=== PATIENT | female | born 1940 | race Caucasian/White ===

== ENCOUNTER → 2017-10-07 13:51 | Outpatient (REF) | payer MEDICARE, MEDICAID, SELFPAY ==
[2017-10-07 18:41] LABS: Basophils % 0.9 % (0.1-2.0); Eosinophils # 0.2 K/mm3 (0.0-0.4); Eosinophils % 3.4 % (0.1-12.0); Hematocrit 44.1 % (37.0-47.0); Hemoglobin 13.7 g/dL (12.2-16.2); Lymphocytes # 1.5 K/mm3 (0.7-4.5); Lymphocytes % 32.3 K/mm3 (10-50); Mean Corpuscular Hemoglobin 30.6 pg (27.0-31.2); Mean Corpuscular Volume 98.7 fl (81-99); Mean Platelet Volume 10.6 fl (7.4-10.4); Monocytes # 0.3 K/mm3 (0.1-1.0); Monocytes % 7.3 % (1.7-9.3); Neutrophils # 2.6 K/mm3 (1.8-7.8); Neutrophils % 56.1 % (37.0-80.0); Platelet Count 137 K/mm3 (142-424); Red Blood Count 4.47 M/mm3 (4.20-5.40); White Blood Count 4.7 K/mm3 (4.8-10.8)
[2017-10-07 19:34] LABS: Alanine Aminotransferase 20 U/L (12-78); Albumin Level 4.2 gm/dL (3.4-5.0); Albumin/Globulin Ratio 1.2 (1.1-1.8); Alkaline Phosphatase 83 U/L (46-116); Anion Gap 10.1 mEq/L (5-15); Aspartate Amino Transferase 19 U/L (15-37); Bilirubin,Total 0.7 mg/dL (0.2-1.0); Blood Urea Nitrogen 14 mg/dL (7-18); Calcium 9.4 mg/dL (8.5-10.1); Carbon Dioxide 31 mmol/L (21.0-32.0); Chloride 104 mmol/L (98-107); Creatinine,Serum 0.95 mg/dL (0.55-1.02); Estimated Glomerular Filt Rate 57 ml/min (>60); Free T4 (Free Thyroxine) 1.26 ng/dl (0.76-1.46); GFR (African American) 69 ML/MIN (>60); Globulin 3.5 gm/dl (1.3-3.2); Glucose 91 mg/dL (74-106); Potassium 4.1 mmoL/L (3.5-5.1); Sodium 141 mmol/L (136-145); Thyroid Stimulating Hormone 2.87 uIU/ml (0.358-3.740); Total Protein,Serum 7.7 gm/dL (6.4-8.2)
== END ==
LOC: LAB 13:51
PROVIDERS: Visit Provider Emergency Medicine
DX: R53.83 Other fatigue (principal)
CPT/HCPCS: 80053; 84439; 84443; 85025

== ENCOUNTER → 2018-11-03 15:05 | Outpatient (CLI) | payer MEDICARE, MEDICAID, SELFPAY ==
--- NOTE | 2018-11-03 15:08 | MR_ITS ---
MR cervical spine wo con, MR 3-d myelogram/MRCP Ordering Physician: Ishaan Isaac MD Patient Age: 78 years: Female HISTORY: Neck pain fall neck injury/possible fx Fell 3 days ago with left-sided neck pain. Headache. TECHNIQUE: Sagittal STIR, T1, T2, axial T1 and T2. On 1.5T Siemens wide bore MRI. 3-D MR myelogram image set obtained & performed on MRI workstation. Additional sagittal thin section T2 weighted dataset obtained from this latter acquisition as well (---76 CPT) COMPARISON :CT cervical spine 11/02/[address] performed question possible recent traumatic features at C3. However C3 appears normal signal on this MRI with no findings to suggest fracture, either recent or remote.. Even the sensitive STIR images appear surprisingly normal at C3. Thus it appears were merely viewing degenerative changes at superior endplate and I believe a a prominent basivertebral cleft(Vascular channel) at the posterior aspect of C3 accounting for its appearance on recent CT. . Cranial cervical junction appears normal. Adequate volume underlying osseous spinal canal. Multilevel cervical spondylosis and mild degenerative disc changes throughout C-spine. C2/3. Scant central disc prominence and bulge C3/.4 : Mild posterior osteophytic ridging/spondylosis... Minimal central disc protrusion, only very slightly indents the generous thecal sac at midline C4/5. Disc intact. C5/6 disc intact. Only scant central disc prominence C6/7. Disc intact C7/T1, T1/T2, T2/T3, T3/T4, T4/T5 disc intact. Prominent scoliosis at the thoracic spine with levocurvature at the upper most T-spine noted. No acute appearing compression fractures. Slight concave appearance at T2 and T3 likely distorted by the location but could reflect some minor old compression features. More likely congenital Mild degenerative facet changes mid C-spine bilaterally. IMPRESSION------- 1. No recent or acute fracture at C-spine. Particular attention directed to C3 it is intact and unremarkable MR (Degenerative changes and prominent vascular channel account for its appearance on recent CT) 2.... Developing Degenerative disc features at C-spine most notable at C3/4 & less at C2/3: ... C3/4: Central disc protrusion most evident at this level along with minor spondylosis.. Features only slightly indents the generous thecal thecal sac at midline and do not impact the cord.. ... C2/3. Scant central disc bulge .
== END ==
PROVIDERS: PCP Emergency Medicine; Visit Provider Emergency Medicine
DX: M54.2 Cervicalgia (principal); R93.7 Abnormal findings on diagnostic imaging of other parts of musculoskeletal system; W19.XXXA Unspecified fall, initial encounter
CPT/HCPCS: 72141; 76376

== ENCOUNTER 2018-11-10 13:07 | Inpatient (IN) ==
--- NOTE | 2018-11-10 13:17 | Emergency Department Note ---
ED Disposition Clinical Impression: Closed left hip fracture Qualifiers: Encounter type: initial encounter Qualified Code(s): S72.002A - Fracture of unspecified part of neck of left femur, initial encounter for closed fracture Disposition: Admitted As Inpatient Condition on Discharge: Fair - Critical Care Critical Care Time: No Attestation: On 11/10/18, the high probability of a clinically significant, sudden or life threatening deterioration of the following system(s) required my full and direct attention, intervention and personal management. The time I documented below is in addition to time spent performing reported procedures but includes the following listed in this critical care notation. Medical Decision Making - Mj Inquiry Pt receiving controlled substance: Yes Mj was queried for this patient: No Reason not queried -: Emergent pt cond-no time Risks and benefits of using a controlled substance: were not discussed with pt by me Vital Signs: 11/10/18 13:07 11/10/18 14:42 11/10/18 15:13 Temperature 100.0 F H Temperature Source Oral Pulse Rate [Right Brachial] 80 80 86 Respiratory Rate 16 18 Blood Pressure [Right Arm] 179/87 H 191/99 H 174/95 H Blood Pressure Mean [Right Arm] 117 129 121 Blood Pressure Source [Right Arm] Automatic Cuff Automatic Cuff Automatic Cuff Blood Pressure Position [Right Arm] Sitting Supine Sitting 02 Sat by Pulse Oximetry 93 L 91 L 93 L Oxygen Delivery Method Room Air Room Air Nasal Cannula Oxygen Flow Rate (LPM) 2.5 - Lab Data Lab Results 11/10/18 13:20: WBC 5.7, RBC 4.15 L, Hgb 12.7, Hct 38.5, MCV 92.7, MCH 30.5, MCHC 32.9, RDW 13.6, Plt Count 131 L, MPV 9.6, Neut % (Auto) 63.3, Lymph % (Auto) 28.5, [place] % (Auto) 6.2, Eos % (Auto) 1.2, Baso % (Auto) 0.8, Neut # (Auto) 3.6, Lymph # (Auto) 1.6, [place] # (Auto) 0.4, Eos # (Auto) 0.1, Baso # (Auto) 0.0 11/10/18 13:20: Sodium 143, Potassium 3.1 L, Chloride 104, Carbon Dioxide 29, Anion Gap 13.1, BUN 10, Creatinine 0.87, Estimated Creat Clear 27, Estimated GFR 63, Est GFR ( Amer) 76, Glucose 110 H, Calcium 9.2, Total Bilirubin 0.9, AST 22, ALT 25, Alkaline Phosphatase 86, Total Creatine Kinase 58, Troponin I < 0.02, Total Protein 7.7, Albumin 3.8, Globulin 3.9 H, Albumin/Globulin Ratio 1.0 L 11/10/18 13:40: Urine Color Yellow, Urine Appearance Clear, Urine pH 6.5, Ur Specific [place] 1.010, Urine Protein Negative, Urine Glucose (UA) Negative, Urine Ketones Negative, Urine Blood Negative, Urine Nitrate Negative, Urine Bilirubin Negative, Urine Urobilinogen 0.2, Ur Leukocyte Esterase Negative, Urine RBC None, Urine WBC 5-10, Ur Squamous Epith Cells 3-5, Urine Bacteria Trace 11/10/18 15:11: Lactate 0.8 Result diagrams: 11/10/18 13:20 11/10/18 13:20 Orders (Tests/Meds): ED MEDICATIONS Generic Name Dose Route Start Last Admin Trade Name [place] PRN Reason Stop Dose Admin Amlodipine Besylate 5 mg 11/11/18 09:00 Norvasc 5mg Tablet PO 12/11/18 08:59 DAILY PRISCILLA Sodium Chloride 1,000 mls @ 50 mls/hr 11/10/18 15:38 Sod Chlor 0.9% 1000ml Bag IV 12/10/18 15:37 .Q20H PRISCILLA Lisinopril 2.5 mg 11/11/18 09:00 Zestril 2.5mg Tablet PO 12/11/18 08:59 DAILY PRISCILLA Morphine Sulfate 2 mg 11/10/18 15:38 Morphine 4mg/Ml Syringe IV 12/10/18 15:37 Q4HP PRN Severe Pain Ondansetron HCl 4 mg 11/10/18 15:38 Zofran 4mg/2ml Vial IV 12/10/18 15:37 Q8HP PRN Nausea Sodium Chloride 10 ml 11/10/18 15:38 Saline Flush 10ml Syringe IV 12/10/18 13:31 NEEDED PRN Maintain IV Site Discontinued Medications Generic Name Dose Route Start Last Admin Trade Name Freq PRN Reason Stop Dose Admin Morphine Sulfate 2 mg 11/10/18 13:37 11/10/18 15:06 Morphine 4mg/Ml Syringe IV 11/10/18 13:38 2 mg ONCE ONE Administration Ondansetron HCl 4 mg 11/10/18 13:37 11/10/18 15:06 Zofran 4mg/2ml Vial IV 11/10/18 13:38 4 mg ONCE ONE Administration Potassium Chloride 40 meq 11/10/18 15:18 11/10/18 15:50 Klor-Con 20meq Tablet PO 11/10/18 15:19 40 meq ONCE ONE Administration Sodium Chloride 10 ml 11/10/18 13:32 Saline Flush 10ml Syringe IV 12/10/18 13:31 NEEDED PRN Maintain IV Site ORDERS Category Date Time Status Consult to Cardiology [CONS] Routine Cons 11/10/18 15:38 Active Consult to Physician [CONS] Routine Cons 11/10/18 15:38 Ordered Blood Culture Stat Micro 11/10/18 15:51 Received - Radiology Data #1 Image(s): Chest, Hip, Femur Image Reviewed: Yes I reviewed the patient's radiology image Hip: Impacted subcapital fracture left hip. Femur: No additional femur fracture was found. Chest: Severe scoliosis, no acute process - CT Data CT Scan: Head, C-Spine Time Received: 14:[address] Reviewed: Yes: I have viewed the radiologist's interpretation Findings Narrative: Head: Negative Cervical spine: Degenerative changes, no acute fracture - ECG Data Tracing #1 EKG interpreted by Kailash Oliveros MD: Rhythm: sinus Rate: 80 [place]: normal Ectopy: none Conduction: normal ST Segment Changes: none T Wave Changes: none Q Waves: none No evidence of acute ischemia or injury Poor R wave progression. Baseline artifact present, but I consider the EKG adequate for accurate interpretation. - Physician Consults Physician Consulted: Freddie Time: 14:58 Reason -: Orthopedic Eval/Care Comment/Response: No traction needed. N.p.o. after midnight. Additional Consult: Poncho Time: 15:01 Reason -: Admission Comment/Response: Agrees to admit the patient to the hospital. We discussed the patient's clinical information, including history, exam, laboratory and radiology results and ED course. Per hospital procedure, I will write temporary bridge inpatient orders on the patient. Specific orders requested by the admit deborah physician: Cardiology consult, echo Additional Consult: BRUCE Benton for Dr. Lynch Time: 15:25 Reason -: Cardiology Eval/Care Comment/Response: Informed of consult General Adult HPI - General Chief complaint: Fall Stated complaint: fall Time Seen by Provider: 11/10/18 13:16 Mode of Arrival: EMS Limitations: No Limitations Description of Symptoms (Recalled from ER Triage Doc. by RN): PT advises she was walking across her bedroom when she fell. Unsure of why she fell and now she has left hip/thigh pain. Pt has been falling a lot recently and currently has a fx in her neck. - History of Present Illness HPI narrative: Brought in by ambulance for a fall. Patient says she fell because her left lower extremity gave out on her. She complains of pain in her left thigh and hip. Great granddaughter says she found her laying on her left side. She denies hitting her head and denies headache, but says her neck hurts since she fell today. She denies any other injuries. She also fell a week ago and was seen in this emergency department. She had an extensive workup including CT scans of her head and cervical spine. CT scan of her cervical spine showed a questionable fracture of C3, but a follow-up MRI was negative. However, she says her neck pain that she has now is new after the fall today. - Related Data Home Medications Medication Instructions Recorded Confirmed Amlodipine Besylate [Norvasc 5mg 5 mg PO DAILY 11/02/18 11/10/18 tablet] Lisinopril [Lisinopril 2.5mg Tab] 2.5 mg PO DAILY 11/02/18 11/10/18 Loratadine [Allergy Relief] 10 mg PO DAILY 11/02/18 11/10/18 Previous Rx's Medication Instructions Recorded ibuprofen 400 mg tablet 400 mg PO BID PRN #60 tab 07/20/18 Allergies Allergy/AdvReac Type Severity Reaction Status Date / Time No Known Allergies Allergy Unverified 11/10/18 15:46 [facility] History - Hepatitis A Screen Drug use history?: No High risk sexual behaviors?: No History of sexually transmitted infection?: No Currently employed?: No Childcare worker?: No Do you have indoor plumbing?: Yes Do you have electricity?: Yes Attestation statement:: This patient has been screened for Hepatitis A risk factors. I have reviewed the patient's past medical history: Yes Medical History: Reports:: Coronary Artery Disease, Heart Murmur, Hypertension Other Medical History: Reports: Anemia Comment: aortic stenosis Other Surgeries: Yes: Tubal Ligation Amputation: No Fractures: No - Social History Smoking Status: Never smoker Alcohol Intake: never Substance Use Type: denies use Occupational Status: retired Family Hx:: Cancer ROS Obtained: Yes All systems reviewed & no additional complaints - Constitutional Constitutional: Denies fever(s), Reports frequent falls - Cardiovascular Cardiovascular: Denies chest pain - Respiratory Respiratory: No cough, No dyspnea - Gastrointestinal Gastrointestingal: Denies: abdominal pain, diarrhea, vomiting - Musculoskeletal Musculoskeletal: Reports as per HPI, Reports joint pain (Left hip), Reports neck pain - Neurologic Neurologic: Reports headache(s) Physical Exam - General General appearance: alert, in no apparent distress - Eye Eye exam: Present: normal appearance, PERRL, EOMI - ENT ENT exam: Present: mucous membranes moist, other (Old appearing ecchymosis of right periorbital area. Healing abrasion of upper lip.) - Neck Neck exam: Present: full ROM, trachea midline. Absent: tenderness (Posterior) - Chest Chest inspection: Present: normal inspection, symmetric chest wall rise. Absent: tenderness - Respiratory Respiratory exam: Present: normal lung sounds bilaterally. Absent: respiratory distress - Cardiovascular Cardiovascular exam: Present: regular rate, normal rhythm, normal heart sounds - Abdominal Exam Abdominal exam: Present: soft. Absent: distention, tenderness - Extremities Exam Extremities exam: Present: tenderness (Left hip and thigh. Pain increased with rotation of hip.) - Neurological Exam Neurological exam: Present: alert, oriented X3, CN II-XII intact. Absent: motor sensory deficit - Psychiatric Psychiatric exam: Present: normal affect, normal mood - Skin Skin exam: Present: warm, dry
[2018-11-10 13:41] LABS: Basophils % 0.8 % (0.1-2.0); Eosinophils # 0.1 K/mm3 (0.0-0.4); Eosinophils % 1.2 % (0.1-12.0); Hematocrit 38.5 % (37.0-47.0); Hemoglobin 12.7 g/dL (12.2-16.2); Lymphocytes # 1.6 K/mm3 (0.7-4.5); Lymphocytes % 28.5 % (10-50); Mean Corpuscular HGB Conc 32.9 g/dL (31.8-35.4); Mean Corpuscular Hemoglobin 30.5 pg (27.0-31.2); Mean Corpuscular Volume 92.7 fl (81-99); Mean Platelet Volume 9.6 fl (7.4-10.4); Monocytes # 0.4 K/mm3 (0.1-1.0); Monocytes % 6.2 % (1.7-9.3); Neutrophils # 3.6 K/mm3 (1.8-7.8); Neutrophils % 63.3 % (37.0-80.0); Platelet Count 131 K/mm3 (142-424); Red Blood Count 4.15 M/mm3 (4.20-5.40); Red Cell Distribution Width 13.6 % (11.5-17.5); White Blood Count 5.7 K/mm3 (4.8-10.8)
[2018-11-10 13:50] LABS: Microscopic, Urine URINE MICROSCOPIC (MICROSCOPIC)
[2018-11-10 13:51] LABS: Appearance,Urine CLEAR (Clear); Bilirubin,Urine Negative (Negative); Blood, Urine Negative (Negative); Color,Urine YELLOW (Yellow); Glucose,Urine (UA) Negative (Negative); Ketones,Urine Negative (Negative); Leukocyte Esterase,Urine Negative (Negative); PH,Urine 6.5 (5.0-8.5); Protein,Urine Negative (Negative); Urobilinogen,Urine 0.2 EU/dl (0.2)
[2018-11-10 13:51] LABS: Alanine Aminotransferase 25 U/L (12-78); Albumin Level 3.8 gm/dL (3.4-5.0); Alkaline Phosphatase 86 U/L (46-116); Anion Gap 13.1 mEq/L (5-15); Aspartate Amino Transferase 22 U/L (15-37); Bilirubin,Total 0.9 mg/dL (0.2-1.0); Blood Urea Nitrogen 10 mg/dL (7-18); Calcium 9.2 mg/dL (8.5-10.1); Carbon Dioxide 29 mmol/L (21.0-32.0); Chloride 104 mmol/L (98-107); Creatine Kinase 58 U/L (26-192); Globulin 3.9 gm/dl (1.3-3.2); Glucose 110 mg/dL (74-106); Potassium 3.1 mmoL/L (3.5-5.1); Sodium 143 mmol/L (136-145); Total Protein,Serum 7.7 gm/dL (6.4-8.2)
[2018-11-10 14:30] LABS: Bacteria,Urine Trace /lpf
--- NOTE | 2018-11-10 18:58 | Consult Report ---
*Admission Date: 11/10/18 *Chief complaint: Left hip pain after a fall *History of present illness: Patient is a 78-year-old female admitted from the ER for management of left hip fracture. Patient's granddaughter is in the room with her at the time of examination. Patient says she fell down while walking across the bedroom and is not sure why she fell. She thinks her left leg gave out on her. Her grandd karly says she has been falling a lot recently. She also had a fall about a week ago and was seen in the ER at which point no acute injuries were noted. Following the fall today she complained of pain in her left hip and could not weight-bear. Her granddaughter says she found her laying on her left side. She denies hitting her head and denies headache, or loss of consciousness. She denies any other injuries. She lives with her granddaughter and has walking aids including a walker at home but seldom uses them. Review of Systems - Constitutional Denies anorexia, Denies fever(s) - Eyes Denies change in vision - ENT Denies sore throat - *Cardiovascular Denies chest pain, Denies shortness of breath - *Respiratory Denies cough, Denies shortness of breath - *Gastrointestinal Denies abdominal pain - *Musculoskeletal Reports joint pain, Reports limited joint movement - *Neurologic Reports frequent falls, Reports headache(s) [facility] History Medical History: Reports:: Cancer (BREAST CANCER 30 YEARS AGO), Coronary Artery Disease, Heart Murmur, Hypertension Denies:: Diabetes Mellitus Type 1, Diabetes Mellitus Type 2, MRSA *Have you ever received a pneumonia vaccine?: Yes *Have you received a flu vaccine this season?: Yes Other Medical History: Reports: Anemia Laterality Cases: Bilateral: Breast Biopsy, Mastectomy Other Surgeries: Yes: Tubal Ligation Amputation: No Fractures: No - *Social History Educational Level: Attended Grade School Smoking Status: Never smoker Alcohol Intake: never Substance Use Type: denies use *Occupational Status:: retired Housing: house Household Members: children *Travel in the last 8 weeks: None - Psychiatric History Expresses thoughts of harming self/others: None Suicide Plan Description: No Plan Family Hx:: Cancer Meds Home Medications Medication Instructions Recorded Confirmed Type Amlodipine Besylate [Norvasc 5mg 5 mg PO DAILY 11/02/18 11/10/18 History tablet] Lisinopril [Lisinopril 2.5mg Tab] 2.5 mg PO DAILY 11/02/18 11/10/18 History Loratadine [Allergy Relief] 10 mg PO DAILY 11/02/18 11/10/18 History Ibuprofen [Motrin 400mg 400 mg PO BIDP PRN 11/11/18 11/11/18 History tablet] Allergies Allergy/AdvReac Type Severity Reaction Status Date / Time No Known Allergies Allergy Unverified 11/10/18 15:46 Exam Vital signs and Labs for Last 24 Hours: Temp Pulse Resp BP Pulse Ox 99.0 F 87 16 187/98 H 91 L 11/10/18 16:55 11/10/18 16:55 11/10/18 16:55 11/10/18 16:55 11/10/18 15:22 Laboratory Results - last 24 hr 11/10/18 13:20: WBC 5.7, RBC 4.15 L, Hgb 12.7, Hct 38.5, MCV 92.7, MCH 30.5, MCHC 32.9, RDW 13.6, Plt Count 131 L, MPV 9.6, Neut % (Auto) 63.3, Lymph % (Auto) 28.5, [place] % (Auto) 6.2, Eos % (Auto) 1.2, Baso % (Auto) 0.8, Neut # (Auto) 3.6, Lymph # (Auto) 1.6, [place] # (Auto) 0.4, Eos # (Auto) 0.1, Baso # (Auto) 0.0 11/10/18 13:20: Sodium 143, Potassium 3.1 L, Chloride 104, Carbon Dioxide 29, Anion Gap 13.1, BUN 10, Creatinine 0.87, Estimated Creat Clear 27, Estimated GFR 63, Est GFR ( Amer) 76, Glucose 110 H, Calcium 9.2, Total Bilirubin 0.9, AST 22, ALT 25, Alkaline Phosphatase 86, Total Creatine Kinase 58, Troponin I < 0.02, Total Protein 7.7, Albumin 3.8, Globulin 3.9 H, Albumin/Globulin Ratio 1.0 L 11/10/18 13:40: Urine Color Yellow, Urine Appearance Clear, Urine pH 6.5, Ur Specific [place] 1.010, Urine Protein Negative, Urine Glucose (UA) Negative, Urine Ketones Negative, Urine Blood Negative, Urine Nitrate Negative, Urine Bilirubin Negative, Urine Urobilinogen 0.2, Ur Leukocyte Esterase Negative, Urine RBC None, Urine WBC 5-10, Ur Squamous Epith Cells 3-5, Urine Bacteria Trac e 11/10/18 15:11: Lactate 0.8 I & O for Last 24 hours: Intake & Output 11/08/18 11/09/18 11/10/18 11/11/18 11:59 11:59 11:59 11:59 Intake Total 0 / 0 Output Total 850 / 850 Balance -850 / -850 Weight 85 lb 9 oz - Constitutional no acute distress, average body habitus, cooperative - *Routine HEENT Exam Head: Present: normocephalic, atraumatic Eye: Present: EOMI ENT: Present: mucous membranes moist - *Routine Neck Exam Present: supple, full ROM, trachea midline. Absent: lymphadenopathy - *Routine Respiratory Exam Present: CTA bilaterally. Absent: respiratory distress - *Routine Cardiovascular Exam Present: RRR, Normal S1, Normal S2 - *Routine Abdominal Exam Present: soft, normoactive bowel sounds. Absent: organomegaly - *Routine Extremities Exam Comments: On examination of her lower extremities, the limb lengths are equal. The alignment is neutral. On examination of the LEFT hip the skin is normal. No rashes or lesions noted. She is tender over the LEFT hip both anteriorly and posteriorly. Any attempted movements of the LEFT hip are painful. Thigh and calf are soft and nontender. Dorsalis pedis and posterior tibial pulses are palpable 1+ bilaterally. Sensation is grossly intact. She has good range of knee, foot, ankle and toe movements. Imaging: X-rays of her pelvis and LEFT hip were reviewed along with the radiologist's report. The x-rays show a LEFT valgus impacted subcapital femoral neck fracture. The hip joint space is well preserved. No other acute changes noted. There is a degree of osteopenia noted. No evidence of any metastatic lesions on the x-ray. - *Routine Skin Exam Present: intact, warm, normal turgor - *Routine Neurological Exam Present: alert, oriented X3, CN II-XII intact - Routine Psychiatric Exam Present: normal affect, cooperative Results - Labs Result Diagrams: 11/15/18 06:23 11/15/18 06:23 Labs: Abnormal lab results 11/10/18 11/10/18 Range/Units 13:20 13:20 RBC 4.15 L (4.20-5.40) M/mm3 Plt Count 131 L (142-424) K/mm3 Potassium 3.1 L (3.5-5.1) mmoL/L Glucose 110 H (74-106) mg/dL Globulin 3.9 H (1.3-3.2) gm/dl Albumin/Globulin Ratio 1.0 L (1.1-1.8) H & H 11/10/18 Range/Units 13:20 Hgb 12.7 (12.2-16.2) g/dL Hct 38.5 (37.0-47.0) % All other labs normal. Assessment and Plan (1) Closed left hip fracture Current visit: Yes Status: Acute Qualifiers: Encounter type: initial encounter Qualified Code(s): S72.002A - Fracture of unspecified part of neck of left femur, initial encounter for closed fracture Category: Medical Code(s): S72.002A - Fracture of unspecified part of neck of left femur, initial encounter for closed fracture - Assessment and plan all Dx Assessment and Plan for all problems:: I have reviewed the clinical and x-ray findings with the patient and her granddaughter who was with her in the room. I have discussed the diagnosis and management options in detail including both nonsurgical and surgical. We discussed the surgical options in the form of either cannulated hip screw fixation or hemiarthroplasty. We discussed the pros and cons of both the procedures. Given that the fracture appears to be stable with valgus impaction, I have recommended a cannulated hip screw fixation. We discussed the possibility of nonunion, avascular necrosis, loss of fixation and the likely need for further surgery in future if we elected this option. I explained the procedure, risks, benefits, alternatives and the expected postoperative course. I also explained to the patient and her granddaughter with drawings of the fracture and the proposed surgical procedure. I have given the patient a copy of the x-ray and also showed postoperative x-rays of similar fractures treated surgically. The complications discussed include but are not limited to- infection, injury to nerves and blood vessels, DVT and PE, femur fracture, limb length inequality, implant failure, nonunion, malunion, avascular necrosis, loss of fixation, heterotopic ossification, incomplete relief of pain, incomplete return of function or motion, likely need for further surgery in future including conversion to a myrtle-or total hip arthroplasty, anesthetic/medical complications including heart attack, stroke, transfusion reactions and even . We discussed how any of these events can be devastating. I've explained that the patient is at a significant surgical risk due to her age, medical issues, and fragility of the bone. Family and patient seem to understand and accept these risks. We have discussed nonsurgical alternatives as well. The nonoperative management would essentially consist of prolonged bed rest and traction (skeletal/skin) in bed and pain medication and has exceptionally poor outcome. This could result in nonunion and/or malunion of the fracture and almost certainly, the patient has a very high risk of decubitus ulcers, UTI, respiratory tract infections, DVT/PE and other complications from being bedridden. I have explained to them that the standard of care for this type of fracture is surgical throughout the country unless the patient is very ill to undergo surgery. We also discussed the postoperative course including the rehab and physical therapy required. Patient lives at home with her granddaughter and may need to go to a snf facility for rehab after surgery. All the questions were answered and patient/family verbalized a good understanding. We will obtain a medical clearance from Dr. Isaac. We will also obtain a preoperative anesthetic evaluation. The limb was appropriately marked and initialed by me. Recommendations for preoperative preparation include- Type and screen Electrocardiogram Continue nothing by mouth after 4 AM Schedule for surgery with the Operating Room Continue IV fluids DVT prophylaxis as per protocol Analgesia as needed Consent patient for a cannulated screw fixation LEFT hip/hemiarthroplasty LEFT hip. Order 2 g of IV Ancef for preoperative prophylaxis to start half an hour before surgery. I am planning to take the patient for surgery at the earliest opportunity once medically cleared. Thank you for the opportunity to take part in the care of this very pleasant patient.
--- NOTE | 2018-11-10 21:42 | Cardiology Report ---
PROCEDURE: 2-D M-mode and color Doppler study INDICATIONS FOR THE TEST: Chest pain COPD Heart Murmur+ Tobacco Smoking Palpitations Fatigue+ Syncope Edema Hypertension+Diabetes Mellitus Rheumatic Fever+ SOB+WILLIS+Obesity Hyperlipidemia Family History HD+ Additional History stents, CAD, preop clearance hip fracture, hx of rheumatic fever PATIENT INFORMATION HEIGHT: 60 WEIGHT: 80 GENDER: Female B/P: 178/87 2-D/M-MODE INTERPRETATION: 2-D MEASUREMENTS OBSERVED VALUES IN CMS Right Ventricular Dimension (RVDd) 2.6 Interventricular Septum (Thickness)(IVsd) 1.0 Left Ventricular Internal Dimensions(LVIDd) 3.4 Left Ventricular Posterior Wall (Thickness)(LVPWd) 0.9 Aortic Root 1.7 Aortic Cusp Separation 0.9 Left Atrial Dimensions (LAD) 3.2 2D 1. Left atrium is mildly enlarged, left ventricle is normal size, mild concentric left ventricular hypertrophy, visually estimated ejection fraction 55% with no regional wall motion abnormality. 2. The right atrium and right ventricle are normal size and contractility. 3. The aortic valve is heavily thickened and calcified with severe restriction the leaflet mobility. 4. The mitral and tricuspid valve leaflets are minimally thickened 5. The pulmonic valve is poorly present. 6. No significant pericardial effusion noted. DOPPLER INTERROGATION: 1. The maximum aortic out flow velocity recorded study is 3.6 m/s, resulting in a mean gradient across valve of 33 mmHg, valve area is 1.0 sq cm represents severe aortic stenosis. There is moderate aortic insufficiency present. 2. The mitral inflow velocity within normal range, there is no mitral stenosis, there is mild mitral regurgitation, grade 1 diastolic dysfunction seen without tissue Doppler evidence of raised left atrial pressure. 3. Mild tricuspid regurgitation, calculated right ventricular systolic pressure is 44 mmHg consistent with moderate pulmonary hypertension. CONCLUSION: 1. Mildly enlarged left atrium, normal left ventricular size, mild concentric left ventricular hypertrophy, visually estimate ejection fraction of 55% with no regional wall motion abnormality. Grade 1 diastolic dysfunction seen without tissue Doppler evidence of raised left atrial pressure. 2. Thickened and calcified aortic valve with mean gradient across valve of 33 mmHg, valve area 1.0 sq cm represents severe aortic stenosis, there is moderate aortic insufficiency. 3. Mild mitral and tricuspid regurgitation, calculated right ventricular systolic pressure 44 mmHg consistent with moderate pulmonary hypertension. 4. No significant pericardial effusion noted.
[2018-11-11 07:06] LABS: Anion Gap 8.8 mEq/L (5-15); Calcium 8.8 mg/dL (8.5-10.1); Potassium 3.8 mmoL/L (3.5-5.1)
--- NOTE | 2018-11-11 07:33 | Pharmacy Consult Notes ---
[facility] Pharmacy VTE Monitoring - Patient Demographics Admission date: 11/10/18 Report Date: 11/11/18 Time: 07:32 Allergies/Adverse Reactions: Patient Allergies No Known Allergies Allergy (Unverified 11/10/18 15:46) Height: 1.52 m Weight: 41.078 kg Patient Problems: Current Active Problems Closed left hip fracture (Acute) - VTE Risk Labs: VTE Related Lab Results Hgb 12.7 g/dL (12.2-16.2) 11/10/18 13:20 Hct 38.5 % (37.0-47.0) 11/10/18 13:20 Plt Count 131 K/mm3 (142-424) L 11/10/18 13:20 BUN 10 mg/dL (7-18) 11/10/18 13:20 Creatinine 0.87 mg/dL (0.55-1.02) 11/10/18 13:20 Estimated Creat Clear 27 mL/min (50-200) 11/10/18 13:20 Was VTE Risk Assessment Performed: Yes VTE Risk Level: Very Low Risk - Prophylaxis VTE Prophylaxis Ordered?: Yes Types of VTE Prophylaxis: TEDS Knee High Location of Applied Device: Bilateral Lower Extremeties - VTE Diagnosis Confirmed Treatment or plan recommended: Continue Current Treatment
--- NOTE | 2018-11-11 08:56 | Consult Report ---
History of Present Illness Consult date: 11/11/18 Requesting physician: Ishaan Isaac Consult reason: pre-op evaluation Chief complaint: pre-op evaluation Additional Medical History:: 1. Aortic stenosis, severe A. Echo, 11/2018, 2D 1. Left atrium is mildly enlarged, left ventricle is normal size, mild concentric left ventricular hypertrophy, visually estimated ejection fraction 55% with no regional wall motion abnormality. 2. The right atrium and right ventricle are normal size and contractility. 3. The aortic valve is heavily thickened and calcified with severe restriction the leaflet mobility. 4. The mitral and tricuspid valve leaflets are minimally thickened 5. The pulmonic valve is poorly present. 6. No significant pericardial effusion noted. DOPPLER INTERROGATION: 1. The maximum aortic out flow velocity recorded study is 3.6 m/s, resulting in a mean gradient across valve of 33 mmHg, valve area is 1.0 sq cm represents severe aortic stenosis. There is moderate aortic insufficiency present. 2. The mitral inflow velocity within normal range, there is no mitral stenosis, there is mild mitral regurgitation, grade 1 diastolic dysfunction seen without tissue Doppler evidence of raised left atrial pressure. 3. Mild tricuspid regurgitation, calculated right ventricular systolic pressure is 44 mmHg consistent with moderate pulmonary hypertension. CONCLUSION: 1. Mildly enlarged left atrium, normal left ventricular size, mild concentric left ventricular hypertrophy, visually estimate ejection fraction of 55% with no regional wall motion abnormality. Grade 1 diastolic dysfunction seen without tissue Doppler evidence of raised left atrial pressure. 2. Thickened and calcified aortic valve with mean gradient across valve of 33 mmHg, valve area 1.0 sq cm represents severe aortic stenosis, there is moderate aortic insufficiency. 3. Mild mitral and tricuspid regurgitation, calculated right ventricular systolic pressure 44 mmHg consistent with moderate pulmonary hypertension. 4. No significant pericardial effusion noted. 2. Left femoral neck fracture, 11/2018 3. HTN A. Renal angiogram, 10/2014, ANGIOGRAPHIC RESULTS: 1. The right renal artery is singular and has mild nonflow limiting stenosis in the proximal segment followed by a small long tubular aneurysm followed by a mild nonflow limiting stenosis. There is no angiographic evidence of fibromuscular dysplasia 2. The left renal artery is singular and has an unusual moderate sized aneurysm in the distal aspect of the renal artery. Branching off this aneurysm are multiple smaller renal arteries which then go into the parenchyma itself. The aneurysm is approximately 1.5 cm to 2 cm in dimension. This aneurysm has an almost vascular ectatic appearance. Impression: 1. At least moderate-sized left renal artery aneurysm 2. 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 Medical management for both aneurysms 2. Control of hypertension 3. The left aneurysm is not amenable to percutaneous intervention such as stent grafting due to its unusual location and morphology. This aneurysm is very distal in the main segment of the renal artery and then has multiple subsegmental branches off this aneurysm. There is no way to exclude the aneurysm because of the complex of the of the aneurysm with its location being so distal in the renal artery. The only treatment for this would be nephrectomy if this exceeds 2.1 cm. I would recommend a CTA of the renal artery to get a specific measurement. If greater than 2.1 cm we may want to refer her for nephrectomy. This is a fairly ill lady very thin and almost appears malnourished. Nephrectomy is a major undertaking and could render her significant morbidity and possibly even mortality due to the vastness of the surgery. We may want to continue treating her medically either in if the aneurysm as above 2.1 cm due to this specific patient's likelihood for significant morbidity mortality with this large surgical undertaking 4. Underweight 5. Lexiscan myoview, 09/2014, no ischemia and normal LVEF. History of present illness: 78-year-old white female admitted for hip fracture after fall. Patient relates walking through her house when she fell. She is unsure as to whether she had chest pain, blacked out or just tripped and fell. Patient's granddaughter is with her today but was not present at the time of the fall. Patient reportedly has been falling recently with bruising under the right eye and on the upper lip noted from a fall last week. She was worked up in the ER with possible cervical fracture but further evaluation with MRI reportedly showed no acute fracture. Head CT at that time was unremarkable. Cardiology was asked to see the patient at this time for preop evaluation. Patient does have severe severe aortic stenosis with maximum velocity of 3.6 m/s across the valve with a valve area of 1.0 sq cm. Again patient denies chest pain but is unable to provide details surrounding her recent falls. [facility] History Medical History: Reports:: Cancer (BREAST CANCER 30 YEARS AGO), Coronary Artery Disease, Heart Murmur, Hypertension Denies:: Diabetes Mellitus Type 1, Diabetes Mellitus Type 2, MRSA *Have you ever received a pneumonia vaccine?: Yes *Have you received a flu vaccine this season?: Yes Other Medical History: Reports: Anemia Laterality Cases: Bilateral: Breast Biopsy, Mastectomy Other Surgeries: Yes: Tubal Ligation Amputation: No Fractures: No - *Social History Educational Level: Attended Grade School Smoking Status: Never smoker Alcohol Intake: never Substance Use Type: denies use *Occupational Status:: retired Housing: house Household Members: children *Travel in the last 8 weeks: None - Psychiatric History Expresses thoughts of harming self/others: None Suicide Plan Description: No Plan Family Hx:: Cancer Meds Home Medications Medication Instructions Recorded Confirmed Type Amlodipine Besylate [Norvasc 5mg 5 mg PO DAILY 11/02/18 11/10/18 History tablet] Lisinopril [Lisinopril 2.5mg Tab] 2.5 mg PO DAILY 11/02/18 11/10/18 History Loratadine [Allergy Relief] 10 mg PO DAILY 11/02/18 11/10/18 History Ibuprofen [Motrin 400mg 400 mg PO BIDP PRN 11/11/18 11/11/18 History tablet] Allergies Allergy/AdvReac Type Severity Reaction Status Date / Time No Known Allergies Allergy Unverified 11/10/18 15:46 Review of Systems - *Cardiovascular Reports shortness of breath with activity, Denies chest pain - *Respiratory Reports shortness of breath with activity - *Gastrointestinal Denies abdominal pain - *Genitourinary Denies blood in urine - *Musculoskeletal Reports joint pain, Reports back pain - *Neurologic Reports frequent falls, Reports headache(s) Exam Vital signs and Labs for Last 24 Hours: Temp Pulse Resp BP Pulse Ox 98.0 F 77 16 151/82 H 96 11/11/18 08:00 11/11/18 08:00 11/11/18 08:00 11/11/18 08:00 11/11/18 08:00 Laboratory Results - last 24 hr 11/10/18 13:20: WBC 5.7, RBC 4.15 L, Hgb 12.7, Hct 38.5, MCV 92.7, MCH 30.5, MCHC 32.9, RDW 13.6, Plt Count 131 L, MPV 9.6, Neut % (Auto) 63.3, Lymph % (Auto) 28.5, [place] % (Auto) 6.2, Eos % (Auto) 1.2, Baso % (Auto) 0.8, Neut # (Auto) 3.6, Lymph # (Auto) 1.6, [place] # (Auto) 0.4, Eos # (Auto) 0.1, Baso # (Auto) 0.0 11/10/18 13:20: Sodium 143, Potassium 3.1 L, Chloride 104, Carbon Dioxide 29, Anion Gap 13.1, BUN 10, Creatinine 0.87, Estimated Creat Clear 27, Estimated GFR 63, Est GFR ( Amer) 76, Glucose 110 H, Calcium 9.2, Total Bilirubin 0.9, AST 22, ALT 25, Alkaline Phosphatase 86, Total Creatine Kinase 58, Troponin I < 0.02, Total Protein 7.7, Albumin 3.8, Globulin 3.9 H, Albumin/Globulin Ratio 1.0 L 11/10/18 13:40: Urine Color Yellow, Urine Appearance Clear, Urine pH 6.5, Ur Specific [place] 1.010, Urine Protein Negative, Urine Glucose (UA) Negative, Urine Ketones Negative, Urine Blood Negative, Urine Nitrate Negative, Urine Bilirubin Negative, Urine Urobilinogen 0.2, Ur Leukocyte Esterase Negative, Urine RBC None, Urine WBC 5-10, Ur Squamous Epith Cells 3-5, Urine Bacteria Trace 11/10/18 15:11: Lactate 0.8 11/11/18 06:43: Sodium 145, Potassium 3.8 D, Chloride 110 H, Carbon Dioxide 30, Anion Gap 8.8, BUN 10, Creatinine 0.85, Estimated Creat Clear 29, Estimated GFR 64, Est GFR ( Amer) 78, Glucose 110 H, Calcium 8.8 I & O for Last 24 hours: Intake & Output 11/08/18 11/09/18 11/10/18 11/11/18 11:59 11:59 11:59 11:59 Intake Total 0 / 0 Output Total 1310 / 1310 Balance -1310 / -1310 Weight 90 lb 9 oz - *Routine HEENT Exam Head: Present: normocephalic Eye: Present: EOMI, PERRL ENT: Present: mucous membranes moist - *Routine Neck Exam Present: supple, carotid bruit. Absent: JVD - *Routine Respiratory Exam Present: CTA bilaterally, diminished air movement. Absent: accessory muscle use, rales, rhonchi, wheezes - *Routine Cardiovascular Exam Present: RRR, murmur. Absent: gallop, rubs Comments: Grade 3/6 to 4/6 systolic ejection murmur across the precordium with radiation towards the neck. - *Routine Abdominal Exam Present: soft. Absent: tenderness, distended, guarding - *Routine Extremities Exam Absent: edema, calf tenderness - *Routine Neurological Exam Present: alert, oriented X3, moving all extremities Assessment and Plan (1) Closed left hip fracture Current visit: Yes Status: Acute Qualifiers: Encounter type: initial encounter Qualified Code(s): S72.002A - Fracture of unspecified part of neck of left femur, initial encounter for closed fracture Category: Medical Code(s): S72.002A - Fracture of unspecified part of neck of left femur, initial encounter for closed fracture (2) Severe aortic stenosis Current visit: Yes Status: Acute Category: Medical Code(s): I35.0 - Nonrheumatic aortic (valve) stenosis (3) Syncope Current visit: Yes Status: Acute Category: Medical Code(s): R55 - Syncope and collapse (4) Pre-op evaluation Current visit: Yes Status: Acute Category: Medical Code(s): Z01.818 - Encounter for other preprocedural examination - Assessment and plan all Dx Assessment and Plan for all problems:: 1. Patient is an increased but acceptable risk to proceed with surgical correction of left hip fracture. Monitor postop vitals with avoidance of meds that could cause hypotension and bradycardia. 2. With increase in falls recently in the setting of severe aortic stenosis it is presumed that the patient has become symptomatic due to her aortic stenosis. Patient will need right and left heart cath during this admission after her surgery (anticipate Friday in case dual antiplatelet therapy is needed post stenting) and possibly transfer to [facility] for evaluation for TAVR procedure.
--- NOTE | 2018-11-11 12:27 | Progress Note ---
[facility] Anesthesia Checklist - Patient Identification Patient Identification: Arm Band - Structural Data Admitted From: Inpatient Planned Operative Procedure/s: left hip cannulated screw fixation Consent for Planned Operative Procedure(s) Verified: Yes Verified Documents: Surgical Consent, History and Physical, Cardiac Clearance - NPO Status Verified Time NPO: 00:00 - Additional verifications Anesthesia Reactions: No - Airway Assessment C-Spine Mobility Assessed: Yes TMJ Mobility Assessed: Yes Dentition: Edentulous (upper and lower dentures) - Neurological Assessment Level of Consciousness: Awake, Alert - Anesthesia Plan Anesthesia Risk discussed: Yes Anesthesia Plan: Verified ASA Class: III Anesthesia Type: General [facility] History I have reviewed the patient's past medical history: Yes Medical History: Reports:: Cancer (BREAST CANCER 30 YEARS AGO), Coronary Artery Disease, Heart Murmur, Hypertension, Valvular Heart Disease (severe aortic stenosis) Denies:: Diabetes Mellitus Type 1, Diabetes Mellitus Type 2, MRSA *Have you ever received a pneumonia vaccine?: Yes *Have you received a flu vaccine this season?: Yes Other Medical History: Reports: Anemia Laterality Cases: Bilateral: Breast Biopsy, Mastectomy Other Surgeries: Yes: Tubal Ligation Amputation: No Fractures: No - *Social History Educational Level: Attended Grade School Smoking Status: Never smoker Alcohol Intake: never Substance Use Type: denies use *Occupational Status:: retired Housing: house Household Members: children *Travel in the last 8 weeks: None - Psychiatric History Expresses thoughts of harming self/others: None Suicide Plan Description: No Plan Family Hx:: Cancer
--- NOTE | 2018-11-11 12:28 | History & Physical Report ---
*Admission Date: 11/10/18 *Chief complaint: fall *History of present illness: this wf presents with fall at home - uncertain etiology but prob syncopal related to aortic stenosis - she has had increased fall over the last few days - pt was seen in the ed -T advises she was walking across her bedroom when she f ell. Unsure of why she fell and now she has left hip/thigh pain. Pt has been falling a lot recently and currently has a fx in her neck. Brought in by ambulance for a fall. Patient says she fell because her left lower extremity gave out on her. She complains of pain in her left thigh and hip. Great granddaughter says she found her laying on her left side. She denie s hitting her head and denies headache, but says her neck hurts since she fell today. She denies any other injuries. She also fell a week ago and was seen in this emergency department. She had an extensive workup including CT scans of her head and cervical spine. CT scan of her cervical spine showed a questionable fracture of C3, but a follow-up MRI was negative. However, she says her neck pain that she has now is new after the fall today- pt was admitted for surg and eval of syncope [facility] History I have reviewed the patient's past medical history: Yes Medical History: Reports:: Cancer (BREAST CANCER 30 YEARS AGO), Coronary Artery Disease, Heart Murmur, Hypertension Denies:: Diabetes Mellitus Type 1, Diabetes Mellitus Type 2, MRSA *Have you ever received a pneumonia vaccine?: Yes *Have you received a flu vaccine this season?: Yes Other Medical History: Reports: Anemia Laterality Cases: Bilateral: Breast Biopsy, Mastectomy Other Surgeries: Yes: Tubal Ligation Amputation: No Fractures: No - *Social History Educational Level: Attended Grade School Smoking Status: Never smoker Alcohol Intake: never Substance Use Type: denies use *Occupational Status:: retired Housing: house Household Members: children *Travel in the last 8 weeks: None - Psychiatric History Expresses thoughts of harming self/others: None Suicide Plan Description: No Plan Family Hx:: Cancer Review of Systems - Review of Systems Review of systems:: pertinent systems reviewed and negative unless documented below - Constitutional Denies body ache(s) - Eyes Denies change in vision - ENT Denies sore throat - *Cardiovascular Denies chest pain, Denies shortness of breath - *Respiratory Denies cough - *Gastrointestinal Denies abdominal pain, Denies vomiting - *Genitourinary Denies blood in urine - *Musculoskeletal Reports joint pain, Reports joint swelling, Reports limited joint movement, Denies neck pain - Integumentary/Breasts Denies rash - *Neurologic Reports frequent falls, Reports headache(s), Denies seizure-like activity - Psychiatric Denies anxiety Meds Home Medications Medication Instructions Recorded Confirmed Type Amlodipine Besylate [Norvasc 5mg 5 mg PO DAILY 11/02/18 11/10/18 History tablet] Lisinopril [Lisinopril 2.5mg Tab] 2.5 mg PO DAILY 11/02/18 11/10/18 History Loratadine [Allergy Relief] 10 mg PO DAILY 11/02/18 11/10/18 History Ibuprofen [Motrin 400mg 400 mg PO BIDP PRN 11/11/18 11/11/18 History tablet] Allergies Allergy/AdvReac Type Severity Reaction Status Date / Time No Known Allergies Allergy Unverified 11/10/18 15:46 Exam Vital signs and Labs for Last 24 Hours: Temp Pulse Resp BP Pulse Ox 98.0 F 77 16 151/82 H 96 11/11/18 08:00 11/11/18 08:00 11/11/18 08:00 11/11/18 08:00 11/11/18 08:30 Laboratory Results - last 24 hr 11/10/18 13:20: WBC 5.7, RBC 4.15 L, Hgb 12.7, Hct 38.5, MCV 92.7, MCH 30.5, MCHC 32.9, RDW 13.6, Plt Count 131 L, MPV 9.6, Neut % (Auto) 63.3, Lymph % (Auto) 28.5, [place] % (Auto) 6.2, Eos % (Auto) 1.2, Baso % (Auto) 0.8, Neut # (Auto) 3.6, Lymph # (Auto) 1.6, [place] # (Auto) 0.4, Eos # (Auto) 0.1, Baso # (Auto) 0.0 11/10/18 13:20: Sodium 143, Potassium 3.1 L, Chloride 104, Carbon Dioxide 29, Anion Gap 13.1, BUN 10, Creatinine 0.87, Estimated Creat Clear 27, Estimated GFR 63, Est GFR ( Amer) 76, Glucose 110 H, Calcium 9.2, Total Bilirubin 0.9, AST 22, ALT 25, Alkaline Phosphatase 86, Total Creatine Kinase 58, Troponin I < 0.02, Total Protein 7.7, Albumin 3.8, Globulin 3.9 H, Albumin/Globulin Ratio 1.0 L 11/10/18 13:40: Urine Color Yellow, Urine Appearance Clear, Urine pH 6.5, Ur Specific [place] 1.010, Urine Protein Negative, Urine Glucose (UA) Negative, Urine Ketones Negative, Urine Blood Negative, Urine Nitrate Negative, Urine Bilirubin Negative, Urine Urobilinogen 0.2, Ur Leukocyte Esterase Negative, Urine RBC None, Urine WBC 5-10, Ur Squamous Epith Cells 3-5, Urine Bacteria Trace 11/10/18 15:11: Lactate 0.8 11/11/18 06:43: Sodium 145, Potassium 3.8 D, Chloride 110 H, Carbon Dioxide 30, Anion Gap 8.8, BUN 10, Creatinine 0.85, Estimated Creat Clear 29, Estimated GFR 64, Est GFR ( Amer) 78, Glucose 110 H, Calcium 8.8 11/11/18 09:20: Blood Type O Positive, Antibody Screen Negative I & O for Last 24 hours: Intake & Output 11/09/18 11/10/18 11/11/18 11/12/18 11:59 11:59 11:59 11:59 Intake Total 0 / 0 Output Total 1310 / 1310 Balance -1310 / -1310 Weight 90 lb 9 oz - Constitutional no acute distress, thin - *Routine HEENT Exam Head: Present: normocephalic Eye: Present: EOMI, PERRL ENT: Present: mucous membranes dry - *Routine Neck Exam Present: tenderness, trachea midline. Absent: full ROM - *Routine Respiratory Exam Present: decreased breath sounds - *Routine Cardiovascular Exam Present: RRR, murmur, S4 - *Routine Abdominal Exam Present: soft - *Routine Extremities Exam Absent: calf tenderness - Routine Back/Spine/Pelvis Exam Comments: pelvis stable - *Routine Skin Exam Present: intact - *Routine Neurological Exam Present: alert, oriented X3, CN II-XII intact. Absent: motor deficit - Routine Psychiatric Exam Present: normal affect - Detailed Lower Extremity Exam Hip: Left deformity, Left shortening of the leg, Left decreased ROM, Left pain with external rotation, Left pain with internal rotation Assessment and Plan (1) Closed left hip fracture Current visit: Yes Status: Acute Qualifiers: Encounter type: initial encounter Qualified Code(s): S72.002A - Fracture of unspecified part of neck of left femur, initial encounter for closed fracture Category: Medical Code(s): S72.002A - Fracture of unspecified part of neck of left femur, initial encounter for closed fracture (2) Severe aortic stenosis Current visit: Yes Status: Acute Category: Medical Code(s): I35.0 - Nonrheumatic aortic (valve) stenosis (3) Syncope Current visit: Yes Status: Acute Category: Medical Code(s): R55 - Syncope and collapse (4) Pre-op evaluation Current visit: Yes Status: Acute Category: Medical Code(s): Z01.818 - Encounter for other preprocedural examination (5) Thrombocytopenia Current visit: Yes Status: Acute Category: Medical Code(s): D69.6 - Thrombocytopenia, unspecified (6) Hypokalemia Current visit: Yes Status: Acute Category: Medical Code(s): E87.6 - Hypokalemia (7) Low body mass index (BMI) Current visit: Yes Status: Acute Category: Medical (8) DDD (degenerative disc disease), cervical Current visit: Yes Status: Acute Category: Medical Code(s): M50.30 - Other cervical disc degeneration, unspecified cervical region (9) Encephalomalacia Current visit: Yes Status: Acute Category: Medical Code(s): G93.89 - Other specified disorders of brain (10) History of rib fracture Current visit: Yes Status: Acute Category: Medical Code(s): Z87.81 - Personal history of (healed) traumatic fracture (11) Scoliosis Current visit: Yes Status: Acute Qualifiers: Scoliosis type: thoracogenic Spinal region: thoracic Qualified Code(s): M41.34 - Thoracogenic scoliosis, thoracic region Category: Medical Code(s): M41.9 - Scoliosis, unspecified (12) Pulmonary hypertension Current visit: Yes Status: Acute Category: Medical Code(s): I27.20 - Pulmonary hypertension, unspecified (13) Falls frequently Current visit: Yes Status: Acute Category: Medical Code(s): R29.6 - Repeated falls
--- NOTE | 2018-11-11 16:24 | Progress Note ---
[facility] Anesthesia Record Part II Discharge Time: 18:45 Destination: Medical Surgical Department PACU nurse assessment reviewed?: Yes Patient Condition:: Good Anesthesia Complications:: None Swallowing reflex intact?: Yes Cyanosis?: No
--- NOTE | 2018-11-11 16:24 | Progress Note ---
[facility] Anesthesia Record Part I Intake, IV Amount: 800 Estimated blood loss (mL): 20 Urine output (mL): 400 Blood Products used (#): none Blood Pressure: 144/97 SaO2: 97 Pulse Rate: 86 Respiratory Rate: 16 Temperature: 98.5 F Patient is:: Awake, Stable Stable to PACU at:: 18:15
--- NOTE | 2018-11-11 16:48 | Operative Note ---
Date of procedure: 11/11/18 Pre-op Diagnosis:: Closed, impacted subcapital femoral neck fracture, left hip Post-op Diagnosis:: Same Procedure performed:: Cannulated screw fixation, left hip Surgeon:: Aj Frazier MD WILDLIFE ECOLOGIST:: Johnny Justice Anesthesia: GETA Estimated blood loss (mL): 25 Clinical Note:: Patient is an 78-year-old female who sustained a closed valgus impacted fracture neck of LEFT femur following a fall at home. Internal fixation with cannulated hip screws is indicated to relieve pain and restore function. Please refer to orthopedic consult note for full details. Operative findings:: Closed nondisplaced valgus impacted femoral neck fracture LEFT hip as noted on the preoperative hip x-rays. The proximal femur bone quality is good. Operative note:: On the day of the procedure the patient and family was met on the floor, and a physical examination was performed. The operative side and site were marked and initialed by me. I reviewed the clinical and x-ray findings with the patient and her granddaughter who is her power of in home caregiver. I have discussed the diagnosis and management options in detail including both nonsurgical and surgical. We discussed the surgical options in the form of either cannulated hip screw fixation or hemiarthroplasty/total hip arthroplasty. We discussed the pros and cons of these procedures. Given that the fracture appears to be stable with valgus impaction, I have recommended a cannulated hip screw fixation. We discussed the possibility of nonunion, avascular necrosis, loss of fixation and the likely need for further surgery in future if we elected this option. I explained the procedure, risks and benefits, alternatives and the expected pos toperative course. I explained with drawings and x-ray pictures of the fracture and the proposed surgical procedure. The complications discussed include but are not limited to- infection, injury to nerves and blood vessels, DVT and PE, femur fracture, limb length inequality, implant failure, nonunion, malunion, avascular necrosis, loss of fixation, heterotopic ossification, incomplete relief of pain, incomplete return of function or motion, likely need for further surgery in future including conversion to a myrtle-or total hip arthroplasty, anesthetic/medical complications including heart attack, stroke, transfusion reactions and even . We discussed how any of these events can be devastating. We have discussed nonsurgical alternatives as well. We also discussed the postoperative course including the rehab and physical therapy required. All the questions were answered and patient/family verbalized a good understanding. Patient understood the risks, agreed to proceed with surgery, sig kendall the consent form and no guarantees or assurances were given or implied. Following appropriate preoperative workup and medical clearance, patient was brought to the operating room and a general anesthesia was administered. Patient was then positioned supine on the fracture table and all the bony prominences were appropriately padded. The LEFT foot was secured in the footplate and the footplate was attached to the fracture table. The RIGHT leg was placed out of the way in a leg blunt. Under fluoroscopic guidance the fracture was visualized and noted to be still holding good in valgus impaction with no change in position compared to the preoperative x-rays. The LEFT hip and thigh were then prepped and draped in the usual sterile fashion. Administration of prophylactic antibiotics was confirmed with the anesthetic team (2 g of IV Ancef was administered). A preprocedure timeout was performed as per the hospital protocol. After marking the level of the greater trochanter on the skin and the proposed screw trajectory under fluoroscopy, a skin incision was made for the lateral approach to the proximal femur. The dissection was then carried through subcutaneous tissue. The fascia april and vastus lateralis were split in line with the skin incision. This provided access to the lateral aspect of the proximal femur. Under fluoroscopic guidance a guidewire was placed starting just above the level of the lesser trochanter and directed into the femoral head. After confirming satisfactory position of this guidewire under fluoroscopic imaging, two more parallel guidewires were placed proximally in an inverted triangular fashion using the multi-guidewire placing tool. After confirming satisfactory placement of all 3 guidewires in both AP and lateral planes, the lengths were measured and appropriate screws were selected. The outer cortex was drilled over the guidewires. Then three 6.5 mm (16 mm thread) cannulated screws (1 of them with a washer) were placed over the guidewires and advanced into the femoral head to the appropriate level. The guidewires were then removed and fluoroscopic images were obtained showing satisfactory and stable fixation of the fracture. Fluoroscopic images were stored digitally. The wound was washed out with normal saline and hemostasis was obtained with the diathermy cautery. The wound was then closed in layers with the 0 Vicryl, 2-0 Vicryl and subcuticular 4-0 Monocryl sutures, Dermabond and Steri-Strips to the skin. 20 mL of 0.5 percent Marcaine was injected into the skin and subcutaneous tissue around the incision for postoperative pain relief. Sterile dressings were applied. The LEFT foot was taken out of the foot blunt and the RIGHT leg out of the leg blunt and placed on the table extension. The limb lengths were noted to be equal and there was no rotational malalignment. Dorsalis pedis and posterior tibial pulses were 2+ on both sides. At the end of the procedure, swab, needle and instrument counts were correct according to the scrub team. Patient was then transferred onto the bed and transported to the PACU in a stable condition. Patient tolerated the procedure well and there were no immediate complications. Postoperatively patient will receive 2 further doses of prophylactic antibiotics, DVT prophylaxis as per protocol and IV and oral analgesia as needed. Medical management as per Dr. Isaac's team. Patient can be mobilized on the first postoperative day with a walker, weight bearing on the LEFT side as tolerated. Implants: Synthes 6.5 mm cannulated hip screws 3-90 mm, 90 mm without washers and 95 mm with washer. Condition: stable Disposition: PACU Specimens:: None Complications:: None
[2018-11-12 07:29] LABS: Basophils % 0.2 % (0.1-2.0); Eosinophils % 0.2 % (0.1-12.0); Lymphocytes % 16.1 % (10-50); Mean Corpuscular HGB Conc 33.2 g/dL (31.8-35.4); Mean Corpuscular Hemoglobin 31.1 pg (27.0-31.2); Mean Corpuscular Volume 93.6 fl (81-99); Mean Platelet Volume 9.9 fl (7.4-10.4); Monocytes # 0.6 K/mm3 (0.1-1.0); Monocytes % 8.9 % (1.7-9.3); Neutrophils # 4.7 K/mm3 (1.8-7.8); Neutrophils % 74.5 % (37.0-80.0); Platelet Count 95 K/mm3 (142-424); Red Blood Count 3.53 M/mm3 (4.20-5.40); Red Cell Distribution Width 13.6 % (11.5-17.5); White Blood Count 6.4 K/mm3 (4.8-10.8)
[2018-11-12 07:36] LABS: Albumin Level 2.6 gm/dL (3.4-5.0); Albumin/Globulin Ratio 0.8 (1.1-1.8); Anion Gap 11.6 mEq/L (5-15); Bilirubin,Total 1.1 mg/dL (0.2-1.0); Calcium 8.5 mg/dL (8.5-10.1); Globulin 3.2 gm/dl (1.3-3.2); Potassium 3.6 mmoL/L (3.5-5.1); Total Protein,Serum 5.8 gm/dL (6.4-8.2)
--- NOTE | 2018-11-12 09:04 | Progress Note ---
Addendum entered and electronically signed by Althea Vick APRN 11/12/18 09:04: cath planned for friday Original Note: Internal Medicine - PN: Subj *Date: 11/12/18 *Time: 09:02 Exam Vital signs and Labs for Last 24 Hours: Temp Pulse Resp BP Pulse Ox 97.7 F 92 H 16 145/86 H 91 L 11/12/18 08:00 11/12/18 08:00 11/12/18 08:00 11/12/18 08:00 11/12/18 08:00 Laboratory Results - last 24 hr 11/11/18 09:20: Blood Type O Positive, Antibody Screen Negative 11/12/18 06:54: WBC 6.4, RBC 3.53 L, Hgb 11.0 L, Hct 33.0 L, MCV 93.6, MCH 31.1, MCHC 33.2, RDW 13.6, Plt Count 95 L D, MPV 9.9, Neut % (Auto) 74.5, Lymph % (Auto) 16.1, [place] % (Auto) 8.9, Eos % (Auto) 0.2, Baso % (Auto) 0.2, Neut # (Auto) 4.7, Lymph # (Auto) 1.0, [place] # (Auto) 0.6, Eos # (Auto) 0.0, Baso # (Auto) 0.0 11/12/18 06:54: Sodium 142, Potassium 3.6, Chloride 107, Carbon Dioxide 27, Anion Gap 11.6, BUN 12, Creatinine 0.75, Estimated Creat Clear 30, Estimated GFR 74, Est GFR ( Amer) 90, Glucose 90, Calcium 8.5, Total Bilirubin 1.1 H, AST 13 L D, ALT 17 D, Alkaline Phosphatase 72, Total Protein 5.8 L, Albumin 2.6 L, Globulin 3.2, Albumin/Globulin Ratio 0.8 L I & O for Last 24 hours: Intake & Output 11/09/18 11/10/18 11/11/18 11/12/18 11:59 11:59 11:59 11:59 Intake Total 0 / 0 2316 / 2316 Output Total 1310 / 1310 Balance -1310 / -1310 2316 / 2316 Weight 90 lb 9 oz 93 lb 6 oz - Constitutional no acute distress - *Routine HEENT Exam Head: Present: normocephalic Eye: Present: EOMI, PERRL ENT: Present: mucous membranes moist - *Routine Neck Exam Present: supple. Absent: lymphadenopathy - *Routine Respiratory Exam Present: CTA bilaterally - *Routine Cardiovascular Exam Present: RRR, murmur - *Routine Abdominal Exam Present: soft, normoactive bowel sounds. Absent: tenderness - *Routine Extremities Exam Absent: cyanosis, clubbing, edema Comments: Dressing to left hip - *Routine Skin Exam Present: warm. Absent: rash - *Routine Neurological Exam Present: alert, oriented X3 - Routine Psychiatric Exam Present: normal affect Assessment and Plan (1) Closed left hip fracture Current visit: Yes Status: Acute Qualifiers: Encounter type: initial encounter Qualified Code(s): S72.002A - Fracture of unspecified part of neck of left femur, initial encounter for closed fracture Category: Medical Code(s): S72.002A - Fracture of unspecified part of neck of left femur, initial encounter for closed fracture (2) Severe aortic stenosis Current visit: Yes Status: Acute Category: Medical Code(s): I35.0 - Nonrheumatic aortic (valve) stenosis (3) Syncope Current visit: Yes Status: Acute Category: Medical Code(s): R55 - Syncope and collapse (4) Pre-op evaluation Current visit: Yes Status: Acute Category: Medical Code(s): Z01.818 - Encounter for other preprocedural examination (5) Thrombocytopenia Current visit: Yes Status: Acute Category: Medical Code(s): D69.6 - Thrombocytopenia, unspecified (6) Hypokalemia Current visit: Yes Status: Acute Category: Medical Code(s): E87.6 - Hypokalemia (7) Low body mass index (BMI) Current visit: Yes Status: Acute Category: Medical (8) DDD (degenerative disc disease), cervical Current visit: Yes Status: Acute Category: Medical Code(s): M50.30 - Other cervical disc degeneration, unspecified cervical region (9) Encephalomalacia Current visit: Yes Status: Acute Category: Medical Code(s): G93.89 - Other specified disorders of brain (10) History of rib fracture Current visit: Yes Status: Acute Category: Medical Code(s): Z87.81 - Personal history of (healed) traumatic fracture (11) Scoliosis Current visit: Yes Status: Acute Qualifiers: Scoliosis type: thoracogenic Spinal region: thoracic Qualified Code(s): M41.34 - Thoracogenic scoliosis, thoracic region Category: Medical Code(s): M41.9 - Scoliosis, unspecified (12) Pulmonary hypertension Current visit: Yes Status: Acute Category: Medical Code(s): I27.20 - Pulmonary hypertension, unspecified (13) Falls frequently Current visit: Yes Status: Acute Category: Medical Code(s): R29.6 - Repeated falls - Assessment and plan all Dx Assessment and Plan for all problems:: Rounded with Dr. Isaac all orders per [place]
--- NOTE | 2018-11-12 09:49 | Progress Note ---
Subjective Date: 11/12/18 Time: 09:20 Principal diagnosis: Left hip fracture Interval history: This is an 78-year-old white female who was admitted to the hospital after a left hip fracture. She is status post fixation of the left hip. She did tolerate this well. The patient is complaining of some pain in the left hip. She does report that she is having some left hip pain but this is well controlled with the pain medication that she is receiving. She denies any chest pain or pressure. She denies any shortness of breath but does state that occasionally she will notice shortness of breath at home. The patient does have severe aortic stenosis that will need to be repaired. The patient states that she is not sure that she wants to proceed with any type of heart surgery. I had a long discussion with her about this. She denies any fever, chills, nausea, v omiting, diarrhea, PND or orthopnea. 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 Exam Vital signs and Labs for Last 24 Hours: Temp Pulse Resp BP Pulse Ox 97.7 F 92 H 16 145/86 H 91 L 11/12/18 08:00 11/12/18 08:00 11/12/18 08:00 11/12/18 08:00 11/12/18 08:00 Laboratory Results - last 24 hr 11/11/18 09:20: Blood Type O Positive, Antibody Screen Negative 11/12/18 06:54: WBC 6.4, RBC 3.53 L, Hgb 11.0 L, Hct 33.0 L, MCV 93.6, MCH 31.1, MCHC 33.2, RDW 13.6, Plt Count 95 L D, MPV 9.9, Neut % (Auto) 74.5, Lymph % (Auto) 16.1, [place] % (Auto) 8.9, Eos % (Auto) 0.2, Baso % (Auto) 0.2, Neut # (Auto) 4.7, Lymph # (Auto) 1.0, [place] # (Auto) 0.6, Eos # (Auto) 0.0, Baso # (Aut o) 0.0 11/12/18 06:54: Sodium 142, Potassium 3.6, Chloride 107, Carbon Dioxide 27, Anion Gap 11.6, BUN 12, Creatinine 0.75, Estimated Creat Clear 30, Estimated GFR 74, Est GFR ( Amer) 90, Glucose 90, Calcium 8.5, Total Bilirubin 1.1 H, AST 13 L D, ALT 17 D, Alkaline Phosphatase 72, Total Protein 5.8 L, Albumin 2.6 L, Globulin 3.2, Albumin/Globulin Ratio 0.8 L I & O for Last 24 hours: Intake & Output 11/09/18 11/10/18 11/11/18 11/12/18 23:59 23:59 23:59 23:59 Intake Total 0 / 0 2075 240 / 240 Output Total 1310 / 1310 Balance -1310 / -1310 2075 240 / 240 Weight 85 lb 9 oz 90 lb 8.984 oz 93 lb 6 oz - Constitutional no acute distress, thin, chronically ill appearing - *Routine HEENT Exam Head: Present: normocephalic, atraumatic Eye: Present: EOMI, PERRL ENT: Present: mucous membranes moist - *Routine Neck Exam Present: supple, full ROM, normal carotid upstroke. Absent: JVD, carotid bruit, lymphadenopathy - *Routine Respiratory Exam Present: decreased breath sounds, CTA bilaterally - *Routine Cardiovascular Exam Present: RRR, Normal S1, Normal S2, murmur. Absent: gallop - *Routine Abdominal Exam Present: soft, normoactive bowel sounds. Absent: tenderness, distended - *Routine Extremities Exam Present: full ROM, pulses intact. Absent: cyanosis, clubbing, edema - *Routine Skin Exam Present: intact, warm. Absent: erythema, rash - *Routine Neurological Exam Present: alert, oriented X3, CN II-XII intact. Absent: sensory deficit, motor deficit - Detailed Eye Exam Eyelids: Left normal inspection Progress Note: A&P (1) Closed left hip fracture Status: Acute Current Visit: Yes (2) Severe aortic stenosis Status: Acute Current Visit: Yes (3) Syncope Status: Acute Current Visit: Yes (4) Pre-op evaluation Status: Acute Current Visit: Yes (5) Thrombocytopenia Status: Acute Current Visit: Yes (6) Hypokalemia Status: Acute Current Visit: Yes (7) Low body mass index (BMI) Status: Acute Current Visit: Yes (8) DDD (degenerative disc disease), cervical Status: Acute Current Visit: Yes (9) Encephalomalacia Status: Acute Current Visit: Yes (10) History of rib fracture Status: Acute Current Visit: Yes (11) Scoliosis Status: Acute Current Visit: Yes (12) Pulmonary hypertension Status: Acute Current Visit: Yes (13) Falls frequently Status: Acute Current Visit: Yes Assessment and Plan for All Diagnoses:: plan: 1. The patient was admitted to the hospital with a left hip fracture. The patient is status post fixation of the left hip. She did tolerate this pro cedure well. Her pain is being managed by her primary care provider and orthopedic surgeon. 2. The patient did have severe aortic stenosis on her echocardiogram. This does need to be evaluated for possible surgical intervention. It is unclear how the patient fell and fractured her hip. She is likely having symptomatic aortic stenosis that is making her fall frequently. 3. The patient does have a history of coronary artery disease. It is unclear whether or not she has had stents in the past. But given her preop evaluation for possible aortic valve stenosis she will need to have her coronary arteries evaluated. We will plan to proceed with left and right cardiac catheterization tomorrow. We will use right radial access for the left cardiac catheterization and will use right IJ access for the right cardiac catheterization. The patient will need to have her coronary artery disease evaluated as well as her intracardial pressures prior to surgery. 4. The patient has been educated on the risks and benefits of proceeding with left and right cardiac catheterization. The patient is verbalized understanding and is agreeable in proceeding with the procedures. 5. The patient will be n.p.o. after midnight tonight in preparation for the left and right cardiac catheterization. 6. Coronary artery disease is present. 7. Her blood pressure is well controlled. 8. Her LDL goal is less than 55. 9. We will need to make sure that the patient does not get bradycardic or hypotensive given her severe aortic stenosis. 10. The patient reports having a history of an aneurysm in her abdomen. We will get a AAA ultrasound to evaluate this. 11. Further recommendations will be made pending the patient's response to treatment following her AAA ultrasound and left and right cardiac cat heterization tomorrow. Thank you for the opportunity to help participate in the care of this patient.
--- NOTE | 2018-11-12 13:15 | Progress Note ---
Subjective Date: 11/12/18 Time: 11:55 Principal diagnosis: Left hip fracture Interval history: Patient is status post cannulated screw fixation LEFT hip post op day # 1. She is lying down in the bed and a lot of family members are in the room. She says she is doing well and says her pain is well controlled with medication. She says she got out of bed earlier with the help of physical therapist and sat in the chair. She says she is eating and drinking well. No history of any fevers, chills or rigors. No history of any nausea, vomiting, chest pain or SOB. The nursing staff reports no concerns about her progress. PN: Obj Ex Vital signs: Temp Pulse Resp BP Pulse Ox 98.4 F 90 18 140/78 92 L 11/12/18 11:40 11/12/18 11:40 11/12/18 11:40 11/12/18 11:40 11/12/18 11:40 Narrative: Laboratory Results - last 24 hr 11/12/18 06:54: WBC 6.4, RBC 3.53 L, Hgb 11.0 L, Hct 33.0 L, MCV 93.6, MCH 31.1, MCHC 33.2, RDW 13.6, Plt Count 95 L D, MPV 9.9, Neut % (Auto) 74.5, Lymph % (Auto) 16.1, [place] % (Auto) 8.9, Eos % (Auto) 0.2, Baso % (Auto) 0.2, Neut # (Aut o) 4.7, Lymph # (Auto) 1.0, [place] # (Auto) 0.6, Eos # (Auto) 0.0, Baso # (Auto) 0.0 11/12/18 06:54: Sodium 142, Potassium 3.6, Chloride 107, Carbon Dioxide 27, Anion Gap 11.6, BUN 12, Creatinine 0.75, Estimated Creat Clear 30, Estimated GFR 74, Est GFR ( Amer) 90, Glucose 90, Calcium 8.5, Total Bilirubin 1.1 H, AST 13 L D, ALT 17 D, Alkaline Phosphatase 72, Total Protein 5.8 L, Albumin 2.6 L, Globulin 3.2, Albumin/Globulin Ratio 0.8 L Intake & Output 11/10/18 11/11/18 11/12/18 11/13/18 11:59 11:59 11:59 11:59 Intake Total 0 / 0 2316 / 2316 240 / 240 Output Total 1310 / 1310 300 / 300 Balance -1310 / -1310 2015 240 / 240 Weight 90 lb 9 oz 93 lb 6 oz Exam General appearance: alert, active, awake, no acute distress Cardiovascular: normal sinus rhythm, regular rate & rhythm Respiratory: No respiratory distress; speaks in full sentences ABD: normal bowel sounds, soft, no tenderness Neuro: alert, awake, speech clear On examination of her LEFT lower extremity, the limb lengths are equal. The alignment is neutral. The dressings over the LEFT hip are dry and intact. Bilateral thigh and calf are soft and nontender. Distal neurovascular status is intact. No clinical evidence of DVT. She is able to actively move the hip, knee, foot and ankle. - Urinary Catheter Management Irizarry Cath placed during this visit: yes Urethral indwelling: Yes Reason for continuing: Surgical procedure Insertion date: 11/10/18 Insertion time: 14:00 Progress Note: A&P (1) Closed left hip fracture Status: Acute Current Visit: Yes (2) Severe aortic stenosis Status: Acute Current Visit: Yes (3) Syncope Status: Acute Current Visit: Yes (4) Pre-op evaluation Status: Acute Current Visit: Yes (5) Thrombocytopenia Status: Acute Current Visit: Yes (6) Hypokalemia Status: Acute Current Visit: Yes (7) Low body mass index (BMI) Status: Acute Current Visit: Yes (8) DDD (degenerative disc disease), cervical Status: Acute Current Visit: Yes (9) Encephalomalacia Status: Acute Current Visit: Yes (10) History of rib fracture Status: Acute Current Visit: Yes (11) Scoliosis Status: Acute Current Visit: Yes (12) Pulmonary hypertension Status: Acute Current Visit: Yes (13) Falls frequently Status: Acute Current Visit: Yes Assessment and Plan for All Diagnoses:: I reviewed the surgical procedure, findings and progress with the patient. Continue mobilization weightbearing as tolerated on the LEFT side with the help of a walker. Continue PT/OT, pain management with narcotic analgesics as needed. Continue DVT prophylaxis for a total of 5 weeks postop. Discontinue IV fluids. She can be discharged when appropriate from medical standpoint. Follow-up in my office in 2 weeks' time. Medical management as per Dr. Sena team.
[2018-11-13 07:30] LABS: Basophils % 0.3 % (0.1-2.0); Eosinophils # 0.1 K/mm3 (0.0-0.4); Eosinophils % 1.1 % (0.1-12.0); Hematocrit 31.1 % (37.0-47.0); Hemoglobin 10.2 g/dL (12.2-16.2); Lymphocytes # 0.8 K/mm3 (0.7-4.5); Lymphocytes % 12.7 % (10-50); Mean Corpuscular HGB Conc 32.9 g/dL (31.8-35.4); Mean Corpuscular Hemoglobin 30.4 pg (27.0-31.2); Mean Corpuscular Volume 92.4 fl (81-99); Mean Platelet Volume 9.9 fl (7.4-10.4); Monocytes # 0.5 K/mm3 (0.1-1.0); Monocytes % 7.8 % (1.7-9.3); Neutrophils # 5.1 K/mm3 (1.8-7.8); Neutrophils % 78.1 % (37.0-80.0); Platelet Count 90 K/mm3 (142-424); Red Blood Count 3.37 M/mm3 (4.20-5.40); Red Cell Distribution Width 13.8 % (11.5-17.5); White Blood Count 6.5 K/mm3 (4.8-10.8)
[2018-11-13 07:43] LABS: Anion Gap 10.6 mEq/L (5-15); Calcium 8.5 mg/dL (8.5-10.1); Chol/HDL Ratio 3.1 (1-3.5); Potassium 3.6 mmoL/L (3.5-5.1)
--- NOTE | 2018-11-13 09:37 | Progress Note ---
Internal Medicine - PN: Subj *Date: 11/13/18 *Time: 09:35 Interval history: Patient is having a right and left-sided heart cath today for severe aortic stenosis. Exam Vital signs and Labs for Last 24 Hours: Temp Pulse Resp BP Pulse Ox 97.6 F 78 17 146/75 H 93 L 11/13/18 08:00 11/13/18 08:00 11/13/18 08:00 11/13/18 08:00 11/13/18 08:00 Laboratory Results - last 24 hr 11/13/18 07:16: WBC 6.5, RBC 3.37 L, Hgb 10.2 L, Hct 31.1 L, MCV 92.4, MCH 30.4, MCHC 32.9, RDW 13.8, Plt Count 90 L, MPV 9.9, Neut % (Auto) 78.1, Lymph % (Auto) 12.7, [place] % (Auto) 7.8, Eos % (Auto) 1.1, Baso % (Auto) 0.3, Neut # (Auto) 5.1, Lymph # (Auto) 0.8, [place] # (Auto) 0.5, Eos # (Auto) 0.1, Baso # (Auto) 0.0 11/13/18 07:16: Sodium 141, Potassium 3.6, Chloride 104, Carbon Dioxide 30, Anion Gap 10.6, BUN 13, Creatinine 0.64, Estimated Creat Clear 30, Estimated GFR 89, Est GFR ( Amer) 108, Glucose 105, Calcium 8.5 11/13/18 07:16: Triglycerides 65, Cholesterol 131 L, LDL Cholesterol 76, VLDL Cholesterol 13, HDL Cholesterol 42, Cholesterol/HDL Ratio 3.1 I & O for Last 24 hours: Intake & Output 11/10/18 11/11/18 11/12/18 11/13/18 11:59 11:59 11:59 11:59 Intake Total 0 / 0 2316 / 2316 480 / 480 Output Total 1310 / 1310 300 / 300 200 / 200 Balance -1310 / -1310 2015 280 / 280 Weight 90 lb 9 oz 93 lb 6 oz 92 lb 1 oz Microbiology Reports for the Last 24 Hours: Microbiology 11/10/18 15:51 Blood Blood Culture - Preliminary NO GROWTH AFTER 48 HOURS 11/10/18 15:51 Blood Blood Culture - Preliminary NO GROWTH AFTER 48 HOURS - Constitutional no acute distress - *Routine HEENT Exam Head: Present: normocephalic Eye: Present: EOMI, PERRL ENT: Present: mucous membranes moist - *Routine Neck Exam Present: supple. Absent: lymphadenopathy - *Routine Respiratory Exam Present: CTA bilaterally - *Routine Cardiovascular Exam Present: murmur - *Routine Abdominal Exam Present: soft, normoactive bowel sounds. Absent: tenderness - *Routine Extremities Exam Absent: cyanosis, clubbing, edema Comments: Dressing to left hip clean dry and intact - *Routine Skin Exam Present: warm. Absent: rash Comments: Dressing to left hip clean dry and intact - *Routine Neurological Exam Present: alert, oriented X3 - Routine Psychiatric Exam Present: normal affect Assessment and Plan (1) Closed left hip fracture Current visit: Yes Status: Acute Qualifiers: Encounter type: initial encounter Qualified Code(s): S72.002A - Fracture of unspecified part of neck of left femur, initial encounter for closed fracture Category: Medical Code(s): S72.002A - Fracture of unspecified part of neck of left femur, initial encounter for closed fracture (2) Severe aortic stenosis Current visit: Yes Status: Acute Category: Medical Code(s): I35.0 - Nonrheumatic aortic (valve) stenosis (3) Syncope Current visit: Yes Status: Acute Category: Medical Code(s): R55 - Syncope and collapse (4) Pre-op evaluation Current visit: Yes Status: Acute Category: Medical Code(s): Z01.818 - Encounter for other preprocedural examination (5) Thrombocytopenia Current visit: Yes Status: Acute Category: Medical Code(s): D69.6 - Thrombocytopenia, unspecified (6) Hypokalemia Current visit: Yes Status: Acute Category: Medical Code(s): E87.6 - Hypokalemia (7) Low body mass index (BMI) Current visit: Yes Status: Acute Category: Medical (8) DDD (degenerative disc disease), cervical Current visit: Yes Status: Acute Category: Medical Code(s): M50.30 - Other cervical disc degeneration, unspecified cervical region (9) Encephalomalacia Current visit: Yes Status: Acute Category: Medical Code(s): G93.89 - Other specified disorders of brain (10) History of rib fracture Current visit: Yes Status: Acute Category: Medical Code(s): Z87.81 - Personal history of (healed) traumatic fracture (11) Scoliosis Current visit: Yes Status: Acute Qualifiers: Scoliosis type: thoracogenic Spinal region: thoracic Qualified Code(s): M41.34 - Thoracogenic scoliosis, thoracic region Category: Medical Code(s): M41.9 - Scoliosis, unspecified (12) Pulmonary hypertension Current visit: Yes Status: Acute Category: Medical Code(s): I27.20 - Pulmonary hypertension, unspecified (13) Falls frequently Current visit: Yes Status: Acute Category: Medical Code(s): R29.6 - Repeated falls - Assessment and plan all Dx Assessment and Plan for all problems:: Rounded with Dr. Isaac all orders per [place] Patient is having a right and left-sided heart cath today Family is requesting rehab placement.
--- NOTE | 2018-11-13 11:51 | Progress Note ---
Addendum entered and electronically signed by Nadia White APRN 11/13/18 15:28: Pt returned from Left heart catheterization. Pt doing well. VS stable. Daughter at bedside. ANGIOGRAPHIC RESULTS: 1. The left main artery is normal 2. The left anterior descending artery has proximal and mid vessel luminal irregularities 10% 3. The circumflex artery is a nondominant vessel and has proximal to mid vessel 20% nonflow limiting stenoses 4. The right coronary artery ostium appears to originate in the anterior portion the aortic valve very close to the aortic valve and is calcified. There is antegrade flow down the vessel however the vessel could not be completely visualized 5. The ALLEN ventriculogram reveals not performed 6. The left ventricular end-diastolic pressure not measured IMPRESSION: 1. 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 Recommend CTA of the coronary artery to determine if the anomalous takeoff and has an origin close to the aortic valve. If the origin is too close to aortic valve patient would not be a tavr candidate CTA of the coronary arteries can be obtained as an outpatient Discussed with pt and daughter the results of procedure. Explained to daughter that there is abnormality of the RCA and undetermined if RCA is lying on the Aorta or if lying close to the Aorta. Recommend Coronary CTA on out patient basis. No change in cardiac medication regimen at this time. Follow up in Cardiac clinic in 2-3 weeks. Original Note: Subjective Date: 11/13/18 Time: 09:30 Principal diagnosis: Left hip fracture Interval history: 78 year old female admitted to [facility] with left fracture hip on 11/10/17. Pt is status post fixation of the left hip. Pt stated she is recovering well from the surgery. Pt stated her incisional pain is minimal and controlled with pain management. Will continue to defer pain management to Orthopedic surgeon and PCP. Pt Pt resting with no complaints this am. Pt is awaiting heart catheterization this morning. Denies chest pain, tightness or pressure. Complains of shortness of breath on occasion. No swelling of the lower extremities. Denies palpitations or dizziness. Denies nausea, vomiting or chills. VS stable at this time. Echocardiogram revealed severe Aortic stenosis and moderate Aortic Insuffiency. Uncertain at this time, if the and AI was the cause to pt's falling. Pt underwent US of aorta for possible AAA. US of Aorta revealed: No evidence of aortic aneurysm. Proximal common iliacs are unremarkable. There is mild amount of plaque noted in the aorta. IMPRESSION:No evidence of abdominal aortic aneurysm. Left heart and Right heart catheterization is pending. Depending on the results, further cardiac testing may be recommended. Due to pt's severe Aortic stenosis, pt may require surgical treatment. Discussed surgical treatment with pt. Pt undecided regarding surgery at this time. Thank you for letting Cardiology the opportunity to participate in the care of this pt. Exam Vital signs and Labs for Last 24 Hours: Temp Pulse Resp BP Pulse Ox 97.6 F 78 17 146/75 H 93 L 11/13/18 08:00 11/13/18 08:00 11/13/18 08:00 11/13/18 08:00 11/13/18 08:00 Laboratory Results - last 24 hr 11/13/18 07:16: WBC 6.5, RBC 3.37 L, Hgb 10.2 L, Hct 31.1 L, MCV 92.4, MCH 30.4, MCHC 32.9, RDW 13.8, Plt Count 90 L, MPV 9.9, Neut % (Auto) 78.1, Lymph % (Auto) 12.7, [place] % (Auto) 7.8, Eos % (Auto) 1.1, Baso % (Auto) 0.3, Neut # (Auto) 5.1, Lymph # (Auto) 0.8, [place] # (Auto) 0.5, Eos # (Auto) 0.1, Baso # (Auto) 0.0 11/13/18 07:16: Sodium 141, Potassium 3.6, Chloride 104, Carbon Dioxide 30, Anion Gap 10.6, BUN 13, Creatinine 0.64, Estimated Creat Clear 30, Estimated GFR 89, Est GFR ( Amer) 108, Glucose 105, Calcium 8.5 11/13/18 07:16: Triglycerides 65, Cholesterol 131 L, LDL Cholesterol 76, VLDL Cholesterol 13, HDL Cholesterol 42, Cholesterol/HDL Ratio 3.1 I & O for Last 24 hours: Intake & Output 11/10/18 11/11/18 11/12/1819 23:59 23:59 23:59 23:59 Intake Total 0 / 0 2075 720 / 720 0 / 0 Output Total 1310 / 1310 500 / 500 Balance -1310 / -1310 2075 220 / 220 0 / 0 Weight 85 lb 9 oz 90 lb 8.984 oz 93 lb 6 oz 92 lb 1 oz Microbiology Reports for the Last 24 Hours: Microbiology 11/10/18 15:51 Blood Blood Culture - Preliminary NO GROWTH AFTER 48 HOURS 11/10/18 15:51 Blood Blood Culture - Preliminary NO GROWTH AFTER 48 HOURS - Constitutional no acute distress, thin, cooperative - *Routine HEENT Exam Head: Present: normocephalic ENT: Present: mucous membranes moist - *Routine Neck Exam Present: supple, full ROM, normal carotid upstroke. Absent: JVD, carotid bruit - Routine Chest/Breast/Axilla Exam Chest wall: Absent: mass, pacemaker - *Routine Respiratory Exam Present: accessory muscle use, CTA bilaterally. Absent: wheezes, crackles - *Routine Cardiovascular Exam Present: RRR, Normal S1, Normal S2, murmur. Absent: click, JVD - *Routine Abdominal Exam Present: soft, normoactive bowel sounds. Absent: distended, firm - *Routine Extremities Exam Present: full ROM, pulses intact, normal capillary refill. Absent: cyanosis, clubbing, edema - *Routine Skin Exam Present: intact, dry, warm. Absent: erythema - *Routine Neurological Exam Present: alert, oriented X3, CN II-XII intact, normal reflexes, moving all extremities, normal speech - Routine Psychiatric Exam Present: normal affect, normal thought process, cooperative. Absent: anxious Progress Note: A&P (1) Closed left hip fracture Status: Acute Current Visit: Yes (2) Severe aortic stenosis Status: Acute Current Visit: Yes (3) Syncope Status: Acute Current Visit: Yes (4) Pre-op evaluation Status: Acute Current Visit: Yes (5) Thrombocytopenia Status: Acute Current Visit: Yes (6) Hypokalemia Status: Acute Current Visit: Yes (7) Low body mass index (BMI) Status: Acute Current Visit: Yes (8) DDD (degenerative disc disease), cervical Status: Acute Current Visit: Yes (9) Encephalomalacia Status: Acute Current Visit: Yes (10) History of rib fracture Status: Acute Current Visit: Yes (11) Scoliosis Status: Acute Current Visit: Yes (12) Pulmonary hypertension Status: Acute Current Visit: Yes (13) Falls frequently Status: Acute Current Visit: Yes Assessment and Plan for All Diagnoses:: Plan: 1. Patient is scheduled for Left and Right heart catheterization today. Pending on the results, further recommendations may be recommended. 2. Will defer pain management to Orthopedic surgeon and PCP. 3. Due to pt's severe Aortic stenosis, Pt may require surgical treatment for the Aortic stenosis. 4. Will continue to clinical research monitor.
--- NOTE | 2018-11-13 17:15 | Progress Note ---
Subjective Date: 11/13/18 Time: 15:45 Principal diagnosis: Left hip fracture Interval history: Patient is status post cannulated screw fixation LEFT hip post op day # 2. She is lying down in the bed and appears comfortable. She has just returned from cardiac catheterization. She says she is feeling well and says her pain is well controlled with medication. She says she is eating and drinking well. No history of any fevers, chills or rigors. No history of any nausea, vomiting, chest pain or SOB. The nursing staff reports no concerns about her progress. PN: Obj Ex Vital signs: Temp Pulse Resp BP Pulse Ox 98.8 F 98 H 16 133/90 95 11/13/18 16:30 11/13/18 16:30 11/13/18 16:30 11/13/18 16:30 11/13/18 16:30 Narrative: Exam General appearance: alert, active, awake, no acute distress Cardiovascular: normal sinus rhythm, regular rate & rhythm Respiratory: No respiratory distress; speaks in full sentences ABD: normal bowel sounds, soft, no tenderness Neuro: alert, awake, speech clear On examination of her LEFT lower extremity, the limb lengths are equal. The alignment is neutral. The dressings over the LEFT hip are clean, dry and intact. I have changed the dressings and the incision looks clean and healthy. No signs of infection or other complications noted. Bilateral thigh and calf are soft and nontender. Distal neurovascular status is intact. No clinical evidence of DVT. She is able to actively move the hip, knee, foot and ankle. - Urinary Catheter Management Irizarry Cath placed during this visit: yes Urethral indwelling: Yes Reason for continuing: Surgical procedure Insertion date: 11/10/18 Insertion time: 14:00 Progress Note: A&P (1) Closed left hip fracture Status: Acute Current Visit: Yes (2) Severe aortic stenosis Status: Acute Current Visit: Yes (3) Syncope Status: Acute Current Visit: Yes (4) Pre-op evaluation Status: Acute Current Visit: Yes (5) Thrombocytopenia Status: Acute Current Visit: Yes (6) Hypokalemia Status: Acute Current Visit: Yes (7) Low body mass index (BMI) Status: Acute Current Visit: Yes (8) DDD (degenerative disc disease), cervical Status: Acute Current Visit: Yes (9) Encephalomalacia Status: Acute Current Visit: Yes (10) History of rib fracture Status: Acute Current Visit: Yes (11) Scoliosis Status: Acute Current Visit: Yes (12) Pulmonary hypertension Status: Acute Current Visit: Yes (13) Falls frequently Status: Acute Current Visit: Yes Assessment and Plan for All Diagnoses:: I have reviewed the findings and progress with the patient. Continue mobilization weightbearing as tolerated on the LEFT side with the help of a walker. Continue PT/OT, pain management with as needed pain medication. Continue DVT prophylaxis for a total of 5 weeks postop. She can be discharged when appropriate from medical standpoint. Follow-up in my office in 2 weeks' time. Recommend DVT prophylaxis for 5 weeks postop- the appropriate agents include Lovenox, Aspirin 325 mg, Xarelto (Rivaroxaban), Eliquis (apixaban) and Coumadin. Follow-up in my office in 2 weeks time with check x-ray. Please feel free to call our office at [phone] for any orthopaedic questions. Continue medical management as per Dr. Sena team.
[2018-11-14 06:23] LABS: Basophils % 0.5 % (0.1-2.0); Eosinophils # 0.2 K/mm3 (0.0-0.4); Eosinophils % 3.5 % (0.1-12.0); Hematocrit 30.8 % (37.0-47.0); Hemoglobin 10.3 g/dL (12.2-16.2); Lymphocytes # 1.1 K/mm3 (0.7-4.5); Lymphocytes % 20.9 % (10-50); Mean Corpuscular HGB Conc 33.4 g/dL (31.8-35.4); Mean Corpuscular Hemoglobin 30.8 pg (27.0-31.2); Mean Corpuscular Volume 92.4 fl (81-99); Monocytes # 0.4 K/mm3 (0.1-1.0); Monocytes % 7.6 % (1.7-9.3); Neutrophils # 3.4 K/mm3 (1.8-7.8); Neutrophils % 67.5 % (37.0-80.0); Platelet Count 99 K/mm3 (142-424); Red Blood Count 3.33 M/mm3 (4.20-5.40)
[2018-11-14 06:41] LABS: Albumin Level 2.5 gm/dL (3.4-5.0); Albumin/Globulin Ratio 0.8 (1.1-1.8); Anion Gap 10.8 mEq/L (5-15); Bilirubin,Total 0.9 mg/dL (0.2-1.0); Calcium 8.3 mg/dL (8.5-10.1); Globulin 3.3 gm/dl (1.3-3.2); Total Protein,Serum 5.8 gm/dL (6.4-8.2)
[2018-11-14 06:59] LABS: Potassium 2.8 mmoL/L (3.5-5.1)
--- NOTE | 2018-11-14 08:16 | Progress Note ---
Internal Medicine - PN: Subj *Date: 11/14/18 *Time: 08:13 Interval history: doing ok - reviewed card and ortho note - rehab friday Exam Vital signs and Labs for Last 24 Hours: Temp Pulse Resp BP Pulse Ox 98.8 F 80 20 137/80 91 L 11/14/18 04:00 11/14/18 04:00 11/14/18 04:00 11/14/18 04:00 11/14/18 04:00 Laboratory Results - last 24 hr 11/14/18 05:32: WBC 5.0, RBC 3.33 L, Hgb 10.3 L, Hct 30.8 L, MCV 92.4, MCH 30.8, MCHC 33.4, RDW 14.0, Plt Count 99 L, MPV 10.0, Neut % (Auto) 67.5, Lymph % (Auto) 20.9, [place] % (Auto) 7.6, Eos % (Auto) 3.5, Baso % (Auto) 0.5, Neut # (Auto) 3.4, Lymph # (Auto) 1.1, [place] # (Auto) 0.4, Eos # (Auto) 0.2, Baso # (Auto) 0.0 11/14/18 05:32: Sodium 141, Potassium 2.8 L* D, Chloride 104, Carbon Dioxide 29, Anion Gap 10.8, BUN 8 D, Creatinine 0.68, Estimated Creat Clear 30, Estimated GFR 83, Est GFR ( Amer) 101, Glucose 101, Calcium 8.3 L, Total Bilirubin 0.9, AST 16, ALT 10 L D, Alkaline Phosphatase 77, Total Protein 5.8 L, Albumin 2.5 L, Globulin 3.3 H, Albumin/Globulin Ratio 0.8 L I & O for Last 24 hours: Intake & Output 11/11/18 11/12/18 11/13/18 11/14/18 11:59 11:59 11:59 11:59 Intake Total 0 / 0 2316 / 2316 480 / 480 0 / 0 Output Total 1310 / 1310 300 / 300 200 / 200 565 / 565 Balance -1310 / -1310 2015 280 / 280 -565 / -565 Weight 90 lb 9 oz 93 lb 6 oz 92 lb 1 oz 92 lb - Constitutional no acute distress, thin - *Routine HEENT Exam Head: Present: normocephalic Eye: Present: EOMI, PERRL ENT: Present: mucous membranes dry - *Routine Neck Exam Present: supple - *Routine Respiratory Exam Present: CTA bilaterally - *Routine Cardiovascular Exam Present: RRR, murmur - *Routine Abdominal Exam Present: soft - *Routine Extremities Exam Present: pulses intact - *Routine Skin Exam Present: intact - *Routine Neurological Exam Present: alert, CN II-XII intact - Routine Psychiatric Exam Present: normal affect Assessment and Plan (1) Closed left hip fracture Current visit: Yes Status: Acute Qualifiers: Encounter type: initial encounter Qualified Code(s): S72.002A - Fracture of unspecified part of neck of left femur, initial encounter for closed fracture Category: Medical Code(s): S72.002A - Fracture of unspecified part of neck of left femur, initial encounter for closed fracture (2) Severe aortic stenosis Current visit: Yes Status: Acute Category: Medical Code(s): I35.0 - Nonrheumatic aortic (valve) stenosis (3) Syncope Current visit: Yes Status: Acute Category: Medical Code(s): R55 - Syncope and collapse (4) Pre-op evaluation Current visit: Yes Status: Acute Category: Medical Code(s): Z01.818 - Encounter for other preprocedural examination (5) Thrombocytopenia Current visit: Yes Status: Acute Category: Medical Code(s): D69.6 - Thrombocytopenia, unspecified (6) Hypokalemia Current visit: Yes Status: Acute Category: Medical Code(s): E87.6 - Hypokalemia (7) Low body mass index (BMI) Current visit: Yes Status: Acute Category: Medical (8) DDD (degenerative disc disease), cervical Current visit: Yes Status: Acute Category: Medical Code(s): M50.30 - Other cervical disc degeneration, unspecified cervical region (9) Encephalomalacia Current visit: Yes Status: Acute Category: Medical Code(s): G93.89 - Other specified disorders of brain (10) History of rib fracture Current visit: Yes Status: Acute Category: Medical Code(s): Z87.81 - Personal history of (healed) traumatic fracture (11) Scoliosis Current visit: Yes Status: Acute Qualifiers: Scoliosis type: thoracogenic Spinal region: thoracic Qualified Code(s): M41.34 - Thoracogenic scoliosis, thoracic region Category: Medical Code(s): M41.9 - Scoliosis, unspecified (12) Pulmonary hypertension Current visit: Yes Status: Acute Category: Medical Code(s): I27.20 - Pulmonary hypertension, unspecified (13) Falls frequently Current visit: Yes Status: Acute Category: Medical Code(s): R29.6 - Repeated falls
--- NOTE | 2018-11-14 18:17 | Progress Note ---
Subjective Date: 11/14/18 Time: 15:45 Principal diagnosis: Left hip fracture Interval history: Patient is status post cannulated screw fixation LEFT hip post op day # 3. She is lying down in the bed and says she is doing well. She reports very little pain and says her pain is well controlled with medication. She is mobilizing well with the help of physical therapist. She says she is eating and drinking well. No history of any fevers, chills or rigors. No history of any nausea, vomiting, chest pain or SOB. The nursing staff reports no concerns about her progress. PN: Obj Ex Vital signs: Temp Pulse Resp BP Pulse Ox 99.8 F H 88 16 131/78 93 L 11/14/18 08:00 11/14/18 08:00 11/14/18 08:00 11/14/18 08:00 11/14/18 08:06 Narrative: Exam General appearance: alert, active, awake, no acute distress Cardiovascular: normal sinus rhythm, regular rate & rhythm Respiratory: No respiratory distress; speaks in full sentences ABD: normal bowel sounds, soft, no tenderness Neuro: alert, awake, speech clear On examination of her LEFT lower extremity, the limb lengths are equal. The alignment is neutral. The dressings over the LEFT hip are clean, dry and intact. Bilateral thigh and calf are soft and nontender. Distal neurovascular status is intact. No clinical evidence of DVT. She is able to actively move the hip, knee, foot and ankle. - Urinary Catheter Management Irizarry Cath placed during this visit: yes Urethral indwelling: Yes Reason for continuing: Surgical procedure Insertion date: 11/10/18 Insertion time: 14:00 Progress Note: A&P (1) Closed left hip fracture Status: Acute Current Visit: Yes (2) Severe aortic stenosis Status: Acute Current Visit: Yes (3) Syncope Status: Acute Current Visit: Yes (4) Pre-op evaluation Status: Acute Current Visit: Yes (5) Thrombocytopenia Status: Acute Current Visit: Yes (6) Hypokalemia Status: Acute Current Visit: Yes (7) Low body mass index (BMI) Status: Acute Current Visit: Yes (8) DDD (degenerative disc disease), cervical Status: Acute Current Visit: Yes (9) Encephalomalacia Status: Acute Current Visit: Yes (10) History of rib fracture Status: Acute Current Visit: Yes (11) Scoliosis Status: Acute Current Visit: Yes (12) Pulmonary hypertension Status: Acute Current Visit: Yes (13) Falls frequently Status: Acute Current Visit: Yes Assessment and Plan for All Diagnoses:: I have reviewed the findings and progress with the patient. Continue mobilization weightbearing as tolerated on the LEFT side with the help of a walker. Continue PT/OT, pain management with as needed pain medication. Continue DVT prophylaxis for a total of 5 weeks postop; the appropriate agents include Lovenox, Aspirin 325 mg, Xarelto (Rivaroxaban), Eliquis (apixaban) and Coumadin. Follow-up in my office in 2 weeks time with check x-ray. Please feel free to call our office at [phone] for any orthopaedic questions. Continue medical management as per Dr. Sena team.
[2018-11-15 07:45] LABS: Basophils % 0.5 % (0.1-2.0); Eosinophils # 0.1 K/mm3 (0.0-0.4); Eosinophils % 2.9 % (0.1-12.0); Hematocrit 30.7 % (37.0-47.0); Hemoglobin 10.2 g/dL (12.2-16.2); Lymphocytes # 0.9 K/mm3 (0.7-4.5); Lymphocytes % 17.9 % (10-50); Mean Corpuscular HGB Conc 33.1 g/dL (31.8-35.4); Mean Corpuscular Hemoglobin 30.6 pg (27.0-31.2); Mean Corpuscular Volume 92.6 fl (81-99); Mean Platelet Volume 10.1 fl (7.4-10.4); Monocytes # 0.3 K/mm3 (0.1-1.0); Monocytes % 6.6 % (1.7-9.3); Neutrophils # 3.6 K/mm3 (1.8-7.8); Neutrophils % 72.1 % (37.0-80.0); Platelet Count 107 K/mm3 (142-424); Red Blood Count 3.32 M/mm3 (4.20-5.40); Red Cell Distribution Width 14.1 % (11.5-17.5); White Blood Count 4.9 K/mm3 (4.8-10.8)
[2018-11-15 08:06] LABS: Albumin Level 2.4 gm/dL (3.4-5.0); Albumin/Globulin Ratio 0.7 (1.1-1.8); Anion Gap 10.3 mEq/L (5-15); Bilirubin,Total 0.6 mg/dL (0.2-1.0); Calcium 8.4 mg/dL (8.5-10.1); Globulin 3.3 gm/dl (1.3-3.2); Potassium 3.3 mmoL/L (3.5-5.1); Total Protein,Serum 5.7 gm/dL (6.4-8.2)
--- NOTE | 2018-11-15 08:23 | Progress Note ---
Internal Medicine - PN: Subj *Date: 11/15/18 *Time: 08:21 Interval history: doing ok - labs stable Exam Vital signs and Labs for Last 24 Hours: Temp Pulse Resp BP Pulse Ox 97.8 F 73 22 131/86 94 L 11/15/18 04:00 11/15/18 04:00 11/15/18 04:00 11/15/18 04:00 11/15/18 07:52 Laboratory Results - last 24 hr 11/15/18 06:23: WBC 4.9, RBC 3.32 L, Hgb 10.2 L, Hct 30.7 L, MCV 92.6, MCH 30.6, MCHC 33.1, RDW 14.1, Plt Count 107 L, MPV 10.1, Neut % (Auto) 72.1, Lymph % (Auto) 17.9, Dale % (Auto) 6.6, Eos % (Auto) 2.9, Baso % (Auto) 0.5, Neut # (Auto) 3.6, Lymph # (Auto) 0.9, Dale # (Auto) 0.3, Eos # (Auto) 0.1, Baso # (Auto) 0.0 11/15/18 06:23: Sodium 143, Potassium 3.3 L, Chloride 107, Carbon Dioxide 29, Anion Gap 10.3, BUN 6 L, Creatinine 0.64, Estimated Creat Clear 32, Estimated GFR 89, Est GFR ( Amer) 108, Glucose 99, Calcium 8.4 L, Total Bilirubin 0.6, AST 17, ALT 12, Alkaline Phosphatase 80, Total Protein 5.7 L, Albumin 2.4 L , Globulin 3.3 H, Albumin/Globulin Ratio 0.7 L I & O for Last 24 hours: Intake & Output 11/12/18 11/13/18 11/14/18 11/15/18 11:59 11:59 11:59 11:59 Intake Total 2316 / 2316 480 / 480 360 / 360 960 / 960 Output Total 300 / 300 200 / 200 565 / 565 670 / 670 Balance 2015 280 / 280 -205 / -205 290 / 290 Weight 93 lb 6 oz 92 lb 1 oz 92 lb 100 lb - Constitutional no acute distress, thin - *Routine HEENT Exam Head: Present: normocephalic Eye: Present: EOMI, PERRL ENT: Present: mucous membranes dry - *Routine Neck Exam Absent: JVD - *Routine Respiratory Exam Present: CTA bilaterally - *Routine Cardiovascular Exam Present: RRR, murmur - *Routine Abdominal Exam Present: soft - *Routine Extremities Exam Absent: calf tenderness - Routine Back/Spine/Pelvis Exam Back/Spine: Absent: CVA tenderness - *Routine Skin Exam Present: intact - *Routine Neurological Exam Present: alert, oriented X3, CN II-XII intact - Routine Psychiatric Exam Present: normal affect Assessment and Plan (1) Closed left hip fracture Current visit: Yes Status: Acute Qualifiers: Encounter type: initial encounter Qualified Code(s): S72.002A - Fracture of unspecified part of neck of left femur, initial encounter for closed fracture Category: Medical Code(s): S72.002A - Fracture of unspecified part of neck of left femur, initial encounter for closed fracture (2) Severe aortic stenosis Current visit: Yes Status: Acute Category: Medical Code(s): I35.0 - Nonrheumatic aortic (valve) stenosis (3) Syncope Current visit: Yes Status: Acute Category: Medical Code(s): R55 - Syncope and collapse (4) Pre-op evaluation Current visit: Yes Status: Acute Category: Medical Code(s): Z01.818 - Encounter for other preprocedural examination (5) Thrombocytopenia Current visit: Yes Status: Acute Category: Medical Code(s): D69.6 - Thrombocytopenia, unspecified (6) Hypokalemia Current visit: Yes Status: Acute Category: Medical Code(s): E87.6 - Hypokalemia (7) Low body mass index (BMI) Current visit: Yes Status: Acute Category: Medical (8) DDD (degenerative disc disease), cervical Current visit: Yes Status: Acute Category: Medical Code(s): M50.30 - Other cervical disc degeneration, unspecified cervical region (9) Encephalomalacia Current visit: Yes Status: Acute Category: Medical Code(s): G93.89 - Other specified disorders of brain (10) History of rib fracture Current visit: Yes Status: Acute Category: Medical Code(s): Z87.81 - Personal history of (healed) traumatic fracture (11) Scoliosis Current visit: Yes Status: Acute Qualifiers: Scoliosis type: thoracogenic Spinal region: thoracic Qualified Code(s): M41.34 - Thoracogenic scoliosis, thoracic region Category: Medical Code(s): M41.9 - Scoliosis, unspecified (12) Pulmonary hypertension Current visit: Yes Status: Acute Category: Medical Code(s): I27.20 - Pulmonary hypertension, unspecified (13) Falls frequently Current visit: Yes Status: Acute Category: Medical Code(s): R29.6 - Repeated falls (14) Anemia Current visit: Yes Status: Acute Qualifiers: Anemia type: unspecified type Qualified Code(s): D64.9 - Anemia, unspecified Category: Medical Code(s): D64.9 - Anemia, unspecified
[2018-11-16 06:53] LABS: Basophils % 0.3 % (0.1-2.0); Eosinophils # 0.2 K/mm3 (0.0-0.4); Eosinophils % 4.7 % (0.1-12.0); Hematocrit 30.4 % (37.0-47.0); Lymphocytes % 21.9 % (10-50); Mean Corpuscular HGB Conc 32.7 g/dL (31.8-35.4); Mean Corpuscular Hemoglobin 30.4 pg (27.0-31.2); Mean Corpuscular Volume 92.9 fl (81-99); Mean Platelet Volume 9.5 fl (7.4-10.4); Monocytes # 0.3 K/mm3 (0.1-1.0); Monocytes % 6.3 % (1.7-9.3); Neutrophils % 66.8 % (37.0-80.0); Platelet Count 128 K/mm3 (142-424); Red Blood Count 3.28 M/mm3 (4.20-5.40); Red Cell Distribution Width 14.2 % (11.5-17.5); White Blood Count 4.6 K/mm3 (4.8-10.8)
[2018-11-16 07:12] LABS: Albumin Level 2.3 gm/dL (3.4-5.0); Albumin/Globulin Ratio 0.7 (1.1-1.8); Anion Gap 8.9 mEq/L (5-15); Bilirubin,Total 0.6 mg/dL (0.2-1.0); Calcium 8.3 mg/dL (8.5-10.1); Globulin 3.3 gm/dl (1.3-3.2); Total Protein,Serum 5.6 gm/dL (6.4-8.2)
[2018-11-16 07:19] LABS: Potassium 2.9 mmoL/L (3.5-5.1)
--- NOTE | 2018-11-16 12:40 | Discharge Summary ---
General - General Admission date:: 11/10/18 Discharge date: 11/16/18 HPI HPI: this wf presents with fall at home - uncertain etiology but prob syncopal related to aortic stenosis - she has had increased fall over the last few days - pt was seen in the ed -T advises she was walking across her bedroom when she fell. Unsure of why she fell and now she has left hip/thigh pain. Pt has been falling a lot recently and currently has a fx in her neck. Brought in by ambulance for a fall. Patient says she fell because her left lower extremity gave out on her. She complains of pain in her left thigh and hip. Great granddaughter says she found her laying on her left side. She denies hitting her head and denies headache, but says her neck hurts since she fell today. She denies any other injuries. She also fell a week ago and was seen in this emergency department. She had an extensive workup including CT scans of her head and cervical spine. CT scan of her cervical spine showed a questionable fracture of C3, but a follow-up MRI was negative. However, she says her neck pain that she has now is new after the fall today- pt was admitted for surg and eval of syncope Hospital Course Hospital Course: pt was admitted and has surg repair of her hip fx -ilda is a 78-year-old female admitted from the ER for management of left hip fracture. Patient's granddaughter is in the room with her at the time of examination. Patient says she fell down while walking across the bedroom and is not sure why she fell. She thinks her left leg gave out on her. Her granddaughter says she has been falling a lot recently. She also had a fall about a week ago and was seen in the ER at which point no acute injuries were noted. Following the fall today she complained of pain in her left hip and could not weight-bear. Her granddaughter says she found her laying on her left side. She denies hitting her head and denies headache, or loss of consciousness. She denies any other in juries. She lives with her granddaughter and has walking aids including a walker at home but seldom uses them. I have reviewed the clinical and x-ray findings with the patient and her granddaughter who was with her in the room. I have discussed the diagnosis and management options in detail including both nonsurgical and surgical. We discussed the surgical options in the form of either cannulated hip screw fixation or hemiarthroplasty. We discussed the pros and cons of both the procedures. Given that the fracture appears to be stable with valgus impaction, I have recommended a cannulated hip screw fixation. We discussed the possibility of nonunion, avascular necrosis, loss of fixation and the likely need for further surgery in future if we elected this option. I explained the procedure, risks, benefits, alternatives and the expected postoperative course. I also explained to the patient and her granddaughter with drawings of the fracture and the proposed surgical procedure. I have given the patient a copy of the x-ray and also showed postoperative x-rays of similar fractures treated surgically. The complications discussed include but are not limited to- infection, injury to nerves and blood vessels, DVT and PE, femur fracture, limb length inequality, implant failure, nonunion, malunion, avascular necrosis, loss of fixation, heterotopic ossification, incomplete relief of pain, incomplete return of function or motion, likely need for further surgery in future including conversion to a myrtle-or total hip arthroplasty, anesthetic/medical complications including heart attack, stroke, transfusion reactions and even . We discussed how any of these events can be devastating. I've explained that the patient is at a significant surgical risk due to her age, medical issues, and fragility of the bone. Family and patient seem to understand and accept these risks. We have discussed nonsurgical alternatives as well. The nonoperative management would essentially consist of prolonged bed rest and traction (skeletal/skin) in bed and pain medication and has exceptionally poor outcome. This could result in nonunion and/or malunion of the fracture and almost certainly, the patient has a very high risk of decubitus ulcers, UTI, respiratory tract infections, DVT/PE and other complications from being bedridden. I have explained to them that the standard of care for this type of fracture is surgical throughout the country unless the patient is very ill to undergo surgery. We also discussed the postoperative course including the rehab and physical therapy required. Patient lives at home with her granddaughter and may need to go to a care home facility for rehab after surgery. All the questions were answered and patient/family verbalized a good understanding. We will obtain a medical clearance from Dr. Isaac. We will also obtain a preoperative anesthetic evaluation. The limb was appropriately marked and initialed by me. Recommendations for preoperative preparation include- Type and screen Electrocardiogram Continue nothing by mouth after 4 AM Schedule for surgery with the Operating Room Continue IV fluids DVT prophylaxis as per protocol Analgesia as needed Consent patient for a cannulated screw fixation LEFT hip/hemiarthroplasty LEFT hip. Order 2 g of IV Ancef for preoperative prophylaxis to start half an hour before surgery. I am planning to take the patient for surgery at the earliest opportunity once medically cleared. Thank you for the opportunity to take part in the care of this very pleasant patient. rtic stenosis, severe A. Echo, 11/2018, 2D 1. Left atrium is mildly enlarged, left ventricle is normal size, mild concentric left ventricular hypertrophy, visually estimated ejection fraction 55% with no regional wall motion abnormality. 2. The right atrium and right ventricle are normal size and contractility. 3. The aortic valve is heavily thickened and calcified with severe restriction the leaflet mobility. 4. The mitral and tricuspid valve leaflets are minimally thickened 5. The pulmonic valve is poorly present. 6. No significant pericardial effusion noted. DOPPLER INTERROGATION: 1. The maximum aortic out flow velocity recorded study is 3.6 m/s, resulting in a mean gradient across valve of 33 mmHg, valve area is 1.0 sq cm represents severe aortic stenosis. There is moderate aortic insufficiency present. 2. The mitral inflow velocity within normal range, there is no mitral stenosis, there is mild mitral regurgitation, grade 1 diastolic dysfunction seen without tissue Doppler evidence of raised left atrial pressure. 3. Mild tricuspid regurgitation, calculated right ventricular systolic pressure is 44 mmHg consistent with moderate pulmonary hypertension. CONCLUSION: 1. Mildly enlarged left atrium, normal left ventricular size, mild concentric left ventricular hypertrophy, visually estimate ejection fraction of 55% with no regional wall motion abnormality. Grade 1 diastolic dysfunction seen without tissue Doppler evidence of raised left atrial pressure. 2. Thickened and calcified aortic valve with mean gradient across valve of 33 mmHg, valve area 1.0 sq cm represents severe aortic stenosis, there is moderate aortic insufficiency. 3. Mild mitral and tricuspid regurgitation, calculated right ventricular systolic pressure 44 mmHg consistent with moderate pulmonary hypertension. 4. No significant pericardial effusion noted. he right renal artery is singular and has mild nonflow limiting stenosis in the proximal segment followed by a small long tubular aneurysm followed by a mild nonflow limiting stenosis. There is no angiographic evidence of fibromuscular dysplasia 2. The left renal artery is singular and has an unusual moderate sized aneurysm in the distal aspect of the renal artery. Branching off this aneurysm are multiple smaller renal arteries which then go into the parenchyma itself. The aneurysm is approximately 1.5 cm to 2 cm in dimension. This aneurysm has an almost vascular ectatic appearance. Impression: 1. At least moderate-sized left renal artery aneurysm 2. 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 Medical management for both aneurysms 2. Control of hypertension 3. The left aneurysm is not amenable to percutaneous intervention such as stent grafting due to its unusual location and morphology. This aneurysm is very distal in the main segment of the renal artery and then has multiple subsegmental branches off this aneurysm. There is no way to exclude the aneurysm because of the complex of the of the aneurysm with its location being so distal in the renal artery. The only treatment for this would be nephrectomy if this exceeds 2.1 cm. I would recommend a CTA of the renal artery to get a specific measurement. If greater than 2.1 cm we may want to refer her for nephrectomy. This is a fairly ill lady very thin and almost appears malnourished. Nephrectomy is a major undertaking and could render her significant morbidity and possibly even mortality due to the vastness of the surgery. We may want to continue treating her medically either in if the aneurysm as above 2.1 cm due to this specific patient's likelihood for significant morbidity mortality with this large surgical undertaking 4. Underweight 5. Lexiscan myoview, 09/2014, no ischemia and normal LVEF. Patient is an increased but acceptable risk to proceed with surgical correction of left hip fracture. Monitor postop vitals with avoidance of meds that could cause hypotension and bradycardia. 2. With increase in falls recently in the setting of severe aortic stenosis it is presumed that the patient has become symptomatic due to her aortic stenosis. Patient will need right and left heart cath during this admission after her surgery (anticipate Friday in case dual antiplatelet therapy is needed post stenting) and possibly transfer to [facility] for evaluation for TAVR procedure. pt did well with surg and therapy and had heart cath-IOGRAPHIC RESULTS: 1. The left main artery is normal 2. The left anterior descending artery has proximal and mid vessel luminal irregularities 10% 3. The circumflex artery is a nondominant vessel and has proximal to mid vessel 20% nonflow limiting stenoses 4. The right coronary artery ostium appears to originate in the anterior portion the aortic valve very close to the aortic valve and is calcified. There is antegrade flow down the vessel however the vessel could not be completely visualized 5. The ALLEN ventriculogram reveals not performed 6. The left ventricular end-diastolic pressure not measured IMPRESSION: 1. 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 Recommend CTA of the coronary artery to determine if the anomalous takeoff and has an origin close to the aortic valve. If the origin is too close to aortic valve patient would not be a tavr candidate CTA of the coronary arteries can be obtained as an outpatient pt remained stable and labs ok and released for rehab at this time -we will follow at [facility] with card and ortho have reviewed the findings and progress with the patient. Continue mobilization weightbearing as tolerated on the LEFT side with the help of a walker. Continue PT/OT, pain management with as needed pain medication. Continue DVT prophylaxis for a total of 5 weeks postop; the appropriate agents include Lovenox, Aspirin 325 mg, Xarelto (Rivaroxaban), Eliquis (apixaban) and Coumadin. Follow-up in my office in 2 weeks time with check x-ray. Please feel free to call our office at [phone] for any orthopaedic questions. Continue medical management as per Dr. Sena team. will use asa 325 daily x 5 weeks Objective Vital signs: Temp Pulse Resp BP Pulse Ox 98.9 F 84 16 144/80 H 95 11/16/18 07:34 11/16/18 07:34 11/16/18 07:34 11/16/18 07:34 11/16/18 08:10 no acute distress, thin - *Routine HEENT Exam Head: Present: normocephalic Eye: Present: EOMI, PERRL ENT: Present: mucous membranes dry - *Routine Neck Exam Present: supple. Absent: JVD - *Routine Respiratory Exam Present: CTA bilaterally - *Routine Cardiovascular Exam Present: RRR, murmur - *Routine Abdominal Exam Present: soft - *Routine Extremities Exam Absent: edema - *Routine Skin Exam Present: intact - *Routine Neurological Exam Present: alert, oriented X3, CN II-XII intact - Routine Psychiatric Exam Present: normal affect Results Labs on day of discharge: Labs from last 24 hours 11/16/18 11/16/18 06:24 06:24 WBC 4.6 L RBC 3.28 L Hgb 10.0 L Hct 30.4 L MCV 92.9 MCH 30.4 MCHC 32.7 RDW 14.2 Plt Count 128 L MPV 9.5 Neut % (Auto) 66.8 Lymph % (Auto) 21.9 [place]cl[place] % (Auto) 6.3 Eos % (Auto) 4.7 Baso % (Auto) 0.3 Neut # (Auto) 3.0 Lymph # (Auto) 1.0 [place]cl[place] # (Auto) 0.3 Eos # (Auto) 0.2 Baso # (Auto) 0.0 Sodium 142 Potassium 2.9 L* Chloride 106 Carbon Dioxide 30 Anion Gap 8.9 BUN 7 Creatinine 0.67 Estimated Creat Clear 32 Estimated GFR 85 Est GFR ( Amer) 102 Glucose 98 Calcium 8.3 L Total Bilirubin 0.6 AST 17 ALT 15 Alkaline Phosphatase 81 Total Protein 5.6 L Albumin 2.3 L Globulin 3.3 H Albumin/Globulin Ratio 0.7 L DS: Diagnosis - Discharge Diagnosis (1) Closed left hip fracture Status: Acute (2) Aortic stenosis Status: Acute (3) Falls frequently Status: Acute (4) Low body mass index (BMI) Status: Acute (5) HTN (hypertension) Status: Acute (6) Renal arterial aneurysm Status: Acute (7) Anemia Status: Acute (8) Hypokalemia Status: Acute (9) Thrombocytopenia Status: Acute Discharge Plan - Patient Discharge Instructions ACTIVITY: Continue current activity DIET: continue same diet Patient Instructions: How to Care for a Surgical Wound, Hip Fracture, Surgical Site Infection - Follow up Plan Disposition: er [facility] Home Medications: Home Medications Medication Instructions Recorded Confirmed Type Amlodipine Besylate [Norvasc 5mg 5 mg PO DAILY 11/02/18 11/10/18 History tablet] Lisinopril [Lisinopril 2.5mg Tab] 2.5 mg PO DAILY 11/02/18 11/10/18 History Loratadine [Allergy Relief] 10 mg PO DAILY 11/02/18 11/10/18 History Ibuprofen [Motrin 400mg 400 mg PO BIDP PRN 11/11/18 11/11/18 History tablet] Aspirin [Aspirin 325mg Tab] 325 mg PO DAILY #40 tablet 11/16/18 Rx Prescriptions/Medication Reconciliation: New Aspirin [Aspirin 325mg Tab] 325 mg PO DAILY #40 tablet Continue Amlodipine Besylate [Norvasc 5mg tablet] 5 mg PO DAILY Lisinopril [Lisinopril 2.5mg Tab] 2.5 mg PO DAILY Discontinued Loratadine [Allergy Relief] 10 mg PO DAILY Ibuprofen [Motrin 400mg tablet] 400 mg PO BIDP PRN PRN Reason: pain
== END 2018-11-16 13:56 | DRG 482 ==
LOC: ER 13:07 → 2ND 15:17
PROVIDERS: ADMIT Emergency Medicine; ATTEND Emergency Medicine
CPT/HCPCS: 36415; 70450; 71010; 71045; 72125; 73502; 73552; 75574; 76000; 76770; 80048; 80053; 80061; 81001; 82550; 83605; 84484; 85025; 86850; 87040; 93005; 93306; 93458; 94760; 94761; 96374; 96375; 97110; 97116; 97162; 97165; 97530; 97535; 99152; 99285; C1713; C1725; C1769; J1644; J2405; Q9967

== ENCOUNTER → 2018-11-26 10:33 | Outpatient (CLI) | payer MEDICARE, MEDICAID, SELFPAY ==
--- NOTE | 2018-11-26 10:39 | XR_ITS ---
XR hip LT 2-3V w/pelvis HISTORY: Follow-up fracture/ORIF ITS.REASON: sp LT hip cannulated screw fixation ORDERING PHYSICIAN: Aj Frazier MD PATIENT AGE: 78 years COMPARISON: 11/11/2018 FINDINGS: There are 3 pins present stabilizing the impacted femoral neck fracture which is in good alignment. The head of the pins are not flush with the cortex of the femur. There are no other postoperative films available aside from the C-arm images to determine if this is a developing process or stable. Continued follow-up is suggested. There is some developing callus formation at the femoral neck region. There may be some foreshortening of the femoral neck. IMPRESSION: Good alignment status post ORIF left femoral neck fracture as described above with suggestion of some minimal developing foreshortening. The screw heads are not flush with the femoral cortex. Continued follow-up recommended
== END ==
PROVIDERS: PCP Emergency Medicine; Visit Provider Orthopaedic Surgery
DX: Z48.89 Encounter for other specified surgical aftercare (principal)
CPT/HCPCS: 73502

== ENCOUNTER → 2018-12-31 09:52 | Outpatient (CLI) | payer MEDICARE, MEDICAID, SELFPAY ==
--- NOTE | 2018-12-31 09:56 | XR_ITS ---
XR hip LT 2-3V w/pelvis HISTORY: Follow-up ORIF ITS.REASON: sp LT hip cannulated screw fixation ORDERING PHYSICIAN: Aj Frazier MD PATIENT AGE: 78 years COMPARISON: 11/26/2018 FINDINGS: 3 cannulated screws are in place stabilizing a left femoral neck fracture which is nondisplaced. Fracture line is less apparent with minimal foreshortening. No evidence of dislocation. IMPRESSION: Good alignment healing left femoral neck fracture status post ORIF
== END ==
PROVIDERS: PCP Emergency Medicine; Visit Provider Orthopaedic Surgery
DX: S72.002A Fracture of unspecified part of neck of left femur, initial encounter for closed fracture (principal); Z09 Encounter for follow-up examination after completed treatment for conditions other than malignant neoplasm
CPT/HCPCS: 73502

== ENCOUNTER → 2019-01-05 08:42 | Outpatient (CLI) | payer MEDICARE, MEDICAID, SELFPAY ==
--- NOTE | 2019-01-05 08:44 | XR_ITS ---
XR DEXA axial skeleton HISTORY: ITS.REASON: evaluate for osteoporosis ORDERING PHYSICIAN: Aj Frazier MD PATIENT AGE: 78 years COMPARISON: None FINDINGS: The BMD measured at the Forearm radius 33% is 0.355 g/cm squared with a T score of -6.0. This is considered Osteoporotic according to the World Health Organization criteria. Fracture risk is High. Treatment is advised. Left femoral neck density has a T score of -4.5. Lumbar spine density could not be performed due to the severe scoliosis and sclerosis. IMPRESSION: Osteoporosis with high fracture risk. Treatment is advised. Suggest follow-up exam January 2020
== END ==
PROVIDERS: PCP Emergency Medicine; Visit Provider Orthopaedic Surgery
DX: S12.9XXA Fracture of neck, unspecified, initial encounter (principal); S72.002D Fracture of unspecified part of neck of left femur, subsequent encounter for closed fracture with routine healing
CPT/HCPCS: 77080

== ENCOUNTER → 2019-02-15 09:22 | Outpatient (CLI) | payer MEDICARE, MEDICAID, SELFPAY ==
--- NOTE | 2019-02-15 09:29 | XR_ITS ---
XR hip LT 2-3V w/pelvis HISTORY: Follow-up left hip surgery ITS.REASON: post op ORDERING PHYSICIAN: Lee Ann Tubbs MD PATIENT AGE: 79 years COMPARISON: 12/31/2018 FINDINGS: Good alignment status post placement of cannulated screws within the left hip for the left multiple neck fracture. There is developing callus formation at the fracture site. Fracture line is still visible. There is an old right inferior pubic ramus fracture IMPRESSION: Good alignment status post pinning of left hip fracture
== END ==
PROVIDERS: PCP Emergency Medicine; Visit Provider Orthopaedic Surgery
DX: S72.002A Fracture of unspecified part of neck of left femur, initial encounter for closed fracture (principal)
CPT/HCPCS: 73502

== ENCOUNTER 2019-03-17 09:31 | Observation (INO) ==
[2019-03-17 10:42] LABS: Basophils % 0.2 % (0.1-2.0); Eosinophils % 0.2 % (0.1-12.0); Hematocrit 43.8 % (37.0-47.0); Hemoglobin 14.1 g/dL (12.2-16.2); Lymphocytes # 0.9 K/mm3 (0.7-4.5); Lymphocytes % 12.1 % (10-50); Mean Corpuscular HGB Conc 32.2 g/dL (31.8-35.4); Mean Corpuscular Volume 92.9 fl (81-99); Monocytes # 0.3 K/mm3 (0.1-1.0); Monocytes % 4.7 % (1.7-9.3); Neutrophils # 5.9 K/mm3 (1.8-7.8); Neutrophils % 82.8 % (37.0-80.0); Platelet Count 118 K/mm3 (142-424); Red Blood Count 4.71 M/mm3 (4.20-5.40); Red Cell Distribution Width 14.2 % (11.5-17.5); White Blood Count 7.1 K/mm3 (4.8-10.8)
[2019-03-17 10:44] LABS: Microscopic, Urine URINE MICROSCOPIC (MICROSCOPIC)
[2019-03-17 10:48] LABS: Appearance,Urine SL CLOUDY (Clear); Bilirubin,Urine Negative (Negative); Blood, Urine TRACE-I (Negative); Color,Urine YELLOW (Yellow); Glucose,Urine (UA) Negative (Negative); Ketones,Urine TRACE (Negative); Leukocyte Esterase,Urine Negative (Negative); Protein,Urine 1+ (Negative); Urobilinogen,Urine 0.2 EU/dl (0.2)
[2019-03-17 11:10] LABS: Bacteria,Urine Trace /lpf
[2019-03-17 11:15] LABS: Anion Gap 6.6 mEq/L (5-15); Bilirubin,Total 1.4 mg/dL (0.2-1.0); Calcium 9.3 mg/dL (8.5-10.1)
[2019-03-17 11:34] LABS: ABG Base Excess 3.1 mmol/L (-2.4-2.3); ABG HCO3 28.1 mmhg (22.0-26.0); ABG Oxygen Saturation 98 % (90-100); ABG PCO2 47.2 mmhg (35.0-45.0); ABG PH 7.39 mmol/L (7.35-7.45); ABG PO2 121.4 mmhg (80-100); ABG TCO2 29.5 mmhg (23-27)
[2019-03-17 11:36] LABS: Allen's Test ACCEPTABLE
--- NOTE | 2019-03-17 13:40 | Emergency Department Note ---
ED Disposition Clinical Impression: Altered mental status, Elevated troponin I level, Aortic stenosis, severe, Hypokalemia Disposition: Admitted as Observation Condition on Discharge: Good Instructions: DI for Altered Mental Status Referrals: Ishaan Isaac MD [Primary Care Provider] - Time of Disposition: 14:07 - Critical Care Critical Care Time: No Attestation: On 03/17/19, the high probability of a clinically significant, sudden or life threatening deterioration of the following system(s) required my full and direct attention, intervention and personal management. The time I documented below is in addition to time spent performing reported procedures but includes the following listed in this critical care notation. Medical Decision Making - Medical Records Medical records reviewed: Yes: I reviewed the patient's medical records. - Mj Inquiry Pt receiving controlled substance: No Mj was queried for this patient: No Vital Signs: 03/17/19 09:43 03/17/19 10:46 03/17/19 11:46 Temperature 99.1 F Temperature Source Oral Pulse Rate [Left Radial] 82 76 70 Respiratory Rate 16 Blood Pressure [Right Arm] 142/102 H 177/102 H 170/93 H Blood Pressure Mean [Right Arm] 115 127 118 Blood Pressure Source [Right Arm] Automatic Cuff Automatic Cuff Blood Pressure Position [Right Arm] Sitting Sitting Sitting 02 Sat by Pulse Oximetry 94 L 99 99 Oxygen Delivery Method Room Air Room Air Nasal Cannula Oxygen Flow Rate (LPM) 2 03/17/19 12:55 03/17/19 13:51 Temperature Temperature Source Pulse Rate [Left Radial] 81 69 Respiratory Rate Blood Pressure [Right Arm] 168/103 H 166/91 H Blood Pressure Mean [Right Arm] 124 116 Blood Pressure Source [Right Arm] Blood Pressure Position [Right Arm] Supine Supine 02 Sat by Pulse Oximetry 100 98 Oxygen Delivery Method Nasal Cannula Nasal Cannula Oxygen Flow Rate (LPM) 2 2 - Lab Data Lab results reviewed: Yes: I reviewed the patient's lab results. Lab Results 03/17/19 09:38: POC Glucose 123 H 03/17/19 10:25: WBC 7.1, RBC 4.71, Hgb 14.1, Hct 43.8, MCV 92.9, MCH 29.9, MCHC 32.2, RDW 14.2, Plt Count 118 L, MPV 9.0, Neut % (Auto) 82.8 H, Lymph % (Auto) 12.1, [place] % (Auto) 4.7, Eos % (Auto) 0.2, Baso % (Auto) 0.2, Neut # (Auto) 5.9, Lymph # (Auto) 0.9, [place] # (Auto) 0.3, Eos # (Auto) 0.0, Baso # (Auto) 0.0 03/17/19 10:25: Sodium 138, Potassium 2.6 L*, Chloride 101, Carbon Dioxide 33 H, Anion Gap 6.6, BUN 11, Creatinine 0.81, Estimated Creat Clear 27, Estimated GFR 68, Est GFR ( Amer) 82, Glucose 120 H, Calcium 9.3, Total Bilirubin 1.4 H , AST 24, ALT 16, Alkaline Phosphatase 102, Troponin I 0.83 H, Total Protein 8.0 D, Albumin 4.0, Globulin 4.0 H, Albumin/Globulin Ratio 1.0 L 03/17/19 10:25: Lactate 1.0 03/17/19 10:25: Total Creatine Kinase 230 H, CK-MB (CK-2) 3.0 D 03/17/19 10:40: Urine Color Yellow, Urine Appearance Sl cloudy, Urine pH 8.0, Ur Specific [place] 1.020, Urine Protein 1+, Urine Glucose (UA) Negative, Urine Ketones Trace, Urine Blood Trace-i, Urine Nitrate Negative, Urine Bilirubin Negative, Urine Urobilinogen 0.2, Ur Leukocyte Esterase Negative, Urine RBC 3-5, Urine Bacteria Trace 03/17/19 11:14: Specimen Source Left radial, O2 % 2 liters, ABG pH 7.39, ABG pCO2 47.2 H, ABG pO2 121.4 H, ABG HCO3 28.1 H, ABG Total CO2 29.5 H, ABG O2 Saturation 98, ABG Base Excess 3.1 H, Chris Test Acceptable Result diagrams: 03/17/19 10:25 03/17/19 10:25 Orders (Tests/Meds): ED MEDICATIONS Discontinued Medications Generic Name Dose Route Start Last Admin Trade Name Freq PRN Reason Stop Dose Admin Potassium Chloride/Water 100 mls @ 100 mls/hr 03/17/19 11:30 03/17/19 12:48 Potassium Chloride 10meq/100ml Ivpb IV 03/17/19 13:29 100 mls/hr Q1H PRISCILLA Administration Sodium Chloride 1,000 mls @ 999 mls/hr 03/17/19 12:00 03/17/19 11:56 Sod Chlor 0.9% 1000ml Bag IV 03/17/19 13:00 250 mls/hr .Q1H1M PRISCILLA Administration ORDERS Category Date Time Status Consult to Cardiology [CONS] Routine Cons 03/17/19 12:27 Active Blood Culture Stat Micro 03/17/19 10:25 Received - Physician Consults Physician Consulted: patrice Time: 13:42 Reason -: Pt condition Comment/Response: no surgical intervention needed to aortic valve General Adult HPI - General Chief complaint: Altered Mental Status Stated complaint: AMS head pain back pain Time Seen by Provider: 03/17/19 10:00 Mode of Arrival: Wheelchair Limitations: No Limitations Description of Symptoms (Recalled from ER Triage Doc. by RN): to ed per pvt car with family history obtained by grand daughter. states pt confused since lastnight. pt found lying in floor this am. unknown if pt fell this am. family states pt was c/o headache and back pain this am. pt disoriented x 4 will not follow commands. - Related Data Home Medications Medication Instructions Recorded Confirmed Amlodipine Besylate [Norvasc 5mg 5 mg PO DAILY 11/02/18 03/17/19 tablet] Aspirin [Aspirin 325mg Tab] 325 mg PO DAILY 03/17/19 03/17/19 Lisinopril [Lisinopril 2.5mg Tab] See Rx Instructions .ROUTE .COMPLEX 03/17/19 03/17/19 Allergies Allergy/AdvReac Type Severity Reaction Status Date / Time No Known Allergies Allergy Verified 03/09/19 13:45 [facility] History - Hepatitis A Screen Drug use history?: No High risk sexual behaviors?: No History of sexually transmitted infection?: No Currently employed?: No Childcare worker?: No Do you have indoor plumbing?: Yes Do you have electricity?: Yes Attestation statement:: This patient has been screened for Hepatitis A risk factors. I have reviewed the patient's past medical history: Yes Medical History: Reports:: Cancer, Coronary Artery Disease, Heart Murmur, Hypertension, Valvular Heart Disease Denies:: Diabetes Mellitus Type 1, Diabetes Mellitus Type 2, MRSA Other Medical History: Reports: Anemia Comment: aortic stenosis Laterality Cases: Bilateral: Breast Biopsy, Mastectomy Other Surgeries: Yes: Colonoscopy, Tubal Ligation, Other Amputation: No Fractures: No - Social History Smoking Status: Never smoker Alcohol Intake: never Substance Use Type: denies use Occupational Status: retired Housing: house Household Members: children Family Hx:: Cancer ROS Obtained: Yes All systems reviewed & no additional complaints - Constitutional Constitutional: Denies fever(s) - ENT Ears, Nose, Mouth, and Throat: Denies headache(s), Denies neck mass - Cardiovascular Cardiovascular: Denies chest pain - Respiratory Respiratory: No chest congestion, No cough, No dyspnea - Gastrointestinal Gastrointestingal: Denies: vomiting - Genitourinary Female Genitourinary: Denies hematuria - Musculoskeletal Musculoskeletal: Reports back pain, Reports joint stiffness, Reports joint swelling - Integumentary/Breasts Skin/Breast: Reports rash, Reports skin pain - Hematologic/Lymphatic Henatologic/Lymphatic: Denies easy bleeding, Denies easy bruising Physical Exam - General General appearance: alert, in no apparent distress, lethargic, other (bitemporal wasting) - Head Head exam: atraumatic, normocephalic, normal inspection - Eye Eye exam: Present: normal appearance, PERRL, EOMI - ENT ENT exam: Present: normal exam, normal oropharynx, mucous membranes moist, TM's normal bilaterally, normal external ear exam - Neck Neck exam: Present: normal inspection, full ROM, trachea midline. Absent: meningismus, lymphadenopathy - Respiratory Respiratory exam: Present: other (loud harsh murmur of heard). Absent: normal lung sounds bilaterally, respiratory distress, wheezes - Cardiovascular Cardiovascular exam: Present: regular rate, systolic murmur - Abdominal Exam Abdominal exam: Present: other (thoracolumbar spine palpated R abdomen) - Extremities Exam Extremities exam: Present: normal inspection, full ROM, normal capillary refill. Absent: calf tenderness - Neurological Exam Neurological exam: Present: alert, CN II-XII intact, other (slow to respond, does communicate limited fashion with family). Absent: oriented X3
--- NOTE | 2019-03-17 13:51 | Consult Report ---
History of Present Illness Consult date: 03/17/19 Requesting physician: Ishaan Francois Consult reason: known to you, aortic stenosis Chief complaint: elevated troponin Additional Medical History:: 1. Coronary artery disease 2. Aortic stenosis 3. Hypertension Left heart cath from November 2018 IMPRESSION: 1. 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 Recommend CTA of the coronary artery to determine if the anomalous takeoff and has an origin close to the aortic valve. If the origin is too close to aortic valve patient would not be a tavr candidate CTA of the coronary arteries can be obtained as an outpatient History of present illness: This is an 79-year-old white female who was brought to the emergency department by her family. The patient was found on the floor at her daughter's house unresponsive. They did get the patient to wake up and then she collapsed again. The patient's family reports that she has been confused since last night. While here at the emergency department I am unable to do a review of systems with the patient because she is not answering any questions or following any commands. She does open her eyes when her name is called but she is not answering any questions. After the patient being found on the floor at her daughter's house she was brought here to the emergency department. Her troponin is elevated at 0.8 and her potassium is 2.6. It is presumed that the patient may have had an arrhythmia due to her hypokalemia. Her family does not report her having any chest pain prior to her being found on the floor unresponsive. The patient was in the hospital back in November. At that time she did undergo left cardiac catheterization was found to have mild nonocclusive coronary artery disease. She did have a right coronary artery that had an anomalous takeoff. There was some concern about the possible patency of this artery as well as the location of her right coronary artery and whether or not she would be a candidate for a TAVR secondary to her severe aortic stenosis. The CTA of her coronary arteries was never completed as the patient failed to follow-up in the cardiology clinic following her hospital stay. [facility] History I have reviewed the patient's past medical history: Yes (with family. pt not following commands or answering questions. ) Medical History: Reports:: Cancer, Coronary Artery Disease, Heart Murmur, Hypertension, Valvular Heart Disease Denies:: Diabetes Mellitus Type 1, Diabetes Mellitus Type 2, MRSA *Have you ever received a pneumonia vaccine?: Yes *Have you received a flu vaccine this season?: Yes Other Medical History: Reports: Anemia Laterality Cases: Bilateral: Breast Biopsy, Mastectomy Other Surgeries: Yes: Colonoscopy, Tubal Ligation, Other Amputation: No Fractures: No - *Social History Smoking Status: Never smoker Alcohol Intake: never Substance Use Type: denies use *Occupational Status:: retired Housing: house Household Members: children *Travel in the last 8 weeks: None Family Hx:: Cancer Meds Home Medications Medication Instructions Recorded Confirmed Type Amlodipine Besylate [Norvasc 5mg 5 mg PO DAILY 11/02/18 03/17/19 History tablet] Aspirin [Aspirin 325mg Tab] 325 mg PO DAILY 03/17/19 03/17/19 History Lisinopril [Lisinopril 2.5mg Tab] See Rx Instructions .ROUTE .COMPLEX 03/17/19 03/17/19 History Allergies Allergy/AdvReac Type Severity Reaction Status Date / Time No Known Allergies Allergy Verified 03/09/19 13:45 Review of Systems - Review of Systems Review of systems:: unable to obtain (Due to confusion and mental status changes.) Exam Vital signs and Labs for Last 24 Hours: Temp Pulse Resp BP Pulse Ox 99.1 F 81 16 168/103 H 100 03/17/19 09:43 03/17/19 12:55 03/17/19 09:43 03/17/19 12:55 03/17/19 12:55 Laboratory Results - last 24 hr 03/17/19 09:38: POC Glucose 123 H 03/17/19 10:25: WBC 7.1, RBC 4.71, Hgb 14.1, Hct 43.8, MCV 92.9, MCH 29.9, MCHC 32.2, RDW 14.2, Plt Count 118 L, MPV 9.0, Neut % (Auto) 82.8 H, Lymph % (Auto) 12.1, [place] % (Auto) 4.7, Eos % (Auto) 0.2, Baso % (Auto) 0.2, Neut # (Auto) 5.9, Lymph # (Auto) 0.9, [place] # (Auto) 0.3, Eos # (Auto) 0.0, Baso # (Auto) 0.0 03/17/19 10:25: Sodium 138, Potassium 2.6 L*, Chloride 101, Carbon Dioxide 33 H, Anion Gap 6.6, BUN 11, Creatinine 0.81, Estimated Creat Clear 27, Estimated GFR 68, Est GFR ( Amer) 82, Glucose 120 H, Calcium 9.3, Total Bilirubin 1.4 H , AST 24, ALT 16, Alkaline Phosphatase 102, Troponin I 0.83 H, Total Protein 8.0 D, Albumin 4.0, Globulin 4.0 H, Albumin/Globulin Ratio 1.0 L 03/17/19 10:25: Lactate 1.0 03/17/19 10:25: Total Creatine Kinase 230 H, CK-MB (CK-2) 3.0 D 03/17/19 10:40: Urine Color Yellow, Urine Appearance Sl cloudy, Urine pH 8.0, Ur Specific [place] 1.020, Urine Protein 1+, Urine Glucose (UA) Negative, Urine Ketones Trace, Urine Blood Trace-i, Urine Nitrate Negative, Urine Bilirubin Negative, Urine Urobilinogen 0.2, Ur Leukocyte Esterase Negative, Urine RBC 3-5, Urine Bacteria Trace 03/17/19 11:14: Specimen Source Left radial, O2 % 2 liters, ABG pH 7.39, ABG pCO2 47.2 H, ABG pO2 121.4 H, ABG HCO3 28.1 H, ABG Total CO2 29.5 H, ABG O2 Saturation 98, ABG Base Excess 3.1 H, Chris Test Acceptable I & O for Last 24 hours: Intake & Output 03/14/19 03/15/19 03/16/19 03/17/19 23:59 23:59 23:59 23:59 Intake Total 96.667 / 96.667 Balance 96.667 / 96.667 Weight 85 lb Narrative: Her EKG is sinus rhythm with LVH and left atrial enlargement. - *Routine HEENT Exam Head: Present: normocephalic, atraumatic Eye: Present: EOMI, PERRL ENT: Present: mucous membranes moist - *Routine Neck Exam Present: supple, full ROM, carotid bruit (Bilateral). Absent: JVD, normal carotid upstroke (The patient has bounding carotid upstrokes), lymphadenopathy - *Routine Respiratory Exam Present: CTA bilaterally - *Routine Cardiovascular Exam Present: RRR, Normal S1, Normal S2, murmur (5 out of 6 murmur) - *Routine Abdominal Exam Present: soft, normoactive bowel sounds. Absent: tenderness, distended - *Routine Extremities Exam Present: full ROM, pulses intact, normal capillary refill. Absent: cyanosis, clubbing, edema - *Routine Skin Exam Present: intact, warm. Absent: erythema, rash - *Routine Neurological Exam Present: alert (Patient opens eyes to her name being called) Unable to do a full neurological exam as the patient is not following any commands or answering any questions. - Routine Psychiatric Exam Present: unable to assess Comments: Confused - Detailed Eye Exam Eyelids: Left normal inspection Assessment and Plan (1) Altered mental status Current visit: Yes Status: Acute Category: Medical Code(s): R41.82 - Alte red mental status, unspecified (2) Elevated troponin I level Current visit: Yes Status: Acute Category: Medical Code(s): R74.8 - Abnormal levels of other serum enzymes (3) Hypokalemia Current visit: No Status: Acute Category: Medical Code(s): E87.6 - Hypokalemia (4) HTN (hypertension) Current visit: No Status: Chronic Qualifiers: Hypertension type: essential hypertension Qualified Code(s): I10 - Essential (primary) hypertension Category: Medical Code(s): I10 - Essential (primary) hypertension (5) Pulmonary hypertension Current visit: No Status: Chronic Category: Medical Code(s): I27.20 - Pulmonary hypertension, unspecified (6) Severe aortic stenosis Current visit: Yes Status: Chronic Category: Medical Code(s): I35.0 - Nonrheumatic aortic (valve) stenosis - Assessment and plan all Dx Assessment and Plan for all problems:: Plan: 1. The patient presented to the emergency department with syncope and mental status changes. The patient is still really confused and is unable to follow any commands or answer any questions at this time. She did have a CAT scan of her head which showed no acute injury. 2. The patient does have a history of severe aortic stenosis. However, given how frail and confused the patient is she is most likely not a candidate for TAVR per Dr. Lynch. 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 At this time we will repeat her echocardiogram to evaluate her aortic stenosis. On exam, her aortic stenosis does not appear to be as severe as the last echocardiogram indicated. She has a bounding carotid upstroke and with severe aortic stenosis he would typically see a delayed carotid upstroke. So, as mentioned before we will repeat her echocardiogram at this time. 3. If her echocardiogram is still indicating severe aortic stenosis, consider proceeding with the CTA of her coronary arteries to evaluate her right coronary artery for coronary artery disease as well as to evaluate the origin of her right coronary artery to see if it is too close to her aorta to determine if she is even a candidate for TAVR. However given her frailty and confusion she may not even be a candidate for TAVR anyway. 4. The patient does have an elevated troponin. She recently had a heart cath which showed mild nonocclusive coronary artery disease. Her elevated troponin is most likely from an arrhythmia due to her hypokalemia. We will continue to keep her on telemetry to evaluate for any arrhythmias. 5. She is hypokalemic. Her potassium will be repleted by her primary care provider. 6. Her blood pressure is elevated. We will continue to follow and make changes as necessary. 7. Her LDL goal is less than 55. 8. At this time Dr. Lynch does not want to proceed with any invasive procedures given her frailty and confusion. Pending the results of her echocardiogram, we may proceed with a CTA of her coronary arteries. Thank you for the opportunity to help participate in the care of this patient.
--- NOTE | 2019-03-17 14:18 | Electrocardiograph Report ---
APPROVED REPORT Exam: Resting ECG HR:84 bpm ECG Measurements Heart Rate 84 AXES [place] 184 P 87 QRSd 102 QRS 35 QT 422 T55 QTc 498 <Conclusion> Normal sinus rhythm left atrial abnormality Left ventricular hypertrophy Prolonged QT Abnormal ECG Electronically signed by : Elmer Elizalde, 03/17/2019 13:44:06
[2019-03-18 06:34] LABS: Lymphocytes # 1.5 K/mm3 (0.7-4.5); Mean Platelet Volume 9.4 fl (7.4-10.4); Neutrophils % 61.4 % (37.0-80.0); White Blood Count 4.8 K/mm3 (4.8-10.8)
[2019-03-18 06:46] LABS: Anion Gap 8.8 mEq/L (5-15); Calcium 8.8 mg/dL (8.5-10.1)
[2019-03-18 06:51] LABS: Basophils % 0.5 % (0.1-2.0); Eosinophils % 0.3 % (0.1-12.0); Hematocrit 36.4 % (37.0-47.0); Lymphocytes % 30.8 % (10-50); Mean Corpuscular HGB Conc 32.2 g/dL (31.8-35.4); Mean Corpuscular Volume 93.3 fl (81-99); Monocytes # 0.3 K/mm3 (0.1-1.0); Neutrophils # 2.9 K/mm3 (1.8-7.8); Platelet Count 102 K/mm3 (142-424); Red Cell Distribution Width 14.2 % (11.5-17.5)
[2019-03-18 06:58] LABS: Hemoglobin 11.7 g/dL (12.2-16.2)
--- NOTE | 2019-03-18 07:26 | Pharmacy Consult Notes ---
[facility] Pharmacy VTE Monitoring - Patient Demographics Admission date: 03/17/19 Report Date: 03/18/19 Time: 07:26 Allergies/Adverse Reactions: Patient Allergies No Known Allergies Allergy (Verified 03/09/19 13:45) Height: 1.47 m Weight: 39.548 kg Patient Problems: Current Active Problems Hypokalemia (Acute) Altered mental status (Acute) Elevated troponin I level (Acute) Severe aortic stenosis (Chronic) - VTE Risk Labs: VTE Related Lab Results Hgb 11.7 g/dL (12.2-16.2) L D 03/18/19 05:53 Hct 36.4 % (37.0-47.0) L 03/18/19 05:53 Plt Count 102 K/mm3 (142-424) L 03/18/19 05:53 BUN 8 mg/dL (7-18) D 03/18/19 05:53 Creatinine 0.76 mg/dL (0.55-1.02) 03/18/19 05:53 Estimated Creat Clear 28 mL/min (50-200) 03/18/19 05:53 VTE Score: 7 VTE Risk Level: Moderate Risk - Prophylaxis VTE Prophylaxis Ordered?: Yes Types of VTE Prophylaxis: TEDS Knee High Location of Applied Device: Bilateral Lower Extremeties - VTE Diagnosis Confirmed Treatment or plan recommended: Continue Current Treatment
--- NOTE | 2019-03-18 10:16 | Progress Note ---
Internal Medicine - PN: Subj *Date: 03/18/19 *Time: 11:50 Interval history: 79-year-old female patient sitting up in bed eating breakfast per self. Reports she is feeling okay, appears to be more alert and oriented today. Denies any pain or shortness of breath. This is an 79-year-old white female who was brought to the emergency department by her family. The patient was found on the floor at her daughter's house unresponsive. They did get the patient to wake up and then she collapsed again. The patient's family reports that she has been confused since last night. While here at the emergency department I am unable to do a review of systems with the patient because she is not answering any questions or following any commands. She does open her eyes when her name is called but she is not answering any questions. After the patient being found on the floor at her daughter's house she was brought here to the emergency department. Her troponin is elevated at 0.8 and her potassium is 2.6. It is presumed that the patient may have had an arrhythmia due to her hypokalemia. Her family does not report her having any chest pain prior to her being found on the floor unresponsive. (Per Juan Luis Stein MATERIAL SPREADER) Exam Vital signs and Labs for Last 24 Hours: Temp Pulse Resp BP Pulse Ox 97.8 F 68 16 144/80 H 93 L 03/18/19 08:00 03/18/19 08:00 03/18/19 08:00 03/18/19 08:00 03/18/19 08:00 Laboratory Results - last 24 hr 03/17/19 09:38: POC Glucose 123 H 03/17/19 10:25: WBC 7.1, RBC 4.71, Hgb 14.1, Hct 43.8, MCV 92.9, MCH 29.9, MCHC 32.2, RDW 14.2, Plt Count 118 L, MPV 9.0, Neut % (Auto) 82.8 H, Lymph % (Auto) 12.1, [place] % (Auto) 4.7, Eos % (Auto) 0.2, Baso % (Auto) 0.2, Neut # (Auto) 5.9, Lymph # (Auto) 0.9, Hanson # (Auto) 0.3, Eos # (Auto) 0.0, Baso # (Auto) 0.0 03/17/19 10:25: Sodium 138, Potassium 2.6 L*, Chloride 101, Carbon Dioxide 33 H, Anion Gap 6.6, BUN 11, Creatinine 0.81, Estimated Creat Clear 27, Estimated GFR 68, Est GFR ( Amer) 82, Glucose 120 H, Calcium 9.3, Total Bilirubin 1.4 H , AST 24, ALT 16, Alkaline Phosphatase 102, Troponin I 0.83 H, Total Protein 8.0 D, Albumin 4.0, Globulin 4.0 H, Albumin/Globulin Ratio 1.0 L 03/17/19 10:25: Lactate 1.0 03/17/19 10:25: Total Creatine Kinase 230 H, CK-MB (CK-2) 3.0 D 03/17/19 10:40: Urine Color Yellow, Urine Appearance Sl cloudy, Urine pH 8.0, Ur Specific [place] 1.020, Urine Protein 1+, Urine Glucose (UA) Negative, Urine Ketones Trace, Urine Blood Trace-i, Urine Nitrate Negative, Urine Bilirubin Negative, Urine Urobilinogen 0.2, Ur Leukocyte Esterase Negative, Urine RBC 3-5, Urine Bacteria Trace 03/17/19 11:14: Specimen Source Left radial, O2 % 2 liters, ABG pH 7.39, ABG pCO2 47.2 H, ABG pO2 121.4 H, ABG HCO3 28.1 H, ABG Total CO2 29.5 H, ABG O2 Saturation 98, ABG Base Excess 3.1 H, Chris Test Acceptable 03/17/19 14:22: Troponin I 0.80 H 03/17/19 17:14: Troponin I 0.73 H 03/17/19 23:10: Troponin I 0.58 H 03/18/19 05:53: WBC 4.8 D, RBC 3.90 L, Hgb 11.7 L D, Hct 36.4 L, MCV 93.3, MCH 30.1, MCHC 32.2, RDW 14.2, Plt Count 102 L, MPV 9.4, Neut % (Auto) 61.4, Lymph % (Auto) 30.8, Hanson % (Auto) 7.0, Eos % (Auto) 0.3, Baso % (Auto) 0.5, Neut # (Auto) 2.9, Lymph # (Auto) 1.5, Hanson # (Auto) 0.3, Eos # (Auto) 0.0, Baso # (Auto) 0.0 03/18/19 05:53: Sodium 143, Potassium 2.8 L*, Chloride 105, Carbon Dioxide 32, Anion Gap 8.8, BUN 8 D, Creatinine 0.76, Estimated Creat Clear 28, Estimated GFR 73, Est GFR ( Amer) 88, Glucose 129 H, Calcium 8.8 I & O for Last 24 hours: Intake & Output 03/15/19 03/16/19 03/17/19 03/18/19 23:59 23:59 23:59 23:59 Intake Total 618.667 / 422.416 3637 / 2261 Output Total 750 / 750 Balance -131.333 / -375.013 0398 / 2261 Weight 81 lb 3 oz 87 lb 3 oz - Constitutional no acute distress, thin - *Routine HEENT Exam Head: Present: normocephalic. Absent: tenderness of temporal artery Eye: Present: EOMI, PERRL ENT: Present: mucous membranes dry - *Routine Neck Exam Present: supple, trachea midline. Absent: tracheal deviation - *Routine Respiratory Exam Present: diminished air movement. Absent: accessory muscle use - *Routine Cardiovascular Exam Present: RRR, murmur - *Routine Abdominal Exam Present: soft, normoactive bowel sounds. Absent: tenderness - *Routine Extremities Exam Present: pulses intact. Absent: edema, calf tenderness - Routine Back/Spine/Pelvis Exam Back/Spine: Present: full ROM. Absent: CVA tenderness - *Routine Skin Exam Present: intact. Absent: cyanosis, lesions - *Routine Neurological Exam Present: alert, CN II-XII intact, moving all extremities - Routine Psychiatric Exam Present: normal affect. Absent: auditory hallucinations, visual hallucinations Assessment and Plan (1) Altered mental status Current visit: Yes Status: Acute Category: Medical Code(s): R41.82 - Altered mental status, unspecified (2) Elevated troponin I level Current visit: Yes Status: Acute Category: Medical Code(s): R74.8 - Abnormal levels of other serum enzymes (3) Hypokalemia Current visit: No Status: Acute Category: Medical Code(s): E87.6 - Hypokalemia (4) HTN (hypertension) Current visit: No Status: Chronic Qualifiers: Hypertension type: essential hypertension Qualified Code(s): I10 - Essential (primary) hypertension Category: Medical Code(s): I10 - Essential (primary) hypertension (5) Pulmonary hypertension Current visit: No Status: Chronic Category: Medical Code(s): I27.20 - Pulmonary hypertension, unspecified (6) Severe aortic stenosis Current visit: Yes Status: Chronic Category: Medical Code(s): I35.0 - Nonrheumatic aortic (valve) stenosis (7) NSTEMI (non-ST elevated myocardial infarction) Current visit: Yes Status: Acute Category: Medical Code(s): I21.4 - Non-ST elevation (NSTEMI) myocardial infarction - Assessment and plan all Dx Assessment and Plan for all problems:: Rounded with Dr. Isaac, all orders per Dr. Isaac Cardiology has seen and recommended: 1. The patient presented to the emergency department with syncope and mental status changes. The patient is still really confused and is unable to follow any commands or answer any questions at this time. She did have a CAT scan of her head which showed no acute injury. 2. The patient does have a history of severe aortic stenosis. However, given how frail and confused the patient is she is most likely not a candidate for TAVR per Dr. Lynch. 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 At this time we will repeat her echo cardiogram to evaluate her aortic stenosis. On exam, her aortic stenosis does not appear to be as severe as the last echocardiogram indicated. She has a bounding carotid upstroke and with severe aortic stenosis he would typically see a delayed carotid upstroke. So, as mentioned before we will repeat her echocardiogram at this time. 3. If her echocardiogram is still indicating severe aortic stenosis, consider proceeding with the CTA of her coronary arteries to evaluate her right coronary artery for coronary artery disease as well as to evaluate the origin of her right coronary artery to see if it is too close to her aorta to determine if she is even a candidate for TAVR. However given her frailty and confusion she may not even be a candidate for TAVR anyway. 4. The patient does have an elevated troponin. She recently had a heart cath which showed mild nonocclusive coronary artery disease. Her elevated troponin is most likely from an arrhythmia due to her hypokalemia. We will continue to keep her on telemetry to evaluate for any arrhythmias. 5. She is hypokalemic. Her potassium will be repleted by her primary care provider. 6. Her blood pressure is elevated. We will continue to follow and make changes as necessary. 7. Her LDL goal is less than 55. 8. At this time Dr. Lynch does not want to proceed with any invasive procedures given her frailty and confusion. Pending the results of her echocardiogram, we may proceed with a CTA of her coronary arteries. 1. Awaiting echo results 2. PT OT eval 3. Possible discharge tomorrow
--- NOTE | 2019-03-18 15:50 | Cardiology Report ---
APPROVED REPORT EXAM: Comprehensive 2D, Doppler, and color-flow Echocardiogram Cocktail Server: Jessenia Michel RDCS Ht: 4 ft 11 in Wt: 83lbs BSA: 1.27 BP: 160/96 mmHg Indications: MURMUR KNOWN CAD Left Ventricle Left atrium is mildly enlarged, left ventricle is normal size, mild concentric left ventricular hypertrophy, visually estimated ejection fraction 55% with no regional wall motion abnormality. Grade 1 diastolic dysfunction seen with tissue Doppler evidence of raise left atrial pressure. Right Ventricle Right atrium and right ventricular mildly enlarged with normal contractility. Aortic Valve The aortic valve is thickened and calcified with restriction to leaflet mobility. The maximum aortic outflow velocity recorded study 3.2 m/s, resulting in a mean gradient across valve of 26 mmHg, this is consistent with moderate aortic stenosis, there is moderate aortic insufficiency present. Mitral Valve Mitral valve leaflets are thickened and calcified, degenerative changes are seen both anterior and posterior mitral leaflet. There is no mitral stenosis, there is moderate to severe mitral regurgitation. Tricuspid Valve Tricuspid valve leaflets are minimally thickened. There is mild tricuspid regurgitation noted, calculated right ventricular systolic pressure is 40 mmHg consistent with mild pulmonary hypertension. Inferior vena cava was not well visualized Pulmonic Valve Pulmonic valve is poorly visualized Great Vessels Aortic root is normal size Pericardium No significant pericardial effusion noted 2D Dimensions LVOT 1.80 cm (M/F) 1.5-2.5 M-Mode Dimensions RVDd 1.40 cm (0.9-2.6)LA Diam 2.70 cm (1.9-4.0) LVDd 5.00 cm (3.5-5.7)Ao Diam 2.30 cm (2.0-3.7) LVDs 3.80 cm (3.5-5.7)AV Cusp 0.50 cm (1.5-2.6) IVSd 0.70 cm (0.6-1.1)PWd 0.70 cm (0.6-1.1) EF (Teich) 47.50% FS 24.00% EDV (Teich) 118.00 mLESV (Teich) 62.00 mL LV Diastology E/A Ratio 0.50MED E' 4.48 (< 7 cm/sec) E'/MED E' Ratio8.40 (>14)LAT E' 3.31 (<10 cm/sec) E/LAT E' Ratio 11.30 (>14) Aortic Valve LVOT Max 216.00 (70-110 cm/s)LVOT VTI 45.90 cm AoV Peak Ta. 318.00 (50-130 cm/s)AI PHT 394.00 ms AO Peak GR. 40.00 mmHgAO Mean GR. 26.00 (<5 mmHg) AO VTI 62.60 (18-25 cm)ROB (VTI) 1.86 (2.5-4.5 cm2) Mitral Valve MV E Max Ta. 37.50 (40-130 cm/s)MV A Velocity 71.60 (40-130 cm/s) E/A Ratio 0.50 Tricuspid Valve TR P. [id number] cm/sRAP Estimate 10.00 mmHg RVSP 41.00 mmHg Conclusion 1. Biatrial enlargement, normal left ventricular size, mild concentric left ventricular hypertrophy, visually estimated ejection fraction 55% with no regional wall motion abnormality, grade 1 diastolic dysfunction seen with tissue Doppler evidence of raise left atrial pressure. 2. Thickened and calcified aortic valve with mean gradient across valve of 26 mmHg represents moderate aortic stenosis, there is moderate aortic insufficiency present. 3. Abnormal mitral valve as described above, there is no mitral stenosis, there is moderate to severe mitral regurgitation. 4. Mild tricuspid regurgitation, calculated right ventricular systolic pressure is 40 mmHg consistent with mild pulmonary hypertension. 5. No significant pericardial effusion noted Electronically signed by : Jam Linares, 03/18/2019 15:50:19
--- NOTE | 2019-03-18 16:06 | Progress Note ---
Subjective Date: 03/18/19 Time: 16:01 Principal diagnosis: AMS, Aortic stenosis Interval history: 79-year-old white female in bedside chair in no acute distress. States she is feeling better but is not back to normal. To for additional family members are in the room. Results of echocardiogram reviewed with family with recommendation to continue current medical therapy. Patient is not a good candidate for, nor does she need, aortic valve surgery at this time Exam Vital signs and Labs for Last 24 Hours: Temp Pulse Resp BP Pulse Ox 98.1 F 70 17 146/79 H 94 L 03/18/19 11:22 03/18/19 12:00 03/18/19 11:22 03/18/19 11:22 03/18/19 11:22 Laboratory Results - last 24 hr 03/17/19 17:14: Troponin I 0.73 H 03/17/19 23:10: Troponin I 0.58 H 03/18/19 05:53: WBC 4.8 D, RBC 3.90 L, Hgb 11.7 L D, Hct 36.4 L, MCV 93.3, MCH 30.1, MCHC 32.2, RDW 14.2, Plt Count 102 L, MPV 9.4, Neut % (Auto) 61.4, Lymph % (Auto) 30.8, [place] % (Auto) 7.0, Eos % (Auto) 0.3, Baso % (Auto) 0.5, Neut # (Auto) 2.9, Lymph # (Auto) 1.5, [place] # (Auto) 0.3, Eos # (Auto) 0.0, Baso # (Auto) 0.0 03/18/19 05:53: Sodium 143, Potassium 2.8 L*, Chloride 105, Carbon Dioxide 32, Anion Gap 8.8, BUN 8 D, Creatinine 0.76, Estimated Creat Clear 28, Estimated GFR 73, Est GFR ( Amer) 88, Glucose 129 H, Calcium 8.8 I & O for Last 24 hours: Intake & Output 03/16/19 03/17/19 03/18/19 03/19/19 11:59 11:59 11:59 11:59 Intake Total 2879.667 / 2879.667 460 / 460 Output Total 750 / 750 Balance 2129.667 / 2129.667 460 / 460 Weight 85 lb 87 lb 3 oz - *Routine HEENT Exam Head: Present: normocephalic Eye: Present: EOMI, PERRL ENT: Present: mucous membranes moist - *Routine Respiratory Exam Present: CTA bilaterally. Absent: accessory muscle use, rales, rhonchi, wheezes - *Routine Cardiovascular Exam Present: RRR, murmur. Absent: gallop, rubs - *Routine Extremities Exam Absent: edema, calf tenderness Progress Note: A&P (1) Altered mental status Status: Acute Current Visit: Yes (2) Elevated troponin I level Status: Acute Current Visit: Yes (3) Hypokalemia Status: Acute Current Visit: No (4) HTN (hypertension) Status: Chronic Current Visit: No (5) Pulmonary hypertension Status: Chronic Current Visit: No (6) Severe aortic stenosis Status: Chronic Current Visit: Yes (7) NSTEMI (non-ST elevated myocardial infarction) Status: Acute Current Visit: Yes Assessment and Plan for All Diagnoses:: 1. Moderate aortic stenosis and aortic regurgitation with moderate to severe mitral regurgitation and normal left ventricular ejection fraction by echocardiogram this admission. Will not recommend aortic valve surgery at this time. 2. 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 Continue aspirin therapy. Patient is too frail for consideration of any cardiac or surgical intervention of the coronary arteries. 3. We will give additional potassium supplement. 4. Anticipate discharge home tomorrow as per PCP plans.
[2019-03-19 06:24] LABS: Anion Gap 8.4 mEq/L (5-15); Calcium 8.4 mg/dL (8.5-10.1)
--- NOTE | 2019-03-19 08:29 | Progress Note ---
Subjective Date: 03/19/19 Time: 08:25 Principal diagnosis: AMS, Aortic stenosis Interval history: 79-year-old white female sitting in bedside chair eating breakfast in no acute distress. She denies any chest pain, pressure or tightness overnight. She states she is feeling better and is ready to go home. Exam Vital signs and Labs for Last 24 Hours: Temp Pulse Resp BP Pulse Ox 97.7 F 70 18 159/94 H 97 03/19/19 03:44 03/19/19 04:00 03/19/19 03:44 03/19/19 03:44 03/19/19 03:44 Laboratory Results - last 24 hr 03/19/19 05:55: Sodium 143, Potassium 3.4 L D, Chloride 108 H, Carbon Dioxide 30, Anion Gap 8.4, BUN 7, Creatinine 0.73, Estimated Creat Clear 28, Estimated GFR 77, Est GFR ( Amer) 93, Glucose 123 H, Calcium 8.4 L I & O for Last 24 hours: Intake & Output 03/16/19 03/17/19 03/18/19 03/19/19 11:59 11:59 11:59 11:59 Intake Total 2879.667 / 2879.667 3523 / 3523 Output Total 750 / 750 900 / 900 Balance 2129.667 / 2129.667 2623 / 2623 Weight 85 lb 87 lb 3 oz 87 lb 4 oz - *Routine HEENT Exam Head: Present: normocephalic Eye: Present: EOMI, PERRL ENT: Present: mucous membranes moist - *Routine Respiratory Exam Present: CTA bilaterally, diminished air movement. Absent: accessory muscle use, rales, rhonchi, wheezes - *Routine Cardiovascular Exam Present: RRR, murmur. Absent: gallop, rubs - *Routine Extremities Exam Absent: edema, calf tenderness - *Routine Neurological Exam Present: alert, oriented X3, moving all extremities Progress Note: A&P (1) Altered mental status Status: Acute Current Visit: Yes (2) Elevated troponin I level Status: Acute Current Visit: Yes (3) Hypokalemia Status: Acute Current Visit: No (4) HTN (hypertension) Status: Chronic Current Visit: No (5) Pulmonary hypertension Status: Chronic Current Visit: No (6) Severe aortic stenosis Status: Chronic Current Visit: Yes (7) NSTEMI (non-ST elevated myocardial infarction) Status: Acute Current Visit: Yes Assessment and Plan for All Diagnoses:: 1. Moderate aortic stenosis and aortic regurgitation with no plans for intervention. 2. Moderate to severe mitral regurgitation, continue medical therapy 3. Okay from cardiology standpoint for discharge home on home medications of aspirin 325 mg daily, lisinopril 2.5 mg daily and Norvasc 5 mg daily. 4. Follow-up in our office in 1 to 2 weeks.
[2019-03-19 08:34] VITALS: BP 143/74
--- NOTE | 2019-03-19 08:39 | Discharge Summary ---
General - General Admission date:: 03/17/19 Discharge date: 03/19/19 HPI HPI: 79-year-old female patient sitting up in chair eating breakfast. States she is feeling better and is ready to go home. She will be discharged this morning and is agreeable to that denies any concerns/needs at this time Hospital Course Hospital Course: This is an 79-year-old white female who was brought to the emergency department by her family. The patient was found on the floor at her daughter's house unresponsive. They did get the patient to wake up and then she collapsed again. The patient's family reports that she has been confused since last night. While here at the emergency department I am unable to do a review of systems with the patient because she is not answering any questions or following any commands. She does open her eyes when her name is called but she is not answering any questions. After the patient being found on the floor at her daughter's house she was brought here to the emergency department. Her troponin is elevated at 0.8 and her potassium is 2.6. It is presumed that the patient may have had an arrhythmia due to her hypokalemia. Her family does not report her having any chest pain prior to her being found on the floor unresponsive. (Per Juan Luis Stein APRN) 03/17/20192-D ECHO Conclusion 1. Biatrial enlargement, normal left ventricular size, mild concentric left ventricular hypertrophy, visually estimated ejection fraction 55% with no regional wall motion abnormality, grade 1 diastolic dysfunction seen with tissue Doppler evidence of raise left atrial pressure. 2. Thickened and calcified aortic valve with mean gradient across valve of 26 mmHg represents moderate aortic stenosis, there is moderate aortic insufficiency present. 3. Abnormal mitral valve as described above, there is no mitral stenosis, there is moderate to severe mitral regurgitation. 4. Mild tricuspid regurgitation, calculated right ventricular systolic pressure is 40 mmHg consistent with mild pulmonary hypertension. 5. No significant pericardial effusion noted Electronically signed by : Jam Linares, 03/18/2019 15:50:19 Cards has seen and rec: 1. Moderate aortic stenosis and aortic regurgitation with no plans for intervention. 2. Moderate to severe mitral regurgitation, continue medical therapy 3. Okay from cardiology standpoint for discharge home on home medications of aspirin 325 mg daily, lisinopril 2.5 mg daily and Norvasc 5 mg daily. 4. Follow-up in our office in 1 to 2 weeks. On admission her potassium was 2.6, since then she has received supplemental IV and p.o. potassium. She will be discharged home on additional p.o. potassium. All of her x-rays and CTs have been negative. We will draw a BMP on her next office visit Objective Vital signs: Temp Pulse Resp BP Pulse Ox 97.9 F 69 18 143/74 H 99 03/19/19 08:00 03/19/19 08:00 03/19/19 08:00 03/19/19 08:00 03/19/19 08:00 no acute distress - *Routine HEENT Exam Head: Present: normocephalic, atraumatic. Absent: tenderness of temporal artery Eye: Present: EOMI, PERRL. Absent: periorbital tenderness ENT: Present: mucous membranes moist - *Routine Neck Exam Present: supple, full ROM. Absent: tenderness, swelling - *Routine Respiratory Exam Present: CTA bilaterally. Absent: accessory muscle use, rales - *Routine Cardiovascular Exam Present: murmur - *Routine Abdominal Exam Present: soft, normoactive bowel sounds. Absent: tenderness, firm - *Routine Extremities Exam Present: pulses intact. Absent: cyanosis, calf tenderness - Routine Back/Spine/Pelvis Exam Back/Spine: Present: full ROM. Absent: pain with rotation - *Routine Skin Exam Present: intact. Absent: cyanosis - *Routine Neurological Exam Present: alert, oriented X3, CN II-XII intact. Absent: altered mental status - Routine Psychiatric Exam Present: normal affect. Absent: visual hallucinations, tactile hallucinations Results Labs on day of discharge: Labs from last 24 hours 03/19/19 05:55 Sodium 143 Potassium 3.4 L D Chloride 108 H Carbon Dioxide 30 Anion Gap 8.4 BUN 7 Creatinine 0.73 Estimated Creat Clear 28 Estimated GFR 77 Est GFR ( Amer) 93 Glucose 123 H Calcium 8.4 L - Additional Comments Rounded with Dr. Isaac, all orders per Dr. Isaac 1. We will discharge today 2. Follow-up with cardiology in 2 weeks, follow-up with PCP in 2 weeks DS: Diagnosis - Discharge Diagnosis (1) Altered mental status Status: Acute (2) Elevated troponin I level Status: Acute (3) Hypokalemia Status: Acute (4) HTN (hypertension) Status: Chronic (5) Pulmonary hypertension Status: Chronic (6) Severe aortic stenosis Status: Chronic (7) NSTEMI (non-ST elevated myocardial infarction) Status: Acute Discharge Plan - Patient Discharge Instructions ACTIVITY: Continue current activity DIET: continue same diet Patient Instructions: DI for Aortic Stenosis, DI for Hypokalemia, How to Prevent Falls, DI for Altered Mental Status - Follow up Plan Follow up with: Ishaan Isaac MD [Primary Care Provider] - 2 weeks Ryan Lynch MD [Staff Physician] - 2 weeks Disposition: Home, Self-[facility] Medications: Home Medications Medication Instructions Recorded Confirmed Type Amlodipine Besylate [Norvasc 5mg 5 mg PO DAILY 11/02/18 03/17/19 History tablet] Lisinopril [Lisinopril 2.5mg Tab] 2.5 mg PO DAILY 03/17/19 03/17/19 History Aspirin 325 mg PO DAILY 03/18/19 03/18/19 History Potassium Chloride [Pot Chlor 10 20 meq PO DAILY 30 Days #30 tab 03/19/19 Rx mEq Tab] Prescriptions/Medication Reconciliation: New Aspirin [Aspirin 325mg Tab] 325 mg PO DAILY tablet Potassium Chloride [Pot Chlor 10 mEq Tab] 20 meq PO DAILY 30 Days #30 tab Continued Amlodipine Besylate [Norvasc 5mg tablet] 5 mg PO DAILY Aspirin 325 mg PO DAILY Lisinopril [Lisinopril 2.5mg Tab] 2.5 mg PO DAILY - Problem Reconciliation Problems Reviewed?: Yes
--- NOTE | 2019-03-25 16:58 | History & Physical Report ---
*Admission Date: 03/17/19 *Chief complaint: Elevated Troponin *History of present illness: Pt was seen at 0945 03/18/2019 79-year-old female patient sitting up in bed eating breakfast per self. Reports she is feeling okay, appears to be more alert and oriented today. Denies any pain or shortness of breath. This is an 79-year-old white female who was brought to the emergency department by her family. The patient was found on the floor at her daughter's house unresponsive. They did get the patient to wake up and then she collapsed again. The patient's family reports that she has been confused since last night. While here at the emergency department I am unable to do a review of systems with the patient because she is not answering any questions or following any commands. She does open her eyes when her name is called but she is not answering any questions. After the patient being found on the floor at her daughter's house she was brought here to the emergency department. Her troponin is elevated at 0.8 and her potassium is 2.6. It is presumed that the patient may have had an arrhythmia due to her hypokalemia. Her family does not report her having any chest pain prior to her being found on the floor unresponsive. (Per Juan Luis Stein APRN) [facility] History Medical History: Reports:: Cancer, Coronary Artery Disease, Heart Murmur, Hypertension, Valvular Heart Disease Denies:: Diabetes Mellitus Type 1, Diabetes Mellitus Type 2, MRSA *Have you ever received a pneumonia vaccine?: No *Have you received a flu vaccine this season?: No Other Medical History: Reports: Anemia Laterality Cases: Bilateral: Breast Biopsy, Mastectomy Other Surgeries: Yes: Colonoscopy, Tubal Ligation, Other Amputation: No Fractures: No - *Social History Educational Level: Completed Grade School Smoking Status: Never smoker Alcohol Intake: never Substance Use Type: denies use *Occupational Status:: retired Housing: house Household Members: family, children *Travel in the last 8 weeks: None Family Hx:: Cancer, Hypertension Review of Systems - Review of Systems Review of systems:: pertinent systems reviewed and negative unless documented below - Constitutional Denies chills, Denies fever(s) - Eyes Denies change in vision, Denies double vision - ENT Denies dizziness - *Cardiovascular Denies shortness of breath, Denies rapid, pounding, or irregular heartbeat - *Respiratory Denies shortness of breath, Denies wheezing - *Gastrointestinal Denies incontinent of stools, Denies loose stools - *Musculoskeletal Denies body aches - Integumentary/Breasts Denies bleeding lesions, Denies sores - *Neurologic Denies headache(s) - Psychiatric Denies thoughts of hurting/killing yourself - Endocrine Denies heat intolerance, Denies rapid, pounding, or irregular heartbeat - Hematologic/Lymphatic Denies easy bleeding - Allergic/Immunologic Denies throat swelling, Denies wheezing Meds Home Medications Medication Instructions Recorded Confirmed Type Amlodipine Besylate [Norvasc 5mg 5 mg PO DAILY 11/02/18 03/17/19 History tablet] Lisinopril [Lisinopril 2.5mg Tab] 2.5 mg PO DAILY 03/17/19 03/17/19 History Aspirin 325 mg PO DAILY 03/18/19 03/18/19 History Aspirin [Aspirin 325mg Tab] 325 mg PO DAILY tab 03/19/19 Rx Potassium Chloride [Pot Chlor 10 20 meq PO DAILY 30 Days #30 tab 03/19/19 Rx mEq Tab] Allergies Allergy/AdvReac Type Severity Reaction Status Date / Time No Known Allergies Allergy Verified 03/09/19 13:45 Exam Vital signs and Labs for Last 24 Hours: Temp Pulse Resp BP Pulse Ox 97.9 F 69 18 143/74 H 99 03/19/19 08:00 03/19/19 08:00 03/19/19 08:00 03/19/19 08:00 03/19/19 08:00 - Constitutional no acute distress - *Routine HEENT Exam Head: Present: normocephalic, atraumatic. Absent: tenderness of temporal artery Eye: Present: EOMI, PERRL. Absent: conjunctivae pink ENT: Present: mucous membranes dry. Absent: sinus tenderness - *Routine Neck Exam Present: supple, trachea midline. Absent: tracheal deviation - *Routine Respiratory Exam Present: CTA bilaterally. Absent: accessory muscle use - *Routine Cardiovascular Exam Present: RRR, murmur - *Routine Abdominal Exam Present: soft, normoactive bowel sounds. Absent: tenderness, firm - *Routine Extremities Exam Present: full ROM, pulses intact. Absent: calf tenderness, extremity cold to touch - Routine Back/Spine/Pelvis Exam Back/Spine: Present: full ROM. Absent: CVA tenderness, pain with rotation - *Routine Skin Exam Present: intact, warm. Absent: pallor, jaundice - *Routine Neurological Exam Present: alert, CN II-XII intact, normal speech. Absent: sensory deficit, altered mental status - Routine Psychiatric Exam Present: normal affect, normal thought process Assessment and Plan (1) Altered mental status Status: Acute Category: Medical Code(s): R41.82 - Altered mental status, unspecified (2) Elevated troponin I level Status: Acute Category: Medical Code(s): R74.8 - Abnormal levels of other serum enzymes (3) Hypokalemia Status: Acute Category: Medical Code(s): E87.6 - Hypokalemia (4) HTN (hypertension) Status: Chronic Qualifiers: Hypertension type: essential hypertension Qualified Code(s): I10 - Essential (primary) hypertension Category: Medical Code(s): I10 - Essential (primary) hypertension (5) Pulmonary hypertension Status: Chronic Category: Medical Code(s): I27.20 - Pulmonary hypertension, unspecified (6) Severe aortic stenosis Status: Chronic Category: Medical Code(s): I35.0 - Nonrheumatic aortic (valve) stenosis (7) NSTEMI (non-ST elevated myocardial infarction) Status: Acute Category: Medical Code(s): I21.4 - Non-ST elevation (NSTEMI) myocardial infarction - Assessment and plan all Dx Assessment and Plan for all problems:: Rounds w/ Dr. Isaac, all orders per Dr. Isaac Cardiology has seen and recommended: 1. The patient presented to the emergency department with syncope and mental status changes. The patient is still really confused and is unable to follow any commands or answer any questions at this time. She did have a CAT scan of her head which showed no acute injury. 2. The patient does have a history of severe aortic stenosis. However, given how frail and confused the patient is she is most likely not a candidate for TAVR per Dr. Lynch. 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 At this time we will repeat her echocardiogram to evaluate her aortic stenosis. On exam, her aortic stenosis does not appear to be as severe as the last echocardiogram indicated. She has a bounding carotid upstroke and with severe aortic stenosis he would typically see a delayed carotid upstroke. So, as mentioned before we will repeat her echocardiogram at this time. 3. If her echocardiogram is still indicating severe aortic stenosis, consider proceeding with the CTA of her coronary arteries to evaluate her right coronary artery for coronary artery disease as well as to evaluate the origin of her right coronary artery to see if it is too close to her aorta to determine if she is even a candidate for TAVR. However given her frailty and confusion she may not even be a candidate for TAVR anyway. 4. The patient does have an elevated troponin. She recently had a heart cath which showed mild nonocclusive coronary artery disease. Her elevated troponin is most likely from an arrhythmia due to her hypokalemia. We will continue to keep her on telemetry to evaluate for any arrhythmias. 5. She is hypokalemic. Her potassium will be repleted by her primary care provider. 6. Her blood pressure is elevated. We will continue to follow and make changes as necessary. 7. Her LDL goal is less than 55. 8. At this time Dr. Lynch does not want to proceed with any invasive procedures given her frailty and confusion. Pending the results of her echocardiogram, we may proceed with a CTA of her coronary arteries. 1. Awaiting echo results 2. PT OT eval 3. Possible discharge tomorrow
== END 2019-03-19 10:40 | disposition home or self-care (01) ==
LOC: 2ND 09:31 → ER 09:31 → 2ND 15:02
PROVIDERS: ADMIT Emergency Medicine; ATTEND Emergency Medicine
DX: Z79.899 Other long term (current) drug therapy; I21.A1 Myocardial infarction type 2; I35.0 Nonrheumatic aortic (valve) stenosis; R41.82 Altered mental status, unspecified; I08.0 Rheumatic disorders of both mitral and aortic valves; I10 Essential (primary) hypertension; I27.20 Pulmonary hypertension, unspecified; I25.10 Atherosclerotic heart disease of native coronary artery without angina pectoris
CPT/HCPCS: 36415; 70450; 71010; 71045; 72125; 72170; 73552; 80048; 80053; 81001; 82550; 82553; 82803; 82962; 83605; 84484; 85025; 87040; 87077; 93005; 93306; 94761; 96365; 96367; 97161; 97165; 99285; G0378

== ENCOUNTER → 2019-04-02 10:19 | Outpatient (CLI) | payer MEDICARE, MEDICAID, SELFPAY ==
[2019-04-02 13:06] LABS: Anion Gap 12.2 mEq/L (5-15); Blood Urea Nitrogen 13 mg/dL (7-18); Calcium 9.5 mg/dL (8.5-10.1); Carbon Dioxide 32 mmol/L (21.0-32.0); Chloride 103 mmol/L (98-107); Estimated Glomerular Filt Rate 69 ml/min (>60); GFR (African American) 83 ML/MIN (>60); Glucose 95 mg/dL (74-106); Potassium 4.2 mmoL/L (3.5-5.1); Sodium 143 mmol/L (136-145)
== END ==
PROVIDERS: Visit Provider Physician Assistant
DX: E87.6 Hypokalemia (principal)
CPT/HCPCS: 36415; 80048

== ENCOUNTER → 2019-05-26 09:58 | Outpatient (CLI) | payer MEDICARE, SELFPAY ==
--- NOTE | 2019-05-26 10:14 | XR_ITS ---
PROCEDURE: XR HIP LT 2-3V W/PELVIS CLINICAL INDICATION: 6 month fu left hip cannulated screw fixation COMPARISON: XR PELVIS 1-2V from 03/17/2019 FINDINGS: Three cannulated screws remain in place stabilizing the healing left femoral neck fracture with good alignment. No evidence of orthopedic complication. There are mild osteoarthritic changes of the hips IMPRESSION: Good alignment status post ORIF left femoral neck fracture Dictated by: Chris Eubanks MD 05/26/2019 11:22 Electronically signed by Chris Eubanks MD in [place] 05/26/2019 11:22
== END ==
PROVIDERS: PCP Emergency Medicine; Visit Provider Orthopaedic Surgery
DX: S72.002A Fracture of unspecified part of neck of left femur, initial encounter for closed fracture (principal); Z09 Encounter for follow-up examination after completed treatment for conditions other than malignant neoplasm
CPT/HCPCS: 73502

== ENCOUNTER → 2019-07-16 16:47 | Outpatient (CLI) | payer MEDICARE, SELFPAY ==
[2019-07-16 17:08] LABS: Anion Gap 12.1 mEq/L (5-15); Blood Urea Nitrogen 17 mg/dL (7-18); Calcium 9.2 mg/dL (8.5-10.1); Carbon Dioxide 32 mmol/L (21.0-32.0); Chloride 105 mmol/L (98-107); Creatinine,Serum 0.94 mg/dL (0.55-1.02); Estimated Glomerular Filt Rate 57 ml/min (>60); GFR (African American) 69 ML/MIN (>60); Glucose 145 mg/dL (74-106); Potassium 4.1 mmoL/L (3.5-5.1); Sodium 145 mmol/L (136-145)
== END ==
PROVIDERS: Visit Provider Emergency Medicine
DX: I10 Essential (primary) hypertension (principal)
CPT/HCPCS: 80048

== ENCOUNTER → 2019-07-19 16:15 | Outpatient (CLI) | payer MEDICARE, SELFPAY ==
[2019-07-19 16:16] LABS: Adenovirus F 40/41, stool Not Detected (NotDetected); Astrovirus Not Detected (NotDetected); Campylobacter Not Detected (NotDetected); Clostridium Difficile A/B, PCR Not Detected (NotDetected); Cryptosporidium Not Detected (NotDetected); Cyclospora Cayetanesis Not Detected (NotDetected); Entamoeba histolytica Not Detected (NotDetected); Enteroaggregative E coli Not Detected (NotDetected); Enteropathogenic E coli Not Detected (NotDetected); Enterotoxigenic E coli Not Detected (NotDetected); Giardia lamblia Not Detected (NotDetected); Norovirus Not Detected (NotDetected); Plesimonas Shigalloides, PCR Not Detected (NotDetected); Rotavirus A Not Detected (NotDetected); Salmonella, PCR Not Detected (NotDetected); Sapovirus Not Detected (NotDetected); Shiga-like toxin E coli Not Detected (NotDetected); Shigella Enterovasive E coli Not Detected (NotDetected); Vibrio Cholerae Not Detected (NotDetected); Vibrio, PCR Not Detected (NotDetected); Yersinia Entercolitica, PCR Not Detected (NotDetected)
== END ==
PROVIDERS: Visit Provider Emergency Medicine
DX: R19.7 Diarrhea, unspecified (principal)
CPT/HCPCS: 87506

== ENCOUNTER 2019-08-07 01:25 | Observation (INO) | payer MEDICARE, MEDICAID, SELFPAY ==
[2019-08-07 01:43] VITALS: BP 164/110; PULSE 103; RESP 18; TEMP 36.4; O2SAT 95; BMI 14.4
--- NOTE | 2019-08-07 02:22 | HMH.EDGENADL ---
ED Disposition Clinical Impression: Hyperglycemia Pancreatitis Qualifiers: Chronicity: acute Pancreatitis type: unspecified pancreatitis type Acute pancreatitis complication: no infection or necrosis Qualified Code(s): K85.90 - Acute pancreatitis without necrosis or infection, unspecified Disposition: Admitted as Observation Condition on Discharge: Good - Critical Care Critical Care Time: No Attestation: On 08/07/19, the high probability of a clinically significant, sudden or life threatening deterioration of the following system(s) required my full and direct attention, intervention and personal management. The time I documented below is in addition to time spent performing reported procedures but includes the following listed in this critical care notation. Medical Decision Making - Mj Inquiry Pt receiving controlled substance: No Vital Signs: 08/07/19 01:43 08/07/19 05:13 Temperature 97.5 F L Temperature Source Oral Pulse Rate [Right Radial] 103 H 109 H Respiratory Rate 18 16 Blood Pressure [Right Arm] 164/110 H 159/94 H Blood Pressure Mean [Right Arm] 128 115 02 Sat by Pulse Oximetry 95 96 Oxygen Delivery Method Room Air Room Air - Lab Data Lab Results 08/07/19 01:50: WBC 9.8, RBC 4.33, Hgb 13.4, Hct 42.5, MCV 98.2, MCH 31.0, MCHC 31.6 L, RDW 15.3, Plt Count 132 L, MPV 9.8, Neut % (Auto) 86.6 H, Lymph % (Auto) 10.1, Piatt % (Auto) 2.6, Eos % (Auto) 0.4, Baso % (Auto) 0.4, Neut # (Auto) 8.5 H, Lymph # (Auto) 1.0, Piatt # (Auto) 0.3, Eos # (Auto) 0.0, Baso # (Auto) 0.0, Total Counted 100, Neutrophils % (Manual) 89 H, Lymphocytes % (Manual) 10, Eosinophils % (Manual) 1, Platelet Estimate Normal, Ovalocytes 1+ 08/07/19 01:50: Sodium 145, Potassium 4.0, Chloride 104, Carbon Dioxide 28, Anion Gap 17.0 H, BUN 20 H, Creatinine 0.98, Estimated Creat Clear 23, Estimated GFR 54 L, Est GFR ( Amer) 66, Glucose 274 H, Calcium 8.4 L, Total Bilirubin 0.6, AST 41 H, ALT 32, Alkaline Phosphatase 92, Troponin I < 0.02, Total Protein 7.4, Albumin 3.3 L, Globulin 4.1 H, Albumin/Globulin Ratio 0.8 L, Lipase 863 H 08/07/19 06:01: Troponin I 0.04 Result diagrams: 08/07/19 01:50 08/07/19 01:50 Orders (Tests/Meds): ED MEDICATIONS Discontinued Medications Generic Name Dose Route Start Last Admin Trade Name Chad PRN Reason Stop Dose Admin Ioversol 75 ml 08/07/19 04:37 08/07/19 04:38 Rad-Optiray 350 100ml Vial IV 08/07/19 04:38 75 ml ONCE ONE Administration Protocol Sodium Chloride 10 ml 08/07/19 04:37 08/07/19 04:38 Rad-Saline Flush 10ml Syringe IV 08/07/19 04:38 10 ml ONCE ONE Administration Sodium Chloride 500 ml 08/07/19 04:41 08/07/19 04:53 Sod Chlor 0.9% 1000ml Bag IV 08/07/19 04:42 500 ml BOLUS ONE Administration ORDERS Category Date Time Status CT abdomen pelvis w con Stat Cat Scan 08/07/19 03:17 Taken Chest XR 2 view (NOT portable) [XR chest 2V] Stat Exams 08/07/19 02:34 Taken Troponin I Q3H Lab 08/07/19 08:45 Ordered Urinalysis and Microscopic Stat Lab 08/07/19 02:34 Ordered - Radiology Data #1 Image(s): Chest Image Reviewed: Yes I reviewed the patient's radiology image Very large hiatal hernia - CT Data CT Scan: Abdomen, Pelvis Time Received: 05:08 ([facility] fax) ED CT Reviewed: Yes: I have viewed the radiologist's interpretation Findings Narrative: Large stomach containing hiatal hernia with markedly distended fluid-filled stomach extending to the left lower quadrant which could be related to gastroparesis Probable distended gallbladder with mild gallbladder wall thickening. No calcified gallstones. Mild intra-and extrahepatic biliary dilatation. Consolidative opacity in the right lower lobe which could be related to atelectasis and/or infection. Trace right-sided pleural effusion. 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 - ECG Data Tracing #1 EKG interpreted by Kailash Oliveros MD: Rhythm: sinus Ra
--- NOTE | 2019-08-07 02:34 | XR_ITS ---
PROCEDURE: XR CHEST 2V Patient Age:79Y CLINICAL HISTORY: hurts all over. Dyspnea. Multiple chronic disease but severe rotoscoliosis but COMPARISON: CXR2 XR chest AP from 11/10/2018 XR CHEST AP from 03/17/2019 XR CHEST 2V from 07/02/2019 CT ABDOMEN PELVIS W CON from 08/07/2019 FINDINGS: The severe rotoscoliosis markedly distorts the chest and abdomen the multiple old compression fractures throughout the spine most evident at T-spine are again noted and similar to previous exam Large hiatal hernia is seen at the right lower thorax with additional, markedly pronounced distention of the stomach a today... This large hiatal hernia as well as distended stomach have been noted on previous studies, but stomach appears clearly more distended dilated than on prior exams. Today stomach measures 15.5 cm transverse within the hiatal hernia at the right inferior hemithorax-on today's study at extends across midline towards medial left hemithorax.. Today's CT shows at the markedly dilated fluid-filled stomach extends inferior right chest through the hiatus continuing to the left upper abdomen measuring over 25 cm . Consider NG tube decompression Just above this large hiatal hernia there scarring and atelectasis at right lung base. This been seen on previous CXR studies but suspect there is additional compression atelectasis. It is difficult to exclude minimal infiltrate but favor mainly viewing atelectasis. Follow-up once the stomach has been decompressed would be suggested The left lung remains clear IMPRESSION: Increasing size of the large hiatal hernia at right hemothorax, with more pronounced, severe distention of the stomach. (More so than on previous studies) Scarring and atelectasis are again seen at right lung base just above this large hiatal hernia. Suspect additional atelectasis here accounts slight increased density here today-however difficult to exclude minimal infiltrate. Severe rotoscoliosis again noted Dictated by: Carlos Vargas MD 08/07/2019 16:29 Electronically signed by Carlos Vargas MD in [place] 08/07/2019 16:29
[2019-08-07 02:45] LABS: Basophils % 0.4 % (0.1-2.0); Eosinophils % 0.4 % (0.1-12.0); Hematocrit 42.5 % (37.0-47.0); Hemoglobin 13.4 g/dL (12.2-16.2); Lymphocytes % 10.1 % (10-50); Mean Corpuscular HGB Conc 31.6 g/dL (31.8-35.4); Mean Corpuscular Volume 98.2 fl (81-99); Mean Platelet Volume 9.8 fl (7.4-10.4); Monocytes # 0.3 K/mm3 (0.1-1.0); Monocytes % 2.6 % (1.7-9.3); Neutrophils # 8.5 K/mm3 (1.8-7.8); Neutrophils % 86.6 % (37.0-80.0); Platelet Count 132 K/mm3 (142-424); Red Blood Count 4.33 M/mm3 (4.20-5.40); Red Cell Distribution Width 15.3 % (11.5-17.5); White Blood Count 9.8 K/mm3 (4.8-10.8)
--- NOTE | 2019-08-07 03:17 | CT_ITS ---
Procedure: CT ABDOMEN PELVIS W CON Patient Age:79Y CLINICAL INDICATION: L abdo pain lower abdominal pain started last night previous episode 1 month ago as well. Vomiting last night. Also reports constipation 1 week. Patient is severely kyphotic but the COMPARISON: RABI RENAL ANGIOGRAM BILATERAL from 10/10/[address] cervical spine wo con from 11/10/2018 CXR2 XR chest AP from 11/10/2018 XR PELVIS 1-2V from 03/17/2019 XR CHEST AP from 03/17/2019 XR CHEST 2V from 07/02/2019 US GALLBLADDER from 08/07/2019 XR CHEST 2V from 08/07/2019 TECHNIQUE: 75 cc Optiray 350 IV contrast utilized . no oral contrast given Axial images obtained with sagittal and coronal reformats. All CT scans at the facility use one or more dose reduction, viz: automated exposure control, ma/kV adjustment per patient size (including targeted exams where dose is matched to indication, i.e. head), or iterative reconstruction technique. FINDINGS: very severe rotoscoliosis, markedly distorts this patient has overall anatomy. Severe dextro curvature at focal lumbar junction, is particularly notable in this regard. Multiple complete compression deformities T-spine Lower thorax: Chronic lung changes, emphysematous changes. Focal triangular area density, posterior right lung base just above the distended stomach favor mainly reflects chronic scarring along with some atelectasis. Possible minimal infiltrate but favor primarily chronic changes noted previously here on previous CXR. Other small patchy areas densities left lung base base, and adjacent to the major fissure and anterior at the RML more likely reflect scarring/chronic changes although more difficult to exclude minimal tiny patchy acute infiltrates. Liver: no focal lesions.. Slightly generous left lobe likely Due to the distorted anatomy. Central biliary ducts are upper normal to mildly prominent. Common duct upper normal not significantly dilated.. Gallbladder. Low position gallbladder, it resides inferior to the tip of right lobe liver due to the distorted anatomy. GB resides the level the right iliac crest. It appears mildly distended and elongated as it loops loops back upon itself Borderline gallbladder wall thickening withquestion of noncalcified gallstones Spleen. Unremarkable. Small. Adrenals unremarkable Pancreas. Note elevated lipase however no inflammatory or focal fluid collections evident.. Pancreatic duct appears is upper normal throughout GI tract ======== The major abnormality on this study is the large hiatal hernia containing marked distended fluid-filled stomach which then extends through the hiatus, extending from lower chest to the upper abdomen.. Stomach measures 25 cm in overall length x 15.5 cm transverse with large air-fluid level projected over the lower right chest-warrants NG tube decompression today. Previous chest films have shown this large hiatal hernia and abnormality (for example June) but gastric distension is significantly more distended, more prominent/mild today. Findings raise possibility regarding potential gastric outlet obstruction. Duodenal loop is difficult to discern and is not dilated. Proximal small bowel does not dilated. Suggestion of mild increased dilatation at distal small bowel loops.-small bowel loops in pelvis measures up to 2.9 cm diameter with increased gas, moderate liquid in scattered moderate air-fluid levels at distal small bowel. Large bowel contains moderate solid stool throughout and nondistended. Appendix. Difficult to discern appears to have upper normal wall thickness but contains gas without a good evidence of appendicitis. No free fluid or free air in the abdomen or pelvis.. Patient is
[2019-08-07 03:27] LABS: MANUAL DIFFERENTIAL MANUAL DIFFERENTIAL (MANUAL DIFF)
[2019-08-07 03:44] LABS: Alanine Aminotransferase 32 U/L (12-78); Albumin Level 3.3 gm/dL (3.4-5.0); Albumin/Globulin Ratio 0.8 (1.1-1.8); Alkaline Phosphatase 92 U/L (46-116); Aspartate Amino Transferase 41 U/L (15-37); Bilirubin,Total 0.6 mg/dL (0.2-1.0); Blood Urea Nitrogen 20 mg/dL (7-18); Calcium 8.4 mg/dL (8.5-10.1); Carbon Dioxide 28 mmol/L (21.0-32.0); Chloride 104 mmol/L (98-107); Creatinine Clearance Estimated 23 mL/min (50-200); Creatinine,Serum 0.98 mg/dL (0.55-1.02); Estimated Glomerular Filt Rate 54 ml/min (>60); GFR (African American) 66 ML/MIN (>60); Globulin 4.1 gm/dl (1.3-3.2); Glucose 274 mg/dL (74-106); Sodium 145 mmol/L (136-145); Total Protein,Serum 7.4 gm/dL (6.4-8.2); Troponin I < 0.02 ng/ml (0.00-0.06)
[2019-08-07 03:46] LABS: Lipase 863 u/L (73-393)
--- NOTE | 2019-08-07 03:48 | ECG_ITS ---
APPROVED REPORT Exam: Resting ECG HR:99 bpm ECG Measurements Heart Rate 99 AXES ND 168 P 66 QRSd 92 QRS 41 QT 358 T 47 QTc 459 <Conclusion> Normal sinus rhythm Possible Left atrial enlargement Motion Artifact Abnormal ECG Electronically signed by : Martín Lim, 08/09/2019 13:10:22
[2019-08-07 04:33] LABS: Eosinophils % 1 % (0-3); Lymphocytes % 10 % (10-50); Neutrophils % 89 % (42-76); Ovalocytes 1+; Platelet Estimate Normal; Total Cells Counted 100
[2019-08-07 05:13] VITALS: BP 159/94; PULSE 109; RESP 16; O2SAT 96
[2019-08-07 06:26] LABS: Troponin I 0.04 ng/ml (0.00-0.06)
--- NOTE | 2019-08-07 06:33 | PC.NURSE ---
Dr Oliveros spoke with Dr Kaye for admission
[2019-08-07 07:10] VITALS: BP 162/93; PULSE 99; RESP 18; TEMP 36.4; O2SAT 93
[2019-08-07 07:35] LABS: Hemoglobin A1C 6.1 % (0.0-7.0)
--- NOTE | 2019-08-07 07:41 | US_ITS ---
PROCEDURE: US GALLBLADDER Patient Age:79Y CLINICAL INDICATION: dilated, thickened gb on CT, pancreatitis Abdominal pain COMPARISON: CT ABDOMEN PELVIS W CON from 08/07/2019 FINDINGS: Gallbladder: multiple gallstones throughout gallbladder. Images tendon suggest towards neck and questionably towards entry the cystic duct region Gallbladder appears mildly distended although this is less evident on ultrasound than earlier CT. Gallbladder appears to flipped back upon itself superiorly thus difficult to measure in its entirety. No gallbladder wall thickening or Mariza cholecystic fluid demonstrated on ultrasound. No definitive acute inflammatory changes gallbladder Common duct is normal in diameter. But no intrahepatic biliary ductal dilatation Liver: Unremarkable. No lesions evident at liver portal vein normal diameter and normal direction flow Pancreas: Not well seen but what is partially seen at head of body unremarkable. No fluid collections no masses no obvious pancreatic ductal dilatation. Right kidney: 8 cm in length. Cortex well maintained. No hydronephrosis nor mass. Unremarkable appearing. No hydronephrosis. IMPRESSION: 1... Cholelithiasis. Multiple gallstones throughout gallbladder gallbladder mildly distended but no wall thickening or pericholecystic fluid 2... Right kidney unremarkable Pancreas is not well seen but no prominent findings here Dictated by: Carlos Vargas MD 08/07/2019 12:27 Electronically signed by Carlos Vargas MD in [place] 08/07/2019 12:27
[2019-08-07 07:55] VITALS: BP 145/90; PULSE 97; RESP 17; TEMP 36.6; O2SAT 92; BMI 14.0
--- NOTE | 2019-08-07 08:18 | HMH.PHAVTE ---
[facility] [place] [facility] VTE Monitoring - Patient Demographics Admission date: 08/07/19 Report Date: 08/07/19 Time: 08:18 Allergies/Adverse Reactions: Patient Allergies No Known Allergies Allergy (Verified 07/22/19 11:33) Height: 1.55 m Weight: 33.679 kg Patient Problems: Current Active Problems Pancreatitis (Acute) Hyperglycemia (Acute) - VTE Risk Labs: VTE Related Lab Results Hgb 13.4 g/dL (12.2-16.2) 08/07/19 01:50 Hct 42.5 % (37.0-47.0) 08/07/19 01:50 Plt Count 132 K/mm3 (142-424) L 08/07/19 01:50 BUN 20 mg/dL (7-18) H 08/07/19 01:50 Creatinine 0.98 mg/dL (0.55-1.02) 08/07/19 01:50 Estimated Creat Clear 23 mL/min (50-200) 08/07/19 01:50 - Prophylaxis VTE Prophylaxis Ordered?: Yes Types of VTE Prophylaxis: TEDS Knee High Location of Applied Device: Bilateral Lower Extremeties - VTE Diagnosis Confirmed Treatment or plan recommended: Continue Current Treatment
--- NOTE | 2019-08-07 08:23 | HMH.PHAINT ---
MEDICATION RECONCILIATION COMPLETED ON PATIENT USING EXTERNAL FILL HISTORY FROM PHARMACY AND LISTS FROM ATTENDING MD OFFICE AND CARDIOLOGY. -GIANA RIVERA, [facility]
[2019-08-07 11:22] LABS: Microscopic, Urine URINE MICROSCOPIC (MICROSCOPIC)
[2019-08-07 11:23] LABS: Appearance,Urine CLEAR (Clear); Bilirubin,Urine Negative (Negative); Blood, Urine Negative (Negative); Color,Urine YELLOW (Yellow); Glucose,Urine (UA) Negative (Negative); Ketones,Urine Negative (Negative); Leukocyte Esterase,Urine Negative (Negative); Nitrate,Urine Negative (Negative); Protein,Urine Negative (Negative); Specific Gravity, Urine 1.015 (1.005-1.030); Urobilinogen,Urine 0.2 EU/dl (0.2)
[2019-08-07 11:32] LABS: RBC,Urine Occasional #/hpf (0-3); Squamous Epithelial Cell,Urine Occasional #/hpf (0-5); WBC,Urine Occasional #/hpf (0-3)
--- NOTE | 2019-08-07 14:29 | HMH.HP ---
*Admission Date: 08/07/19 *Chief complaint: abd pain *History of present illness: 79 yr old female presented to ed with c/o of pain all over and vomited. Pt states she felt horrible and could not get abd pain to let up and vomited. Denies any chest pain or shortness of breath. pt was found to have hernia and pancreatits. Pt admitted for futher work up on gallbladder and monitoring. [facility] History I have reviewed the patient's past medical history: Yes Medical History: Reports:: Cancer, Coronary Artery Disease, Cerebrovascular Accident, Heart Murmur, Hypertension, Valvular Heart Disease Denies:: Diabetes Mellitus Type 1, Diabetes Mellitus Type 2, MRSA *Have you ever received a pneumonia vaccine?: No *Have you received a flu vaccine this season?: Yes Other Medical History: Reports: Anemia Laterality Cases: Bilateral: Breast Biopsy, Mastectomy Other Surgeries: Yes: Colonoscopy, Tubal Ligation, Other Amputation: No Fractures: Yes - *Social History Smoking Status: Never smoker Alcohol Intake: never Substance Use Type: denies use *Occupational Status:: employed, retired Housing: house Household Members: children *Travel in the last 8 weeks: None Family Hx:: Cancer, Hypertension, Coronary Artery Disease Review of Systems - Constitutional Denies body ache(s), Denies fatigue, Denies fever(s) - Eyes Denies change in vision - ENT Denies change in voice, Denies post nasal drip - *Cardiovascular Denies chest pain with activity, Denies shortness of breath - *Respiratory Denies chest congestion - *Gastrointestinal Reports abdominal pain, Reports nausea, Reports vomiting - *Genitourinary Denies abnormal vaginal bleeding - *Musculoskeletal Denies decreased muscle mass - Integumentary/Breasts Denies rash - *Neurologic Denies dizziness - Psychiatric Denies lack of enjoyment - Endocrine Denies flushing - Hematologic/Lymphatic Denies enlarged lymph nodes - Allergic/Immunologic Denies lip swelling Meds Home Medications Medication Instructions Recorded Confirmed Type lisinopril 2.5 mg tablet 2.5 mg PO DAILY #90 tab 06/09/19 08/07/19 Rx amlodipine 5 mg tablet 5 mg PO DAILY #90 tab 07/16/19 08/07/19 Rx potassium chloride 20 mEq/15 mL 20 meq PO DAILY #900 ml 07/20/19 08/07/19 Rx oral liquid aspirin 81 mg tablet,delayed 81 mg PO DAILY 07/22/19 08/07/19 History release Acetaminophen [Tylenol 500mg 500 mg PO Q6HP PRN 08/07/19 08/07/19 History tablet] Inulin/Chromium Picolinate [Fiber 1 each PO DAILY 08/07/19 08/07/19 History Gummies] Multivitamin [Multivitamins] 1 each PO DAILY 08/07/19 08/07/19 History Allergies Allergy/AdvReac Type Severity Reaction Status Date / Time No Known Allergies Allergy Verified 07/22/19 11:33 Exam Vital signs and Labs for Last 24 Hours: Temp Pulse Resp BP Pulse Ox 97.9 F 97 H 17 145/90 H 92 L 08/07/19 07:55 08/07/19 07:55 08/07/19 07:55 08/07/19 07:55 08/07/19 07:55 Laboratory Results - last 24 hr 08/07/19 01:50: WBC 9.8, RBC 4.33, Hgb 13.4, Hct 42.5, MCV 98.2, MCH 31.0, MCHC 31.6 L, RDW 15.3, Plt Count 132 L, MPV 9.8, Neut % (Auto) 86.6 H, Lymph % (Auto) 10.1, [place] % (Auto) 2.6, Eos % (Auto) 0.4, Baso % (Auto) 0.4, Neut # (Auto) 8.5 H, Lymph # (Auto) 1.0, [place] # (Auto) 0.3, Eos # (Auto) 0.0, Baso # (Auto) 0.0, Total Counted 100, Neutrophils % (Manual) 89 H, Lymphocytes % (Manual) 10, Eosinophils % (Manual) 1, Platelet Estimate Normal, Ovalocytes 1+ 08/07/19 01:50: Sodium 145, Potassium 4.0, Chloride 104, Carbon Dioxide 28, Anion Gap 17.0 H, BUN 20 H, Creatinine 0.98, Estimated Creat Clear 23, Estimated GFR 54 L, Est GFR ( Amer) 66, Glucose 274 H, Calcium 8.4 L, Total Bilirubin 0.6, AST 41 H, ALT 32, Alkaline Phosphatase 92, Troponin I < 0.02, Total Protein 7.4, Albumin 3.3 L, Globulin 4.1 H, Albumin/Globulin Ratio 0.8 L, Lipase 863 H 08/07/19 01:50: Hemoglobin A1c 6.1 08/07/19 06:01: Troponin I 0.04 08/07/19 11:15: Urine Color Yellow, Ur
[2019-08-07 15:16] LABS: Lipase 1203 u/L (73-393)
[2019-08-07 16:00] VITALS: BP 132/78; PULSE 88; RESP 19; TEMP 36.6; O2SAT 96
--- NOTE | 2019-08-07 17:10 | HMH.GSCON ---
*Admission Date: 08/07/19 *Reason for consult:: Elevated lipase. Pancreatitis. *History of present illness: Ms. Muro is an 79-year-old female that presents with short-term illness of abdominal pain and nausea. No fever or chills. No recent illnesses. Presents to [facility]. Evaluation at [facility] Emergency Department included laboratory evaluation and imaging. Elevated lipase noted. Subsequent CT demonstrated no evidence of pancreatitis, however, significant hiatal hernia present with dilated stomach present into the right chest. Elongated gallbladder noted. Based on elevated lipase and CT findings, gallbladder ultrasound was requested. Elongated gallbladder once again noted with multiple gallstones. No pericholecystic fluid. Currently, Ms. Muro is without complaint. Resting comfortably. No abdominal pain. Tolerating clear liquids. Family present at bedside. Review of Systems - Review of Systems Review of systems:: pertinent systems reviewed and negative unless documented below - *Neurologic Denies dizziness [facility] History Medical History: Reports:: Cancer, Coronary Artery Disease, Cerebrovascular Accident, Heart Murmur, Hypertension, Valvular Heart Disease Denies:: Diabetes Mellitus Type 1, Diabetes Mellitus Type 2, MRSA *Have you ever received a pneumonia vaccine?: No *Have you received a flu vaccine this season?: Yes Other Medical History: Reports: Anemia Laterality Cases: Bilateral: Breast Biopsy, Mastectomy Other Surgeries: Yes: Colonoscopy, Tubal Ligation, Other Amputation: No Fractures: Yes - *Social History Smoking Status: Never smoker Alcohol Intake: never Substance Use Type: denies use *Occupational Status:: employed, retired Housing: house Household Members: children *Travel in the last 8 weeks: None Family Hx:: Cancer, Hypertension, Coronary Artery Disease Meds Home Medications Medication Instructions Recorded Confirmed Type lisinopril 2.5 mg tablet 2.5 mg PO DAILY #90 tab 06/09/19 08/07/19 Rx amlodipine 5 mg tablet 5 mg PO DAILY #90 tab 07/16/19 08/07/19 Rx potassium chloride 20 mEq/15 mL 20 meq PO DAILY #900 ml 07/20/19 08/07/19 Rx oral liquid aspirin 81 mg tablet,delayed 81 mg PO DAILY 07/22/19 08/07/19 History release Acetaminophen [Tylenol 500mg 500 mg PO Q6HP PRN 08/07/19 08/07/19 History tablet] Inulin/Chromium Picolinate [Fiber 1 each PO DAILY 08/07/19 08/07/19 History Gummies] Multivitamin [Multivitamins] 1 each PO DAILY 08/07/19 08/07/19 History Allergies Allergy/AdvReac Type Severity Reaction Status Date / Time No Known Allergies Allergy Verified 07/22/19 11:33 Exam Vital signs and Labs for Last 24 Hours: Temp Pulse Resp BP Pulse Ox 97.9 F 88 19 132/78 96 08/07/19 16:00 08/07/19 16:00 08/07/19 16:00 08/07/19 16:00 08/07/19 16:00 Laboratory Results - last 24 hr 08/07/19 01:50: WBC 9.8, RBC 4.33, Hgb 13.4, Hct 42.5, MCV 98.2, MCH 31.0, MCHC 31.6 L, RDW 15.3, Plt Count 132 L, MPV 9.8, Neut % (Auto) 86.6 H, Lymph % (Auto) 10.1, [place] % (Auto) 2.6, Eos % (Auto) 0.4, Baso % (Auto) 0.4, Neut # (Auto) 8.5 H, Lymph # (Auto) 1.0, [place] # (Auto) 0.3, Eos # (Auto) 0.0, Baso # (Auto) 0.0, Total Counted 100, Neutrophils % (Manual) 89 H, Lymphocytes % (Manual) 10, Eosinophils % (Manual) 1, Platelet Estimate Normal, Ovalocytes 1+ 08/07/19 01:50: Sodium 145, Potassium 4.0, Chloride 104, Carbon Dioxide 28, Anion Gap 17.0 H, BUN 20 H, Creatinine 0.98, Estimated Creat Clear 23, Estimated GFR 54 L, Est GFR ( Amer) 66, Glucose 274 H, Calcium 8.4 L, Total Bilirubin 0.6, AST 41 H, ALT 32, Alkaline Phosphatase 92, Troponin I < 0.02, Total Protein 7.4, Albumin 3.3 L, Globulin 4.1 H, Albumin/Globulin Ratio 0.8 L, Lipase 863 H 08/07/19 01:50: Hemoglobin A1c 6.1 08/07/19 06:01: Troponin I 0.04 08/07/19 06:01: Lipase 1203 H 08/07/19 11:15: Urine Color Yellow, Urine Appearance Clear, Urine pH 8.0, Ur Specific [place] 1.015, Urine Protein
--- NOTE | 2019-08-07 18:11 | PC.NURSE ---
pt has had no acute changes. admitted for pancreatitis. pt is on clear liquids at this time and has tolerated well. no complaints voiced. pt is standby assist with ambulation. iv patent and infusing per order. pt does have kyphoidosis/scoliosis noted on assessment of pt. pt states i have had the hump on my back for forever. call light in reach. pt granddaughter to bring in home meds. will continue to monitor pt condition
[2019-08-07 20:00] VITALS: BP 148/92; PULSE 84; RESP 18; TEMP 36.4; O2SAT 95
[2019-08-08 04:00] VITALS: BP 138/86; PULSE 77; RESP 22; TEMP 36.9; O2SAT 93
--- NOTE | 2019-08-08 04:09 | PC.NURSE ---
Pt is A&Ox3 and has ambulated to the BR 3x this shift with staff SBA and tolerated well. Pt has denied any N/V this shift. ABD soft, flat, and non-tender to palpation. Murmur noted on auscultation. Lungs CTA although diminished bases, sats 95% this shift. Pt denies any SOB. No BM this shift, pt reports last BM was day before yesterday or 08/05/19. Pt denies any diarrhea at that time. Active BS noted x4 quads. Pt has denied any pain t/o shift. VSS, call light within reach, will continue to monitor pt.
[2019-08-08 04:21] VITALS: BMI 13.8
[2019-08-08 06:27] LABS: Anion Gap 12.1 mEq/L (5-15); Blood Urea Nitrogen 14 mg/dL (7-18); Calcium 8.6 mg/dL (8.5-10.1); Carbon Dioxide 27 mmol/L (21.0-32.0); Chloride 107 mmol/L (98-107); Creatinine Clearance Estimated 23 mL/min (50-200); Creatinine,Serum 0.69 mg/dL (0.55-1.02); Estimated Glomerular Filt Rate 82 ml/min (>60); GFR (African American) 99 ML/MIN (>60); Glucose 89 mg/dL (74-106); Lipase 261 u/L (73-393); Potassium 3.1 mmoL/L (3.5-5.1); Sodium 143 mmol/L (136-145)
[2019-08-08 07:25] VITALS: BP 148/80; PULSE 72; RESP 19; TEMP 37.1; O2SAT 96
--- NOTE | 2019-08-08 09:02 | HMH.ACPN2 ---
Internal Medicine - PN: Subj *Date: 08/08/19 *Time: 09:02 Interval history: doing better and tolerating diet and has no pain- lipase improved Exam Vital signs and Labs for Last 24 Hours: Temp Pulse Resp BP Pulse Ox 98.8 F 72 19 148/80 H 96 08/08/19 07:25 08/08/19 07:25 08/08/19 07:25 08/08/19 07:25 08/08/19 07:25 Laboratory Results - last 24 hr 08/07/19 06:01: Lipase 1203 H 08/07/19 11:15: Urine Color Yellow, Urine Appearance Clear, Urine pH 8.0, Ur Specific [place] 1.015, Urine Protein Negative, Urine Glucose (UA) Negative, Urine Ketones Negative, Urine Blood Negative, Urine Nitrate Negative, Urine Bilirubin Negative, Urine Urobilinogen 0.2, Ur Leukocyte Esterase Negative, Urine RBC Occasional, Urine WBC Occasional, Ur Squamous Epith Cells Occasional, Urine Bacteria None 08/08/19 05:55: Sodium 143, Potassium 3.1 L D, Chloride 107, Carbon Dioxide 27, Anion Gap 12.1, BUN 14 D, Creatinine 0.69 D, Estimated Creat Clear 23, Estimated GFR 82, Est GFR ( Amer) 99 D, Glucose 89, Calcium 8.6, Lipase 261 I & O for Last 24 hours: Intake & Output 08/05/19 08/06/19 08/07/19 08/08/19 11:59 11:59 11:59 11:59 Intake Total 500 / 500 1577 / 1577 Output Total 400 / 400 1200 / 1200 Balance 100 / 100 377 / 377 Weight 74 lb 4 oz 73 lb 1 oz - Constitutional no acute distress, thin - *Routine HEENT Exam Head: Present: normocephalic Eye: Present: EOMI, PERRL ENT: Present: mucous membranes dry - *Routine Neck Exam Present: supple - *Routine Respiratory Exam Absent: respiratory distress - *Routine Cardiovascular Exam Present: RRR, murmur - *Routine Abdominal Exam Present: soft. Absent: tenderness - *Routine Extremities Exam Present: full ROM - *Routine Skin Exam Present: intact - *Routine Neurological Exam Present: alert, oriented X3, CN II-XII intact - Routine Psychiatric Exam Present: normal affect Assessment and Plan (1) Low body mass index (BMI) Current visit: Yes Status: Acute Category: Medical (2) Pancreatitis Current visit: Yes Status: Acute Qualifiers: Chronicity: acute Pancreatitis type: unspecified pancreatitis type Acute pancreatitis complication: no infection or necrosis Qualified Code(s): K85.90 - Acute pancreatitis without necrosis or infection, unspecified Category: Medical Code(s): K85.90 - Acute pancreatitis without necrosis or infection, unspecified (3) Cholelithiasis Current visit: Yes Status: Acute Qualifiers: Cholelithiasis location: gallbladder Cholecystitis presence: without cholecystitis Biliary obstruction: without biliary obstruction Qualified Code(s): K80.20 - Calculus of gallbladder without cholecystitis without obstruction Category: Medical Code(s): K80.20 - Calculus of gallbladder without cholecystitis without obstruction
--- NOTE | 2019-08-08 10:42 | PC.NURSE ---
md order for diet to advance as tolerated. patient has no pain or nausea at this time. will try soft bland diet at this time to see how patient tolerates. patient is in agreement with this
--- NOTE | 2019-08-08 15:39 | PC.NURSE ---
patient has done well this shift. she has been up to chair some. walked to and from bathroom. no complaints of pain or nausea. has tolerated a soft bland diet well. spoke to surgeon who was consulted and gave him update on patient including most recent lipase which is down within normal limits. vitals stable will continue to monitor.
[2019-08-08 16:00] VITALS: BP 139/80; PULSE 77; RESP 18; TEMP 36.9; O2SAT 96
--- NOTE | 2019-08-08 16:02 | PC.NURSE ---
noted patient had dripped morning aspirin in bed. will go ahead and allow patient take aspirin pill at this time since morning dose has been dropped.
[2019-08-08 20:00] VITALS: BP 126/80; PULSE 79; RESP 17; TEMP 36.8; O2SAT 93
[2019-08-09 03:56] VITALS: BP 124/71; PULSE 68; RESP 17; TEMP 36.5; O2SAT 94
--- NOTE | 2019-08-09 06:13 | PC.NURSE ---
A&OX4. PT TOLERATING RA WELL. PT HAS HAD NO C/O NA/VO THIS SHIFT. ABD SOFT AND NON-TENDER PER PALPATION. PT UP TO BATHROOM INDEPENDENTLY, PT GRANDAUGHTER AT BEDSIDE. PT SLEEPING T/O MAJORITY OF SHIFT, NO COMPLAINTS THUS FAR. VSS WILL CONTINUE TO MONITOR.
[2019-08-09 06:25] VITALS: BMI 13.3
[2019-08-09 08:00] VITALS: BP 167/84; PULSE 67; RESP 18; TEMP 36.7; O2SAT 93
[2019-08-09 08:10] VITALS: O2SAT 93
--- NOTE | 2019-08-09 08:57 | HMH.DCSUM ---
General - General Admission date:: 08/07/19 Discharge date: 08/09/19 HPI HPI: 79 yr old female presented to ed with c/o of pain all over and vomited. Pt states she felt horrible and could not get abd pain to let up and vomited. Denies any chest pain or shortness of breath. pt was found to have hernia and pancreatits. Pt admitted for futher work up on gallbladder and monitoring. Hospital Course Hospital Course: gallbladder us:IMPRESSION: 1... Cholelithiasis. Multiple gallstones throughout gallbladder gallbladder mildly distended but no wall thickening or pericholecystic fluid 2... Right kidney unremarkable Pancreas is not well seen but no prominent findings here ct abd pelvis:IMPRESSION: very severe rotoscoliosis distorts anatomy throughout chest and abdomen Large hiatal hernia extends to the right lower chest and contains large markedly distended fluid-filled stomach, which extends extending from the hiatal hernia at the right lower chest to the upper left abdomen. Distended stomach measures up to 25 cm in length and is disproportionately dilated. (V [facility] report considered gastro paresis but cannot exclude gastric outlet obstruction alternatively with this picture, NG tube would be beneficial either case). Gallbladder, elongated and slight distended . Borderline/mild gallbladder wall thickening withquestion of noncalcified gallstones. Consider gallbladder ultrasound. (GB inferiorly position and the resides just above the iliac crest) Note elevated lipase lab, but pancreas shows no inflammatory changes by CT.. No fluid collections, pancreatic duct upper normal. Scarring on studies right lung base overlying this large right hiatal hernia.-thus favor lung density here today mainly reflects scarring with some additional atelectasis today, but difficult to totally exclude developing infiltrate. Slight slight distention distal small bowel due to gas and fluid. 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 Lynch October2014 ) chest x ray:IMPRESSION: Increasing size of the large hiatal hernia at right hemothorax, with more pronounced, severe distention of the stomach. (More so than on previous studies) Scarring and atelectasis are again seen at right lung base just above this large hiatal hernia. Suspect additional atelectasis here accounts slight increased density here today-however difficult to exclude minimal infiltrate. Severe rotoscoliosis again noted consult surgery, lipase back to normal pt states she feels good and ready to go home. Objective Vital signs: Temp Pulse Resp BP Pulse Ox 98.0 F 67 18 167/84 H 93 L 08/09/19 08:00 08/09/19 08:00 08/09/19 08:00 08/09/19 08:00 08/09/19 08:10 no acute distress, thin - *Routine HEENT Exam Head: Present: normocephalic Eye: Present: PERRL ENT: Present: mucous membranes moist - *Routine Neck Exam Present: supple, full ROM - *Routine Respiratory Exam Present: CTA bilaterally - *Routine Cardiovascular Exam Present: RRR, murmur - *Routine Abdominal Exam Present: soft, normoactive bowel sounds. Absent: tenderness - *Routine Extremities Exam Present: full ROM, normal capillary refill - *Routine Skin Exam Present: intact - *Routine Neurological Exam Present: alert, oriented X3 - Routine Psychiatric Exam Present: normal affect Results - Additional Comments rounded with dr mcguire all orders per maynor DS: Diagnosis - Discharge Diagnosis (1) Low body mass index (BMI) Status: Acute (2) Pancreatitis Status: Acute (3) Cholelithiasis Status: Acute Discharge Plan - Patient Discharge Instructions ACTIVITY: Continue current activity DIET: continue same diet Patient Instructions: Pancreatitis (Alternative Therapy), DI for Pancreatitis, DI for Gallstones, DI for Pancytopenia - Follow up P
--- NOTE | 2019-08-09 10:10 | PC.NURSE ---
DISCHARGE EDUCATION COMPLETED AT THIS TIME. ENCOURAGED QUESTIONS AND PT. V/U
== END 2019-08-09 10:25 | disposition home or self-care (01) ==
LOC: ER 06:31 → 2ND 06:34
PROVIDERS: Nurse Practitioner Family; Admitting Provider Family Medicine; Emergency Provider Emergency Medicine; PCP Emergency Medicine; Visit Provider Emergency Medicine
DX: K85.90 Acute pancreatitis without necrosis or infection, unspecified; M41.9 Scoliosis, unspecified; R73.9 Hyperglycemia, unspecified; R74.8 Abnormal levels of other serum enzymes; Z68.1 Body mass index [BMI] 19.9 or less, adult; I10 Essential (primary) hypertension; I25.10 Atherosclerotic heart disease of native coronary artery without angina pectoris; Z79.82 Long term (current) use of aspirin; Z85.9 Personal history of malignant neoplasm, unspecified; Z86.73 Personal history of transient ischemic attack (TIA), and cerebral infarction without residual deficits; K80.20 Calculus of gallbladder without cholecystitis without obstruction; Z86.79 Personal history of other diseases of the circulatory system; Z82.49 Family history of ischemic heart disease and other diseases of the circulatory system; Z90.10 Acquired absence of unspecified breast and nipple; D64.9 Anemia, unspecified; Z98.51 Tubal ligation status
CPT/HCPCS: 71046; 74177; 76705; 80048; 80053; 81001; 83036; 83690; 84484; 85007; 85025; 93005; 96365; 99284; G0378; Q9967

== ENCOUNTER → 2020-04-17 11:10 | Outpatient (CLI) | payer MEDICARE, MEDICAID, SELFPAY ==
[2020-04-17 20:18] LABS: Hemoglobin A1C 6.2 % (4.0-6.0)
== END ==
PROVIDERS: Visit Provider Nurse Practitioner Family
DX: R73.9 Hyperglycemia, unspecified (principal)
CPT/HCPCS: 83036

== ENCOUNTER 2020-04-18 14:54 | Emergency (ER) | payer MEDICARE, MEDICAID, SELFPAY ==
[2020-04-18 15:07] VITALS: BP 113/66; PULSE 86; RESP 20; O2SAT 98; BMI 14.2
--- NOTE | 2020-04-18 15:21 | PC.NURSE ---
PATIENT SENT TO ER PER YASMIN MALIK APRN FOR FURTHER EVALUATION OF RIGHT HIP PAIN AFTER FALLING AT HOME. REPORT GIVEN TO Nic MCKENZIE RN
[2020-04-18 15:36] VITALS: BP 136/82; PULSE 86; RESP 17; TEMP 36.7; O2SAT 95; BMI 14.2
--- NOTE | 2020-04-18 15:39 | CT_ITS ---
PROCEDURE: CT LUMBAR SPINE WO CON CLINICAL HISTORY: fall Posttraumatic pain COMPARISON: No exams were available for comparison TECHNIQUE: Axial images obtained with sagittal and coronal reformats. All CT scans at the facility use one or more dose reduction, viz: automated exposure control, ma/kV adjustment per patient size (including targeted exams where dose is matched to indication, i.e. head), or iterative reconstruction technique. FINDINGS: Very limited study due to patient's scoliosis and osteopenia. There is severe dextroscoliosis of the thoracolumbar spine and severe lumbar scoliosis convex left. There is diffuse osteopenia. The reformatted images are very limited. No definite acute fracture or dislocation of the lumbar spine is evident. Biconcave deformities are present at L5-L4 L3-L2 and L1 which could be due to osteoporotic compression deformities age indeterminate. There is severe facet hypertrophic change at L2-L3 with canal stenosis and bilateral lateral recess and foraminal narrowing. Bulging disc is present at L5-S1. Multilevel facet hypertrophic changes in the lower thoracic spine. IMPRESSION: Diffuse osteopenia with scoliosis with biconcave deformities of L1 through L5 which could represent osteoporotic compression deformities age indeterminate. Canal stenosis is present at L2-L3 Dictated by: Chris Eubanks MD 04/18/2020 17:11 Chris Eubanks MD in [facility] 04/18/2020 17:11
--- NOTE | 2020-04-18 15:39 | CT_ITS ---
PROCEDURE: CT CERVICAL SPINE WO CON CLINICAL INDICATION: fall Neck pain following injury, Neck injury with pain, contusion/abrasion or hematoma, cervical sprain/strain the COMPARISON: CT CT CERVICAL SPINE WO CON from 07/02/2019 TECHNIQUE: Axial images obtained with sagittal and coronal reformats. All CT scans at the facility use one or more dose reduction, viz: automated exposure control, ma/kV adjustment per patient size (including targeted exams where dose is matched to indication, i.e. head), or iterative reconstruction technique. Axial spiral CT scanning performed of the cervical spine beginning at the base of the skull and continuing to the upper T-spine. 3-D multiplanar reconstruction with 3-D manipulation of volumetric data set in image rendering was completed by the radiologist and/or technologist with the supervision of the radiologist on independent workstation. FINDINGS: There is diffuse osteopenia with wedge contour involving C3-C4-C5-C6 and C7 which are not significantly changed. There is some mild bulging disc with ossification of the disc at C2-C3. Mild bulging disc with ossification at C3-C4. No acute fracture or dislocation. There is some scarring in the right apex. There is exaggeration of the cervical lordosis. IMPRESSION: No acute fracture. Cervical spondylosis with multiple level vertebral wedge contour not significantly changed Dictated by: Chris Eubanks MD 04/18/2020 16:56 Chris Eubanks MD in [facility] 04/18/2020 16:56
--- NOTE | 2020-04-18 15:39 | CT_ITS ---
PROCEDURE: CT THORACIC SPINE WO CON CLINICAL HISTORY: fall Posttraumatic pain COMPARISON: CT CT CERVICAL SPINE WO CON from 07/02/[address] CERVICAL SPINE WO CON from 04/18/2020 TECHNIQUE: Axial images obtained with sagittal and coronal reformats. All CT scans at the facility use one or more dose reduction, viz: automated exposure control, ma/kV adjustment per patient size (including targeted exams where dose is matched to indication, i.e. head), or iterative reconstruction technique. FINDINGS: There is severe lower thoracic scoliosis convex right. There is diffuse osteopenia and kyphosis of the upper thoracic spine there is mild central wedge compression changes of T3 which appears slightly worse compared to 07/02/2019. There is mild wedging of T8 age indeterminate. No retropulsion is apparent. There is consolidation in the right upper and right lower lobe. There is a large hiatal hernia. IMPRESSION: Very limited study due to patient positioning. Severe dextroscoliosis with generalized osteopenia. There is mild increase wedging and T3 and T8 which may be due to mild acute wedge compression changes. No obvious retropulsion. Moderate sized hiatal hernia. Consolidation peripherally in the right upper lobe posteriorly which could be due to pneumonia. Dictated by: Chris Eubanks MD 04/18/2020 17:07 Chris Eubanks MD in [facility] 04/18/2020 17:07
--- NOTE | 2020-04-18 15:39 | CT_ITS ---
PROCEDURE: CT HEAD/BRAIN WO CON CLINICAL INDICATION: fall Head injury with headache/pain, contusion, abrasion or hematoma COMPARISON: CT CT HEAD/BRAIN WO CON from 07/02/2019 TECHNIQUE: Axial images obtained. All CT scans at the facility use one or more dose reduction, viz: automated exposure control, ma/kV adjustment per patient size (including targeted exams where dose is matched to indication, i.e. head), or iterative reconstruction technique. FINDINGS: No midline shift or mass effect. No acute intracranial hemorrhage. There is diffuse low-density changes in the periventricular regions and subcortical white matter consistent with ischemic gliotic change from microvascular disease. This is most extensive in the frontal lobes. There is dilatation of the basilar artery as well as dilatation of the basilar tip similar to the previous exam. A basilar tip aneurysm is not excluded. No acute calvarial abnormalities. IMPRESSION: 1. No acute intracranial findings. 2. 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
--- NOTE | 2020-04-18 15:40 | XR_ITS ---
PROCEDURE: XR RIBS RT MIN 3V W CXR1V CLINICAL INDICATION: fall Posttraumatic pain COMPARISON: CR XR CHEST AP from 03/17/2019 CR XR CHEST 2V from 07/02/2019 CR XR CHEST 2V from 08/07/2019 FINDINGS: There is severe thoracic and lumbar scoliosis convex right with large hiatal hernia. Normal heart size. Consolidation is present in the right mid and upper lung zone suggesting pneumonia. Left lung is clear. IMPRESSION: Severe thoracolumbar scoliosis with hiatal hernia and right upper lobe pneumonia Dictated by: Chris Eubanks MD 04/18/2020 17:17 Chris Eubanks MD in [facility] 04/18/2020 17:17
--- NOTE | 2020-04-18 15:40 | XR_ITS ---
PROCEDURE: XR HIP RT 2-3V W/PELVIS CLINICAL INDICATION: fall Posttraumatic pain COMPARISON: CR XR HIP LT 2-3V W/PELVIS from 05/26/2019 FINDINGS: Prior hip pinning on the left. There are nondisplaced fractures the right superior and inferior pubic ramus which appear old. No acute hip fracture evident. IMPRESSION: No acute findings. Dictated by: Chris Eubanks MD 04/18/2020 17:19 Chris Eubanks MD in [facility] 04/18/2020 17:19
[2020-04-18 15:44] LABS: Microscopic, Urine URINE MICROSCOPIC (MICROSCOPIC)
[2020-04-18 15:47] LABS: Appearance,Urine CLEAR (Clear); Basophils % 0.1 % (0.1-2.0); Bilirubin,Urine Negative (Negative); Blood, Urine Negative (Negative); Color,Urine YELLOW (Yellow); Eosinophils % 0.1 % (0.1-12.0); Glucose,Urine (UA) Negative (Negative); Hematocrit 38.7 % (37.0-47.0); Hemoglobin 12.3 g/dL (12.2-16.2); Ketones,Urine Negative (Negative); Leukocyte Esterase,Urine Negative (Negative); Lymphocytes # 0.9 K/mm3 (0.7-4.5); Lymphocytes % 5.9 % (10-50); Mean Corpuscular HGB Conc 31.9 g/dL (31.8-35.4); Mean Corpuscular Hemoglobin 31.4 pg (27.0-31.2); Mean Corpuscular Volume 98.2 fl (81-99); Mean Platelet Volume 9.1 fl (7.4-10.4); Monocytes # 0.7 K/mm3 (0.1-1.0); Monocytes % 4.1 % (1.7-9.3); Neutrophils # 14.3 K/mm3 (1.8-7.8); Neutrophils % 89.8 % (37.0-80.0); Nitrate,Urine Negative (Negative); PH,Urine 5.5 (5.0-8.5); Platelet Count 401 K/mm3 (142-424); Protein,Urine Negative (Negative); Red Blood Count 3.94 M/mm3 (4.20-5.40); Specific Gravity, Urine 1.025 (1.005-1.030); Urobilinogen,Urine 0.2 EU/dl (0.2)
[2020-04-18 15:48] LABS: Chloride 102 mmol/L (98-107); Sodium 138 mmol/L (136-145)
[2020-04-18 15:49] LABS: Potassium 4.8 mmoL/L (3.5-5.1)
--- NOTE | 2020-04-18 15:49 | ECG_ITS ---
APPROVED REPORT Exam: Resting ECG HR:75 bpm ECG Measurements Heart Rate 75 AXES TN 142 P 78 QRSd 90 QRS 32 QT 376 T 56 QTc 419 <Conclusion> Normal sinus rhythm with sinus arrhythmia Normal ECG Electronically signed by : Elmer Elizalde, 04/21/2020 07:31:51
[2020-04-18 15:50] LABS: MANUAL DIFFERENTIAL MANUAL DIFFERENTIAL (MANUAL DIFF)
[2020-04-18 15:51] LABS: Alanine Aminotransferase 24 U/L (12-78); Albumin Level 3.6 g/dl (3.5-5.0); Albumin/Globulin Ratio 0.9 (1.1-1.8); Alkaline Phosphatase 103 U/L (38-126); Anion Gap 13.8 mEq/L (5-15); Aspartate Amino Transferase 25 U/L (14-36); Bilirubin,Total 0.5 mg/dl (0.2-1.3); Blood Urea Nitrogen 28 mg/dl (7-17); Carbon Dioxide 27 mmol/L (22.0-30.0); Creatinine Clearance Estimated 21 mL/min (50-200); Estimated Glomerular Filt Rate 69 ml/min (>60); GFR (African American) 83 ML/MIN (>60); Globulin 3.9 g/dL (1.3-3.2); Total Protein,Serum 7.5 g/dl (6.3-8.2)
[2020-04-18 15:52] LABS: Calcium 10.2 mg/dl (8.4-10.2); Glucose 185 mg/dl (74-100)
[2020-04-18 15:55] LABS: RBC,Urine Occasional #/hpf (0-3); WBC,Urine Occasional #/hpf (0-3)
[2020-04-18 15:56] LABS: Amorphous Sediment,Urine 2+ /lpf
[2020-04-18 16:05] LABS: Eosinophils % 1 % (0-3); Lymphocytes % 12 % (10-50); Monocytes % 5 % (2-9); Neutrophils % 82 % (42-76); Platelet Estimate Normal; RBC Morphology Normal; Total Cells Counted 100
[2020-04-18 16:08] LABS: Troponin I < 0.01 ng/ml (0.00-0.034)
--- NOTE | 2020-04-18 16:23 | HMH.EDGENADL ---
ED Disposition Clinical Impression: Consolidation of right upper lobe of lung Fall Qualifiers: Encounter type: initial encounter Qualified Code(s): W19.XXXA - Unspecified fall, initial encounter Disposition: Home, Self-Care Condition on Discharge: Good Instructions: How to Prevent Falls Additional Instructions: See Dr. Isaac in his office on Friday. Return to the emergency department if fever greater than 100 degrees, difficulty breathing, severe cough. Prescriptions: levoFLOXacin [Levaquin 500mg tab] 500 mg PO DAILY #9 tab Transmission Status: Sent to [facility] Referrals: Ishaan Isaac MD [Primary Care Provider] - - Critical Care Critical Care Time: No Attestation: On 04/18/20, the high probability of a clinically significant, sudden or life threatening deterioration of the following system(s) required my full and direct attention, intervention and personal management. The time I documented below is in addition to time spent performing reported procedures but includes the following listed in this critical care notation. Medical Decision Making - Medical Records Medical records reviewed: Yes: I reviewed the patient's medical records. - Mj Inquiry Pt receiving controlled substance: No Vital Signs: 04/18/20 15:07 04/18/20 15:36 04/18/20 17:45 Temperature 98.0 F Temperature Source Oral Pulse Rate Pulse Rate [Right Brachial] 86 86 79 Respiratory Rate 20 17 15 Blood Pressure Blood Pressure [Right Arm] 113/66 136/82 131/79 Blood Pressure Mean [Right Arm] 81 100 96 Blood Pressure Source [Right Arm] Automatic Cuff Blood Pressure Position [Right Arm] Sitting 02 Sat by Pulse Oximetry 98 95 97 Oxygen Delivery Method Room Air Room Air 04/18/20 17:55 Temperature 98.9 F Temperature Source Oral Pulse Rate 75 Pulse Rate [Right Brachial] Respiratory Rate 17 Blood Pressure 131/79 Blood Pressure [Right Arm] Blood Pressure Mean [Right Arm] Blood Pressure Source [Right Arm] Blood Pressure Position [Right Arm] 02 Sat by Pulse Oximetry Oxygen Delivery Method Room Air - Lab Data Lab results reviewed: Yes: I reviewed the patient's lab results. Lab Results 04/18/20 15:35: Urine Color Yellow, Urine Appearance Clear, Urine pH 5.5, Ur Specific [place] 1.025, Urine Protein Negative, Urine Glucose (UA) Negative, Urine Ketones Negative, Urine Blood Negative, Urine Nitrate Negative, Urine Bilirubin Negative, Urine Urobilinogen 0.2, Ur Leukocyte Esterase Negative, Urine RBC Occasional, Urine WBC Occasional, Ur Squamous Epith Cells 5-10, Amorphous Sediment 2+, Urine Bacteria None, Coarse Granular Casts 3-5 04/18/20 15:35: WBC 16.0 H, RBC 3.94 L, Hgb 12.3, Hct 38.7, MCV 98.2, MCH 31.4 H, MCHC 31.9, RDW 13.0, Plt Count 401, MPV 9.1, Neut % (Auto) 89.8 H, Lymph % (Auto) 5.9 L, [place] % (Auto) 4.1, Eos % (Auto) 0.1, Baso % (Auto) 0.1, Neut # (Auto) 14.3 H, Lymph # (Auto) 0.9, [place] # (Auto) 0.7, Eos # (Auto) 0.0, Baso # (Auto) 0.0, Total Counted 100, Neutrophils % (Manual) 82 H, Lymphocytes % (Manual) 12, Monocytes % (Manual) 5, Eosinophils % (Manual) 1, Platelet Estimate Normal, RBC Morphology Normal 04/18/20 15:35: Sodium 138, Potassium 4.8, Chloride 102, Carbon Dioxide 27, Anion Gap 13.8, BUN 28 H, Creatinine 0.80, Estimated Creat Clear 21, Estimated GFR 69, Est GFR ( Amer) 83, Glucose 185 H, Calcium 10.2, Total Bilirubin 0.5, AST 25, ALT 24, Alkaline Phosphatase 103, Troponin I < 0.01, Total Protein 7.5, Albumin 3.6, Globulin 3.9 H, Albumin/Globulin Ratio 0.9 L Result diagrams: 04/18/20 15:35 04/18/20 15:35 Orders (Tests/Meds): ED MEDICATIONS Discontinued Medications Generic Name Dose Route Start Last Admin Trade Name Freq PRN Reason Stop Dose Admin Levofloxacin 500 mg 04/18/20 17:46 04/18/20 17:52 Levaquin 500mg Tab PO 04/18/20 17:47 500 mg ONCE ONE Administration Protocol - CT Data CT Scan: Head, C-Spine, T-Spine, L-Spine Time Received: 1
[2020-04-18 17:45] VITALS: BP 131/79; PULSE 79; RESP 15; O2SAT 97
[2020-04-18 17:55] VITALS: BP 131/79; PULSE 75; RESP 17; TEMP 37.2; O2SAT 100
== END 2020-04-18 17:56 | disposition home or self-care (01) ==
LOC: UTC 14:59 → ER 15:22
PROVIDERS: Emergency Provider Emergency Medicine; PCP Emergency Medicine
DX: M54.2 Cervicalgia (principal); J18.1 Lobar pneumonia, unspecified organism; I34.0 Nonrheumatic mitral (valve) insufficiency; I25.10 Atherosclerotic heart disease of native coronary artery without angina pectoris; W01.0XXA Fall on same level from slipping, tripping and stumbling without subsequent striking against object, initial encounter; Y92.010 Kitchen of single-family (private) house as the place of occurrence of the external cause
CPT/HCPCS: 70450; 71101; 72125; 72128; 72131; 73502; 80053; 81001; 84484; 85007; 85025; 93005; 99284

== ENCOUNTER 2020-04-26 23:07 | Observation (INO) | payer MEDICARE, MEDICAID, SELFPAY ==
--- NOTE | 2020-04-25 23:04 | ECG_ITS ---
APPROVED REPORT Exam: Resting ECG HR:97 bpm ECG Measurements Heart Rate 97 AXES DC 150 P 75 QRSd 98 QRS 74 QT 360 T 64 QTc 457 <Conclusion> Normal sinus rhythm Minimal voltage criteria for LVH, may be normal variant Borderline ECG Electronically signed by : Elmer Elizalde, 04/29/2020 06:30:03
[2020-04-26 23:08] VITALS: BP 115/69; PULSE 98; RESP 16; TEMP 36.4; O2SAT 97; BMI 17.7; BMI 17.8
--- NOTE | 2020-04-26 23:09 | CT_ITS ---
PROCEDURE: CT HEAD/BRAIN WO CON CLINICAL INDICATION: cva Altered mental status, altered level of consciousness, confusion, disorientation, slurred speech COMPARISON: CT CT HEAD/BRAIN WO CON from 04/18/2020 TECHNIQUE: Axial images obtained. All CT scans at the facility use one or more dose reduction, viz: automated exposure control, ma/kV adjustment per patient size (including targeted exams where dose is matched to indication, i.e. head), or iterative reconstruction technique. FINDINGS: No midline shift, mass effect, intracranial hemorrhage, hydrocephalus, or extra-axial fluid collection is evident. There is generalized atrophy with hypoattenuation of the periventricular white matter consistent with microangiopathic changes.. There is dolichoectasia of the basilar artery. Encephalomalacia noted in the frontal lobes bilaterally not significantly changed. The calvarium has an unremarkable appearance. No mastoid effusion. No sinus air-fluid level. IMPRESSION: 1. No change with no acute finding. 2. Dolichoectasia of the basilar artery. Cannot exclude basilar tip aneurysm. CTA or MRA may provide further evaluation. No acute intracranial hemorrhage Dictated by: Chris Eubanks MD 04/27/2020 05:59 Chris Eubanks MD in [place] 04/27/2020 05:59
--- NOTE | 2020-04-26 23:09 | XR_ITS ---
PROCEDURE: XR CHEST PORTABLE CLINICAL INDICATION: stroke rule out Cough and shortness of breath COMPARISON: CR XR CHEST 2V from 07/02/2019 CR XR CHEST 2V from 08/07/2019 CR XR RIBS RT MIN 3V W CXR1V from 04/18/[address] CHEST WO CON from 04/27/2020 FINDINGS: There is severe dextroscoliosis of the thoracolumbar spine with a large hiatal hernia. Consolidation is present in the right upper lobe consistent with pneumonia somewhat accentuated by overlying soft tissue attenuation. Increased density is present in the left perihilar region and may be due to developing nodule or pneumonia. Consider chest CT for more thorough evaluation. There are old bilateral rib fractures. IMPRESSION: Right upper lobe pneumonia. Left midlung nodular opacity which may be due to pneumonia or developing nodule Dictated by: Chris Eubanks MD 04/27/2020 05:31 Chris Eubanks MD in [place] 04/27/2020 05:31
--- NOTE | 2020-04-26 23:20 | PC.NURSE ---
Pt going to CT for stroke protocol. MD was at bedside
[2020-04-26 23:22] LABS: Basophils % 0.2 % (0.1-2.0); Eosinophils # 0.3 K/mm3 (0.0-0.4); Eosinophils % 1.5 % (0.1-12.0); Hematocrit 33.7 % (37.0-47.0); Lymphocytes # 0.7 K/mm3 (0.7-4.5); Lymphocytes % 3.2 % (10-50); Mean Corpuscular HGB Conc 32.5 g/dL (31.8-35.4); Mean Corpuscular Hemoglobin 31.7 pg (27.0-31.2); Mean Corpuscular Volume 97.6 fl (81-99); Monocytes # 0.6 K/mm3 (0.1-1.0); Monocytes % 2.5 % (1.7-9.3); Neutrophils # 20.6 K/mm3 (1.8-7.8); Neutrophils % 92.7 % (37.0-80.0); Platelet Count 375 K/mm3 (142-424); Red Blood Count 3.46 M/mm3 (4.20-5.40); Red Cell Distribution Width 13.8 % (11.5-17.5); White Blood Count 22.2 K/mm3 (4.8-10.8)
[2020-04-26 23:26] LABS: MANUAL DIFFERENTIAL MANUAL DIFFERENTIAL (MANUAL DIFF)
[2020-04-26 23:28] LABS: Chloride 99 mmol/L (98-107); Potassium 4.4 mmoL/L (3.5-5.1); Sodium 137 mmol/L (136-145)
[2020-04-26 23:30] LABS: Alanine Aminotransferase 16 U/L (12-78); Aspartate Amino Transferase 29 U/L (14-36); Bilirubin,Unconjugated 0.7 mg/dL (0.0-1.1); Blood Urea Nitrogen 23 mg/dl (7-17); Creatinine Clearance Estimated 26 mL/min (50-200); Estimated Glomerular Filt Rate 60 ml/min (>60); GFR (African American) 73 ML/MIN (>60)
[2020-04-26 23:31] LABS: Albumin Level 3.5 g/dl (3.5-5.0); Alkaline Phosphatase 84 U/L (38-126); Anion Gap 12.4 mEq/L (5-15); Bilirubin,Indirect 0.7 mg/dL (0.0-0.9); Bilirubin,Total 0.7 mg/dl (0.2-1.3); Calcium 9.5 mg/dl (8.4-10.2); Carbon Dioxide 30 mmol/L (22.0-30.0); Glucose 188 mg/dl (74-100)
--- NOTE | 2020-04-26 23:40 | PC.NURSE ---
speaking with JOVAN
[2020-04-26 23:44] LABS: Troponin I < 0.01 ng/ml (0.00-0.034)
--- NOTE | 2020-04-26 23:44 | PC.NURSE ---
Pt returned from CT
--- NOTE | 2020-04-26 23:48 | HMH.EDNEU ---
ED Disposition Clinical Impression: Low body mass index (BMI) Transient cerebral ischemia Qualifiers: Transient cerebral ischemia type: unspecified Qualified Code(s): G45.9 - Transient cerebral ischemic attack, unspecified Aortic stenosis Qualifiers: Cardiac valve disease etiology: etiology unspecified Qualified Code(s): I35.0 - Nonrheumatic aortic (valve) stenosis Disposition: Admitted as Observation Condition on Discharge: Good Instructions: DI for Altered Mental Status Referrals: Ishaan Isaac MD [Primary Care Provider] - - Critical Care Critical Care Time: No Attestation: On 04/26/20, the high probability of a clinically significant, sudden or life threatening deterioration of the following system(s) required my full and direct attention, intervention and personal management. The time I documented below is in addition to time spent performing reported procedures but includes the following listed in this critical care notation. Medical Decision Making - Medical Records Medical records reviewed: Yes: I reviewed the patient's medical records. - Mj Inquiry Pt receiving controlled substance: No Vital Signs: 04/26/20 23:08 04/27/20 00:52 04/27/20 01:26 Temperature 97.5 F L Temperature Source Oral Pulse Rate [Right Radial] 98 H 81 79 Respiratory Rate 16 16 16 Blood Pressure [Right Arm] 115/69 106/81 L 124/72 Blood Pressure Mean [Right Arm] 84 89 89 Blood Pressure Source [Right Arm] Automatic Cuff Automatic Cuff Automatic Cuff Blood Pressure Position [Right Arm] Supine Sitting 02 Sat by Pulse Oximetry 97 98 96 Oxygen Delivery Method Room Air Room Air Room Air 04/27/20 02:00 04/27/20 02:39 Temperature Temperature Source Pulse Rate [Right Radial] 82 84 Respiratory Rate 16 16 Blood Pressure [Right Arm] 122/72 104/68 L Blood Pressure Mean [Right Arm] 88 80 Blood Pressure Source [Right Arm] Blood Pressure Position [Right Arm] 02 Sat by Pulse Oximetry 97 97 Oxygen Delivery Method Room Air Room Air - Lab Data Lab results reviewed: Yes: I reviewed the patient's lab results. Lab Results 04/26/20 23:15: WBC 22.2 H*, RBC 3.46 L, Hgb 11.0 L, Hct 33.7 L, MCV 97.6, MCH 31.7 H, MCHC 32.5, RDW 13.8, Plt Count 375, MPV 9.0, Neut % (Auto) 92.7 H, Lymph % (Auto) 3.2 L, [place] % (Auto) 2.5, Eos % (Auto) 1.5, Baso % (Auto) 0.2, Neut # (Auto) 20.6 H, Lymph # (Auto) 0.7, [place] # (Auto) 0.6, Eos # (Auto) 0.3, Baso # (Auto) 0.0, Total Counted 100, Neutrophils % (Manual) 95 H, Lymphocytes % (Manual) 4 L, Monocytes % (Manual) 1 L, Platelet Estimate Normal, Ovalocytes 1+, Stomatocytes 1+, Acanthocytes (Spur) 1+ 04/26/20 23:15: Sodium 137, Potassium 4.4, Chloride 99, Carbon Dioxide 30, Anion Gap 12.4, BUN 23 H, Creatinine 0.90, Estimated Creat Clear 26, Estimated GFR 60, Est GFR ( Amer) 73, Glucose 188 H, Calcium 9.5, Total Bilirubin 0.7, Direct Bilirubin 0.0, Conjugated Bilirubin 0.0, Indirect Bilirubin 0.7, Unconjugated Bilirubin 0.7, AST 29, ALT 16, Alkaline Phosphatase 84, Troponin I < 0.01, Total Protein 7.0, Albumin 3.5 04/26/20 23:15: SARS-CoV-2 IgG Ab (Rapid) Positive A, SARS-CoV-2 IgM Ab (Rapid) Positive A 04/27/20 00:04: Lactate 2.1 04/27/20 02:20: Troponin I < 0.01 04/27/20 02:30: Urine Color Yellow, Urine Appearance Clear, Urine pH 5.5, Ur Specific [place] >= 1.030, Urine Protein Trace, Urine Glucose (UA) Negative, Urine Ketones Negative, Urine Blood Negative, Urine Nitrate Negative, Urine Bilirubin Negative, Urine Urobilinogen 0.2, Ur Leukocyte Esterase Negative, Urine WBC Occasional, Urine Bacteria 1+ Result diagrams: 04/26/20 23:15 04/26/20 23:15 Orders (Tests/Meds): ORDERS Category Date Time Status CT chest wo con Stat Cat Scan 04/27/20 00:[address] head/brain wo con Stat Cat Scan 04/26/20 23:09 Taken Chest XR -- portable [XR chest portable] Stat Exams 09/23/20 23:09 Taken Drug Screen,Urine Stat Lab 04/26/20 23:09 Received Troponin I Q3H Lab 04/27/20 05:15 Ordered Bl
[2020-04-27] VITALS (17 sets, daily range): BP systolic 102–129; BP diastolic 62–83; PULSE 67–90; RESP 14–22; TEMP 36.5–37.2; O2SAT 95–99; BMI 14.3
[2020-04-27 00:11] LABS: Lymphocytes % 4 % (10-50); Monocytes % 1 % (2-9); Neutrophils % 95 % (42-76); Ovalocytes 1+; Platelet Estimate Normal; Total Cells Counted 100
[2020-04-27 00:12] LABS: Acanthocytes 1+; Stomatocytes 1+
--- NOTE | 2020-04-27 00:19 | PC.NURSE ---
Lab notified pt is igg/igm positive
[2020-04-27 00:20] LABS: Coronavirus 19 IgG Antibody Positive (Negative); Coronavirus 19 IgM Antibody Positive (Negative)
[2020-04-27 00:20] LABS: Lactic Acid 2.1 mmol/L (0.7-2.1)
--- NOTE | 2020-04-27 00:23 | PC.NURSE ---
requested in house covid swab on pt
--- NOTE | 2020-04-27 00:23 | PC.NURSE ---
Notified House MD requested in house swab
--- NOTE | 2020-04-27 00:26 | PC.NURSE ---
lab at bedside to obtain swab
--- NOTE | 2020-04-27 00:30 | CT_ITS ---
PROCEDURE: CT CHEST WO CON CLINICAL INDICATION: rule out pneumonia, pulmonary nodule Shortness of air, abnormal radiograph with possible right upper lobe pneumonia possible left upper lobe nodule. COMPARISON: CT CT THORACIC SPINE WO CON from 04/18/2020 TECHNIQUE: Axial images obtained with sagittal and coronal reformats. All CT scans at the facility use one or more dose reduction, viz: automated exposure control, ma/kV adjustment per patient size (including targeted exams where dose is matched to indication, i.e. head), or iterative reconstruction technique. FINDINGS: There is a large hiatal hernia. Coronary artery calcifications are present. There is mild ectasia of the ascending aorta at 3.8 cm. Peripheral wedge-shaped consolidation with air bronchograms is present involving the right lower lobe extending posteriorly and medially consistent with pneumonia. Parenchymal opacity is present in the right upper lobe at 11 mm and may be due to an area of scarring or or developing nodule. There is some subpleural parenchymal opacity in the left lower lobe posterior laterally. No effusions. There is severe dextroscoliosis with a rotary component no obvious acute bony anomaly evident. There is mild wedge compression changes involving T4 and T5 which may be chronic. IMPRESSION: 1. Peripheral wedge-shaped consolidation in the right lower lobe with air bronchograms consistent with pneumonia. Cannot exclude the possibility of a pulmonary mass. Follow-up is suggested. 2. Left lower lobe atelectatic change or scarring. 3. Large hiatal hernia. 4. Severe thoracic scoliosis convex right Dictated by: Chris Eubanks MD 04/27/2020 06:11 Chris Eubanks MD in [place] 04/27/2020 06:11
[2020-04-27 02:43] LABS: Microscopic,Cath URINE MICROSCOPIC (MICROSCOPIC)
[2020-04-27 02:46] LABS: Appearance,Urine/Cath CLEAR (Clear); Bilirubin,Cath Negative (Negative); Blood, Urine/Cath Negative (Negative); Color,Urine/Cath YELLOW (Yellow); Glucose,Urine/Cath (UA) Negative (Negative); Ketones,Urine/Cath Negative (Negative); Leukocyte Esterase,Cath Negative (Negative); Nitrate,Cath Negative (Negative); PH,Urine/Cath 5.5 (5.0-8.5); Protein,Urine/Cath TRACE (Negative); Specific Gravity, Urine/Cath >= 1.030 (1.005-1.030); Urobilinogen,Cath 0.2 EU/dl (0.2)
[2020-04-27 02:55] LABS: Bacteria,Urine/Cath 1+ /lpf; Mucus,Urine/Cath 1+ /lpf; WBC,Urine/Cath Occasional #/hpf (0-3)
[2020-04-27 02:55] LABS: Troponin I < 0.01 ng/ml (0.00-0.034)
[2020-04-27 02:57] LABS: Barbiturates Screen,Urine Negative ng/ml (<200)
[2020-04-27 02:58] LABS: Amphetamine/Metha Screen,Urine Negative ng/ml (<1000); Benzodiazepines Screen,Urine Negative ng/ml (<200)
[2020-04-27 02:59] LABS: Methadone Screen,Urine Negative ng/ml (<300)
[2020-04-27 03:00] LABS: Cannabinoid Screen,Urine Negative ng/ml (<50)
[2020-04-27 03:01] LABS: Phencyclidine Screen,Urine Negative ng/ml (<25)
--- NOTE | 2020-04-27 03:35 | PC.NURSE ---
patient up to floor via stretcher.
[2020-04-27 04:09] LABS: Reflex Lactic Add Lactic Reflex
--- NOTE | 2020-04-27 04:17 | PC.NURSE ---
pt A&OX4. lungs CTA. pt denies SOA, pain. call light in reach. bed alarm activated. VSS
[2020-04-27 05:15] LABS: Chloride 101 mmol/L (98-107); Potassium 4.2 mmoL/L (3.5-5.1); Sodium 138 mmol/L (136-145)
[2020-04-27 05:18] LABS: Anion Gap 9.2 mEq/L (5-15); Blood Urea Nitrogen 22 mg/dl (7-17); Calcium 8.9 mg/dl (8.4-10.2); Carbon Dioxide 32 mmol/L (22.0-30.0); Creatinine Clearance Estimated 21 mL/min (50-200); Estimated Glomerular Filt Rate 69 ml/min (>60); GFR (African American) 83 ML/MIN (>60); Glucose 114 mg/dl (74-100); Lactic Acid Follow Up (RFLX 1) 0.7 mmol/L (0.7-2.1)
[2020-04-27 05:19] LABS: Magnesium 2.1 mg/dl (1.6-2.3)
[2020-04-27 05:23] LABS: Basophils % 0.1 % (0.1-2.0); Eosinophils % 0.1 % (0.1-12.0); Hematocrit 29.4 % (37.0-47.0); Lymphocytes # 0.9 K/mm3 (0.7-4.5); Lymphocytes % 6.9 % (10-50); Mean Corpuscular HGB Conc 32.9 g/dL (31.8-35.4); Mean Platelet Volume 8.9 fl (7.4-10.4); Monocytes # 0.5 K/mm3 (0.1-1.0); Monocytes % 3.7 % (1.7-9.3); Neutrophils % 89.3 % (37.0-80.0); Platelet Count 273 K/mm3 (142-424); Red Blood Count 3.03 M/mm3 (4.20-5.40); Red Cell Distribution Width 13.6 % (11.5-17.5); White Blood Count 12.3 K/mm3 (4.8-10.8)
[2020-04-27 05:33] LABS: Troponin I < 0.01 ng/ml (0.00-0.034)
[2020-04-27 05:37] LABS: Hemoglobin 9.8 g/dL (12.2-16.2)
--- NOTE | 2020-04-27 07:29 | HMH.PHAVTE ---
[facility] VTE Monitoring - Patient Demographics Admission date: 04/27/20 Report Date: 04/27/20 Time: 07:29 Allergies/Adverse Reactions: Patient Allergies No Known Allergies Allergy (Verified 04/27/20 03:59) Height: 1.47 m Weight: 31.071 kg Patient Problems: Current Active Problems Aortic stenosis (Acute) Low body mass index (BMI) (Acute) Transient cerebral ischemia (Acute) - VTE Risk Labs: VTE Related Lab Results Hgb 9.8 g/dL (12.2-16.2) L D 04/27/20 04:50 Hct 29.4 % (37.0-47.0) L 04/27/20 04:50 Plt Count 273 K/mm3 (142-424) D 04/27/20 04:50 BUN 22 mg/dl (7-17) H 04/27/20 04:50 Creatinine 0.80 mg/dl (0.52-1.04) 04/27/20 04:50 Estimated Creat Clear 21 mL/min (50-200) 04/27/20 04:50 Was VTE Risk Assessment Performed: Yes VTE Score: 2 VTE Risk Level: Very Low Risk Clinical Trial Participant: No - Prophylaxis VTE Prophylaxis Ordered?: Yes Types of VTE Prophylaxis: TEDS Knee High
--- NOTE | 2020-04-27 07:33 | HMH.PHAINT ---
HOME MEDICATION RECONCILIATION COMPLETED USING LIST FROM [facility] AND PCP OFFICE
--- NOTE | 2020-04-27 08:00 | CA_ITS ---
APPROVED REPORT Senior C Web Developer: CT Laterality: Bilateral Study Quality: Good Indications: tia Doppler Spectral Velocity Analysis ECA (R) 54.00/9.60 cm/s ECA (L) 62.00/9.10 cm/s dICA (R) 64.20/23.00 cm/s dICA (L) 62.90/24.40 cm/s Maria Esther (R) 62.00/23.50 cm/s Maria Esther (L) 71.90/21.20 cm/s pICA (R) 48.10/14.40 cm/s pICA (L) 58.40/17.30 cm/s dCCA (R) 87.40/18.00 cm/s dCCA (L) 55.10/14.40 cm/s pCCA (R) 77.10/14.60 cm/s pCCA (L) 77.50/15.50 cm/s Vert (R) 52.30/16.30 cm/s Vert (L) 43.30/11.20 cm/s ICA/CCA 0.70 ICA/CCA 1.30 Findings Duplex evaluation demonstrates stenosis of the right proximal internal carotid artery <20%. Duplex evaluation demonstrates stenosis of the left proximal internal carotid artery <20%. Duplex evaluation demonstrates antegrade flow of the bilateral Vertebral Arteries. Conclusion No increased velocities to suggest hemodynamically significant stenosis in either internal carotid artery. Electronically signed by : Chris Eubanks MD 04/27/2020 17:18:59
--- NOTE | 2020-04-27 08:00 | CA_ITS ---
APPROVED REPORT EXAM: Comprehensive 2D, Doppler, and color-flow Echocardiogram Manager Project: Autumn Hayes CRT Ht: 4 ft 9 in Wt: 84lbs BSA: 1.24 BP: 124/72 mmHg Indications: Murmur, TIA 2D Dimensions LVOT 1.06 cm (M/F) 1.5-2.5 M-Mode Dimensions RVDd 2.25 cm (0.9-2.6) LVDd 3.38 cm (3.5-5.7) LVDs 1.61 cm (3.5-5.7) IVSd 0.99 cm (0.6-1.1) PWd 1.23 cm (0.6-1.1) EF (Teich) 84.40% FS 52.40% EDV (Teich) 46.80 mL ESV (Teich) 7.30 mL LV Diastology E/A Ratio 0.60 Aortic Valve LVOT Max 243.00 (70-110 cm/s) LVOT VTI 44.05 cm Mitral Valve MV A Velocity 75.00 (40-130 cm/s) Left Ventricle Left atrium is mildly enlarged, left ventricle is normal size, mild concentric left ventricular hypertrophy, visually estimated ejection fraction 55% with no regional wall motion abnormality, grade 1 diastolic dysfunction seen without tissue Doppler evidence of raise left atrial pressure. Right Ventricle Right atrium and right ventricular normal size and contractility. Aortic Valve Aortic valve is thickened and calcified with severe restriction in the leaflet mobility, mean gradient across valve is 22 mmHg, the valve area is calculated at 0.5 cm???, represents severe aortic stenosis, there is moderate aortic insufficiency. Mitral Valve Mitral valve leaflets are minimally thickened, there is mild mitral regurgitation. Tricuspid Valve Tricuspid valve is grossly normal, there is mild tricuspid regurgitation, tricuspid regurgitation jet velocity is inadequate for calculation of the right ventricular systolic pressure. Pulmonic Valve Pulmonic valve is poorly visualized. Great Vessels Aortic root is normal size. Pericardium No significant pericardial effusion noted. Conclusion 1. Mildly enlarged left atrium, normal left ventricular size, mild concentric left ventricular hypertrophy, visually estimated ejection fraction 55% with no regional wall motion abnormality, grade 1 diastolic dysfunction seen without tissue Doppler evidence of raise left atrial pressure. 2. Thickened and calcified aortic valve with valve area 0.5 cm??? represents severe aortic stenosis, there is moderate aortic insufficiency. 3. Mild mitral and tricuspid regurgitation. 4. No significant pericardial effusion noted. Electronically signed by : Jam Linares, 04/27/2020 14:04:05
--- NOTE | 2020-04-27 09:11 | HMH.HP ---
*Admission Date: 04/27/20 *Chief complaint: tia *History of present illness: 80 yr old female brought in to ed pt's grand-daughter describes pt not making any sense and the pt wasn't able to organize her words for about 30 mins. while in ed, pt had no slurred speech or word salad at this moment and granddaughter states pt is asymptomatic at this time. NIH score of 0. Pt denies fever, states just finished antibiotics. Pt refused transfer admitted for poss TIA. Pt uds positive for cocaine and opiates, pt denies any use and states she does not know how it got in her system. will consult care management. [facility] History I have reviewed the patient's past medical history: Yes Medical History: Reports:: Coronary Artery Disease, Cerebrovascular Accident, Heart Murmur, Hypertension, Valvular Heart Disease Denies:: Cancer, Diabetes Mellitus Type 1, Diabetes Mellitus Type 2, MRSA *Have you ever received a pneumonia vaccine?: No *Have you received a flu vaccine this season?: No Other Medical History: Reports: Anemia Laterality Cases: Left: Arthroscopy Hip, Bilateral: Breast Biopsy, Mastectomy Other Surgeries: Yes: Colonoscopy, Tubal Ligation, Other Amputation: No Fractures: Yes - *Social History Last grade of school completed: 9th or 10th Smoking Status: Never smoker Alcohol Intake: never Substance Use Type: denies use *Occupational Status:: retired Housing: house Household Members: family *Travel in the last 8 weeks: None Family Hx:: Coronary Artery Disease Review of Systems - Review of Systems Review of systems:: pertinent systems reviewed and negative unless documented below - Constitutional Reports weakness, Denies body ache(s), Denies fever(s), Denies malaise - Eyes Denies bulging eyes - ENT Denies bleeding gums, Denies lip swelling - *Cardiovascular Denies chest pain at rest, Denies shortness of breath - *Respiratory Denies chest congestion - *Gastrointestinal Denies nausea, Denies vomiting - *Genitourinary Denies urinary incontinence - *Musculoskeletal Denies joint pain, Denies muscle weakness, Denies neck pain, Denies radiating pain into limb, Denies tingling - Integumentary/Breasts Denies rash - *Neurologic Denies abnormal hearing, Denies dizziness, Denies localized weakness, Denies tingling/numbness/burning sensations - Psychiatric Denies lack of enjoyment - Endocrine Denies excessive sweating - Hematologic/Lymphatic Denies enlarged lymph nodes - Allergic/Immunologic Denies itchy eyes Meds Home Medications Medication Instructions Recorded Confirmed Type Multivitamin [Multivitamins] 1 each PO DAILY 08/07/19 04/27/20 History lisinopril 2.5 mg tablet 2.5 mg PO DAILY #90 tab 10/13/19 04/27/20 Rx Amlodipine Besylate [Amlodipine 5 mg PO DAILY 04/18/20 04/27/20 History 5mg tab] Potassium Chloride 20 meq PO DAILY 04/18/20 04/27/20 History levoFLOXacin [Levaquin 500mg 500 mg PO DAILY 04/26/20 04/27/20 History tab] Aspirin [Aspirin 81mg EC Tab] 81 mg PO DAILY 04/27/20 04/27/20 History Allergies Allergy/AdvReac Type Severity Reaction Status Date / Time No Known Allergies Allergy Verified 04/27/20 03:59 Exam Vital signs and Labs for Last 24 Hours: Temp Pulse Resp BP Pulse Ox 97.9 F 78 16 129/69 97 04/27/20 07:55 04/27/20 08:43 04/27/20 08:43 04/27/20 07:55 04/27/20 08:43 Laboratory Results - last 24 hr 04/26/20 23:15: WBC 22.2 H*, RBC 3.46 L, Hgb 11.0 L, Hct 33.7 L, MCV 97.6, MCH 31.7 H, MCHC 32.5, RDW 13.8, Plt Count 375, MPV 9.0, Neut % (Auto) 92.7 H, Lymph % (Auto) 3.2 L, [place] % (Auto) 2.5, Eos % (Auto) 1.5, Baso % (Auto) 0.2, Neut # (Auto) 20.6 H, Lymph # (Auto) 0.7, [place] # (Auto) 0.6, Eos # (Auto) 0.3, Baso # (Auto) 0.0, Total Counted 100, Neutrophils % (Manual) 95 H, Lymphocytes % (Manual) 4 L, Monocytes % (Manual) 1 L, Platelet Estimate Normal, Ovalocytes 1+, Stomatocytes 1+, Acanthocytes (Spur) 1+ 04/26/20 23:15: Sodium 137, Potassium 4.
--- NOTE | 2020-04-27 09:58 | SW/DCPLANNER ---
Addendum entered by Mindy Phipps 04/27/20 11:41: I have followed up with [facility] and this case did NOT meet criteria. Addendum entered by Mindy Phipps 04/27/20 10:07: Kajal with lab has confirmed that urine drug screen is positive for cocaine and neuropsychology service director means number was too high to read and had to be sent off. Original Note: I spoke with this patient this morning regarding positive cocaine drug screen. Patient stated that she has no idea why she would be positive. Patient denies cocaine use. Patient stated that she resides at home with her granddaughter whom cares for her daily. Patient was able to answer that she was at [facility] and her name. Patient stated that she was well taken care of at home and did not have any needs at this time. I did report this situation to Central Intake with ID# [id number]. I will follow up with ID# this afternoon.
--- NOTE | 2020-04-27 10:40 | HMH.PULMCON ---
*Admission Date: 04/27/20 *Reason for consult:: Abnormal CT chest *History of present illness: Ms. Muro is a pleasant 80-year-old female never smoker, never had any respiratory issues, medical history of CAD aortic stenosis diabetes mellitus was presented to the hospital concerning for TIA. On further examination CT chest patient was found to have a right lower lobe wedge-shaped area of consolidation and possible right upper lobe nodule and pulmonary was consulted for further management. Other questioning patient denies any shortness of breath, denies any cough, denies fevers, denies chills. Respiratory status at baseline. [facility] History Medical History: Reports:: Coronary Artery Disease, Cerebrovascular Accident, Heart Murmur, Hypertension, Valvular Heart Disease Denies:: Cancer, Diabetes Mellitus Type 1, Diabetes Mellitus Type 2, MRSA *Have you ever received a pneumonia vaccine?: No *Have you received a flu vaccine this season?: No Other Medical History: Reports: Anemia Laterality Cases: Left: Arthroscopy Hip, Bilateral: Breast Biopsy, Mastectomy Other Surgeries: Yes: Colonoscopy, Tubal Ligation, Other Amputation: No Fractures: Yes - *Social History Last grade of school completed: 9th or 10th Smoking Status: Never smoker Alcohol Intake: never Substance Use Type: denies use *Occupational Status:: retired Housing: house Household Members: family *Travel in the last 8 weeks: None Family Hx:: Coronary Artery Disease [facility] Pulmonology ROS - Review of Systems Review of systems:: pertinent systems reviewed and negative unless documented below - *Neurologic Reports weakness, Denies abnormal hearing, Denies dizziness, Denies localized weakness, Denies tingling/numbness/burning sensations, Denies tingling Meds Home Medications Medication Instructions Recorded Confirmed Type Multivitamin [Multivitamins] 1 each PO DAILY 08/07/19 04/27/20 History lisinopril 2.5 mg tablet 2.5 mg PO DAILY #90 tab 10/13/19 04/27/20 Rx Amlodipine Besylate [Amlodipine 5 mg PO DAILY 04/18/20 04/27/20 History 5mg tab] Potassium Chloride 20 meq PO DAILY 04/18/20 04/27/20 History levoFLOXacin [Levaquin 500mg 500 mg PO DAILY 04/26/20 04/27/20 History tab] Aspirin [Aspirin 81mg EC Tab] 81 mg PO DAILY 04/27/20 04/27/20 History Allergies Allergy/AdvReac Type Severity Reaction Status Date / Time No Known Allergies Allergy Verified 04/27/20 03:59 Exam Vital signs and Labs for Last 24 Hours: Temp Pulse Resp BP Pulse Ox 97.9 F 78 16 129/69 97 04/27/20 07:55 04/27/20 08:43 04/27/20 08:43 04/27/20 07:55 04/27/20 08:43 Laboratory Results - last 24 hr 04/26/20 23:15: WBC 22.2 H*, RBC 3.46 L, Hgb 11.0 L, Hct 33.7 L, MCV 97.6, MCH 31.7 H, MCHC 32.5, RDW 13.8, Plt Count 375, MPV 9.0, Neut % (Auto) 92.7 H, Lymph % (Auto) 3.2 L, [place] % (Auto) 2.5, Eos % (Auto) 1.5, Baso % (Auto) 0.2, Neut # (Auto) 20.6 H, Lymph # (Auto) 0.7, [place] # (Auto) 0.6, Eos # (Auto) 0.3, Baso # (Auto) 0.0, Total Counted 100, Neutrophils % (Manual) 95 H, Lymphocytes % (Manual) 4 L, Monocytes % (Manual) 1 L, Platelet Estimate Normal, Ovalocytes 1+, Stomatocytes 1+, Acanthocytes (Spur) 1+ 04/26/20 23:15: Sodium 137, Potassium 4.4, Chloride 99, Carbon Dioxide 30, Anion Gap 12.4, BUN 23 H, Creatinine 0.90, Estimated Creat Clear 26, Estimated GFR 60, Est GFR ( Amer) 73, Glucose 188 H, Calcium 9.5, Total Bilirubin 0.7, Direct Bilirubin 0.0, Conjugated Bilirubin 0.0, Indirect Bilirubin 0.7, Unconjugated Bilirubin 0.7, AST 29, ALT 16, Alkaline Phosphatase 84, Troponin I < 0.01, Total Protein 7.0, Albumin 3.5 04/26/20 23:15: SARS-CoV-2 IgG Ab (Rapid) Positive A, SARS-CoV-2 IgM Ab (Rapid) Positive A 04/27/20 00:04: Lactate 2.1 04/27/20 02:20: Troponin I < 0.01 04/27/20 02:30: Urine Color Yellow, Urine Appearance Clear, Urine pH 5.5, Ur Specific [place] >= 1.030, Urine Protein Trace, Urine Glucose (UA) Negative, Urine Ketones Negative, Urine Blood Negative, Urine Nitrate
--- NOTE | 2020-04-27 10:50 | HMH.OTEV ---
OT Inpatient Evaluation Rehab OT IP Evaluation Start: 04/27/20 09:29 Freq: ONCE Status: Complete Protocol: Document 04/27/20 10:45 [facility] (Rec: 04/27/20 10:50 [facility] [id number]) Rehab OT IP Assessment Subjective History Pt oriented x 3 on arrival. pt agreeable to engage in therapy evaluation. Pt was admitted via ED on 04/27/20 for possible TIA. Pt's granddaughter brought patient to ER due to confusion and speech difficulty. Pt has a past medical history of CAD, CVA, and HTN. Prior to admission, pt lived with granddaughter. Pt reports she was independent with all aDLs and IADLs. Pt did use a rollator during ambulation to increase safety. Pt reports her granddaughter is home with her 24/02 Subjective I can do that. Objective Patient Orientation Person,Place,Birthday Upper Extremity Gross ROM WFL Bed Mobility bed mobility-scooting Assist Level Supervision/Stand by Transfer Training Sit/Stand Transfer Assist Level Supervision/Stand by Chair Transfer Ability Supervision/Stand by Chair Transfer Technique Sit to/from Ambulatory Chair Transfer Assistive Devices Rolling Walker Lower Body Dressing Ability Standby Assistance Rehab OT IP prob,goals,plan Problems Date of Evaluation: 04/27/20 OT IP Problems Bed Mobility,Transfers,Gait, Balance,Self care,Safety Rehab Potential Rehab Potential Good Equipment Needs Assistive Devices Rolling / Wheeled Walker Plan OT intervention Plan Bed Mobility,Transfers,Gait, Balance,Self care,Safety, Therapeutic Exercise OT Plan Frequency Daily Duration LOS Discharge Goals Bed Mobility Ability Standby Assistance Sit to Stand Chair Transfer Ability Supervision/Stand by Chair Transfer Ability Supervision/Stand by Chair Transfer Technique Sit to/from Ambulatory Chair Transfer Assistive Devices Rolling Walker Self care skills fully toilet trained,dressing/ undressing independently,uses utensils to feed self Feeding Ability Independe
--- NOTE | 2020-04-27 11:11 | HMH.PTEV ---
Physical Therapy Evaluation Rehab PT IP Evaluation Start: 04/27/20 09:29 Freq: ONCE Status: Active Protocol: Document 04/27/20 10:50 [facility] (Rec: 04/27/20 11:10 [facility] [id number]) Subjective/History History History 80 yr old female brought in to ed pt's grand-daughter describes pt not making any sense and the pt wasn't able to organize her words for about 30 mins. while in ed, pt had no slurred speech or word salad at this moment and granddaughter states pt is asymptomatic at this time. Subjective Subjective Pt. reported that she lives at home with her grand-daughter and has no stairs. She reports that her grand-daughter is there with her 24/02. The patient didn't report any problems while we were in the room. Co-treat done with OT Note done by [facility] PT IP Eval Objective Appearance Patient Behavior Appropriate,Cooperative, Impulsive Patient Orientation Person,Place,Time,Name,Year Difficulty following instructions mild Speech Pattern Appropriate,Soft-Spoken Ambulation Patient Able to Ambulate Yes Ambulation Observation IP General Gait Pattern Observation Wide Based Gait Ambulation Distance (feet) 5 Ambulation Assistive Device Rolling Walker Ambulation Ability Supervision/Stand by Balance Ability to Arise Able, uses arms to help Sitting Balance Steady, safe Standing Balance Steady, wide stance Dynamic Sitting Balance Ability Good Dynamic Standing Balance Ability Good Transfers Bed Transfer Ability Independent Chair Transfer Ability Contact Guard/Hand Hold Sit to Stand Bed Transfer Ability Contact Guard/Hand Hold Sit to Stand Chair Transfer Ability Supervision/Stand by ROM All Extremities PT ROM Status WFL MMT All Extremities PT MMT WFL Rehab PT IP prob,goals,plan Problems Date of Evaluation: 04/27/20 PT IP Problems Gait,Balance,Self care,Safety Rehab Potential Rehab Potential Good Equipment Needs Assistive Devices Rolling / Wheeled Walker Plan PT Intervention Plan Gait,Balance,Self care,Safety,
--- NOTE | 2020-04-27 14:55 | HMH.SLDYSPHA ---
Speech & Language Evaluation Speech/Language Dysphagia Evaluation Start: 04/27/20 14:52 Freq: ONCE Status: Active Protocol: Document 04/27/20 14:52 [facility] (Rec: 04/27/20 14:55 [facility] [id number]) Dysphagia Assess/Goals/Plan Assessment Date of Evaluation: 04/27/20 Evaluation Type Initial Certification Assessment/Problems Dysphagia Does Patient Qualify for Service No Qualify/Failure Comment No signs of dysphagia noted during evaluation Recommendations PHYSICIAN CERTIFICATION: The specified therapy services are required, authorized, and reviewed every 30 days. Diet Recommendations Normal Liquid Type Recommendations Normal/Thin Plan Pt/Guardian verbally ack understanding Yes: RN notified of dx/prognosis/goals G -code Required No Speech & Language HPI Language Primary Language Tongan General Information General Current Food Consistancy Regular,Thin Liquids Dentition Upper & Lower Dentures Oxygen Status Room Air Patient Orientation Person,Place Ability to Follow Directions Excellent Communication Ability No Impairment Dysphagia:Food Presentation Evaluation Food Type Pureed,Mechanical Soft,Regular ,Liquid,Pudding Dysphagia Evaluation Summary Ms. Muro was given the following consistencies: thins via open cup and straw, pudding, pureed, mechanical soft, and regular. No signs of dysphagia were noted during evaluation. Should problems continue, a Modified Barium Swallow is recommended. Stroke Dysphagia Assessment PHYSICIAN CERTIFICATION: I certify the specified therapy services for Jennifer Muro are required, authorized, and reviewed every 30 days.
[2020-04-27 15:06] LABS: POC Glucose,Bedside 153 (70-110)
--- NOTE | 2020-04-27 17:16 | PC.NURSE ---
Pt has been pleasant and cooperative this shift. A&O X4. No complaints of pain or SOA. Lungs CTA. Skin is C/D/I with no edema noted. Telemetry reveals NSR/SB. Pt ambulates with a walker and a stand-by assist to the BSC. Pt voids clear, yellow urine without issue. No BM this shift. Pt worked with PT and sat up in the recliner for a few hours today. 18 G peripheral IV in the LT AC is patent and infusing NS @ 50 ML/HR. VSS. Call light within reach. Will continue to monitor.
[2020-04-28] VITALS: BP 121/69; PULSE 75; PULSE 84; RESP 22; TEMP 36.9; O2SAT 93
[2020-04-28 04:00] VITALS: BP 129/78; PULSE 70; PULSE 78; RESP 17; TEMP 37.1; O2SAT 92
--- NOTE | 2020-04-28 05:17 | PC.NURSE ---
shift summary, no acute changes this shift, no complaints of SOA or pain, pt has ambulated to BR with standby assist, pt O2 sats have been 92-97% on room air with a respirations ranging from 17-22
[2020-04-28 05:40] VITALS: BMI 15.0
[2020-04-28 06:57] LABS: Basophils % 0.2 % (0.1-2.0); Eosinophils # 0.2 K/mm3 (0.0-0.4); Eosinophils % 1.6 % (0.1-12.0); Hematocrit 29.8 % (37.0-47.0); Hemoglobin 9.6 g/dL (12.2-16.2); Lymphocytes # 1.4 K/mm3 (0.7-4.5); Lymphocytes % 15.6 % (10-50); Mean Corpuscular HGB Conc 32.1 g/dL (31.8-35.4); Mean Corpuscular Hemoglobin 30.9 pg (27.0-31.2); Mean Corpuscular Volume 96.2 fl (81-99); Mean Platelet Volume 8.6 fl (7.4-10.4); Monocytes # 0.5 K/mm3 (0.1-1.0); Monocytes % 5.3 % (1.7-9.3); Neutrophils # 6.9 K/mm3 (1.8-7.8); Neutrophils % 77.4 % (37.0-80.0); Platelet Count 251 K/mm3 (142-424); Red Cell Distribution Width 13.5 % (11.5-17.5); White Blood Count 8.9 K/mm3 (4.8-10.8)
[2020-04-28 07:08] LABS: Chloride 106 mmol/L (98-107); Sodium 139 mmol/L (136-145)
[2020-04-28 07:09] LABS: Potassium 3.8 mmoL/L (3.5-5.1)
[2020-04-28 07:12] LABS: Anion Gap 9.8 mEq/L (5-15); Blood Urea Nitrogen 12 mg/dl (7-17); Calcium 8.1 mg/dl (8.4-10.2); Carbon Dioxide 27 mmol/L (22.0-30.0); Creatinine Clearance Estimated 22 mL/min (50-200); Estimated Glomerular Filt Rate 80 ml/min (>60); GFR (African American) 97 ML/MIN (>60); Glucose 94 mg/dl (74-100)
[2020-04-28 08:00] VITALS: BP 114/63; PULSE 74; PULSE 80; RESP 16; TEMP 36.6; O2SAT 98
[2020-04-28 12:00] VITALS: BP 121/68; PULSE 70; PULSE 85; RESP 16; TEMP 36.8; O2SAT 99
--- NOTE | 2020-04-28 12:16 | HMH.PULMPN ---
Internal Medicine - PN: Subj *Date: 04/28/20 *Time: 12:16 Interval history: No acute events overnight. Respiratory status remained stable. Exam Vital signs and Labs for Last 24 Hours: Temp Pulse Resp BP Pulse Ox 97.9 F 74 16 114/63 98 04/28/20 08:00 04/28/20 08:00 04/28/20 08:00 04/28/20 08:00 04/28/20 08:00 Laboratory Results - last 24 hr 04/26/20 23:12: POC Glucose 153 H 04/26/20 23:15: SARS-CoV-2 IgG Ab (Rapid) Positive A 04/28/20 06:33: WBC 8.9 D, RBC 3.10 L, Hgb 9.6 L, Hct 29.8 L, MCV 96.2, MCH 30.9, MCHC 32.1, RDW 13.5, Plt Count 251, MPV 8.6, Neut % (Auto) 77.4, Lymph % (Auto) 15.6, [place] % (Auto) 5.3, Eos % (Auto) 1.6, Baso % (Auto) 0.2, Neut # (Auto) 6.9, Lymph # (Auto) 1.4, [place] # (Auto) 0.5, Eos # (Auto) 0.2, Baso # (Auto) 0.0 04/28/20 06:33: Sodium 139, Potassium 3.8, Chloride 106, Carbon Dioxide 27, Anion Gap 9.8, BUN 12 D, Creatinine 0.70, Estimated Creat Clear 22, Estimated GFR 80, Est GFR ( Amer) 97, Glucose 94, Calcium 8.1 L I & O for Last 24 hours: Intake & Output 04/25/20 04/26/20 04/27/20 04/28/20 23:59 23:59 23:59 23:59 Intake Total 1273 / 1273 952 / 952 Output Total 200 / 200 300 / 300 Balance 1073 / 1073 652 / 652 Weight 84 lb 15.988 oz 68 lb 8 oz 71 lb 8 oz - Constitutional no acute distress - *Routine HEENT Exam Head: Present: normocephalic, atraumatic. Absent: cushingoid faces - *Routine Neck Exam Present: supple, full ROM - *Routine Respiratory Exam Present: CTA bilaterally. Absent: accessory muscle use - *Routine Cardiovascular Exam Present: Normal S2 (m m), murmur - *Routine Abdominal Exam Present: soft. Absent: normoactive bowel sounds, tenderness, distended - *Routine Extremities Exam Absent: cyanosis, clubbing, edema Assessment and Plan (1) Aortic stenosis Current visit: Yes Status: Acute Qualifiers: Cardiac valve disease etiology: etiology unspecified Qualified Code(s): I35.0 - Nonrheumatic aortic (valve) stenosis Category: Medical Code(s): I35.0 - Nonrheumatic aortic (valve) stenosis (2) Low body mass index (BMI) Current visit: Yes Status: Acute Category: Medical (3) Transient cerebral ischemia Current visit: Yes Status: Acute Qualifiers: Transient cerebral ischemia type: unspecified Qualified Code(s): G45.9 - Transient cerebral ischemic attack, unspecified Category: Medical Code(s): G45.9 - Transient cerebral ischemic attack, unspecified - Assessment and plan all Dx Assessment and Plan for all problems:: #Abnormal CT scan of the chest: #Right upper lobe pulmonary nodule: #Right lower lobe pneumonia: 80-year-old female with no prior smoking history, presented as a TIA alert, found to have right lower lobe pneumonia lung with questionable right upper lobe pulmonary nodule. Patient denies any respiratory complaints. Breathing at baseline. Denies any pleuritic chest pain, denies hemoptysis, denies any shortness of breath and exertional dyspnea. Aspiratory status remained stable since admission. Patient was initiated on Amoxicillin- Clavulanate 875mg milligrams twice daily for possible aspiration pneumonia Plan: - Continue amoxicillin clavulanic acid 875 mg twice daily for a total of 7 days. - Follow up the pulmonary clinic in 6 weeks after discharge with a repeat CT chest WO contrast to evaluate for this questionable right lower lobe pulmonary mass/nodule. Thank you for involving pulmonary in this patient care. We will continue to follow.
--- NOTE | 2020-04-28 12:57 | HMH.DCSUM ---
General - General Admission date:: 04/27/20 Discharge date: 04/28/20 HPI HPI: 80 yr old female brought in to ed pt's grand-daughter describes pt not making any sense and the pt wasn't able to organize her words for about 30 mins. while in ed, pt had no slurred speech or word salad at this moment and granddaughter states pt is asymptomatic at this time. NIH score of 0. Pt denies fever, states just finished antibiotics. Pt refused transfer admitted for poss TIA. Pt uds positive for cocaine and opiates, pt denies any use and states she does not know how it got in her system. will consult care management. Hospital Course Hospital Course: Laboratory Tests 04/26/20 04/26/20 04/26/20 23:12 23:15 23:15 WBC 22.2 H* RBC 3.46 L Hgb 11.0 L Hct 33.7 L MCV 97.6 MCH 31.7 H MCHC 32.5 RDW 13.8 Plt Count 375 MPV 9.0 Neut % (Auto) 92.7 H Lymph % (Auto) 3.[address] [place] % (Auto) 2.5 Eos % (Auto) 1.5 Baso % (Auto) 0.2 Neut # (Auto) 20.6 H Lymph # (Auto) 0.7 [place] # (Auto) 0.6 Eos # (Auto) 0.3 Baso # (Auto) 0.0 Total Counted 100 Neutrophils % (Manual) 95 H Lymphocytes % (Manual) 4 L Monocytes % (Manual) 1 L Platelet Estimate Normal Ovalocytes 1+ Stomatocytes 1+ Acanthocytes (Spur) 1+ Sodium 137 Potassium 4.4 Chloride 99 Carbon Dioxide 30 Anion Gap 12.4 BUN 23 H Creatinine 0.90 Estimated Creat Clear 26 Estimated GFR 60 Est GFR ( Amer) 73 Glucose 188 H POC Glucose 153 H Lactate Calcium 9.5 Magnesium Total Bilirubin 0.7 Direct Bilirubin 0.0 Conjugated Bilirubin 0.0 Indirect Bilirubin 0.7 Unconjugated Bilirubin 0.7 AST 29 ALT 16 Alkaline Phosphatase 84 Troponin I < 0.01 Total Protein 7.0 Albumin 3.5 Urine Color Urine Appearance Urine pH Ur Specific [place] Urine Protein Urine Glucose (UA) Urine Ketones Urine Blood Urine Nitrate Urine Bilirubin Urine Urobilinogen Ur Leukocyte Esterase Urine WBC Urine Bacteria Urine Opiates Screen Urine Methadone Screen Ur Barbituates Screen Ur Phencyclidine Scrn Ur Amphetamines Screen U Benzodiazepines Scrn Urine Cocaine Screen U Marijuana (THC) Screen SARS-CoV-2 IgG Ab (Rapid) SARS-CoV-2 IgM Ab (Rapid) 04/26/20 04/27/20 04/27/20 23:15 00:04 02:20 WBC RBC Hgb Hct MCV MCH MCHC RDW Plt Count MPV Neut % (Auto) Lymph % (Auto) [place] % (Auto) Eos % (Auto) Baso % (Auto) Neut # (Auto) Lymph # (Auto) [place] # (Auto) Eos # (Auto) Baso # (Auto) Total Counted Neutrophils % (Manual) Lymphocytes % (Manual) Monocytes % (Manual) Platelet Estimate Ovalocytes Stomatocytes Acanthocytes (Spur) Sodium Potassium Chloride Carbon Dioxide Anion Gap BUN Creatinine Estimated Creat Clear Estimated GFR Est GFR ( Amer) Glucose POC Glucose Lactate 2.1 Calcium Magnesium Total Bilirubin Direct Bilirubin Conjugated Bilirubin Indirect Bilirubin Unconjugated Bilirubin AST ALT Alkaline Phosphatase Troponin I < 0.01 Total Protein Albumin Urine Color Urine Appearance Urine pH Ur Specific [place] Urine Protein Urine Glucose (UA) Urine Ketones Urine Blood Urine Nitrate Urine Bilirubin Urine Urobilinogen Ur Leukocyte Esterase Urine WBC Urine Bacteria Urine Opiates Screen Urine Methadone Screen Ur Barbituates Screen Ur Phencyclidine Scrn Ur Amphetamines Screen U Benzodiazepines Scrn Urine Cocaine Screen U Marijuana (THC) Screen SARS-CoV-2 IgG Ab (Rapid) Positive A SARS-CoV-2 IgM Ab (Rapid) Positive A 04/27/20 04/27/20 04/27/20 02:30 02:30 04:50 WBC RBC Hgb Hct
--- NOTE | 2020-04-28 13:34 | PC.NURSE ---
PT IS SITTING UP IN THE CHAIR. PT HAS AMBULATED WITH PHYSICAL THERAPY X2 IN THE HALLWAY. VERY [place]. PT HAS BEEN ALERT AND ORIENTED X4 T/O THE SHIFT. LUNG SOUNDS CLEAR. BOWEL SOUNDS NORMAL. EATING AND DRINKING FAIR. VSS. PT STATES SHE IS READY TO GO HOME.
--- NOTE | 2020-04-28 13:56 | HMH.PHAINT ---
DISCHARGE COUNSELING COMPLETED.
== END 2020-04-28 14:43 | disposition home or self-care (01) ==
LOC: ER 23:25 → 2ND 04-27 03:07
PROVIDERS: Nurse Practitioner Family; Admitting Provider Emergency Medicine; Emergency Provider Emergency Medicine; PCP Emergency Medicine; Visit Provider Emergency Medicine
DX: G45.8 Other transient cerebral ischemic attacks and related syndromes (principal); J18.9 Pneumonia, unspecified organism; Z86.19 Personal history of other infectious and parasitic diseases; I35.0 Nonrheumatic aortic (valve) stenosis; Z79.899 Other long term (current) drug therapy
CPT/HCPCS: 36415; 70450; 71045; 71250; 80048; 80076; 80305; 81001; 82962; 83605; 83735; 84484; 85007; 85025; 86328; 87040; 92610; 93005; 93306; 93880; 97116; 97161; 97165; 97530; 99285; G0378; U0003

== ENCOUNTER → 2020-05-10 14:20 | Outpatient (CLI) | payer MEDICARE, MEDICAID, SELFPAY ==
--- NOTE | 2020-05-10 14:25 | CT_ITS ---
PROCEDURE: CT CHEST WO CON CLINICAL INDICATION: LUNG MASS,PULMONARY NODULE prior 04/27/20 COMPARISON: CT CT CHEST WO CON from 04/27/2020 TECHNIQUE: Axial images obtained with sagittal and coronal reformats. All CT scans at the facility use one or more dose reduction, viz: automated exposure control, ma/kV adjustment per patient size (including targeted exams where dose is matched to indication, i.e. head), or iterative reconstruction technique. FINDINGS: There is severe thoracic scoliosis convex right. Coronary artery calcifications are present. There is a large hiatal hernia. There are scattered parenchymal opacities in the right upper right lower left upper and left lower lobe which are not significantly changed. There is posterior peripheral consolidation in the right lower lobe with air bronchograms which is slightly improved. No effusions. Within the upper abdomen there is increased soft tissue density centrally. This is in the celiac region and could be related to unopacified bowel and pancreas as well as unopacified vessels. Cannot exclude a soft tissue mass in this region. CT of the abdomen with both IV and oral contrast may provide further evaluation. IMPRESSION: 1. Chronic changes of the chest with persistent but improving right upper lobe pneumonia. 2. Large hiatal hernia. 3. Severe dextroscoliosis. 4. Increased soft tissue did density in the epigastric region in the celiac area. While this could be related to unopacified bowel vessels and pancreas, 1 cannot exclude a soft tissue mass. Suggest CT of the abdomen with both IV and oral contrast for further evaluation. Dictated by: Chris Eubanks MD 05/11/2020 14:36 Chris Eubanks MD in [facility] 05/11/2020 14:36
== END ==
PROVIDERS: PCP Emergency Medicine; Visit Provider Internal Medicine Pulmonary Disease
DX: R91.1 Solitary pulmonary nodule (principal)
CPT/HCPCS: 71250

== ENCOUNTER → 2020-07-12 12:51 | Outpatient (CLI) | payer MEDICARE, MEDICAID, SELFPAY ==
--- NOTE | 2020-07-12 12:51 | CT_ITS ---
PROCEDURE: CT CHEST WO CON CLINICAL INDICATION: CONCERN FOR LUNG NODULE COMPARISON: CT CT CHEST WO CON from 05/10/2020 TECHNIQUE: Axial images obtained with sagittal and coronal reformats. All CT scans at the facility use one or more dose reduction, viz: automated exposure control, ma/kV adjustment per patient size (including targeted exams where dose is matched to indication, i.e. head), or iterative reconstruction technique. FINDINGS: Exam is limited without IV contrast and due to patient's sparse at the of fat. There is severe dextroscoliosis with kyphosis. No obvious mediastinal mass. Soft tissue density is present in the right apex medially not significantly changed measuring approximately 1.4 cm. Patchy infiltrate or chronic fibrotic change noted in the right upper lobe posteriorly as before. There is a large hiatal hernia as before. Coronary artery calcifications are present.. Soft tissue density at the epigastric region is once again noted. This cannot be further evaluated without IV and oral contrast as mentioned previously. If the patient cannot have IV contrast due to renal function than at least oral contrast could be utilized.. Previously noted consolidation in the right lower lobe has shown improvement with mild residual opacification present. Atelectasis or infiltrate in the left lower lobe has improved. Patchy density is present in the left lung base laterally consistent with an area of atelectasis or infiltrate. There are old left-sided rib fractures. IMPRESSION: Limited exam secondary to lack of IV and oral contrast and lack of body fat as described above. There is residual soft tissue density in the epigastric region possibly related to mass or adenopathy. Recommend abdomen CT with both IV and oral contrast. If IV contrast cannot be utilized then oral contrast could be given. Severe thoracic scoliosis convex right with kyphosis with large hiatal hernia. Right lower lobe consolidation has shown some improvement. There remains a 14 mm nodular opacity in the right apex for which continued follow-up is suggested and there is some patchy infiltrate in the lingula laterally. Dictated by: Chris Eubanks MD 07/15/2020 07:42 Chris Eubanks MD in [facility] 07/15/2020 07:42
== END ==
PROVIDERS: PCP Emergency Medicine; Visit Provider Internal Medicine Pulmonary Disease
DX: R06.02 Shortness of breath (principal); R07.81 Pleurodynia; R93.89 Abnormal findings on diagnostic imaging of other specified body structures; Z87.01 Personal history of pneumonia (recurrent)
CPT/HCPCS: 71250

== ENCOUNTER → 2020-07-22 12:28 | Outpatient (CLI) | payer MEDICARE, MEDICAID, SELFPAY ==
[2020-07-22 15:59] LABS: Coronavirus 19 IgG Antibody Positive (Negative)
[2020-07-22 16:00] LABS: Coronavirus 19 IgM Antibody Positive (Negative)
== END ==
LOC: LAB 12:30 → COVID.OUT 15:53
PROVIDERS: PCP Emergency Medicine; Visit Provider Internal Medicine Gastroenterology
DX: Z01.818 Encounter for other preprocedural examination (principal); Z86.19 Personal history of other infectious and parasitic diseases; Z13.810 Encounter for screening for upper gastrointestinal disorder; R19.06 Epigastric swelling, mass or lump
CPT/HCPCS: 36415; 86328; U0003

== ENCOUNTER 2020-07-24 10:53 | Day surgery (SDC) | payer MEDICARE, MEDICAID, SELFPAY ==
[2020-07-21 13:24] VITALS: BMI 15.3
--- NOTE | 2020-07-22 14:55 | PC.NURSE ---
Pt notified of positive IgG and IgM, instructed to come in and get swabbed; Pt verbalized understanding
--- NOTE | 2020-07-23 15:31 | PC.NURSE ---
Pt's POA notified that swab was negative. Verbalized understanding that there was no change in appointment for Friday.
[2020-07-24 11:40] VITALS: BP 155/74; PULSE 69; RESP 18; TEMP 37.3; O2SAT 98
--- NOTE | 2020-07-24 12:13 | P.PN_ITS ---
[facility] Anesthesia Checklist - Patient Identification Patient Identification: Arm Band, Verbal (Name & ) - Structural Data Admitted From: Home Planned Operative Procedure/s: EGD Consent for Planned Operative Procedure(s) Verified: Yes Verified Documents: Surgical Consent, History and Physical - NPO Status Verified Time NPO: 00:00 - Chart Verification Results Verified: None - Additional verifications Anesthesia Reactions: No - Airway Assessment C-Spine Mobility Assessed: Yes TMJ Mobility Assessed: Yes Dentition: Dentures-good fit - Neurological Assessment Level of Consciousness: Awake, Alert, Appropriate, Follows Commands Hx Seizures: No Numbness or tingling in extremities: No - Anesthesia Plan Anesthesia Risk discussed: Yes Anesthesia Plan: Verified ASA Class: III Anesthesia Type: MAC [facility] History I have reviewed the patient's past medical history: Yes Medical History: Reports:: Coronary Artery Disease, Cerebrovascular Accident, Gastroesophageal Reflux Disease(GERD), Heart Murmur, Hyperlipidemia, Hypertension, Valvular Heart Disease () Denies:: Cancer, Diabetes Mellitus Type 1, Diabetes Mellitus Type 2, Internal Pacemaker, MRSA, Seizures *Have you ever received a pneumonia vaccine?: Yes *Have you received a flu vaccine this season?: No Other Medical History: Reports: Anemia Comment:: scoliosis Anesthesia experience/problems:: None Laterality Cases: Left: Arthroscopy Hip, Bilateral: Breast Biopsy, Mastectomy Other Surgeries: Yes: Colonoscopy, Tubal Ligation, Other. No: Pacemaker Amputation: No Fractures: Yes - *Social History Last grade of school completed: 9th or 10th Smoking Status: Never smoker Alcohol Intake: never Substance Use Type: denies use *Occupational Status:: retired Housing: house Household Members: family, caregiver *Travel in the last 8 weeks: None Family Hx:: Coronary Artery Disease
[2020-07-24 12:43] VITALS: O2SAT 97
--- NOTE | 2020-07-24 13:04 | P.PCN_ITS ---
[facility] Procedure Note Procedure Note:: Upper Endoscopy Procedure Report: Esophagogastroduodenoscopy with cold biopsies Endoscopost: Jomar Nixon II, MD Referring Physician: Kassie Rivas MD/Ishaan Isaac MD Date of Procedure: July 24, 2020 Equipment: Olympus GIF 180 standard upper endoscope Sedation: MAC sedation Indications: Mrs. Muro is an 80-year-old female with a recent CT scan of the chest and abdomen that showed improvement of a right lower lobe mass. However, there was some concern about a soft tissue density in the epigastric region which had been identified on a prior scan. The patient reports some dysphagia and early satiety. She has had a normal appetite and no new weight loss. Procedure: Prior to the procedure, a history and physical exam was performed, and patient's medications and allergies were reviewed. The risks, benefits and alternatives of the sedation and procedure were discussed with the patient. All questions were answered and informed consent was obtained. The patient was brought to the procedure room. Patient identification and proposed procedure were verified by the physician and the nurse. The patient was placed in a left lateral decubitus position and the scope was passed under direct vision. Throughout the procedure, the patient's blood pressure, pulse, and oxygen saturations were monitored continuously. The upper GI endoscopy was accomplished without difficulty. The patient tolerated the procedure well. Findings: The scope was passed directly into the upper esophagus and advanced to bulb of the duodenum in the first portion. The scope could not be advanced more distally due to looping of the scope in the stomach. The scope was withdrawn through the patulous pylorus into the stomach. There was gastric atrophy and erosions in the stomach. There was a U-shaped stomach with very large hiatal hernia. The majority of the stomach was in the thoracic cavity and there was a large paraesophageal hernia with partial gastric volvulus. Cold biopsies were obtained from the body of the stomach. The scope was then withdrawn into the esophagus. There was evidence of presbyesophagus. There was a proximal esophageal web that was dilated with the endoscope itself. The remainder of the esophageal mucosa was normal. Impression: 1. 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 I will discuss the findings with the patient and family. The patient did not have any concerning gastric mass.
[2020-07-24 13:10] VITALS: BP 112/71; PULSE 92; RESP 12; TEMP 36.8; O2SAT 94
[2020-07-24 13:20] VITALS: BP 115/83; PULSE 94; RESP 16; O2SAT 96
[2020-07-24 13:30] VITALS: BP 140/79; PULSE 86; RESP 16; O2SAT 96
[2020-07-24 13:40] VITALS: BP 150/78; PULSE 80; RESP 16; TEMP 36.8; O2SAT 96
== END 2020-07-24 13:45 | disposition home or self-care (01) ==
PROVIDERS: PCP Emergency Medicine; Visit Provider Internal Medicine Gastroenterology
PROC: 0DJ08ZZ Inspection of Upper Intestinal Tract, Via Natural or Artificial Opening Endoscopic (ICD-10-PCS; CPT 43235; principal; 2020-07-24 12:00)
DX: K22.8 Other specified diseases of esophagus (principal); K44.9 Diaphragmatic hernia without obstruction or gangrene; I25.10 Atherosclerotic heart disease of native coronary artery without angina pectoris; E78.5 Hyperlipidemia, unspecified; I10 Essential (primary) hypertension; Z86.73 Personal history of transient ischemic attack (TIA), and cerebral infarction without residual deficits; R01.1 Cardiac murmur, unspecified; M41.9 Scoliosis, unspecified; D64.9 Anemia, unspecified; Z90.10 Acquired absence of unspecified breast and nipple; Z79.82 Long term (current) use of aspirin; Z79.899 Other long term (current) drug therapy
CPT/HCPCS: 43239; 88305

== ENCOUNTER 2020-08-12 13:43 | Emergency (ER) | payer MEDICARE, MEDICAID, SELFPAY ==
[2020-08-12 13:51] VITALS: BP 129/83; PULSE 84; RESP 20; TEMP 36.9; O2SAT 98; BMI 16.5
[2020-08-12 14:10] VITALS: BP 129/83; PULSE 84; RESP 20; TEMP 36.9; O2SAT 98; BMI 16.5
--- NOTE | 2020-08-12 14:21 | XR_ITS ---
PROCEDURE: XR LUMBAR SPINE 2-3V CLINICAL INDICATION: FALL Posttraumatic pain COMPARISON: CT CT LUMBAR SPINE WO CON from 04/18/2020 FINDINGS: There is severe thoracolumbar curvature convex right with diffuse osteopenia. The lateral exam is extremely limited due to the scoliosis. Cannot exclude compression fractures based on this exam. On the AP view there does appear to be some compression change along the right aspect of L4 and L3. CT or MRI is suggested for further evaluation if clinically desired Other findings:None. IMPRESSION: Severe thoracolumbar curvature convex right with diffuse osteopenia, see above for detail Dictated by: Chris Eubanks MD 08/12/2020 19:49 Chris Eubanks MD in [place] 08/12/2020 19:49
--- NOTE | 2020-08-12 14:22 | XR_ITS ---
PROCEDURE: XR HIP BI W PEL1V CLINICAL INDICATION: FALL Posttraumatic pain COMPARISON: CR HIPCMLT XR hip LT 2-3V w/pelvis from 11/10/2018 CR HIPCMLT XR hip LT 2-3V w/pelvis from 11/11/2018 CR XR HIP LT 2-3V W/PELVIS from 05/26/2019 CR XR HIP RT 2-3V W/PELVIS from 04/18/2020 FINDINGS: No acute fracture or dislocation. There are old fractures of the right superior and inferior pubic ramus and left femoral neck. Three pins are present in the left femoral neck. IMPRESSION: No acute fracture Dictated by: Chris Eubanks MD 08/12/2020 19:46 Chris Eubanks MD in OV 08/12/2020 19:46
--- NOTE | 2020-08-12 14:34 | HMH.EDUTC ---
[facility] Disposition Clinical Impression: Low back pain Qualifiers: Chronicity: unspecified Back pain laterality: midline Sciatica presence: without sciatica Qualified Code(s): M54.5 - Low back pain Disposition: Home, Self-Care Condition on Discharge: Good Instructions: DI for Low Back Pain, DI for Constipation, DI for Chronic Pain -- Adult, Polyethylene Glycol 3350 Additional Instructions: Take mirlax and glycerin suppository as advised to help with Constipation Take your Fiber gummies as advised Follow up with Family Doctor on Friday if no improvement or immediately if any worsening of symptoms Return if needed Straight to ER if any life threatening symptoms, loss of control of bowel or bladder Referrals: Ishaan Isaac MD [Primary Care Provider] - As needed Time of Disposition: 15:35 Medical Decision Making - Mj Inquiry Pt receiving controlled substance: No Mj was queried for this patient: No Vital Signs: 08/12/20 13:51 08/12/20 14:10 08/12/20 15:44 Temperature 98.4 F 98.4 F 98.4 F Temperature Source Oral Oral Pulse Rate 84 Pulse Rate [Left Radial] 84 84 Respiratory Rate 20 20 20 Blood Pressure 129/83 Blood Pressure [Right Arm] 129/83 129/83 Blood Pressure Mean [Right Arm] 98 98 Blood Pressure Source [Right Arm] Automatic Cuff Automatic Cuff Blood Pressure Position [Right Arm] Sitting Sitting 02 Sat by Pulse Oximetry 98 98 Oxygen Delivery Method Room Air Room Air - Radiology Data #1 Image(s): L-Spine Image Reviewed: Yes I reviewed the patient's radiology image w/the ED provider No acute finding, scoliosis #2 Image(s): Other (bilateral hip with pelvis) Image Reviewed: Yes I reviewed the patient's radiology image w/the ED provider Preliminary Findings: No Fracture Seen large amount of retained stool noted Medical Decision Narrative: Discussed with family and they advised that patient had pain medication at home, educated family that patient had copious amount of stool noted constipation and recommended mirlax patient pharmacy closed and they advised that they would purchase it over the counter [facility] HPI - General Stated complaint: ao 08/11 @ 0930, injury to lower back Time Seen by Provider: 08/12/20 14:34 Mode of Arrival: Ambulatory Source of Information: Patient Limitations: No Limitations Description of Symptoms (Recalled from Triage Doc. by RN): PATIENT FELL TRYING TO SIT ON HER WALKER SEAT YESTERDAY. C/O PAIN TO LOWER BACK AND PELVIC/BILATERL HIPS HEENT Symptoms (Recalled from RN notes): No Resp Symptoms (Recalled from RN notes): No Skin Symptoms (Recalled from RN notes): No MS Symptoms (Recalled from RN notes): Yes Functional Status (Recalled from RN notes): WNL - History of Present Illness Provider Complaint: Patient states that she has a rolling walker States that as she went to sit down in it yesterday it wasnt locked and she fell to the floor landing on her buttock area States that ever since she has been having pain in her lower back, pelvic area and bilateral hips States that she has had hip problems in the past States that she has still been walking on it just states that it hurts when she moves certain ways - Related Data Home Medications Medication Instructions Recorded Confirmed Multivitamin [Multivitamins] 1 each PO DAILY 08/07/19 07/21/20 Aspirin [Aspirin 81mg EC Tab] 81 mg PO DAILY 04/27/20 07/21/20 Amlodipine Besylate 5 mg PO DAILY 07/21/20 07/24/20 Inulin/Chromium Picolinate [Fiber 1 each PO DAILY 07/21/20 07/21/20 Gummies] lisinopriL [Lisinopril 2.5mg Tab] See Rx Instructions .ROUTE .COMPLEX 07/21/20 07/21/20 Previous Rx's Medication Instructions Recorded ibuprofen 100 mg/5 mL oral 200 mg PO Q8H PRN #250 ml MDD 600 05/11/20 suspension potassium chloride 20 mEq/15 mL See Rx Instructions .ROUTE 07/31/20 oral liquid .COMPLEX #946 milliliter Allergies Allergy/AdvReac Type Severity Reaction Status Date / Time No Know
[2020-08-12 15:44] VITALS: BP 129/83; PULSE 84; RESP 20; TEMP 36.9; O2SAT 98
== END 2020-08-12 15:45 | disposition home or self-care (01) ==
PROVIDERS: Emergency Provider Nurse Practitioner; PCP Emergency Medicine
DX: M54.5 Low back pain (principal); W01.0XXA Fall on same level from slipping, tripping and stumbling without subsequent striking against object, initial encounter; Y92.019 Unspecified place in single-family (private) house as the place of occurrence of the external cause; I10 Essential (primary) hypertension; R01.1 Cardiac murmur, unspecified; E78.5 Hyperlipidemia, unspecified; K21.9 Gastro-esophageal reflux disease without esophagitis; I25.10 Atherosclerotic heart disease of native coronary artery without angina pectoris
CPT/HCPCS: G0463; 72100; 73521; 99202

== ENCOUNTER 2021-01-17 05:41 | Observation (INO) | payer MEDICARE, MEDICAID, SELFPAY ==
[2021-01-17] VITALS (27 sets, daily range): BP systolic 92–153; BP diastolic 61–98; PULSE 75–117; RESP 18–38; TEMP 36.6–37.2; O2SAT 84–106; BMI 18.8; BMI 19.8; BMI 15.3
--- NOTE | 2021-01-17 05:56 | ECG_ITS ---
APPROVED REPORT Exam: Resting ECG HR:110 bpm ECG Measurements Heart Rate 110 AXES TX 156 P 75 QRSd 92 QRS 34 QT 320 T 86 QTc 433 Conclusion Poor data quality, interpretation may be adversely affected Sinus tachycardia Possible Left atrial enlargement Nonspecific ST abnormality Abnormal ECG Electronically signed by : Elmer Elizalde, 01/17/2021 17:49:37
--- NOTE | 2021-01-17 05:57 | XR_ITS ---
PROCEDURE INFORMATION: Exam: XR Chest Exam date and time: 01/17/2021 5:57 AM Age: 80 years old Clinical indication: Wheezing; Patient HX: Rattling cough, SOA; Additional info: Food bolus TECHNIQUE: Imaging protocol: XR of the chest. Views: 1 view. COMPARISON: CT CHEST WO CON 07/12/2020 12:57 PM FINDINGS: Lungs: Streaky right medial lower lung atelectasis/airspace disease. Minor peripheral right upper lobe fibrosis/atelectasis. Pleural spaces: Unremarkable. No pleural effusion. No pneumothorax. Heart/Mediastinum: Mild cardiomegaly. Bones/joints: Severe convex right thoracolumbar scoliosis. Old bilateral rib fractures. IMPRESSION: 1. Streaky right medial lower lung atelectasis/airspace disease. 2. Minor peripheral right upper lobe fibrosis/atelectasis. 3. Other nonacute findings above.
[2021-01-17 06:11] LABS: Basophils % 0.4 % (0.1-2.0); Eosinophils # 0.1 K/mm3 (0.0-0.4); Eosinophils % 0.7 % (0.1-12.0); Hematocrit 39.4 % (37.0-47.0); Hemoglobin 12.5 g/dL (12.2-16.2); Lymphocytes # 0.9 K/mm3 (0.7-4.5); Lymphocytes % 8.1 % (10-50); Mean Corpuscular HGB Conc 31.8 g/dL (31.8-35.4); Mean Corpuscular Hemoglobin 29.8 pg (27.0-31.2); Mean Corpuscular Volume 93.6 fl (81-99); Mean Platelet Volume 8.5 fl (7.4-10.4); Monocytes # 0.5 K/mm3 (0.1-1.0); Neutrophils # 9.7 K/mm3 (1.8-7.8); Neutrophils % 86.8 % (37.0-80.0); Platelet Count 172 K/mm3 (142-424); Red Blood Count 4.21 M/mm3 (4.20-5.40); Red Cell Distribution Width 14.4 % (11.5-17.5); White Blood Count 11.2 K/mm3 (4.8-10.8)
[2021-01-17 06:14] LABS: MANUAL DIFFERENTIAL MANUAL DIFFERENTIAL (MANUAL DIFF)
[2021-01-17 06:15] LABS: Chloride 102 mmol/L (98-107); Potassium 4.5 mmoL/L (3.5-5.1); Sodium 142 mmol/L (136-145)
--- NOTE | 2021-01-17 06:17 | PC.NURSE ---
Pt's initial SaO2 on arrival was 86%. Pt was placed on 2LPM NC and sat increased to 89%. O2 increased to 3LPM and sat increased further to 93%.
[2021-01-17 06:18] LABS: Alanine Aminotransferase 25 U/L (12-78); Albumin Level 4.7 g/dl (3.5-5.0); Albumin/Globulin Ratio 1.3 (1.1-1.8); Alkaline Phosphatase 84 U/L (38-126); Anion Gap 15.5 mEq/L (5-15); Aspartate Amino Transferase 40 U/L (14-36); Bilirubin,Total 1.1 mg/dl (0.2-1.3); Blood Urea Nitrogen 16 mg/dl (7-17); Carbon Dioxide 29 mmol/L (22.0-30.0); Creatinine Clearance Estimated 30 mL/min (50-200); Estimated Glomerular Filt Rate 69 ml/min (>60); GFR (African American) 83 ML/MIN (>60); Globulin 3.7 g/dL (1.3-3.2); Total Protein,Serum 8.4 g/dl (6.3-8.2)
[2021-01-17 06:19] LABS: Calcium 9.8 mg/dl (8.4-10.2); Glucose 175 mg/dl (74-100)
[2021-01-17 06:22] LABS: Influenza A, PCR Not Detected (NotDetected); Influenza B, PCR Not Detected (NotDetected)
[2021-01-17 06:24] LABS: C-Reactive Protein 0.9 mg/L (0-4)
--- NOTE | 2021-01-17 06:34 | PC.NURSE ---
Dr. Isaac s/w Dr. Sandhu
--- NOTE | 2021-01-17 06:34 | PC.NURSE ---
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
--- NOTE | 2021-01-17 06:45 | HMH.EDSOB ---
ED Disposition Clinical Impression: Low body mass index (BMI), Severe aortic stenosis, Hiatal hernia Impacted esophageal foreign body Qualifiers: Encounter type: initial encounter Qualified Code(s): T18.108A - Unspecified foreign body in esophagus causing other injury, initial encounter Disposition: Admitted as Observation Condition on Discharge: Good - Critical Care Critical Care Time: No Attestation: On 01/17/21, the high probability of a clinically significant, sudden or life threatening deterioration of the following system(s) required my full and direct attention, intervention and personal management. The time I documented below is in addition to time spent performing reported procedures but includes the following listed in this critical care notation. Medical Decision Making - Medical Records Medical records reviewed: Yes: I reviewed the patient's medical records. - Mj Inquiry Pt receiving controlled substance: No Vital Signs: 01/17/21 05:42 01/17/21 06:30 Temperature 97.8 F Temperature Source Oral Pulse Rate 102 H Pulse Rate [Right] 107 H Respiratory Rate 21 Blood Pressure 123/76 Blood Pressure [Right Arm] 127/78 Blood Pressure Mean [Right Arm] 94 02 Sat by Pulse Oximetry 86 L 92 L Oxygen Delivery Method Room Air Nasal Cannula Oxygen Flow Rate (LPM) 3 - Lab Data Lab results reviewed: Yes: I reviewed the patient's lab results. Lab Results 01/17/21 06:00: WBC 11.2 H, RBC 4.21, Hgb 12.5, Hct 39.4, MCV 93.6, MCH 29.8, MCHC 31.8, RDW 14.4, Plt Count 172, MPV 8.5, Neut % (Auto) 86.8 H, Lymph % (Auto) 8.1 L, [place] % (Auto) 4.0, Eos % (Auto) 0.7, Baso % (Auto) 0.4, Neut # (Auto) 9.7 H, Lymph # (Auto) 0.9, [place] # (Auto) 0.5, Eos # (Auto) 0.1, Baso # (Auto) 0.0, Total Counted 100, Neutrophils % (Manual) 87 H, Lymphocytes % (Manual) 9 L, Monocytes % (Manual) 4, Platelet Estimate Normal, RBC Morphology Normal 01/17/21 06:00: Sodium 142, Potassium 4.5, Chloride 102, Carbon Dioxide 29, Anion Gap 15.5 H, BUN 16, Creatinine 0.80, Estimated Creat Clear 30, Estimated GFR 69, Est GFR ( Amer) 83, Glucose 175 H, Calcium 9.8, Total Bilirubin 1.1, AST 40 H, ALT 25, Alkaline Phosphatase 84, C-Reactive Protein 0.9, Total Protein 8.4 H, Albumin 4.7, Globulin 3.7 H, Albumin/Globulin Ratio 1.3 Result diagrams: 01/17/21 06:00 01/17/21 06:00 Orders (Tests/Meds): ED MEDICATIONS Generic Name Dose Route Start Last Admin Trade Name Freq PRN Reason Stop Dose Admin Sodium Chloride 1,000 mls @ 999 mls/hr 01/17/21 06:30 01/17/21 06:22 Sod Chlor 0.9% 1000ml Bag IV 01/17/21 07:30 999 mls/hr .Q1H1M PRISCILLA Administration ORDERS Category Date Time Status Chest XR -- portable [XR chest portable] Stat Exams 01/17/21 05:57 Taken C-Reactive Protein Stat Lab 01/17/21 06:00 Results Complete Blood Count Auto Diff Stat Lab 01/17/21 06:00 Results Comprehensive Metabolic Panel Stat Lab 01/17/21 06:00 Results Erythrocyte Sedimentation Rate Stat Lab 01/17/21 06:00 Results Procalcitonin Stat Lab 01/17/21 06:00 Results Rapid PCR Covid and Flu A/B Stat Lab 01/17/21 06:15 Received - Radiology Data #1 Image(s): Chest Image Reviewed: Yes I reviewed the patient's radiology image Preliminary Findings: Abnormal - ECG Data Tracing #1 Arrhythmias present: sinus tach Ischemic changes: non-specific ST-T wave changes Resp/SOB HPI - General Chief Complaint: Skin/Abscess/Foreign Body Stated Complaint: food stuck in throat Time Seen by Provider: 01/17/21 05:55 Mode of Arrival: Family Vehicle Source of Information: Patient, Relative, Medical Record Limitations: Physical Limitations Description of Symptoms (Recalled from ER Triage Doc. by RN): Pt reports that late last night she was eating a piece of meat and felt it got stuck down in my throat . Pt report to having a course cough with copious amount of phlegm. She also states she has not been able to swallow any liquids since the chocking e
[2021-01-17 06:57] LABS: Lymphocytes % 9 % (10-50); Monocytes % 4 % (2-9); Neutrophils % 87 % (42-76); Platelet Estimate Normal; RBC Morphology Normal; Total Cells Counted 100
[2021-01-17 07:13] LABS: Erythrocyte Sedimentation Rate 19 mm/hr (0-30)
--- NOTE | 2021-01-17 07:16 | P.PN_ITS ---
[facility] Anesthesia Checklist - Patient Identification Patient Identification: Arm Band - Structural Data Admitted From: Home Planned Operative Procedure/s: FBO Consent for Planned Operative Procedure(s) Verified: Yes - NPO Status Verified Time NPO: 00:00 - Additional verifications Anesthesia Reactions: No - Airway Assessment C-Spine Mobility Assessed: Yes TMJ Mobility Assessed: Yes Dentition: Edentulous - Neurological Assessment Level of Consciousness: Awake Hx Seizures: No Numbness or tingling in extremities: No - Anesthesia Plan Anesthesia Risk discussed: Yes Anesthesia Plan: Verified ASA Class: IV Anesthesia Type: MAC [facility] History I have reviewed the patient's past medical history: Yes Medical History: Reports:: Coronary Artery Disease, Cerebrovascular Accident, Gastroesophageal Reflux Disease(GERD), Heart Murmur, Hyperlipidemia, Hypertension, Valvular Heart Disease (Severe ) Denies:: Cancer, Diabetes Mellitus Type 1, Diabetes Mellitus Type 2, Internal Pacemaker, MRSA, Seizures *Have you ever received a pneumonia vaccine?: Yes *Have you received a flu vaccine this season?: No Other Medical History: Reports: Anemia Anesthesia experience/problems:: None Laterality Cases: Left: Arthroscopy Hip, Bilateral: Breast Biopsy, Mastectomy Other Surgeries: Yes: Colonoscopy, Tubal Ligation, Other. No: Pacemaker Amputation: No Fractures: Yes - *Social History Smoking Status: Never smoker Alcohol Intake: never Substance Use Type: denies use *Occupational Status:: other Housing: house Household Members: family, caregiver *Travel in the last 8 weeks: None Family Hx:: Coronary Artery Disease
[2021-01-17 07:20] LABS: Coronavirus 19, PCR Not Detected (NotDetected)
--- NOTE | 2021-01-17 07:36 | HMH.GSCON ---
*Admission Date: 01/17/21 *Reason for consult:: Esophageal foreign body *History of present illness: This is an 80-year-old female who presented to the emergency department with shortness of air and inability to swallow. She was diagnosed with an esophageal foreign body and the surgical service was consulted for esophagogastroscopy for foreign body removal. Review of Systems - Review of Systems Review of systems:: unable to obtain - *Neurologic Denies seizure-like activity [facility] History Medical History: Reports:: Coronary Artery Disease, Cerebrovascular Accident, Gastroesophageal Reflux Disease(GERD), Heart Murmur, Hyperlipidemia, Hypertension, Valvular Heart Disease (Severe ) Denies:: Cancer, Diabetes Mellitus Type 1, Diabetes Mellitus Type 2, Internal Pacemaker, MRSA, Seizures *Have you ever received a pneumonia vaccine?: Yes *Have you received a flu vaccine this season?: No Other Medical History: Reports: Anemia Anesthesia experience/problems:: None Laterality Cases: Left: Arthroscopy Hip, Bilateral: Breast Biopsy, Mastectomy Other Surgeries: Yes: Colonoscopy, Tubal Ligation, Other. No: Pacemaker Amputation: No Fractures: Yes - *Social History Smoking Status: Never smoker Alcohol Intake: never Substance Use Type: denies use *Occupational Status:: other Housing: house Household Members: family, caregiver *Travel in the last 8 weeks: None Family Hx:: Coronary Artery Disease Meds Home Medications Medication Instructions Recorded Confirmed Type Multivitamin [Multivitamins] 1 each PO DAILY 08/07/19 01/17/21 History Aspirin [Aspirin 81mg EC Tab] 81 mg PO DAILY 04/27/20 01/17/21 History ibuprofen 100 mg/5 mL oral 200 mg PO Q8H PRN #250 ml MDD 600 05/11/20 01/17/21 Rx suspension Amlodipine Besylate See Rx Instructions .ROUTE .COMPLEX 01/17/21 01/17/21 History Potassium Chloride See Rx Instructions .ROUTE .COMPLEX 01/17/21 01/17/21 History lisinopriL [Lisinopril 2.5mg Tab] See Rx Instructions .ROUTE .COMPLEX 01/17/21 01/17/21 History Allergies Allergy/AdvReac Type Severity Reaction Status Date / Time No Known Allergies Allergy Verified 05/11/20 09:50 Exam Vital signs and Labs for Last 24 Hours: Temp Pulse Resp BP Pulse Ox 98.9 F 111 H 20 153/86 H 85 L 01/17/21 07:17 01/17/21 07:17 01/17/21 07:17 01/17/21 07:17 01/17/21 07:17 Laboratory Results - last 24 hr 01/17/21 06:00: WBC 11.2 H, RBC 4.21, Hgb 12.5, Hct 39.4, MCV 93.6, MCH 29.8, MCHC 31.8, RDW 14.4, Plt Count 172, MPV 8.5, Neut % (Auto) 86.8 H, Lymph % (Auto) 8.1 L, [place] % (Auto) 4.0, Eos % (Auto) 0.7, Baso % (Auto) 0.4, Neut # (Auto) 9.7 H, Lymph # (Auto) 0.9, [place] # (Auto) 0.5, Eos # (Auto) 0.1, Baso # (Auto) 0.0, Total Counted 100, Neutrophils % (Manual) 87 H, Lymphocytes % (Manual) 9 L, Monocytes % (Manual) 4, Platelet Estimate Normal, RBC Morphology Normal, ESR 19 01/17/21 06:00: Sodium 142, Potassium 4.5, Chloride 102, Carbon Dioxide 29, Anion Gap 15.5 H, BUN 16, Creatinine 0.80, Estimated Creat Clear 30, Estimated GFR 69, Est GFR ( Amer) 83, Glucose 175 H, Calcium 9.8, Total Bilirubin 1.1, AST 40 H, ALT 25, Alkaline Phosphatase 84, C-Reactive Protein 0.9, Total Protein 8.4 H, Albumin 4.7, Globulin 3.7 H, Albumin/Globulin Ratio 1.3 01/17/21 06:15: SARS-CoV-2 (PCR) Not detected, Influenza A Untype (PCR) Not detected, Influenza Type B (PCR) Not detected I & O for Last 24 hours: Intake & Output 01/14/21 01/15/21 01/16/21 01/17/21 11:59 11:59 11:59 11:59 Intake Total 700 / 700 Balance 700 / 700 Weight 95 lb - Constitutional thin - *Routine Respiratory Exam Absent: respiratory distress Comments: Intermittently coughing - *Routine Cardiovascular Exam Present: tachycardia - *Routine Abdominal Exam Present: soft Results - Labs 01/17/21 06:00 01/17/21 06:00 Laboratory Results - last 24 hr 01/17/21 06:00: WBC 11.2 H, RBC 4.21, Hgb 12.5, Hct 39.4, MCV 93.6, MCH 29.8, MCHC 31.8, RDW 14.4,
--- NOTE | 2021-01-17 08:05 | CA_ITS ---
APPROVED REPORT EXAM: Comprehensive 2D, Doppler, and color-flow Echocardiogram Design Coordinator: Leora Garcia RVT Ht: 4 ft 10 in Wt: 95lbs BSA: 1.33 BP: 123/76 mmHg Indications: SOA,PT INTUBATED S/P FOREIGN BODY ESOPHAGUS,CAD,SEVERE ,PHTN,GERD,MURMUR,HTN,HLD TDS-BEST EXAM POSSIBLE PT FLAT ON BACK INTUBATED 2D Dimensions LVOT 1.44 cm (M/F) 1.5-2.5 LA Volume 14.50 mL LA Volume Index 10.98 mL/m2 (M/F) 16-34 M-Mode Dimensions LA Diam 3.20 cm (1.9-4.0) LVDd 3.34 cm (3.5-5.7) Ao Diam 1.79 cm (2.0-3.7) LVDs 2.30 cm (3.5-5.7) IVSd 1.31 cm (0.6-1.1) PWd 0.84 cm (0.6-1.1) EF (Teich) 60.10% FS 31.10% EDV (Teich) 45.40 mL TAPSE 2.82 (<1.7) ESV (Teich) 18.10 mL LV Diastology MED E' 9.00 (< 7 cm/sec) LAT E' 10.90 (<10 cm/sec) Aortic Valve LVOT Max 102.00 (70-110 cm/s) LVOT VTI 17.34 cm AoV Peak Ta. 319.00 (50-130 cm/s) AI PHT 990.00 ms AO Peak GR. 40.80 mmHg AO Mean GR. 26.50 (<5 mmHg) AO VTI 52.60 (18-25 cm) ROB (VTI) 0.54 (2.5-4.5 cm2) Pulmonary Valve PV Peak Velocity 150.00 (50-150 cm/s) Tricuspid Valve TR P. Velocity 320.00 cm/s RAP Estimate 10.00 mmHg RVSP 51.00 mmHg Left Ventricle Left atrium is mildly enlarged, left ventricle is normal size, mild concentric left ventricular hypertrophy, hyperdynamic left ventricular systolic function, visually estimated ejection fraction of over 65% with no regional wall motion abnormality. Diastolic parameters are inconclusive. Right Ventricle Right atrium and right ventricle are mildly enlarged with normal contractility. Aortic Valve Aortic valve is thickened and calcified with severe restriction in the leaflet mobility, mean gradient across valve is 27 mmHg, valve area is 0.7 cm, represents severe aortic stenosis, there is mild aortic insufficiency. Mitral Valve Mitral inflow velocity within normal range, there is no mitral stenosis, there is moderate mitral regurgitation. Tricuspid Valve Tricuspid leaflets are minimally thickened, there is moderate tricuspid regurgitation, calculated right ventricular systolic pressure is 51 mmHg. Pulmonic Valve Pulmonic valve is poorly visualized. Great Vessels Aortic root is normal size. Pericardium No significant pericardial effusion noted. Conclusion 1. Biatrial enlargement, normal left ventricular size, hyperdynamic left ventricular systolic function, visually estimated ejection fraction over 65% with no regional wall motion abnormality, diastolic parameters are inconclusive. 2. Thickened and calcified aortic valve with severe aortic stenosis, valve area is 0.7 cm???, there is mild aortic insufficiency. 3. Moderate mitral and tricuspid regurgitation, calculated right ventricular systolic pressure is 51 mmHg. 4. No significant pericardial effusion noted. Electronically signed by : Jam Linares, 01/18/2021 10:56:50
[2021-01-17 08:15] LABS: Procalcitonin 0.078 ng/mL (0.0-2.0)
--- NOTE | 2021-01-17 08:20 | HMH.SCOPE ---
- Procedure: Date: 01/17/21 Patient Date of :: 1940 Procedure Performed:: Esophagogastroscopy with foreign body removal Indications:: Esophageal foreign body Performing Provider:: Celso Sandhu MD Referring Provider:: Dr. Isaac Sedation:: General endotracheal Procedure:: After informed consent was obtained the patient was taken to the endoscopy suite. General anesthesia with endotracheal intubation (preemptively) was accomplished. The gastroscope was carefully advanced. A fairly large bolus of food particles was encountered in the cervical esophagus. Three-pronged graspers were utilized to remove a small portion of the foreign body in a retrograde fashion. Attempts at removal of the remaining portion in a retrograde manner utilizing a retrieval net were unsuccessful. However, the foreign body did begin to proceed distally during these maneuvers. A combination of careful forward motion and irrigation was utilized to allow the foreign body to enter the stomach. Inspection did reveal an inlet patch at approximately 13 cm. Just proximal to this site some significant mucosal irritation was noted. This was the site of foreign body. No obvious perforation was noted. The gastroscope was carefully removed and the patient was transferred to recovery. She remained intubated. Findings:: Impacted food bolus in the cervical esophagus Inlet patch at 13 cm Tortuous esophagus Hiatal hernia (as confirmed on prior evaluation) Specimens:: Partial foreign body (not sent for pathologic evaluation) Recommendations:: Proton pump inhibition with slow advancement of diet Complications:: No immediate Estimated blood obtained (mL): 0
--- NOTE | 2021-01-17 09:00 | PC.NURSE ---
pt arrived to the floor from [facility] on transport vent
--- NOTE | 2021-01-17 09:01 | SUR.PHASEII ---
AMANDA PIERSON CRNA, HOLLIE THIBODEAUX RESP THERAPIST, AND RN TRANSPORTED PT VIA STRETCHER ON TRANSPORT VENT TO [facility] ROOM [id number].
--- NOTE | 2021-01-17 09:02 | PC.NURSE ---
AMANDA PIERSON CRNA AND HOLLIE THIBODEAUX RT REMAINS AT BEDSIDE T/O POST OPERATIVE CARE.
--- NOTE | 2021-01-17 09:28 | XR_ITS ---
PROCEDURE: XR CHEST PORTABLE CLINICAL HISTORY: intubation COMPARISON: CR XR RIBS RT MIN 3V W CXR1V from 04/18/2020 CR XR CHEST PORTABLE from 04/26/[address] CHEST WO CON from 07/12/2020 CR XR CHEST PORTABLE from 01/17/2021 FINDINGS: There has been interval placement of a endotracheal tube with tip projecting just above the tonia. There is some right basilar consolidation similar to prior exam with patchy left basilar atelectasis. Probable tiny right pleural effusion. No pneumothorax. No acute bony abnormality. Heart size is normal. IMPRESSION: Interval placement of endotracheal tube with tip projecting just above the tonia. Some right basilar consolidation similar to prior exam and probable tiny right pleural effusion. Patchy left basilar atelectasis. Findings discussed by telephone with Ebony, floor nurse for the patient, on 01/17/2021 at approximately 1020 hours. Dictated by: Aguila Decker MD 01/17/2021 10:26 Aguila Decker MD in [place] 01/17/2021 10:26
[2021-01-17 09:32] LABS: ABG Base Excess -3.2 mmol/L (-2.4-2.3); ABG HCO3 21.9 mmhg (22.0-26.0); ABG Oxygen Saturation 100 % (90-100); ABG PCO2 37.3 mmhg (35.0-45.0); ABG PH 7.39 mmol/L (7.35-7.45)
[2021-01-17 09:35] LABS: Oxygen 80% %; PEEP 5; Source R BRACHIAL; Tidal Volume 400; Vent Rate 18
[2021-01-17 09:37] LABS: Microscopic, Urine URINE MICROSCOPIC (MICROSCOPIC)
--- NOTE | 2021-01-17 09:40 | HMH.PHAVTE ---
[facility] Pharmacy VTE Monitoring - Patient Demographics Admission date: 01/17/21 Report Date: 01/17/21 Time: 09:40 Allergies/Adverse Reactions: Patient Allergies No Known Allergies Allergy (Verified 05/11/20 09:50) Height: 1.47 m Weight: 33.311 kg Patient Problems: Current Active Problems Low body mass index (BMI) (Acute) Impacted esophageal foreign body (Acute) Hiatal hernia (Acute) Severe aortic stenosis (Chronic) - VTE Risk Labs: VTE Related Lab Results Hgb 12.5 g/dL (12.2-16.2) 01/17/21 06:00 Hct 39.4 % (37.0-47.0) 01/17/21 06:00 Plt Count 172 K/mm3 (142-424) 01/17/21 06:00 BUN 16 mg/dl (7-17) 01/17/21 06:00 Creatinine 0.80 mg/dl (0.52-1.04) 01/17/21 06:00 Estimated Creat Clear 30 mL/min (50-200) 01/17/21 06:00 Clinical Trial Participant: No - Prophylaxis VTE Prophylaxis Ordered?: Yes Types of VTE Prophylaxis: TEDS Knee High
[2021-01-17 09:48] LABS: Appearance,Urine CLEAR (Clear); Bilirubin,Urine Negative (Negative); Blood, Urine Negative (Negative); Color,Urine YELLOW (Yellow); Glucose,Urine (UA) Negative (Negative); Ketones,Urine Negative (Negative); Leukocyte Esterase,Urine Negative (Negative); Nitrate,Urine Negative (Negative); Protein,Urine Negative (Negative); Urobilinogen,Urine 0.2 EU/dl (0.2)
--- NOTE | 2021-01-17 10:46 | HMH.PULMCON ---
*Admission Date: 01/17/21 *History of present illness: Ms. Muro is a 80-year-old female never smoker, no respiratory comes at baseline initially seen in the hospital for aspiration pneumonia concern lung nodule was followed after 2 months that showed resolved lung nodule however showed concerning epigastric mass and has been followed by gastroenterology since then presented to hospital with concerning foreign body in her esophagus and pulmonary was called for further management as patient remained intubated postprocedure. [facility] History Medical History: Reports:: Coronary Artery Disease, Cerebrovascular Accident, Gastroesophageal Reflux Disease(GERD), Heart Murmur, Hyperlipidemia, Hypertension, Valvular Heart Disease (Severe ) Denies:: Cancer, Diabetes Mellitus Type 1, Diabetes Mellitus Type 2, Internal Pacemaker, MRSA, Seizures *Have you ever received a pneumonia vaccine?: Yes *Have you received a flu vaccine this season?: No Other Medical History: Reports: Anemia Anesthesia experience/problems:: None Laterality Cases: Left: Arthroscopy Hip, Bilateral: Breast Biopsy, Mastectomy Other Surgeries: Yes: Colonoscopy, Tubal Ligation, Other. No: Pacemaker Amputation: No Fractures: Yes - *Social History Smoking Status: Never smoker Alcohol Intake: never Substance Use Type: denies use *Occupational Status:: other Housing: house Household Members: family, caregiver *Travel in the last 8 weeks: None Family Hx:: Coronary Artery Disease ROS - Review of Systems Intubated sedated. Unable to obtain. Meds Home Medications Medication Instructions Recorded Confirmed Type Multivitamin [Multivitamins] 1 each PO DAILY 08/07/19 01/17/21 History Aspirin [Aspirin 81mg EC Tab] 81 mg PO DAILY 04/27/20 01/17/21 History ibuprofen 100 mg/5 mL oral 200 mg PO Q8H PRN #250 ml MDD 600 05/11/20 01/17/21 Rx suspension Amlodipine Besylate 5 mg PO DAILY 01/17/21 01/17/21 History Potassium Chloride 15 ml PO DAILY 01/17/21 01/17/21 History lisinopriL [Lisinopril 2.5mg Tab] 2.5 mg PO DAILY 01/17/21 01/17/21 History Allergies Allergy/AdvReac Type Severity Reaction Status Date / Time No Known Allergies Allergy Verified 05/11/20 09:50 Exam - Constitutional Constitutional:: Present: no acute distress, comfortable - HENMT Exam HENMT: Present: normocephalic, atraumatic - Neck Exam Neck:: Present: normal visual inspection - Respiratory Exam Respiratory:: Present: lungs clear, normal breath sounds. Absent: crackles, wheezing - Cardiovascular Exam Cardiac:: Present: S1, S2 - GI Exam GI:: Present: soft - Skin Exam Skin: Present: warm, no rash, dry - Neurological Exam Neurological: Absent: alert, awake, normal cognition - Extremities Exam Extremities: Present: no cyanosis, no clubbing, no edema Internal Medicine - CN: Reslt - Labs CBC & Chem 7: 01/17/21 06:00 01/17/21 06:00 Labs: Short CBC 01/17/21 Range/Units 06:00 WBC 11.2 H (4.8-10.8) K/mm3 Hgb 12.5 (12.2-16.2) g/dL Hct 39.4 (37.0-47.0) % Plt Count 172 (142-424) K/mm3 BMP 01/17/21 06:00 Sodium 142 Potassium 4.5 Chloride 102 Carbon Dioxide 29 BUN 16 Creatinine 0.80 Glucose 175 H Calcium 9.8 Liver Function 01/17/21 Range/Units 06:00 Total Bilirubin 1.1 (0.2-1.3) mg/dl AST 40 H (14-36) U/L ALT 25 (12-78) U/L Alkaline Phosphatase 84 (38-126) U/L Albumin 4.7 (3.5-5.0) g/dl Urine 01/17/21 Range/Units 09:20 Urine Color Yellow (Yellow) Urine Appearance Clear (Clear) Urine pH 7.0 (5.0-8.5) Ur Specific [place] 1.010 (1.005-1.030) Urine Protein Negative (Negative) Urine Glucose (UA) Negative (Negative) - ABG Interpretation ABG results: 01/17/21 09:30 ABG pH 7.39 ABG pCO2 37.3 ABG pO2 293.0 H ABG HCO3 21.9 L ABG Total CO2 23.0 ABG O2 Saturation 100 ABG Base Excess -3.2 L Assessment and Plan (1) Impacted esophageal foreign body
--- NOTE | 2021-01-17 13:10 | PC.NURSE ---
pt extubated to 4L NC
--- NOTE | 2021-01-17 13:23 | PC.NURSE ---
Pt extubated at 1310, placed on 4L NC satting 89-92%.
--- NOTE | 2021-01-17 13:41 | PC.NURSE ---
called and updated patient poa about her current status and plan of care. set up password with her at that time which is now [email or web address]
--- NOTE | 2021-01-17 13:50 | PC.NURSE ---
pharmacy stated to give solumedrol at 1500
--- NOTE | 2021-01-17 14:47 | PC.NURSE ---
called md office about transferring patient out of ICU to stepdown. and also asked if they wanted a swallow eval on the patient. spoosmani with gigi who stated she would speak to md when he returns to office
--- NOTE | 2021-01-17 15:47 | PC.NURSE ---
verified with thomas to stop the cefepime and clindamycin
--- NOTE | 2021-01-17 18:40 | PC.NURSE ---
RA SATS 93%. RETURN PT TO 2LPM N/C
[2021-01-18] VITALS (14 sets, daily range): BP systolic 89–138; BP diastolic 59–85; PULSE 80–94; RESP 16–17; TEMP 36.8–37.2; O2SAT 92–100; BMI 15.6
--- NOTE | 2021-01-18 03:41 | PC.NURSE ---
Pt rested well all shift. no acute changes. Lungs are CTA, on 2L NC, stats remain high 90's, voiding clear, yellow urine via [place]. No edema noted. bowels sounds x4, abd soft, non tender. Pt has been turned q2h. oral care 2qh. IV patent, NS at 50ml/hr. VSS. No concerns at this time.
[2021-01-18 05:55] LABS: Basophils % 0.1 % (0.1-2.0); Eosinophils % 0.2 % (0.1-12.0); Hematocrit 30.5 % (37.0-47.0); Lymphocytes # 0.6 K/mm3 (0.7-4.5); Lymphocytes % 5.1 % (10-50); Mean Corpuscular HGB Conc 34.3 g/dL (31.8-35.4); Mean Corpuscular Hemoglobin 30.8 pg (27.0-31.2); Mean Corpuscular Volume 89.9 fl (81-99); Mean Platelet Volume 8.7 fl (7.4-10.4); Monocytes # 0.4 K/mm3 (0.1-1.0); Monocytes % 3.4 % (1.7-9.3); Neutrophils # 11.1 K/mm3 (1.8-7.8); Neutrophils % 91.2 % (37.0-80.0); Platelet Count 114 K/mm3 (142-424); Red Cell Distribution Width 14.4 % (11.5-17.5); White Blood Count 12.2 K/mm3 (4.8-10.8)
--- NOTE | 2021-01-18 06:00 | XR_ITS ---
PROCEDURE: XR CHEST PORTABLE CLINICAL HISTORY: PNA COMPARISON: 01/17/2021 FINDINGS: Interval removal of endotracheal tube. Right basilar consolidation and tiny right pleural effusion with left basilar patchy infiltrate versus atelectasis again noted. Heart is mildly enlarged but stable. No pneumothorax. No acute bony abnormality. A few old healed left-sided rib fractures again noted. IMPRESSION: Mild cardiomegaly with right basilar consolidation and tiny right pleural effusion with left basilar patchy infiltrate versus atelectasis again noted. Interval removal of endotracheal tube. Dictated by: Aguila Decker MD 01/18/2021 08:02 Aguila Decker MD in [facility] 01/18/2021 08:02
[2021-01-18 06:02] LABS: MANUAL DIFFERENTIAL MANUAL DIFFERENTIAL (MANUAL DIFF)
[2021-01-18 06:08] LABS: Hemoglobin 10.6 g/dL (12.2-16.2)
[2021-01-18 06:10] LABS: Chloride 107 mmol/L (98-107)
[2021-01-18 06:11] LABS: Potassium 3.8 mmoL/L (3.5-5.1); Sodium 139 mmol/L (136-145)
[2021-01-18 06:13] LABS: Blood Urea Nitrogen 17 mg/dl (7-17); Creatinine Clearance Estimated 23 mL/min (50-200); Estimated Glomerular Filt Rate 69 ml/min (>60); GFR (African American) 83 ML/MIN (>60)
[2021-01-18 06:14] LABS: Anion Gap 11.8 mEq/L (5-15); Carbon Dioxide 24 mmol/L (22.0-30.0); Glucose 113 mg/dl (74-100)
[2021-01-18 06:35] LABS: Calcium 8.3 mg/dl (8.4-10.2)
--- NOTE | 2021-01-18 06:48 | HMH.GSPN ---
Subjective Narrative: Resting comfortably. Now extubated. Progress Note: A&P (1) Impacted esophageal foreign body Status: Acute Assessment and plan: Foreign body impacted in cervical esophagus...moderately difficult to remove. Consider standard barium swallow followed by formal modified barium swallow as an outpatient. Very slowly advance diet as patient tolerates with small bites, extended chewing, and frequent fluid intake Exam Vital signs and Labs for Last 24 Hours: Temp Pulse Resp BP Pulse Ox 98.5 F 80 36 H 97/64 L 100 01/17/21 16:00 01/18/21 04:00 01/17/21 18:00 01/18/21 02:00 01/18/21 02:00 Laboratory Results - last 24 hr 01/17/21 06:00: Total Counted 100, Neutrophils % (Manual) 87 H, Lymphocytes % (Manual) 9 L, Monocytes % (Manual) 4, Platelet Estimate Normal, RBC Morphology Normal, ESR 19 01/17/21 06:00: Procalcitonin 0.078 01/17/21 06:15: SARS-CoV-2 (PCR) Not detected, Influenza A Untype (PCR) Not detected, Influenza Type B (PCR) Not detected 01/17/21 09:20: Urine Color Yellow, Urine Appearance Clear, Urine pH 7.0, Ur Specific [place] 1.010, Urine Protein Negative, Urine Glucose (UA) Negative, Urine Ketones Negative, Urine Blood Negative, Urine Nitrate Negative, Urine Bilirubin Negative, Urine Urobilinogen 0.2, Ur Leukocyte Esterase Negative, Urine RBC None, Urine WBC None, Ur Squamous Epith Cells None, Urine Bacteria None 01/17/21 09:30: Specimen Source R brachial, O2 % 80%, ABG pH 7.39, ABG pCO2 37.3, ABG pO2 293.0 H, ABG HCO3 21.9 L, ABG Total CO2 23.0, ABG O2 Saturation 100, ABG Base Excess -3.2 L, Vent Rate 18, Tidal Volume 400, PEEP 5 01/18/21 05:43: WBC 12.2 H, RBC 3.40 L, Hgb 10.6 L D, Hct 30.5 L, MCV 89.9, MCH 30.8, MCHC 34.3, RDW 14.4, Plt Count 114 L D, MPV 8.7, Neut % (Auto) 91.2 H, Lymph % (Auto) 5.1 L, [place] % (Auto) 3.4, Eos % (Auto) 0.2, Baso % (Auto) 0.1, Neut # (Auto) 11.1 H, Lymph # (Auto) 0.6 L, [place] # (Auto) 0.4, Eos # (Auto) 0.0, Baso # (Auto) 0.0 01/18/21 05:43: Sodium 139, Potassium 3.8, Chloride 107, Carbon Dioxide 24, Anion Gap 11.8, BUN 17, Creatinine 0.80, Estimated Creat Clear 23, Estimated GFR 69, Est GFR ( Amer) 83, Glucose 113 H D, Calcium 8.3 L D I & O for Last 24 hours: Intake & Output 01/15/21 01/16/21 01/17/21 01/18/21 11:59 11:59 11:59 11:59 Intake Total 700 / 700 1671 / 1671 Output Total 590 / 700 825 / 825 Balance 110 / 0 846 / 846 Weight 72 lb 12.041 oz 74 lb 7 oz Microbiology Reports for the Last 24 Hours: Microbiology 01/17/21 09:13 Sputum - Endotracheal Tube Aspirate Gram Stain - Final - Constitutional no acute distress - *Routine Respiratory Exam Absent: respiratory distress Comments: Still with intermittent cough - *Routine Cardiovascular Exam Present: RRR
[2021-01-18 08:17] LABS: Lymphocytes % 6 % (10-50); Monocytes % 5 % (2-9); Neutrophils % 89 % (42-76); Platelet Estimate Normal; Total Cells Counted 100
[2021-01-18 08:20] LABS: Hypochromasia 1+
--- NOTE | 2021-01-18 09:01 | FL_ITS ---
PROCEDURE: FL BARIUM SWALLOW CLINICAL INDICATION: Food lodged in throat COMPARISON: No exams were available for comparison FINDINGS: Esophagram was performed with thin barium in the supine lateral position. Patient swallowed barium normally. The esophagus appears normal without evidence of stricture or obstruction or mass. Total fluoroscopy time was 1 minutes 55 seconds. IMPRESSION: Normal limited esophagram. Dictated by: Aguila Decker MD 01/18/2021 11:14 Aguila Decker MD in [facility] 01/18/2021 11:14
--- NOTE | 2021-01-18 09:05 | FL_ITS ---
PROCEDURE: FL BARIUM SWALLOW MODIFIED CLINICAL INDICATION: Dysphagia COMPARISON: No exams were available for comparison FINDINGS: There were a few episodes of silent aspiration which occurred with thin liquids which did not appear to show improvement with chin tuck maneuver. No other episodes of penetration or aspiration with any consistency tested. Epiglottic tilt laryngeal of a [place] were normal. Cricopharyngeus relaxation appeared to be normal. There was several episodes of tongue pumping and difficulty in movement of the bolus from anterior to posterior direction. Total fluoroscopy time was 1 minutes 55 seconds. Please see the speech therapy note for further detail. IMPRESSION: Few episodes of silent aspiration which occurred with thin liquids which did not appear to improve with chin tuck maneuver. Dictated by: Aguila Decker MD 01/18/2021 14:49 Aguila Decker MD in [facility] 01/18/2021 14:49
--- NOTE | 2021-01-18 09:12 | HMH.ITSTN ---
scheduled with juan at 11;00,will do regular swallow before that around 1015 am
--- NOTE | 2021-01-18 09:20 | HMH.HP ---
*Admission Date: 01/17/21 *Chief complaint: fb *History of present illness: 80-year-old female who presented to the emergency department with shortness of air and inability to swallow. Pt reports that late last night she was eating a piece of meat and felt it got stuck down in my throat . Pt report to having a course cough with copious amount of phlegm. She also states she has not been able to swallow any liquids since the chocking episode last night. pt states she has problems swallowing food but no issues with liquids. Pt was found to have FB and surgery was consulted [facility] History I have reviewed the patient's past medical history: Yes Medical History: Reports:: Coronary Artery Disease, Cerebrovascular Accident, Gastroesophageal Reflux Disease(GERD), Heart Murmur, Hyperlipidemia, Hypertension, Valvular Heart Disease Denies:: Cancer, Diabetes Mellitus Type 1, Diabetes Mellitus Type 2, Internal Pacemaker, MRSA, Seizures *Have you ever received a pneumonia vaccine?: Yes *Have you received a flu vaccine this season?: No Other Medical History: Reports: Anemia Anesthesia experience/problems:: None Laterality Cases: Left: Arthroscopy Hip, Bilateral: Breast Biopsy, Mastectomy Other Surgeries: Yes: Colonoscopy, Tubal Ligation, Other. No: Pacemaker Amputation: No Fractures: Yes (left hip and ribs) - *Social History Smoking Status: Never smoker Alcohol Intake: never Substance Use Type: denies use *Occupational Status:: retired Housing: house Household Members: family, caregiver *Travel in the last 8 weeks: None Family Hx:: Unable to obtain Review of Systems - Review of Systems Review of systems:: pertinent systems reviewed and negative unless documented below - Constitutional Denies body ache(s) - Eyes Denies blurry vision, Denies discharge - ENT Denies ear discharge - *Cardiovascular Denies chest pain at rest, Denies radiating jaw, neck or arm pain - *Respiratory Reports cough, Reports other - *Gastrointestinal Denies abdominal pain, Denies loose stools - *Genitourinary Denies abnormal periods - *Musculoskeletal Denies joint pain - Integumentary/Breasts Denies itching - *Neurologic Reports abnormal walking, Denies seizure-like activity - Psychiatric Denies lack of enjoyment - Endocrine Denies excessive sweating - Hematologic/Lymphatic Denies easy bruising - Allergic/Immunologic Denies GI upset with certain foods Meds Home Medications Medication Instructions Recorded Confirmed Type Multivitamin [Multivitamins] 1 each PO DAILY 08/07/19 01/17/21 History Aspirin [Aspirin 81mg EC Tab] 81 mg PO DAILY 04/27/20 01/17/21 History ibuprofen 100 mg/5 mL oral 200 mg PO Q8H PRN #250 ml MDD 600 05/11/20 01/17/21 Rx suspension Amlodipine Besylate 5 mg PO DAILY 01/17/21 01/17/21 History Potassium Chloride 15 ml PO DAILY 01/17/21 01/17/21 History lisinopriL [Lisinopril 2.5mg Tab] 2.5 mg PO DAILY 01/17/21 01/17/21 History Allergies Allergy/AdvReac Type Severity Reaction Status Date / Time No Known Allergies Allergy Verified 05/11/20 09:50 Exam Vital signs and Labs for Last 24 Hours: Temp Pulse Resp BP Pulse Ox 98.9 F 93 H 36 H 94/59 L 99 01/18/21 09:11 01/18/21 06:00 01/17/21 18:00 01/18/21 06:00 01/18/21 06:00 Laboratory Results - last 24 hr 01/17/21 09:20: Urine Color Yellow, Urine Appearance Clear, Urine pH 7.0, Ur Specific [place] 1.010, Urine Protein Negative, Urine Glucose (UA) Negative, Urine Ketones Negative, Urine Blood Negative, Urine Nitrate Negative, Urine Bilirubin Negative, Urine Urobilinogen 0.2, Ur Leukocyte Esterase Negative, Urine RBC None, Urine WBC None, Ur Squamous Epith Cells None, Urine Bacteria None 01/17/21 09:30: Specimen Source R brachial, O2 % 80%, ABG pH 7.39, ABG pCO2 37.3, ABG pO2 293.0 H, ABG HCO3 21.9 L, ABG Total CO2 23.0, ABG O2 Saturation 100, ABG Base Excess -3.2 L, Vent Rate 18, Tidal Volume 400, PEEP 5 01/18/21 05:43: WBC 12.2 H, RBC 3.4
--- NOTE | 2021-01-18 09:48 | SW/DCPLANNER ---
I spoke with this patients granddaughter/POA regarding discharge plans. POA stated that patient lives at home with her and she is with her 24/02. POA stated that patient does well at home but could benefit from some PT with home health. I have informed POA that I do not know when patient will be ready for discharge but I will set up home health services (no preference on agency) at time of discharge. POA stated there are no further needs at home at this time.
--- NOTE | 2021-01-18 10:55 | HMH.PULMPN ---
Internal Medicine - PN: Subj *Date: 01/18/21 *Time: 10:55 Interval history: No acute respiratory overnight. Patient extubated to AL. Exam - Constitutional Constitutional:: Present: no acute distress, comfortable - HENMT Exam HENMT: Present: normocephalic, atraumatic - Eye Exam Eyes:: Present: normal appearance both eyes and related structures - Neck Exam Neck:: Present: normal visual inspection - Respiratory Exam Respiratory:: Present: able to speak in complete sentences, no respiratory distress, normal respiratory effort. Absent: crackles, wheezing - Cardiovascular Exam Cardiac:: Present: S1, S2 - GI Exam GI:: Present: soft - Skin Exam Skin: Present: warm, no rash, dry - Neurological Exam Neurological: Present: alert, awake, normal cognition - Extremities Exam Extremities: Present: no cyanosis, no clubbing, no edema Assessment and Plan (1) Impacted esophageal foreign body Status: Acute Qualifiers: Encounter type: initial encounter Qualified Code(s): T18.108A - Unspecified foreign body in esophagus causing other injury, initial encounter Category: Medical Code(s): T18.108A - Unspecified foreign body in esophagus causing other injury, initial encounter - Assessment and plan all Dx Assessment and Plan for all problems:: #Community-acquired pneumonia 80-year-old female presented for foreign body retrieval status post endoscopy remained intubated post procedure and pulmonary was called for further management. Patient was extubated nasal cannula started and then weaned to room air this morning. X-ray showed questionable pulmonary infiltrate and will continue levofloxacin for total of 5 days. Will reschedule patient's 6-month CT chest to follow for her 14 mm right upper lobe nodule for first week of February-2020. #Thank you for involving pulmonary in this patient care. We'll continue to follow. We'll follow in the clinic as previously scheduled.
--- NOTE | 2021-01-18 12:58 | HMH.SLMBS2 ---
Speech & Language Evaluation Speech/Language Mod Barium Swallow Start: 01/18/21 09:05 Freq: ONCE Status: Complete Protocol: Document 01/18/21 12:45 ASHLEY (Rec: 01/18/21 12:58 ASHLEY [id number]) General Information General Current Food Consistancy NPO Dentition Edentulous Oxygen Status Nasal Cannula Facial Symmetry Symmetrical Patient Orientation Person,Place,Time Ability to Follow Directions Excellent Communication Ability No Impairment MBS Recommendations Diet Dietary Recommendations Dysphagia Mechanical Soft, [place] Liquids Treatment/Strategies Strategy/Precaution Recommend Sitting Upright (90 deg),Small Bites and Sips,Alternate Liquids/Solids Mod Barium Swallow Impressions Summary and Impressions Oral Phase Impression Minimal Impairment Oral Phase Summary Ms. Muro was given the following consistencies: thins via straw and open cup, nectar, pudding, pureed, and mechanical soft. Minimal impairment noted with decreased mastication with mechanical soft. Pharyngeal Phase Impression Mild Impairment Pharyngeal Phase Summary Ms. Muro exhibited silent aspiration with thin liquids via open cup during the swallow. It is recommended that Ms. Muro have outpatient therapy upon discharge. Speech/Language MBS Assessment/Goals/Plan Assessment Date of Evaluation: 01/18/21 Evaluation Type Initial Certification Assessment/Problems Dysphagia due to recent extubation Does Patient Qualify for Service Yes Qualify/Failure Comment Patient exhibited silent aspiration of thin liquids during the swallow. Recommendations PHYSICIAN CERTIFICATION: The specified therapy services are required, authorized, and reviewed every 30 days. Pt will be seen # times/week 1 for # weeks 1 Diet Recommendations Mechanical Soft Liquid Type Recommendations [place] Consistency SL Swallow Guidelines Standard Aspiration Prec. Crush Meds Crush all meds Dysphagia Swallow Precautions/Strategies Sitting Upright (90 deg),Small Bites and Sips,Alternate Liquids/Solids Plan Anticipate reaching STG in # weeks 1 Antici
--- NOTE | 2021-01-18 18:25 | PC.NURSE ---
Pt assisted up to BS, requires standby assistance for safety. She does well w/ activity but is unsteady on her feet w/ some side stepping. Pt given bath on side of bed by staff, linens changed. She walked around in room w/ standby assistance, tolerating activity well. Currently sitting up in chair. No complaints voiced. Pt has voided since removal of andres cath today. Call marquita w/in reach.
[2021-01-19] VITALS: PULSE 70; TEMP 36.5
--- NOTE | 2021-01-19 00:31 | PC.NURSE ---
She is alert to person, place but stated the year was 1999. She denies any pain. She reports her last BM was on 01/17. She continues on RA. NSR on telemetry.
[2021-01-19 03:37] VITALS: BP 109/67; PULSE 68; RESP 18; TEMP 36.5
[2021-01-19 04:00] VITALS: PULSE 70
[2021-01-19 05:07] VITALS: BMI 16.8
[2021-01-19 05:56] LABS: Chloride 108 mmol/L (98-107); Sodium 139 mmol/L (136-145)
[2021-01-19 05:59] LABS: Blood Urea Nitrogen 19 mg/dl (7-17); Calcium 8.6 mg/dl (8.4-10.2); Carbon Dioxide 24 mmol/L (22.0-30.0); Creatinine Clearance Estimated 25 mL/min (50-200); Estimated Glomerular Filt Rate 69 ml/min (>60); GFR (African American) 83 ML/MIN (>60); Glucose 143 mg/dl (74-100)
--- NOTE | 2021-01-19 06:43 | HMH.GSPN ---
Subjective Patient reports: no new complaints, feels better Progress Note: A&P (1) Impacted esophageal foreign body Status: Acute Assessment and plan: Mechanical soft diet as recommended per speech pathology (modified barium swallow results) (2) Low body mass index (BMI) Status: Acute (3) Severe aortic stenosis Status: Chronic Exam Vital signs and Labs for Last 24 Hours: Temp Pulse Resp BP Pulse Ox 97.7 F 70 18 109/67 L 95 01/19/21 03:37 01/19/21 04:00 01/19/21 03:37 01/19/21 03:37 01/18/21 19:51 Laboratory Results - last 24 hr 01/18/21 05:43: Total Counted 100, Neutrophils % (Manual) 89 H, Lymphocytes % (Manual) 6 L, Monocytes % (Manual) 5, Platelet Estimate Normal, RBC Morphology Not Reportable, Hypochromasia 1+ 01/19/21 05:22: Sodium 139, Potassium 4.0, Chloride 108 H, Carbon Dioxide 24, Anion Gap 11.0, BUN 19 H, Creatinine 0.80, Estimated Creat Clear 25, Estimated GFR 69, Est GFR ( Amer) 83, Glucose 143 H D, Calcium 8.6 I & O for Last 24 hours: Intake & Output 01/16/21 01/17/21 01/18/21 01/19/21 11:59 11:59 11:59 11:59 Intake Total 700 / 700 1671 / 1671 2198 / 2198 Output Total 590 / 700 1025 / 1025 Balance 110 / 0 646 / 646 2198 / 2198 Weight 72 lb 12.041 oz 74 lb 7 oz 80 lb 5 oz Microbiology Reports for the Last 24 Hours: Microbiology 01/17/21 09:13 Sputum - Endotracheal Tube Aspirate Gram Stain - Final 01/17/21 09:13 Sputum - Endotracheal Tube Aspirate Sputum Culture - Preliminary - Constitutional no acute distress - *Routine Respiratory Exam Absent: respiratory distress - *Routine Cardiovascular Exam Comments: regular rate
[2021-01-19 07:46] VITALS: BP 140/79; PULSE 84; RESP 18; TEMP 36.8; O2SAT 92
[2021-01-19 08:00] VITALS: PULSE 100; O2SAT 92
--- NOTE | 2021-01-19 08:58 | HMH.DCSUM ---
General - General Admission date:: 01/17/21 Discharge date: 01/19/21 HPI HPI: 80-year-old female who presented to the emergency department with shortness of air and inability to swallow. Pt reports that late last night she was eating a piece of meat and felt it got stuck down in my throat . Pt report to having a course cough with copious amount of phlegm. She also states she has not been able to swallow any liquids since the chocking episode last night. pt states she has problems swallowing food but no issues with liquids. Pt was found to have FB and surgery was consulted Hospital Course Hospital Course: Laboratory Tests 01/17/21 01/17/21 01/17/21 06:00 06:00 06:15 WBC 11.2 H RBC 4.21 Hgb 12.5 Hct 39.4 MCV 93.6 MCH 29.8 MCHC 31.8 RDW 14.4 Plt Count 172 MPV 8.5 Neut % (Auto) 86.8 H Lymph % (Auto) 8.1 L [place] % (Auto) 4.0 Eos % (Auto) 0.7 Baso % (Auto) 0.4 Neut # (Auto) 9.7 H Lymph # (Auto) 0.9 [place] # (Auto) 0.5 Eos # (Auto) 0.1 Baso # (Auto) 0.0 Total Counted 100 Neutrophils % (Manual) 87 H Lymphocytes % (Manual) 9 L Monocytes % (Manual) 4 Platelet Estimate Normal RBC Morphology Normal Hypochromasia ESR 19 Specimen Source O2 % ABG pH ABG pCO2 ABG pO2 ABG HCO3 ABG Total CO2 ABG O2 Saturation ABG Base Excess Vent Rate Tidal Volume PEEP Sodium 142 Potassium 4.5 Chloride 102 Carbon Dioxide 29 Anion Gap 15.5 H BUN 16 Creatinine 0.80 Estimated Creat Clear 30 Estimated GFR 69 Est GFR ( Amer) 83 Glucose 175 H Calcium 9.8 Total Bilirubin 1.1 AST 40 H ALT 25 Alkaline Phosphatase 84 C-Reactive Protein 0.9 Total Protein 8.4 H Albumin 4.7 Globulin 3.7 H Albumin/Globulin Ratio 1.3 Procalcitonin 0.078 Urine Color Urine Appearance Urine pH Ur Specific [place] Urine Protein Urine Glucose (UA) Urine Ketones Urine Blood Urine Nitrate Urine Bilirubin Urine Urobilinogen Ur Leukocyte Esterase Urine RBC Urine WBC Ur Squamous Epith Cells Urine Bacteria SARS-CoV-2 (PCR) Not detected Influenza A Untype (PCR) Not detected Influenza Type B (PCR) Not detected 01/17/21 01/17/21 01/18/21 09:20 09:30 05:43 WBC 12.2 H RBC 3.40 L Hgb 10.6 L D Hct 30.5 L MCV 89.9 MCH 30.8 MCHC 34.3 RDW 14.4 Plt Count 114 L D MPV 8.7 Neut % (Auto) 91.2 H Lymph % (Auto) 5.1 L [place] % (Auto) 3.4 Eos % (Auto) 0.2 Baso % (Auto) 0.1 Neut # (Auto) 11.1 H Lymph # (Auto) 0.6 L [place] # (Auto) 0.4 Eos # (Auto) 0.0 Baso # (Auto) 0.0 Total Counted 100 Neutrophils % (Manual) 89 H Lymphocytes % (Manual) 6 L Monocytes % (Manual) 5 Platelet Estimate Normal RBC Morphology Not Reportable Hypochromasia 1+ ESR Specimen Source R brachial O2 % 80% ABG pH 7.39 ABG pCO2 37.3 ABG pO2 293.0 H ABG HCO3 21.9 L ABG Total CO2 23.0 ABG O2 Saturation 100 ABG Base Excess -3.2 L Vent Rate 18 Tidal Volume 400 PEEP 5 Sodium Potassium Chloride Carbon Dioxide Anion Gap BUN Creatinine Estimated Creat Clear Estimated GFR Est GFR ( Amer) Glucose Calcium Total Bilirubin AST ALT Alkaline Phosphatase C-Reactive Protein Total Protein Albumin Globulin Albumin/Globulin Ratio Procalcitonin Urine Color Yellow Urine Appearance Clear Urine pH 7.0 Ur Specific [place] 1.010 Urine Protein Negative Urine Glucose (UA) Negative Urine Ketones Negative Urine Blood Negative Urine Nitrate Negative Urine Bilirubin Negative Urine Urobilinogen 0.2 Ur Leukocyte Esterase Negative Urine RBC None Urine WBC None Ur Squamous Epith Cells None Urine Bacteria None
--- NOTE | 2021-01-19 10:13 | SW/DCPLANNER ---
RECEIVED REFERRAL FOR HOME HEALTH SERVICES FOR PT/OT/ST AND SENIOR CARE SERVICES TO EVALUATE AND TREAT... SPOKE WITH PATIENT AND GRANDDAUGHTER AND THEY CHOSE [facility] IN [place].. I SET THIS UP FOR HER TO START SERVICES ONCE DISCHARGED FROM THE [facility]... FAMILY WILL BE HERE TO HEELER MACHINE PATIENT AROUND NOON TODAY AND SHE IS TO FOLLOW UP WITH MD NEXT WEEK..
--- NOTE | 2021-01-19 10:31 | HMH.PULMPN ---
Internal Medicine - PN: Subj *Date: 01/19/21 *Time: 10:31 Interval history: No acute respiratory events overnight. Patient remains on room air. Exam - Constitutional Constitutional:: Present: no acute distress, comfortable, cooperative - HENMT Exam HENMT: Present: normocephalic - Neck Exam Neck:: Present: normal visual inspection - Respiratory Exam Respiratory:: Present: able to speak in complete sentences, lungs clear, no respiratory distress - Cardiovascular Exam Cardiac:: Present: S1, S2 - GI Exam GI:: Present: soft - Skin Exam Skin: Present: warm, no rash - Neurological Exam Neurological: Present: alert, awake, normal cognition - Extremities Exam Extremities: Present: no cyanosis, no clubbing, no edema Assessment and Plan (1) Impacted esophageal foreign body Status: Acute Qualifiers: Encounter type: initial encounter Qualified Code(s): T18.108A - Unspecified foreign body in esophagus causing other injury, initial encounter Category: Medical Code(s): T18.108A - Unspecified foreign body in esophagus causing other injury, initial encounter (2) Low body mass index (BMI) Status: Acute Category: Medical (3) Severe aortic stenosis Status: Chronic Category: Medical Code(s): I35.0 - Nonrheumatic aortic (valve) stenosis - Assessment and plan all Dx Assessment and Plan for all problems:: #Community-acquired pneumonia 80-year-old female presented for foreign body retrieval status post endoscopy remained intubated post procedure and pulmonary was called for further management. Patient was extubated nasal cannula started and then weaned to room air yesterday. X-ray showed questionable pulmonary infiltrate Plan: -Continue levofloxacin for total of 5 days from initiation. -Will reschedule patient's 6-month CT chest to follow for her 14 mm right upper lobe nodule for first week of February-2020 and will follow the patient in clinic as previously scheduled #Thank you for involving pulmonary in this patient care.
[2021-01-19 12:00] VITALS: BP 136/74; PULSE 75; PULSE 80; RESP 16; TEMP 36.9; O2SAT 94
--- NOTE | 2021-01-19 13:58 | PC.NURSE ---
This RN instructed granddaughter on d//c instructions. Instructed granddaughter on f/u appt, abt called in to [facility] and pts diet and nectar thick liquids.
== END 2021-01-19 13:30 | disposition home or self-care (01) ==
LOC: ER 05:46 → 2ND 07:02
PROVIDERS: Nurse Practitioner Family; Surgery; Admitting Provider Emergency Medicine; Emergency Provider Emergency Medicine; PCP Emergency Medicine; Visit Provider Emergency Medicine
PROC: 0DJ08ZZ Inspection of Upper Intestinal Tract, Via Natural or Artificial Opening Endoscopic (ICD-10-PCS; CPT 43235; principal; 2021-01-17 07:30)
DX: T18.128A Food in esophagus causing other injury, initial encounter (principal); I35.0 Nonrheumatic aortic (valve) stenosis; I10 Essential (primary) hypertension; E78.5 Hyperlipidemia, unspecified; K21.9 Gastro-esophageal reflux disease without esophagitis; J96.00 Acute respiratory failure, unspecified whether with hypoxia or hypercapnia
CPT/HCPCS: 43247; 31500; 94002; 36415; 70371; 71045; 74220; 80048; 80053; 81001; 82803; 84145; 85007; 85025; 85651; 86140; 87070; 87077; 87186; 87205; 92611; 93005; 93306; 96365; 99284; G0378; J0692; J1956; J2405; U0003

== ENCOUNTER → 2021-01-29 14:38 | Outpatient (CLI) | payer MEDICARE, MEDICAID, SELFPAY ==
--- NOTE | 2021-01-29 14:38 | CT_ITS ---
PROCEDURE: CT CHEST WO CON CLINICAL INDICATION: sob Nodule Follow up SOA COMPARISON: CT CT CHEST WO CON from 05/10/[address] CHEST WO CON from 07/12/2020 TECHNIQUE: Axial images obtained with sagittal and coronal reformats. All CT scans at the facility use one or more dose reduction, viz: automated exposure control, ma/kV adjustment per patient size (including targeted exams where dose is matched to indication, i.e. head), or iterative reconstruction technique. FINDINGS: Limited exam secondary to patient's severe kyphoscoliosis, lack of body fat, and lack of IV and oral contrast. No obvious mediastinal or hilar mass. There are coronary artery calcifications present. 12 x 8 mm right apical nodule once again noted not significantly changed. There is thickening of the major fissure superiorly on the right. Patchy density is present along the major fissure at this region and may represent an area of atelectasis or infiltrate and appears slightly worse compared to the previous exam. Chronic volume loss noted in the right middle lobe. There is a new 5 mm nodular opacity in the left upper lobe laterally and inferiorly image 38. There are some mild atelectatic or fibrotic changes in the lingula just inferior to this region. There is a faint tree in bud pattern in the left upper lobe laterally suggesting underlying infiltrate. There is a large central and right-sided diaphragmatic hernia which contains the entire stomach. This is not significantly changed. Atelectatic changes are present in the lung bases with compressive volume loss of the right lower lobe from the hernia. There is severe thoracolumbar scoliosis convex right which measures 80 degrees along with kyphosis of the thoracic spine. IMPRESSION: No change in the right upper lobe nodule. Slight worsening infiltrate and/or atelectatic change right upper lobe Faint tree in bud pattern left upper lobe laterally suggesting underlying infiltrate with a new 5 mm nodule within the lingula. Large central and right-sided diaphragmatic hernia containing the stomach contributing to atelectatic changes in the right lower lobe. Severe thoracolumbar scoliosis with kyphosis Dictated by: Chris Eubanks MD 01/30/2021 09:11 Chris Eubanks MD in [place] 01/30/2021 09:11
== END ==
PROVIDERS: PCP Emergency Medicine; Visit Provider Internal Medicine Pulmonary Disease
DX: R06.02 Shortness of breath (principal); R07.81 Pleurodynia; R09.1 Pleurisy; R93.89 Abnormal findings on diagnostic imaging of other specified body structures; Z87.01 Personal history of pneumonia (recurrent)
CPT/HCPCS: 71250

== ENCOUNTER 2021-02-13 15:36 | Emergency (ER) | payer MEDICARE, MEDICAID, SELFPAY ==
[2021-02-13 17:15] VITALS: BP 000/00; PULSE 0; RESP 0; TEMP -17.7; TEMP 0
== END 2021-02-13 17:18 | disposition left against medical advice (07) ==
PROVIDERS: Emergency Provider Nurse Practitioner Family; PCP Emergency Medicine
DX: Z53.21 Procedure and treatment not carried out due to patient leaving prior to being seen by health care provider (principal)

== ENCOUNTER 2021-02-24 16:10 | Emergency (ER) | payer MEDICARE, MEDICAID, SELFPAY ==
[2021-02-24 16:40] VITALS: BP 113/77; PULSE 77; RESP 19; TEMP 37.1; O2SAT 97; BMI 16.0
--- NOTE | 2021-02-24 16:45 | HMH.EDUTC ---
[facility] [place] Disposition Clinical Impression: Diarrhea Qualifiers: Diarrhea type: unspecified type Qualified Code(s): R19.7 - Diarrhea, unspecified Disposition: Home, Self-Care Condition on Discharge: Good Instructions: Diarrhea Additional Instructions: Monitor temperature. Seek treatment if fever develops. Follow-up immediately if new or worse symptoms worsen or no noticeable improvement over 48 hours. Increase fluids such as water, Gatorade, Powerade, juice or Pedialyte with limited formula/dietary in children No food is okay as long as you are drinking. Once ready to eat start bland such as bananas, rice, applesauce, toast. Contagious until no diarrhea, vomiting, fever times 48 hours without medication Avoid antidiarrheals unless told otherwise. Best to let the virus run its course. Follow-up immediately for new or worsening symptoms or no noticeable improvement over the next 48 hours. Referrals: Ishaan Isaac MD [Primary Care Provider] - Time of Disposition: 18:45 Medical Decision Making - Mj Inquiry Pt receiving controlled substance: No Vital Signs: 02/24/21 16:40 Temperature 98.7 F Temperature Source Tympanic Pulse Rate [Apical] 77 Respiratory Rate 19 Blood Pressure [Right Arm] 113/77 Blood Pressure Mean [Right Arm] 89 Blood Pressure Source [Right Arm] Automatic Cuff Blood Pressure Position [Right Arm] Sitting 02 Sat by Pulse Oximetry 97 Oxygen Delivery Method Room Air - Lab Data Lab Results 02/24/21 17:18: WBC 8.1, RBC 4.31, Hgb 12.5, Hct 39.4, MCV 91.5, MCH 29.1, MCHC 31.8, RDW 15.2, Plt Count 202, MPV 8.7, Neut % (Auto) 75.3, Lymph % (Auto) 17.6, [place] % (Auto) 6.4, Eos % (Auto) 0.5, Baso % (Auto) 0.3, Neut # (Auto) 6.1, Lymph # (Auto) 1.4, [place] # (Auto) 0.5, Eos # (Auto) 0.0, Baso # (Auto) 0.0 02/24/21 17:18: Sodium 141, Potassium 4.0, Chloride 103, Carbon Dioxide 29, Anion Gap 13.0, BUN 19 H, Creatinine 1.10 H, Estimated Creat Clear 21, Estimated GFR 47 L, Est GFR ( Amer) 57 L, Glucose 150 H, Calcium 9.3 Result diagrams: 02/24/21 17:18 02/24/21 17:18 Orders (Tests/Meds): ORDERS Category Date Time Status Diarrhea 6-11 Panel, Cdiff PCR Stat Lab 02/24/21 16:29 Ordered Occult Blood,Stool Stat Lab 02/24/21 16:29 Uncollected [facility] [place] HPI - General Chief complaint: Urgent Treatment Center Stated complaint: diarrhea Time Seen by Provider: 02/24/21 16:45 Mode of Arrival: Ambulatory Source of Information: Relative Limitations: Physical Limitations Description of Symptoms (Recalled from Triage Doc. by RN): patient has had diarrhea greater than 2 weeks HEENT Symptoms (Recalled from RN notes): No Resp Symptoms (Recalled from RN notes): No Skin Symptoms (Recalled from RN notes): No MS Symptoms (Recalled from RN notes): No Functional Status (Recalled from RN notes): na - History of Present Illness Provider Complaint: 81 yr old female presents for diarrhea for over 2 weeks, pt has been to [facility] ed and pcp and still hs diarreha x4 today. - Related Data Home Medications Medication Instructions Recorded Confirmed Multivitamin [Multivitamins] 1 each PO DAILY 08/07/19 02/16/21 Aspirin [Aspirin 81mg EC Tab] 81 mg PO DAILY 04/27/20 02/16/21 Amlodipine Besylate 5 mg PO DAILY 01/17/21 02/16/21 Potassium Chloride 15 ml PO DAILY 01/17/21 02/16/21 lisinopriL [Lisinopril 2.5mg Tab] 2.5 mg PO DAILY 01/17/21 02/16/21 Previous Rx's Medication Instructions Recorded ibuprofen 100 mg/5 mL oral 200 mg PO Q8H PRN #250 ml MDD 600 05/11/20 suspension diphenoxylate-atropine 2.5 1 tab PO Q8H PRN #10 tab 02/19/21 mg-0.025 mg tablet Allergies Allergy/AdvReac Type Severity Reaction Status Date / Time No Known Allergies Allergy Verified 02/16/21 15:07 - Worker's Comp Is this a Worker's Comp case?: No [facility] History - Hepatitis A Screen Drug use history?: No High risk sexual behaviors?: No History of sexually transmitted infection?: No Currently employed?: No Child
[2021-02-24 17:30] LABS: Chloride 103 mmol/L (98-107)
[2021-02-24 17:31] LABS: Sodium 141 mmol/L (136-145)
[2021-02-24 17:34] LABS: Blood Urea Nitrogen 19 mg/dl (7-17); Calcium 9.3 mg/dl (8.4-10.2); Carbon Dioxide 29 mmol/L (22.0-30.0); Creatinine Clearance Estimated 21 mL/min (50-200); Estimated Glomerular Filt Rate 47 ml/min (>60); GFR (African American) 57 ML/MIN (>60); Glucose 150 mg/dl (74-100)
[2021-02-24 17:37] LABS: Basophils % 0.3 % (0.1-2.0); Eosinophils % 0.5 % (0.1-12.0); Hematocrit 39.4 % (37.0-47.0); Hemoglobin 12.5 g/dL (12.2-16.2); Lymphocytes # 1.4 K/mm3 (0.7-4.5); Lymphocytes % 17.6 % (10-50); Mean Corpuscular HGB Conc 31.8 g/dL (31.8-35.4); Mean Corpuscular Hemoglobin 29.1 pg (27.0-31.2); Mean Corpuscular Volume 91.5 fl (81-99); Mean Platelet Volume 8.7 fl (7.4-10.4); Monocytes # 0.5 K/mm3 (0.1-1.0); Monocytes % 6.4 % (1.7-9.3); Neutrophils # 6.1 K/mm3 (1.8-7.8); Neutrophils % 75.3 % (37.0-80.0); Platelet Count 202 K/mm3 (142-424); Red Blood Count 4.31 M/mm3 (4.20-5.40); Red Cell Distribution Width 15.2 % (11.5-17.5); White Blood Count 8.1 K/mm3 (4.8-10.8)
--- NOTE | 2021-02-24 17:48 | XR_ITS ---
PROCEDURE INFORMATION: Exam: XR Complete Acute Abdomen Series Including Chest Exam date and time: 02/24/2021 5:48 PM Age: 81 years old Clinical indication: Other: Loose stools TECHNIQUE: Imaging protocol: XR complete acute abdomen series, including 2 or more views of the abdomen and a single view chest. COMPARISON: CT CHEST WO CON 01/29/2021 3:14 PM FINDINGS: Lungs: Left lung is well aerated with some minimal peripheral interstitial scarring or subsegmental atelectasis. Right lung remains poorly aerated, with volume loss due to the large hernia, and some peripheral upper lobe airspace opacities which appear chronic compared with the previous exam. No new consolidation. Pleural spaces: No definite pleural effusions. No pneumothorax. Heart/Mediastinum: No cardiomegaly. Gastrointestinal tract: Large diaphragmatic hernia with majority of stomach protruding into the central-right chest, unchanged compared with the prior exam, with gastric air-fluid levels. Nonobstructive bowel gas pattern in the abdomen and pelvis. No dilated loops. Intraperitoneal space: No free intraperitoneal air seen under the diaphragms. Vasculature: Tortuous aorta. Atherosclerotic calcifications again noted in the abdomen and pelvis. Bones/joints: Severe thoracolumbar scoliosis. Osteopenia. Left femur fixation hardware. Chronic appearing rib and vertebral body fracture deformities. Soft tissues: No acute findings in the soft tissues. IMPRESSION: 1. No acute findings compared with prior CT from 01/29/2021. 2. Large diaphragmatic hernia, majority of the stomach located in the central and lower right chest. 3. Chronic right pulmonary volume loss and peripheral airspace disease, without definite interval change. 4. Nonobstructive bowel gas pattern in the abdomen and pelvis. 5. Additional nonemergency and chronic findings as above.
[2021-02-24 18:54] VITALS: BP 113/77; PULSE 77; RESP 19; TEMP 37.1
== END 2021-02-24 18:56 | disposition home or self-care (01) ==
PROVIDERS: Emergency Provider Nurse Practitioner Family; PCP Emergency Medicine
DX: R19.7 Diarrhea, unspecified (principal); I25.10 Atherosclerotic heart disease of native coronary artery without angina pectoris; K21.9 Gastro-esophageal reflux disease without esophagitis; Z86.73 Personal history of transient ischemic attack (TIA), and cerebral infarction without residual deficits; E78.5 Hyperlipidemia, unspecified; Z79.899 Other long term (current) drug therapy
CPT/HCPCS: G0463; 74021; 80048; 85025; 99202

== ENCOUNTER 2021-02-28 12:22 | Emergency (ER) | payer MEDICARE, MEDICAID, SELFPAY ==
[2021-02-28 12:23] VITALS: BP 105/66; PULSE 86; RESP 18; TEMP 36.8; O2SAT 99; BMI 16.4
--- NOTE | 2021-02-28 12:36 | CT_ITS ---
PROCEDURE: CT HEAD/BRAIN WO CON CLINICAL INDICATION: fall Head injury with headache/pain, contusion, abrasion or hematoma COMPARISON: CT CT HEAD/BRAIN WO CON from 04/26/2020 TECHNIQUE: Axial images obtained. All CT scans at the facility use one or more dose reduction, viz: automated exposure control, ma/kV adjustment per patient size (including targeted exams where dose is matched to indication, i.e. head), or iterative reconstruction technique. FINDINGS: No midline shift, mass effect, intracranial hemorrhage, hydrocephalus, or extra-axial fluid collection is evident. There is diffuse cerebral atrophy with low-density changes in the periventricular region consistent with ischemic gliotic change from microvascular disease.. There are encephalomalacia changes in the inferior aspect of the right cerebellum and within the anterior aspect of the frontal lobes on both sides left more extensive than right consistent with old infarctions. The calvarium has an unremarkable appearance. Small scalp hematoma is present in the left frontal area. No underlying calvarial fracture. There is mild fusiform dilatation of the proximal aspect of the basilar artery unchanged. The basilar measures approximately 8 mm in diameter at this region. No sinus air-fluid level. IMPRESSION: 1. No acute intracranial findings. Left frontal scalp hematoma 2. Atrophy with chronic ischemic gliotic changes and encephalomalacia changes. 3. 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 Not significantly changed Dictated by: Chris Eubanks MD 02/28/2021 13:42 Chris Eubanks MD in [place] 02/28/2021 13:42
--- NOTE | 2021-02-28 12:36 | XR_ITS ---
PROCEDURE: XR RIBS LT MIN 3V W CXR1V CLINICAL INDICATION: fall Pain COMPARISON: CR XR CHEST PORTABLE from 01/17/2021 CR XR CHEST PORTABLE from 01/18/[address] CHEST WO CON from 01/29/2021 CR XR CHEST PORTABLE from 02/28/2021 FINDINGS: There are multiple old left-sided rib fractures. There is severe thoracic scoliosis convex right and lumbar scoliosis convex left. No acute rib fractures are apparent. IMPRESSION: No acute findings. Dictated by: Chris Eubanks MD 02/28/2021 14:36 Chris Eubanks MD in [facility] 02/28/2021 14:36
--- NOTE | 2021-02-28 12:36 | XR_ITS ---
PROCEDURE: XR HIP LT 2-3V W/PELVIS CLINICAL INDICATION: fall Pain COMPARISON: CR XR HIP RT 2-3V W/PELVIS from 04/18/2020 FINDINGS: Diffuse osteopenia. Prior left hip pinning with good alignment. No acute fracture or dislocation. There is an old right superior and inferior pubic ramus fracture. IMPRESSION: No acute findings. Dictated by: Chris Eubanks MD 02/28/2021 14:32 Chris Eubanks MD in [facility] 02/28/2021 14:32
--- NOTE | 2021-02-28 12:37 | XR_ITS ---
PROCEDURE: XR FOREARM LT 2V CLINICAL INDICATION: fall Pain COMPARISON: No exams were available for comparison FINDINGS: No fracture or dislocation. No lytic or blastic change. There is normal mineralization. The joint spaces are well-preserved. No significant degenerative/arthritic changes. No erosive changes evident. Other findings:None. IMPRESSION: No acute findings. Dictated by: Chris Eubanks MD 02/28/2021 14:34 Chris Eubanks MD in [place] 02/28/2021 14:34
--- NOTE | 2021-02-28 12:38 | CT_ITS ---
PROCEDURE: CT CERVICAL SPINE WO CON CLINICAL INDICATION: fall Neck injury with pain, contusion/abrasion or hematoma, cervical sprain/strain the COMPARISON: CT CT CERVICAL SPINE WO CON from 04/18/[address] CHEST WO CON from 01/29/2021 TECHNIQUE: Axial images obtained with sagittal and coronal reformats. All CT scans at the facility use one or more dose reduction, viz: automated exposure control, ma/kV adjustment per patient size (including targeted exams where dose is matched to indication, i.e. head), or iterative reconstruction technique. Axial spiral CT scanning performed of the cervical spine beginning at the base of the skull and continuing to the upper T-spine. 3-D multiplanar reconstruction with 3-D manipulation of volumetric data set in image rendering was completed by the radiologist and/or technologist with the supervision of the radiologist on independent workstation. FINDINGS: There is kyphosis of the thoracic spine and exaggerated lordosis of the cervical spine. Degenerative disc disease with small broad-based disc osteophyte complex projecting posteriorly at C2-C3 and C3-C4. No fracture or dislocation. No lytic or blastic change. There is a mild wedge contour of C5 and C6 C7 and T1 which is not significantly changed. Biconvex deformity involves T3 unchanged. There is diffuse osteopenia. Scarring noted in the right upper lobe. No change in the somewhat lobulated parenchymal opacity in the right upper lobe anteriorly and medially at 12 mm. IMPRESSION: 1. No acute fracture. 2. Multilevel cervical spondylosis and multilevel mild compression deformities which appear stable with diffuse osteopenia. Dictated by: Chris Eubanks MD 02/28/2021 13:47 Chris Eubanks MD in [facility] 02/28/2021 13:47
--- NOTE | 2021-02-28 12:43 | XR_ITS ---
PROCEDURE: XR SHOULDER LT MIN 2V CLINICAL INDICATION: fall Pain COMPARISON: No exams were available for comparison FINDINGS: No fracture or dislocation. No lytic or blastic change. There is normal mineralization. The joint spaces are well-preserved. No significant degenerative/arthritic changes. No erosive changes evident. Other findings:None. IMPRESSION: No acute findings. Dictated by: Chris Eubanks MD 02/28/2021 14:33 Chris Eubanks MD in [place] 02/28/2021 14:33
--- NOTE | 2021-02-28 12:43 | XR_ITS ---
PROCEDURE: XR HUMERUS LT CLINICAL INDICATION: fall Pain COMPARISON: No exams were available for comparison FINDINGS: No fracture or dislocation. No lytic or blastic change. There is normal mineralization. The joint spaces are well-preserved. No significant degenerative/arthritic changes. No erosive changes evident. Other findings:None. IMPRESSION: No acute findings. Dictated by: Chris Eubanks MD 02/28/2021 14:34 Chris Eubanks MD in [place] 02/28/2021 14:34
--- NOTE | 2021-02-28 12:44 | XR_ITS ---
PROCEDURE: XR CHEST PORTABLE CLINICAL HISTORY: fall Pain COMPARISON: CR XR CHEST PORTABLE from 01/17/2021 CR XR CHEST PORTABLE from 01/17/2021 CR XR CHEST PORTABLE from 01/18/[address] CHEST WO CON from 01/29/2021 FINDINGS: Severe thoracic scoliosis convex right as before with elevated right hemidiaphragm. There are old left-sided rib fractures. The lungs are clear without infiltrates, suspicious nodules, or pleural effusions. No acute bony abnormalities. IMPRESSION: Severe dextroscoliosis with old left-sided rib fractures Dictated by: Chris Eubanks MD 02/28/2021 14:31 Chris Eubanks MD in [place] 02/28/2021 14:31
--- NOTE | 2021-02-28 13:24 | HMH.EDGENADL ---
ED Disposition Clinical Impression: Fall Qualifiers: Encounter type: initial encounter Qualified Code(s): W19.XXXA - Unspecified fall, initial encounter Contusion of left hip Qualifiers: Encounter type: initial encounter Qualified Code(s): S70.02XA - Contusion of left hip, initial encounter Malnutrition Qualifiers: Malnutrition type: protein-calorie malnutrition Protein-calorie malnutrition severity: moderate Qualified Code(s): E44.0 - Moderate protein-calorie malnutrition Disposition: Home, Self-Care Condition on Discharge: Fair Instructions: How to Prevent Falls, DI for Contusion, DI for Rib Contusion Additional Instructions: You have been evaluated for fall, left hip pain and left rib pain. There are old fractures seen on your left ribs and your pelvis. Take Tylenol for pain. Use care to avoid falls, do not stand or ambulate without assistance. Follow-up with your primary care doctor within 24 to 48 hours. Return to the emergency department at once for any new or worsening symptoms, headache, confusion, vomiting, chest pain, abdominal pain, any other concerns. Referrals: Ishaan Isaac MD [Primary Care Provider] - Time of Disposition: 15:41 - Critical Care Critical Care Time: No Attestation: On 02/28/21, the high probability of a clinically significant, sudden or life threatening deterioration of the following system(s) required my full and direct attention, intervention and personal management. The time I documented below is in addition to time spent performing reported procedures but includes the following listed in this critical care notation. Medical Decision Making - Medical Records Medical records reviewed: Yes: I reviewed the patient's medical records. - Mj Inquiry Pt receiving controlled substance: No Vital Signs: 02/28/21 12:23 Temperature 98.2 F Temperature Source Oral Pulse Rate [Left Radial] 86 Respiratory Rate 18 Blood Pressure [Right Arm] 105/66 L Blood Pressure Mean [Right Arm] 79 Blood Pressure Source [Right Arm] Automatic Cuff Blood Pressure Position [Right Arm] Sitting 02 Sat by Pulse Oximetry 99 Oxygen Delivery Method Room Air - Lab Data Lab Results 02/28/21 14:25: WBC 11.0 H, RBC 4.00 L, Hgb 11.6 L, Hct 36.9 L, MCV 92.3, MCH 29.1, MCHC 31.5 L, RDW 15.0, Plt Count 212, MPV 8.4, Neut % (Auto) 86.3 H, Lymph % (Auto) 9.1 L, Sebastian % (Auto) 4.1, Eos % (Auto) 0.2, Baso % (Auto) 0.2, Neut # (Auto) 9.5 H, Lymph # (Auto) 1.0, [place] # (Auto) 0.5, Eos # (Auto) 0.0, Baso # (Auto) 0.0, Total Counted 100, Neutrophils % (Manual) 88 H, Lymphocytes % (Manual) 9 L, Monocytes % (Manual) 3, Platelet Estimate Normal, Hypochromasia 2+ 02/28/21 14:25: Sodium 140, Potassium 4.6, Chloride 107, Carbon Dioxide 27, Anion Gap 10.6, BUN 19 H, Creatinine 0.80, Estimated Creat Clear 23, Estimated GFR 69, Est GFR ( Amer) 83, Glucose 99, Calcium 9.0, Total Bilirubin 0.8, AST 22, ALT 11 L, Alkaline Phosphatase 80, Total Protein 6.6, Albumin 3.4 L, Globulin 3.2, Albumin/Globulin Ratio 1.1 Result diagrams: 02/28/21 14:25 02/28/21 14:25 Orders (Tests/Meds): ORDERS Category Date Time Status Urinalysis and Microscopic Stat Lab 02/28/21 12:44 Ordered Medical Decision Narrative: In summary this is an 81-year-old female presenting to the emergency department with head injury, left shoulder pain, left hip pain after a fall. Patient clinically stable on arrival. Vital signs within normal limits. She is quite frail. Concern for closed head injury, intracranial bleed, skull fracture. Also concern for left shoulder, humerus injury, left hip injury. Will obtain screening CBC CMP. Will obtain noncontrast head CT, plain film x-rays of the left shoulder, humerus, hip. Initial laboratory results are reassuring. White count is 11,000 with neutrophil predominance. No clear sign of infection. No electrolyte or glucose abnormalities. No significant anemia. Noncontrast head CT shows soft tissue swell
[2021-02-28 14:36] LABS: Basophils % 0.2 % (0.1-2.0); Eosinophils % 0.2 % (0.1-12.0); Hematocrit 36.9 % (37.0-47.0); Hemoglobin 11.6 g/dL (12.2-16.2); Lymphocytes % 9.1 % (10-50); Mean Corpuscular HGB Conc 31.5 g/dL (31.8-35.4); Mean Corpuscular Hemoglobin 29.1 pg (27.0-31.2); Mean Corpuscular Volume 92.3 fl (81-99); Mean Platelet Volume 8.4 fl (7.4-10.4); Monocytes # 0.5 K/mm3 (0.1-1.0); Monocytes % 4.1 % (1.7-9.3); Neutrophils # 9.5 K/mm3 (1.8-7.8); Neutrophils % 86.3 % (37.0-80.0); Platelet Count 212 K/mm3 (142-424)
[2021-02-28 14:38] LABS: MANUAL DIFFERENTIAL MANUAL DIFFERENTIAL (MANUAL DIFF)
[2021-02-28 14:43] LABS: Alanine Aminotransferase 11 U/L (12-78); Albumin Level 3.4 g/dl (3.5-5.0); Albumin/Globulin Ratio 1.1 (1.1-1.8); Alkaline Phosphatase 80 U/L (38-126); Anion Gap 10.6 mEq/L (5-15); Aspartate Amino Transferase 22 U/L (14-36); Bilirubin,Total 0.8 mg/dl (0.2-1.3); Blood Urea Nitrogen 19 mg/dl (7-17); Carbon Dioxide 27 mmol/L (22.0-30.0); Chloride 107 mmol/L (98-107); Creatinine Clearance Estimated 23 mL/min (50-200); Estimated Glomerular Filt Rate 69 ml/min (>60); GFR (African American) 83 ML/MIN (>60); Globulin 3.2 g/dL (1.3-3.2); Glucose 99 mg/dl (74-100); Potassium 4.6 mmoL/L (3.5-5.1); Sodium 140 mmol/L (136-145); Total Protein,Serum 6.6 g/dl (6.3-8.2)
[2021-02-28 15:06] LABS: Lymphocytes % 9 % (10-50); Monocytes % 3 % (2-9); Neutrophils % 88 % (42-76); Platelet Estimate Normal; Total Cells Counted 100
[2021-02-28 15:07] LABS: Hypochromasia 2+
[2021-02-28 16:00] LABS: Microscopic, Urine URINE MICROSCOPIC (MICROSCOPIC)
[2021-02-28 16:04] LABS: Appearance,Urine SL CLOUDY (Clear); Bilirubin,Urine Negative (Negative); Blood, Urine Negative (Negative); Color,Urine YELLOW (Yellow); Glucose,Urine (UA) Negative (Negative); Ketones,Urine Negative (Negative); Leukocyte Esterase,Urine TRACE (Negative); Nitrate,Urine Negative (Negative); PH,Urine 5.5 (5.0-8.5); Protein,Urine Negative (Negative); Specific Gravity, Urine >= 1.030 (1.005-1.030); Urobilinogen,Urine 0.2 EU/dl (0.2)
[2021-02-28 16:10] LABS: Bacteria,Urine Trace /lpf
[2021-02-28 16:26] VITALS: BP 101/61; PULSE 83; RESP 18; TEMP 36.8; O2SAT 98
== END 2021-02-28 16:30 | disposition home or self-care (01) ==
PROVIDERS: Emergency Provider Emergency Medicine; PCP Emergency Medicine
DX: S70.02XA Contusion of left hip, initial encounter (principal); S00.83XA Contusion of other part of head, initial encounter; S40.012A Contusion of left shoulder, initial encounter; S20.212A Contusion of left front wall of thorax, initial encounter; W06.XXXA Fall from bed, initial encounter; Y92.013 Bedroom of single-family (private) house as the place of occurrence of the external cause
CPT/HCPCS: 70450; 71045; 71101; 72125; 73030; 73060; 73090; 73502; 80053; 81001; 85007; 85025; 99283

== ENCOUNTER 2021-03-14 21:42 | Observation (INO) | payer MEDICARE, MEDICAID, SELFPAY ==
[2021-03-14 21:44] VITALS: BP 113/78; PULSE 95; RESP 16; TEMP 37; O2SAT 96; BMI 15.7
--- NOTE | 2021-03-14 22:03 | CT_ITS ---
PROCEDURE INFORMATION: Exam: CT Cervical Spine Without Contrast Exam date and time: 03/14/2021 10:03 PM Age: 81 years old Clinical indication: Injury or trauma; Fall; Blunt trauma TECHNIQUE: Imaging protocol: Computed tomography images of the cervical spine without contrast. Radiation optimization: All CT scans at this facility use at least one of these dose optimization techniques: automated exposure control; mA and/or kV adjustment per patient size (includes targeted exams where dose is matched to clinical indication); or iterative reconstruction. COMPARISON: CT CERVICAL SPINE WO CON 02/28/2021 1:04 PM FINDINGS: Bones/joints: No acute fracture. Normal alignment. Stable compression deformity of the T3 vertebral body. Discs/Spinal canal/Neural foramina: Advanced discogenic degenerative changes. Multilevel facet facet DJD. No spinal stenosis. Lungs: Lung apices are normal. Soft tissues: Unremarkable. IMPRESSION: 1. No acute fracture. Normal alignment. 2. Advanced degenerative spondylosis.
--- NOTE | 2021-03-14 22:03 | XR_ITS ---
PROCEDURE INFORMATION: Exam: XR Left Hip Exam date and time: 03/14/2021 10:03 PM Age: 81 years old Clinical indication: Injury or trauma; Fall; Blunt trauma (contusions or hematomas); Left; Hip; Prior surgery TECHNIQUE: Imaging protocol: XR Left hip. Views: 2 or 3 views hip with pelvis when performed. COMPARISON: CR XR HIP LT 2-3V W/PELVIS 02/28/2021 1:20 PM FINDINGS: Bones/joints: Pins in the left hip. Irregularities of the bilateral pubic rami may represent age-indeterminate fractures. Soft tissues: Unremarkable. Other findings: No malalignment. IMPRESSION: Potential nondisplaced bilateral pubic rami fractures
--- NOTE | 2021-03-14 22:03 | CT_ITS ---
PROCEDURE INFORMATION: Exam: CT Head Without Contrast Exam date and time: 03/14/2021 10:03 PM Age: 81 years old Clinical indication: Injury or trauma; Fall; Blunt trauma (contusions or hematomas) TECHNIQUE: Imaging protocol: Computed tomography of the head without contrast. 3D rendering (Not supervised by radiologist): MIP and/or 3D reconstructed images were created by the technologist. Radiation optimization: All CT scans at this facility use at least one of these dose optimization techniques: automated exposure control; mA and/or kV adjustment per patient size (includes targeted exams where dose is matched to clinical indication); or iterative reconstruction. COMPARISON: CT HEAD/BRAIN WO CON 02/28/2021 1:04 PM FINDINGS: Brain: Encephalomalacia in both anterior frontal lobes. There is mild cerebral volume loss. Changes of chronic white matter microvascular disease are present. No signs of a recent infarction or hemorrhage. No midline shift or mass effect. Cerebral ventricles: No ventriculomegaly. Paranasal sinuses: Visualized sinuses are clear. Mastoid air cells: Mastoid air cells are clear. Vasculature: Vertebrobasilar dolichoectasia. Bones/joints: Unremarkable. No acute fracture. Soft tissues: Unremarkable. IMPRESSION: 1. Mild cerebral volume loss and chronic white matter changes. No acute intracranial abnormality. 2. Vertebrobasilar dolichoectasia.
--- NOTE | 2021-03-14 22:03 | XR_ITS ---
PROCEDURE INFORMATION: Exam: XR Chest Exam date and time: 03/14/2021 10:03 PM Age: 81 years old Clinical indication: Injury or trauma; Fall; Blunt trauma (contusions or hematomas) TECHNIQUE: Imaging protocol: XR of the chest. Views: 1 view. COMPARISON: CR XR RIBS LT MIN 3V W CXR1V 02/28/2021 1:29 PM FINDINGS: Lungs: Unremarkable. No consolidation. Pleural spaces: Blunting of the left costophrenic angle could be due to a tiny effusion. Heart/Mediastinum: Heart appears mildly enlarged. Bones/joints: Bones are osteopenic. No definite fracture. Other findings: Rotation. Streaky opacities over the right base are seen. IMPRESSION: 1. Streaky opacities over the right base could represent atelectasis or infiltrate 2. No obvious evidence of trauma, but if this remains a clinical concern, CT is recommended.
--- NOTE | 2021-03-14 22:05 | ECG_ITS ---
APPROVED REPORT Exam: Resting ECG HR:86 bpm ECG Measurements Heart Rate 86 AXES [place] 142 P 76 QRSd 92 QRS 97 QT 364 T 82 QTc 435 Conclusion Normal sinus rhythm Rightward axis Borderline ECG Electronically signed by : Elmer Elizalde MD 03/15/2021 22:28:10
[2021-03-14 22:17] LABS: Microscopic, Urine URINE MICROSCOPIC (MICROSCOPIC)
[2021-03-14 22:23] LABS: Appearance,Urine SL CLOUDY (Clear); Blood, Urine Negative (Negative); Color,Urine YELLOW (Yellow); Glucose,Urine (UA) Negative (Negative); Ketones,Urine TRACE (Negative); Leukocyte Esterase,Urine Negative (Negative); Nitrate,Urine Negative (Negative); PH,Urine 5.5 (5.0-8.5); Protein,Urine TRACE (Negative); Specific Gravity, Urine >= 1.030 (1.005-1.030); Urobilinogen,Urine 0.2 EU/dl (0.2)
[2021-03-14 22:36] LABS: Bilirubin,Urine 1+ (Negative)
[2021-03-14 22:39] LABS: Bacteria,Urine Trace /lpf; RBC,Urine Occasional #/hpf (0-3); WBC,Urine Occasional #/hpf (0-3)
--- NOTE | 2021-03-14 23:02 | HMH.EDFALL ---
ED Disposition Clinical Impression: Gait abnormality, Low body mass index (BMI) Fall Qualifiers: Encounter type: initial encounter Qualified Code(s): W19.XXXA - Unspecified fall, initial encounter Aortic stenosis Qualifiers: Cardiac valve disease etiology: nonrheumatic Qualified Code(s): I35.0 - Nonrheumatic aortic (valve) stenosis Contusion of left hip Qualifiers: Encounter type: initial encounter Qualified Code(s): S70.02XA - Contusion of left hip, initial encounter Disposition: Admitted as Observation Condition on Discharge: Fair - Critical Care Critical Care Time: No Attestation: On 03/14/21, the high probability of a clinically significant, sudden or life threatening deterioration of the following system(s) required my full and direct attention, intervention and personal management. The time I documented below is in addition to time spent performing reported procedures but includes the following listed in this critical care notation. Medical Decision Making - Medical Records Medical records reviewed: Yes: I reviewed the patient's medical records. - Mj Inquiry Pt receiving controlled substance: No Vital Signs: 03/14/21 21:44 03/14/21 23:15 03/14/21 23:30 Temperature 98.6 F Temperature Source Oral Pulse Rate 82 82 Pulse Rate [Right] 95 H Respiratory Rate 16 16 20 Blood Pressure 117/71 120/77 Blood Pressure [Right Arm] 113/78 Blood Pressure Mean [Right Arm] 89 02 Sat by Pulse Oximetry 96 95 95 03/15/21 00:22 Temperature Temperature Source Pulse Rate 80 Pulse Rate [Right] Respiratory Rate 21 Blood Pressure 120/73 Blood Pressure [Right Arm] Blood Pressure Mean [Right Arm] 02 Sat by Pulse Oximetry 95 - Lab Data Lab results reviewed: Yes: I reviewed the patient's lab results. Lab Results 03/14/21 22:13: Urine Color Yellow, Urine Appearance Sl cloudy, Urine pH 5.5, Ur Specific [place] >= 1.030, Urine Protein Trace, Urine Glucose (UA) Negative, Urine Ketones Trace, Urine Blood Negative, Urine Nitrate Negative, Urine Bilirubin 1+ A, Urine Urobilinogen 0.2, Ur Leukocyte Esterase Negative, Urine RBC Occasional, Urine WBC Occasional, Ur Squamous Epith Cells None, Urine Bacteria Trace 03/14/21 23:07: WBC 8.2, RBC 4.19 L, Hgb 12.1 L, Hct 38.6, MCV 92.0, MCH 28.9, MCHC 31.5 L, RDW 16.5, Plt Count 195, MPV 9.1, Neut % (Auto) 75.2, Lymph % (Auto) 18.1, [place] % (Auto) 5.5, Eos % (Auto) 0.6, Baso % (Auto) 0.5, Neut # (Auto) 6.2, Lymph # (Auto) 1.5, [place] # (Auto) 0.5, Eos # (Auto) 0.1, Baso # (Auto) 0.0, ESR 16 03/14/21 23:07: Sodium 139, Potassium 4.3, Chloride 103, Carbon Dioxide 28, Anion Gap 12.3, BUN 14, Creatinine 0.70, Estimated Creat Clear 24, Estimated GFR 80, Est GFR ( Amer) 97, Glucose 97, Calcium 8.8, Total Bilirubin 0.6, AST 31, ALT 16, Alkaline Phosphatase 92, Troponin I < 0.01, C-Reactive Protein 3.1, Total Protein 6.6, Albumin 3.5, Globulin 3.1, Albumin/Globulin Ratio 1.1, Procalcitonin 0.123 Result diagrams: 03/14/21 23:07 03/14/21 23:07 Orders (Tests/Meds): ORDERS Category Date Time Status Rapid PCR Covid and Flu A/B Stat Lab 03/15/21 01:11 Ordered Troponin I Q3H Lab 03/15/21 01:15 Ordered Troponin I Q3H Lab 03/15/21 04:15 Ordered - Radiology Data #1 Image(s): Chest, Pelvis, Hip Image Reviewed: Yes I have reviewed radiologist's interpretation Preliminary Findings: Abnormal - CT Data CT Scan: Head, C-Spine, Pelvis Time Received: 02:[address] Reviewed: Yes: I have viewed the radiologist's interpretation Preliminary Findings: Abnormal, No Fracture Seen - ECG Data Tracing #1 Normal Sinus Rhythm: Yes Ischemic changes: non-specific ST-T wave changes Medical Decision Narrative: unable to ambulate even with walker in the ed and has dec gait and has weakness - some element od fepression but unavlr to ambulate and do dl/iadl Fall HPI - General Chief Complaint: Fall Stated Complaint: AO 03/14 @2100 FELL INJURED l HIP Time Seen
[2021-03-14 23:15] VITALS: BP 117/71; PULSE 82; RESP 16; O2SAT 95
[2021-03-14 23:22] LABS: Basophils % 0.5 % (0.1-2.0); Eosinophils # 0.1 K/mm3 (0.0-0.4); Eosinophils % 0.6 % (0.1-12.0); Hematocrit 38.6 % (37.0-47.0); Hemoglobin 12.1 g/dL (12.2-16.2); Lymphocytes # 1.5 K/mm3 (0.7-4.5); Lymphocytes % 18.1 % (10-50); Mean Corpuscular HGB Conc 31.5 g/dL (31.8-35.4); Mean Corpuscular Hemoglobin 28.9 pg (27.0-31.2); Mean Platelet Volume 9.1 fl (7.4-10.4); Monocytes # 0.5 K/mm3 (0.1-1.0); Monocytes % 5.5 % (1.7-9.3); Neutrophils # 6.2 K/mm3 (1.8-7.8); Neutrophils % 75.2 % (37.0-80.0); Platelet Count 195 K/mm3 (142-424); Red Blood Count 4.19 M/mm3 (4.20-5.40); Red Cell Distribution Width 16.5 % (11.5-17.5); White Blood Count 8.2 K/mm3 (4.8-10.8)
[2021-03-14 23:30] VITALS: BP 120/77; PULSE 82; RESP 20; O2SAT 95
[2021-03-14 23:39] LABS: Alanine Aminotransferase 16 U/L (12-78); Albumin Level 3.5 g/dl (3.5-5.0); Albumin/Globulin Ratio 1.1 (1.1-1.8); Alkaline Phosphatase 92 U/L (38-126); Anion Gap 12.3 mEq/L (5-15); Aspartate Amino Transferase 31 U/L (14-36); Bilirubin,Total 0.6 mg/dl (0.2-1.3); Blood Urea Nitrogen 14 mg/dl (7-17); Calcium 8.8 mg/dl (8.4-10.2); Carbon Dioxide 28 mmol/L (22.0-30.0); Chloride 103 mmol/L (98-107); Creatinine Clearance Estimated 24 mL/min (50-200); Estimated Glomerular Filt Rate 80 ml/min (>60); GFR (African American) 97 ML/MIN (>60); Globulin 3.1 g/dL (1.3-3.2); Glucose 97 mg/dl (74-100); Potassium 4.3 mmoL/L (3.5-5.1); Sodium 139 mmol/L (136-145); Total Protein,Serum 6.6 g/dl (6.3-8.2)
[2021-03-14 23:43] LABS: C-Reactive Protein 3.1 mg/L (0-4)
[2021-03-14 23:46] LABS: Erythrocyte Sedimentation Rate 16 mm/hr (0-30)
--- NOTE | 2021-03-14 23:54 | CT_ITS ---
PROCEDURE INFORMATION: Exam: CT Pelvis Without Contrast; Skeletal Exam date and time: 03/14/2021 11:54 PM Age: 81 years old Clinical indication: Injury or trauma; Fall; Blunt trauma (contusions or hematomas); Bilateral; Pelvic region; Prior surgery TECHNIQUE: Imaging protocol: Computed tomography images of the pelvis without contrast. Exam focused on the skeletal structures. 3D rendering (Not supervised by radiologist): MIP and/or 3D reconstructed images were created by the technologist. Radiation optimization: All CT scans at this facility use at least one of these dose optimization techniques: automated exposure control; mA and/or kV adjustment per patient size (includes targeted exams where dose is matched to clinical indication); or iterative reconstruction. COMPARISON: CT ABDOMEN PELVIS W CON 08/07/2019 4:08 AM FINDINGS: Bones/joints: Bones are osteopenic. Chronic healed right pubic ramus fractures. Previous ORIF of the left femur. Three proximal femoral screws appear intact. 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 Normal alignment. No displaced fracture. Advanced degenerative spondylosis in the lumbar spine. SI joint DJD. No diastasis or ankylosis. Soft tissues: Unremarkable. IMPRESSION: 1. Advanced degenerative changes in the spine and pelvis. 2. No displaced fracture or malalignment.
[2021-03-14 23:56] LABS: Troponin I < 0.01 ng/ml (0.00-0.034)
[2021-03-14 23:57] LABS: Procalcitonin 0.123 ng/mL (0.0-2.0)
[2021-03-15] VITALS (28 sets, daily range): BP systolic 106–139; BP diastolic 63–92; PULSE 69–99; RESP 15–24; TEMP 36.7–37; O2SAT 92–96
--- NOTE | 2021-03-15 02:00 | PC.NURSE ---
Pt resting, call light within reach, pt voiced no c/o @ this time
[2021-03-15 02:10] LABS: Coronavirus 19, PCR Not Detected (NotDetected); Influenza A, PCR Not Detected (NotDetected); Influenza B, PCR Not Detected (NotDetected)
--- NOTE | 2021-03-15 02:33 | PC.NURSE ---
pt laying in bed. resting well. Diet gosia mist given to pt.
[2021-03-15 02:48] LABS: Troponin I < 0.01 ng/ml (0.00-0.034)
--- NOTE | 2021-03-15 03:12 | PC.NURSE ---
pt resting and voiced no c/o, call light within reach
--- NOTE | 2021-03-15 04:15 | PC.NURSE ---
pt asleep in bed. no needs at this time.
[2021-03-15 05:01] LABS: Troponin I < 0.01 ng/ml (0.00-0.034)
--- NOTE | 2021-03-15 05:05 | PC.NURSE ---
Warm blanket given to patient
--- NOTE | 2021-03-15 08:03 | PC.NURSE ---
Rehab department notified of PT/OT consult orders in on pt
--- NOTE | 2021-03-15 08:22 | PC.NURSE ---
pt resting in bed, pt boarding in ER, no beds available on second floor. going to order a breakfast tray for pt.
--- NOTE | 2021-03-15 08:33 | PC.NURSE ---
BREAKFAST TRAY GIVEN
--- NOTE | 2021-03-15 08:35 | PC.NURSE ---
PT COCCYX RED, NO SKIN BREAKDOWN NOTED
[2021-03-15 08:47] LABS: Chloride 105 mmol/L (98-107); Sodium 137 mmol/L (136-145)
[2021-03-15 08:50] LABS: Basophils % 0.5 % (0.1-2.0); Blood Urea Nitrogen 11 mg/dl (7-17); Calcium 8.4 mg/dl (8.4-10.2); Carbon Dioxide 29 mmol/L (22.0-30.0); Creatinine Clearance Estimated 24 mL/min (50-200); Eosinophils # 0.1 K/mm3 (0.0-0.4); Eosinophils % 1.4 % (0.1-12.0); Estimated Glomerular Filt Rate 95 ml/min (>60); GFR (African American) 116 ML/MIN (>60); Glucose 88 mg/dl (74-100); Hemoglobin 10.9 g/dL (12.2-16.2); Lymphocytes # 1.8 K/mm3 (0.7-4.5); Lymphocytes % 26.8 % (10-50); Mean Corpuscular HGB Conc 32.1 g/dL (31.8-35.4); Mean Corpuscular Hemoglobin 29.3 pg (27.0-31.2); Mean Corpuscular Volume 91.1 fl (81-99); Mean Platelet Volume 8.8 fl (7.4-10.4); Monocytes # 0.4 K/mm3 (0.1-1.0); Monocytes % 5.3 % (1.7-9.3); Neutrophils # 4.3 K/mm3 (1.8-7.8); Platelet Count 159 K/mm3 (142-424); Red Blood Count 3.73 M/mm3 (4.20-5.40); Red Cell Distribution Width 16.7 % (11.5-17.5); White Blood Count 6.5 K/mm3 (4.8-10.8)
[2021-03-15 08:51] LABS: Magnesium 1.8 mg/dl (1.6-2.3)
--- NOTE | 2021-03-15 08:52 | PC.NURSE ---
PT and OT at BS
--- NOTE | 2021-03-15 09:08 | PC.NURSE ---
grace samuels at BS
--- NOTE | 2021-03-15 09:09 | PC.NURSE ---
RICARDO RUFFIN AT PT BEDSIDE
--- NOTE | 2021-03-15 09:52 | SW/DCPLANNER ---
Addendum entered by Mindy Phipps 03/16/21 14:32: Per Althea this patient will discharge today. Addendum entered by Mindy Phipps 03/16/21 13:52: Per Qian with [facility] [place] this patient can admit to [facility] once medically stable for discharge. Qian has stated that if [employer]/[facility] denies this patient they will accept her under Medicaid. I have relayed information to Althea: she will review and see if medically stable for discharge. I have also informed patients granddaughter (Mindy) of discharge plan: concurs with plan. Per Qian with [facility] [place] patient does NOT need an additional COVID swab if discharge today or over the weekend. I will continue to follow up with: Qian, patients family and Althea regarding discharge. Addendum entered by Mindy Phipps 03/16/21 13:14: Patient information has also been faxed to Patti at [facility] [employer] denies patient for SNF level of care. Addendum entered by Mindy Phipps 03/16/21 08:53: Qian with [facility] has stated they can accept this patient pending approval from insurance. I will continue to follow up with Qian regarding discharge. Patient is medically stable for discharge today. Addendum entered by Mindy Phipps 03/15/21 12:58: [facility] does NOT have any beds available at this time. Patient information has been faxed to Qian with [facility]. I will follow up with Qian once patient information is reviewed. Original Note: I have spoke with this patient granddaughter (Mindy) whom she lives with regarding discharge plans. Mindy stated that she is interested in short term placement for this patient at [facility]. I explained to Mindy that [facility] is not accepting patients at this time: now interested in [facility] or [facility]. I will speak with both facilities and fax patient information if a bed is available. Discharge date is unknown at this time.
--- NOTE | 2021-03-15 10:10 | HMH.HP ---
*Admission Date: 03/15/21 *Chief complaint: Fall *History of present illness: 81-year-old female patient presented to the [facility] emergency room for reports of falling in bathroom while washing hands. Grandson reports patient was standing bathroom washing her hands when she fell and hit her head and is complaining of left hip pain. Grandson denies loss of consciousness and patient reports she is unable to walk at present time. Family also reports patient has not been eating well at home they deny any fever/chills/body aches or nausea/vomiting/diarrhea patient just reports that I do not feel hungry , family also reports she has had severe decrease in able to care for herself and ADLs. Head CT, C-spine CT, and pelvis CT all negative Hip x-ray and chest x-ray revealed no acute findings 81-year-old female patient sitting up in bed tolerating breakfast without any difficulties, she denies any current concerns/needs. Discussed discharge to long term for rehabilitation and strengthening, she is in agreement to this. [facility] History I have reviewed the patient's past medical history: Yes Medical History: Reports:: Coronary Artery Disease, Cerebrovascular Accident, Gastroesophageal Reflux Disease(GERD), Heart Murmur, Hyperlipidemia, Hypertension, Valvular Heart Disease Denies:: Cancer, Diabetes Mellitus Type 1, Diabetes Mellitus Type 2, Internal Pacemaker, MRSA, Seizures *Have you ever received a pneumonia vaccine?: Yes *Have you received a flu vaccine this season?: Yes Other Medical History: Reports: Anemia Laterality Cases: Left: Arthroscopy Hip, Bilateral: Breast Biopsy, Mastectomy Other Surgeries: Yes: Colonoscopy, Tubal Ligation, Other. No: Pacemaker Amputation: No Fractures: Yes (left hip and ribs) - *Social History Smoking Status: Never smoker Alcohol Intake: never Substance Use Type: denies use *Occupational Status:: retired Housing: house Household Members: family, caregiver *Travel in the last 8 weeks: None Family Hx:: Unable to obtain Review of Systems - Review of Systems Review of systems:: pertinent systems reviewed and negative unless documented below - Constitutional Reports fatigue, Reports weakness, Denies body ache(s), Denies fever(s) - Eyes Denies blind spots, Denies double vision - ENT Denies bleeding gums, Denies difficulty swallowing - *Cardiovascular Denies chest pain, Denies shortness of breath - *Respiratory Denies chest congestion, Denies cough - *Gastrointestinal Denies abdominal pain, Denies change in stools - *Musculoskeletal Reports abnormal walking, Reports joint pain, Reports decreased muscle mass, Reports limited joint movement - Integumentary/Breasts Reports unusual bruising, Denies bleeding lesions - *Neurologic Reports headache(s), Reports weakness, Denies localized weakness, Denies seizure-like activity - Psychiatric Denies anxiety, Denies hearing things others do not hear - Endocrine Denies cold intolerance, Denies heat intolerance - Hematologic/Lymphatic Denies easy bleeding, Denies enlarged lymph nodes - Allergic/Immunologic Denies GI upset with certain foods, Denies throat swelling Meds Home Medications Medication Instructions Recorded Confirmed Type Amlodipine Besylate 5 mg PO DAILY 01/17/21 03/15/21 History Potassium Chloride 15 ml PO DAILY 01/17/21 03/15/21 History lisinopriL [Lisinopril 2.5mg Tab] 2.5 mg PO DAILY 01/17/21 03/15/21 History Multivitamin [Multi-Vitamin Plain] 1 each PO DAILY 03/15/21 03/15/21 History Allergies Allergy/AdvReac Type Severity Reaction Status Date / Time No Known Allergies Allergy Verified 02/16/21 15:07 Exam Vital signs and Labs for Last 24 Hours: Temp Pulse Resp BP Pulse Ox 98.6 F 99 H 24 119/77 95 03/15/21 02:38 03/15/21 09:30 03/15/21 09:30 03/15/21 09:30 03/15/21 09:30 Laboratory Results - last 24 hr 03/14/21 22:13: Urine Color Yellow, Urine Appea
--- NOTE | 2021-03-15 11:17 | PC.NURSE ---
OB staff called stating they are d/c'ing a pt from their unit, this pt will be coming to their unit as an overflow pt. States pt room still has to be cleaned, they will notify us when pt room is ready.
--- NOTE | 2021-03-15 12:04 | HMH.OTEV ---
OT Inpatient Evaluation Rehab OT IP Evaluation Start: 03/15/21 10:45 Freq: ONCE Status: Complete Protocol: Document 03/15/21 10:45 [email or web address] (Rec: 03/15/21 12:04 HOLDEN [id number]) Rehab OT IP Assessment Subjective History Patient admitted to [facility] after falling in the bathroom at home with resulting in Potential nondisplaced bilateral pubic rami fractures . Patient lives with daugther/ son in 1 story home with 1-2 LANEY. Patient verbalize requiring assistance from daughter/son for drsg, bathing , transfers, ambulating 2* high fall risk. Subjective I can get up. Instructed Patient on safety awareness during ADLs of donning B socks, bed mobility, transfers and ambulation. Patient required Min A to complete supine <->sit @ EOB and max A to complete donning B socks. Patient required Min from EOB->stand. Patient exhibit poor standing posture due to Advanced degenerative spondylosis. However Patient ambulated ~20ft with personal rollator Min A within environment. Patient required verbal, visual and tactile cues for safety during ambulation to prevent fall risk 50% of time for proper placement of rollator. Objective Patient Orientation Person,Place,Time,Name, Birthday,Situation Upper Extremity Gross ROM WFL Bed Mobility bed mobility - supine/sit Assist Level Minimal x 1 (25% assist) Transfer Training Sit/Stand/Step Transfer Assist Level Minimal x 1 (25% assist) Chair Transfer Ability Minimal x 1 (25% assist) Chair Transfer Technique Sit to/from Ambulatory Chair Transfer Assistive Devices Rolling Walker Lower Body Dressing Ability Assistance X1 Rehab OT IP prob,goals,plan Problems Date of Evaluation: 03/15/21 OT IP Problems Bed Mobility,Transfers,Gait,
--- NOTE | 2021-03-15 12:11 | PC.NURSE ---
pt given meal tray
--- NOTE | 2021-03-15 12:13 | PC.NURSE ---
report called to Emani Troy RN at this time.
--- NOTE | 2021-03-15 12:16 | PC.NURSE ---
pt eating lunch at this time, will transport pt to assigned room when finished eating.
--- NOTE | 2021-03-15 12:27 | HMH.PTEV ---
Physical Therapy Evaluation Rehab PT IP Evaluation Start: 03/15/21 12:20 Freq: ONCE Status: Active Protocol: Document 03/15/21 12:20 LENNY (Rec: 03/15/21 12:27 LENNY [id number]) Subjective/History History History This is the initial IP PT evalaution for Jennifer Muro. Pt is an 81 y/o female admitted to [facility] thru ED s/p mechanical fall at home. Pt lives w/ granddaughter and [id number]. Neither of these witnessed the fall. Pt did state she did not black out. Multiple radiographs show no fx. Subjective Subjective Pt reports c/o stiffness in hips Rehab PT IP Eval Objective Appearance Patient Behavior Appropriate,Cooperative Patient Orientation Place,Name,Birthday Difficulty following instructions mild Speech Pattern Appropriate,Soft-Spoken Ambulation Patient Able to Ambulate Yes Ambulation Observation IP General Gait Pattern Observation Shuffling Step Ambulation Distance (feet) 35 Ambulation Assistive Device Rolling Walker Ambulation Ability Contact Guard/Hand Hold Balance Ability to Arise Able, uses arms to help Sitting Balance Steady, safe Standing Balance Unsteady Dynamic Sitting Balance Ability Fair Dynamic Standing Balance Ability Fair Transfers Bed Transfer Ability Supervision/Stand by Chair Transfer Ability Supervision/Stand by Sit to Stand Bed Transfer Ability Contact Guard/Hand Hold Sit to Stand Chair Transfer Ability Contact Guard/Hand Hold Rehab PT IP prob,goals,plan Problems Date of Evaluation: 03/15/21 PT IP Problems Transfers,Gait,Balance,Self care,Safety Rehab Potential Rehab Potential Fair Equipment Needs Assistive Devices Rolling / Wheeled Walker Plan PT Intervention Plan Bed Mobility,Transfers,Gait, Self care,Therapeutic Exercise PT Plan Frequency BID Duration LOS Discharge Goals Bed Transfer Ability Supervision/Stand by Sit to Stand Chair Transfer Ability Contact Guard/Hand Hold Ambulation Assistive Device Rolling Walker Ambulation Distance (feet) 40 Discharge Plan PT Discharge Plan Due to pt being alone for limited periods of time, skilled therapy to obtain as much function as pos
--- NOTE | 2021-03-15 13:10 | PC.NURSE ---
OT at bs to see pt. Going to have pt try to walk in the room.
--- NOTE | 2021-03-15 13:20 | PC.NURSE ---
Pt arrived to unit via stretcher from ED. Pt found to have a moderate amt of old loose bm on her sheet and gown as well as had voided. Pt cleaned up and gown changed as moved to bed. Pt denies pain at this time, just states that she is cold . Several warm blankets applied. Pt dozed off to sleep within a few minutes.
--- NOTE | 2021-03-15 13:50 | P.CONPHA_ITS ---
[facility] Pharm[facility] VTE Monitoring - Patient Demographics Admission date: 03/14/21 Report Date: 03/15/21 Time: 13:50 Allergies/Adverse Reactions: Patient Allergies No Known Allergies Allergy (Verified 02/16/21 15:07) Height: 1.5 m Weight: 35.38 kg Patient Problems: Current Active Problems Contusion of left hip (Acute) Gait abnormality (Acute) Fall (Acute) Aortic stenosis (Acute) Low body mass index (BMI) (Acute) - VTE Risk Labs: VTE Related Lab Results Hgb 10.9 g/dL (12.2-16.2) L 03/15/21 08:03 Hct 34.0 % (37.0-47.0) L 03/15/21 08:03 Plt Count 159 K/mm3 (142-424) 03/15/21 08:03 BUN 11 mg/dl (7-17) 03/15/21 08:03 Creatinine 0.60 mg/dl (0.52-1.04) 03/15/21 08:03 Estimated Creat Clear 24 mL/min (50-200) 03/15/21 08:03 - Prophylaxis VTE Prophylaxis Ordered?: Yes Types of VTE Prophylaxis: TEDS Knee High Location of Applied Device: Bilateral Lower Extremeties
--- NOTE | 2021-03-15 14:04 | HMH.PTEV ---
Physical Therapy Evaluation Rehab PT IP Evaluation Start: 03/15/21 13:07 Freq: ONCE Status: Active Protocol: Document 03/15/21 13:45 LENNY (Rec: 03/15/21 14:03 LENNY [id number]) Subjective/History History History Pt is 81 year old female who reported to [facility] after an unwitnessed fall. Pt lives with her granddaughter and has been using rollator at home. Pt reported she is occassionally left at home alone. Pt Eval completed by ALEC Berg. Subjective Subjective Pt stated she is not experiencing any significant pain following her fall. Pt reported some stiffness in her hips secondary to fall when ambulating with PT this morning. Rehab PT IP Eval Objective Appearance Patient Behavior Appropriate,Cooperative Patient Orientation Place,Name,Birthday Difficulty following instructions none Speech Pattern Clear,Appropriate,Coherent Ambulation Patient Able to Ambulate Yes Ambulation Observation IP General Gait Pattern Observation Narrow Based Gait,Shuffling Step Ambulation Distance (feet) 35 Ambulation Assistive Device Rolling Walker Ambulation Ability Contact Guard/Hand Hold Balance Ability to Arise Able, uses arms to help Sitting Balance Steady, safe Standing Balance Steady, wide stance Dynamic Sitting Balance Ability Good Dynamic Standing Balance Ability Fair Transfers Bed Transfer Ability Contact Guard/Hand Hold Sit to Stand Bed Transfer Ability Contact Guard/Hand Hold MMT All Extremities PT MMT WFL Rehab PT IP prob,goals,plan Problems Date of Evaluation: 03/15/21 PT IP Problems Bed Mobility,Transfers,Gait, Balance,Safety Rehab Potential Rehab Potential Fair Equipment Needs Assistive Devices Rolling / Wheeled Walker Plan PT Intervention Plan Bed Mobility,Transfers,Gait, Balance,Safety,Therapeutic Exercise PT Plan Frequency BID Duration LOS Discharge Goals Bed Transfer Ability Contact Guard/Hand Hold Ambulation Assistive Device Rolling Walker Ambulation Distance (feet) 40 Discharge Plan PT Discharge Plan Pt
--- NOTE | 2021-03-15 16:45 | PC.NURSE ---
Sleeping at this time. Bed alarm in place, door propped open.
--- NOTE | 2021-03-15 21:15 | PC.NURSE ---
PT WAS ASLEEP EARLIER AND WITH STAFF WALKING BY HER ROOM,SHE SAID SHE NEEDED TO BE CHANGED,WITH DOING HER ASSESSMENT,PT VERY SMALL IN STATURE,PT HAD A LOOSE STOOL WITH A LITTLE SOFTNESS NOTED.PT BOTTOM A LITTLE RED,BLANCHING NOTED.A PILLOW WAS PLACED BEHIND HER TO TRY AND KEEP HER OFF HER BOTTOM,WILL CONTINUE TO MONITOR
[2021-03-16 04:30] VITALS: BP 127/72; PULSE 81; RESP 16; TEMP 36.6; O2SAT 94
--- NOTE | 2021-03-16 04:45 | PC.NURSE ---
PT HAS SLEPT OFF AND ON TONIGHT,PT EASILY AROUSED AND WAS NOT ALERT TO PERSON OR PLACE WAS CONFUSED ABOUT WHERE SHE WAS AND SAID SHE DID NOT KNOW HER NAME,SHE KNEW HER BIRTHDAY.LUNGS CLEAR THROUGHTOUT,RESP.EVEN AND UNLABORED,V/S STABLE,PT AFEBRILE.PT HAS HAD 2 VOIDS AND ONE BOWEL MOVEMENT TONIGHT,BOTTOM STILL A LITTLE RED,A BARRIER CREAM APPLIED WITH DEPEND CHANGE.IV PATENT AND INFUSING NS AT 50ML.BED ALARM ON WITH BED IN LOW POSTION AND SIDE RAILS UP.WILL CONTINUE TO MONITOR.
[2021-03-16 06:00] VITALS: BMI 13.3
[2021-03-16 07:57] VITALS: BP 122/70; PULSE 69; RESP 16; TEMP 36.8; O2SAT 95
[2021-03-16 08:31] LABS: Chloride 104 mmol/L (98-107); Sodium 137 mmol/L (136-145)
[2021-03-16 08:32] LABS: Potassium 3.5 mmoL/L (3.5-5.1)
[2021-03-16 08:35] LABS: Anion Gap 7.5 mEq/L (5-15); Blood Urea Nitrogen 10 mg/dl (7-17); Calcium 7.8 mg/dl (8.4-10.2); Carbon Dioxide 29 mmol/L (22.0-30.0); Creatinine Clearance Estimated 20 mL/min (50-200); Estimated Glomerular Filt Rate 80 ml/min (>60); GFR (African American) 97 ML/MIN (>60); Glucose 92 mg/dl (74-100); Magnesium 1.8 mg/dl (1.6-2.3)
[2021-03-16 08:43] LABS: Basophils % 0.5 % (0.1-2.0); Eosinophils # 0.1 K/mm3 (0.0-0.4); Hematocrit 32.8 % (37.0-47.0); Hemoglobin 10.4 g/dL (12.2-16.2); Lymphocytes # 1.5 K/mm3 (0.7-4.5); Lymphocytes % 22.6 % (10-50); Mean Corpuscular HGB Conc 31.7 g/dL (31.8-35.4); Mean Corpuscular Hemoglobin 29.3 pg (27.0-31.2); Mean Corpuscular Volume 92.4 fl (81-99); Mean Platelet Volume 8.5 fl (7.4-10.4); Monocytes # 0.4 K/mm3 (0.1-1.0); Monocytes % 5.9 % (1.7-9.3); Neutrophils # 4.7 K/mm3 (1.8-7.8); Neutrophils % 69.9 % (37.0-80.0); Platelet Count 155 K/mm3 (142-424); Red Blood Count 3.55 M/mm3 (4.20-5.40); Red Cell Distribution Width 16.6 % (11.5-17.5); White Blood Count 6.7 K/mm3 (4.8-10.8)
--- NOTE | 2021-03-16 09:05 | PC.NURSE ---
Nurse in room with pt. attempting to assist pt. with breaskfast tray. Pt. begins choking and coughing on small bites of food. Nurse moved tray away. Pt. was able to clear throat, Lungs remain dminished. Nurse attempted small sip of water, Pt. begins coughing on water. Pt. able to clear throat. Nurse moved drinks and food away from bedside table. Call light within reach and chair alarm on and active.
--- NOTE | 2021-03-16 09:10 | PC.NURSE ---
Spoke with Gil at Althea's office, report given on confusion and attempts to eat breakfast. V/U. Gil will call back once she has spoke with Althea.
--- NOTE | 2021-03-16 10:35 | PC.NURSE ---
09:20 Spoke with Gil LIAO, report received that Althea zaira's pt. is confused from 0.5mg dilaudid received last night, nurse checked MAR Dilaudid given last at 0716 on 03/15/2021, Gil LIAO v/u. and will call nurse back. 09:30 Gil LIAO reports Althea will place a speech evaluation.
--- NOTE | 2021-03-16 10:45 | PC.NURSE ---
Speech Therapy in room evaluating pt. at this time.
--- NOTE | 2021-03-16 12:10 | HMH.SLDYSPHA ---
Speech & Language Evaluation Speech/Language Dysphagia Evaluation Start: 03/16/21 10:59 Freq: ONCE Status: Active Protocol: Document 03/16/21 10:59 CMAY (Rec: 03/16/21 11:03 CMAY [id number]) Dysphagia Assess/Goals/Plan Assessment Date of Evaluation: 03/16/21 Evaluation Type Initial Certification Assessment/Problems Dysphagia; Coughing during breakfast Does Patient Qualify for Service No Qualify/Failure Comment Based on the results of today' s evaluation, Ms. Muro does not qualify for speech therapy services. Diet changes were implemented for safety during intake. Recommendations PHYSICIAN CERTIFICATION: The specified therapy services are required, authorized, and reviewed every 30 days. Diet Recommendations Pureed Liquid Type Recommendations Normal/Thin SL Swallow Guidelines Assist w/all meals,Standard Aspiration Prec.,Oral care pre /post meals Crush Meds Crush all meds Dysphagia Swallow Precautions/Strategies Sitting Upright (90 deg),Small Bites and Sips Additional Consults Recommended Nutritional Consult Comment Patient has not had an appetite lately per family in ED note and appears malnourished. Plan Pt/Guardian verbally ack understanding Yes of dx/prognosis/goals G -code Required No Education Instructions provided Swallowing safety precautions were explained to patient and NSG who expressed understanding. Pt/Caregiver able to recall information Reinforcement needed Reinforcement needed Yes: Pt has experienced some confusion Speech & Language HPI Language Primary Language Malaysian [place] Lang/Spoken in Home Malaysian General Information General Current Food Consistancy Regular,Thin Liquids Dentition Upper & Lower Dentures Oxygen Status Room Air Patient Orientation Person Ability to Follow Directions Excellent Communication Ability No Impairment Dysphagia:Food Presentation Evaluation Food Type Pureed,Mechanical Soft,Liquid, Pudding Normal/Thin Liquid Response Delayed swallow,Coughing after swallow Pudding Consistency Liquid Response Residual on tongue,Delayed swallow,Coughing after swallow Dysphag
--- NOTE | 2021-03-16 12:45 | HMH.ACPN2 ---
Internal Medicine - PN: Subj *Date: 03/16/21 *Time: 09:00 Interval history: pt less alert today. pt states sleepy Exam Vital signs and Labs for Last 24 Hours: Temp Pulse Resp BP Pulse Ox 98.3 F 69 16 122/70 95 03/16/21 07:57 03/16/21 07:57 03/16/21 07:57 03/16/21 07:57 03/16/21 07:57 Laboratory Results - last 24 hr 03/16/21 07:33: WBC 6.7, RBC 3.55 L, Hgb 10.4 L, Hct 32.8 L, MCV 92.4, MCH 29.3, MCHC 31.7 L, RDW 16.6, Plt Count 155, MPV 8.5, Neut % (Auto) 69.9, Lymph % (Auto) 22.6, [place] % (Auto) 5.9, Eos % (Auto) 1.0, Baso % (Auto) 0.5, Neut # (Auto) 4.7, Lymph # (Auto) 1.5, [place] # (Auto) 0.4, Eos # (Auto) 0.1, Baso # (Auto) 0.0 03/16/21 07:33: Sodium 137, Potassium 3.5, Chloride 104, Carbon Dioxide 29, Anion Gap 7.5, BUN 10, Creatinine 0.70, Estimated Creat Clear 20, Estimated GFR 80, Est GFR ( Amer) 97, Glucose 92, Calcium 7.8 L, Magnesium 1.8 I & O for Last 24 hours: Intake & Output 03/14/21 03/15/21 03/16/21 03/17/21 11:59 11:59 11:59 11:59 Intake Total 240 / 240 Balance 240 / 240 Weight 78 lb 66 lb 2 oz - Constitutional no acute distress, chronically ill appearing - *Routine HEENT Exam Head: Present: normocephalic Eye: Present: PERRL ENT: Present: mucous membranes moist - *Routine Neck Exam Present: supple. Absent: lymphadenopathy - *Routine Respiratory Exam Present: CTA bilaterally - *Routine Cardiovascular Exam Present: RRR - *Routine Abdominal Exam Present: soft, normoactive bowel sounds. Absent: tenderness - *Routine Extremities Exam Present: normal capillary refill. Absent: cyanosis, clubbing, edema - *Routine Skin Exam Present: warm. Absent: rash - *Routine Neurological Exam Present: alert - Routine Psychiatric Exam Present: normal affect Assessment and Plan (1) Contusion of left hip Status: Acute Qualifiers: Encounter type: initial encounter Qualified Code(s): S70.02XA - Contusion of left hip, initial encounter Category: Medical Code(s): S70.02XA - Contusion of left hip, initial encounter (2) Fall Status: Acute Qualifiers: Encounter type: initial encounter Qualified Code(s): W19.XXXA - Unspecified fall, initial encounter Category: Medical Code(s): W19.XXXA - Unspecified fall, initial encounter (3) Gait abnormality Status: Acute Category: Medical Code(s): R26.9 - Unspecified abnormalities of gait and mobility (4) Low body mass index (BMI) Status: Acute Category: Medical (5) Back pain Status: Acute Qualifiers: Back pain location: thoracic back pain Chronicity: acute Back pain laterality: right Qualified Code(s): M54.6 - Pain in thoracic spine Category: Medical Code(s): M54.9 - Dorsalgia, unspecified (6) DDD (degenerative disc disease), cervical Status: Acute Category: Medical Code(s): M50.30 - Other cervical disc degeneration, unspecified cervical region (7) Head contusion Status: Acute Qualifiers: Encounter type: initial encounter Contusion of head detail: unspecified part of head Qualified Code(s): S00.93XA - Contusion of unspecified part of head, initial encounter Category: Medical Code(s): S00.93XA - Contusion of unspecified part of head, initial encounter (8) Low body mass index (BMI) Status: Acute Category: Medical (9) Malnutrition Status: Acute Qualifiers: Malnutrition type: protein-calorie malnutrition Protein-calorie malnutrition severity: moderate Qualified Code(s): E44.0 - Moderate protein-calorie malnutrition Category: Medical Code(s): E46 - Unspecified protein-calorie malnutrition (10) Renal insufficiency Status: Acute Category: Medical Code(s): N28.9 - Disorder of kidney and ureter, unspecified (11) HTN (hypertension) Status: Chronic Qualifiers: Hypertension type: unspecified Qualified Code(s): I10 - Essential (primary) hypertension Category: Medical Code(s): I10 - Essential (
--- NOTE | 2021-03-16 14:45 | HMH.DCSUM ---
General - General Admission date:: 03/15/21 Discharge date: 03/16/21 HPI HPI: 81-year-old female patient presented to the [facility] emergency room for reports of falling in bathroom while washing hands. Grandson reports patient was standing bathroom washing her hands when she fell and hit her head and is complaining of left hip pain. Grandson denies loss of consciousness and patient reports she is unable to walk at present time. Family also reports patient has not been eating well at home they deny any fever/chills/body aches or nausea/vomiting/diarrhea patient just reports that I do not feel hungry , family also reports she has had severe decrease in able to care for herself and ADLs. Head CT, C-spine CT, and pelvis CT all negative Hip x-ray and chest x-ray revealed no acute findings 81-year-old female patient sitting up in bed tolerating breakfast without any difficulties, she denies any current concerns/needs. Discussed discharge to [facility] for rehabilitation and strengthening, she is in agreement to this. Hospital Course Hospital Course: Laboratory Tests 03/14/21 03/14/21 03/14/21 22:13 23:07 23:07 WBC 8.2 RBC 4.19 L Hgb 12.1 L Hct 38.6 MCV 92.0 MCH 28.9 MCHC 31.5 L RDW 16.5 Plt Count 195 MPV 9.1 Neut % (Auto) 75.2 Lymph % (Auto) 18.1 [place] % (Auto) 5.5 Eos % (Auto) 0.6 Baso % (Auto) 0.5 Neut # (Auto) 6.2 Lymph # (Auto) 1.5 [place] # (Auto) 0.5 Eos # (Auto) 0.1 Baso # (Auto) 0.0 ESR 16 Sodium 139 Potassium 4.3 Chloride 103 Carbon Dioxide 28 Anion Gap 12.3 BUN 14 Creatinine 0.70 Estimated Creat Clear 24 Estimated GFR 80 Est GFR ( Amer) 97 Glucose 97 Calcium 8.8 Magnesium Total Bilirubin 0.6 AST 31 ALT 16 Alkaline Phosphatase 92 Troponin I < 0.01 C-Reactive Protein 3.1 Total Protein 6.6 Albumin 3.5 Globulin 3.1 Albumin/Globulin Ratio 1.1 Procalcitonin 0.123 Urine Color Yellow Urine Appearance Sl cloudy Urine pH 5.5 Ur Specific [place] >= 1.030 Urine Protein Trace Urine Glucose (UA) Negative Urine Ketones Trace Urine Blood Negative Urine Nitrate Negative Urine Bilirubin 1+ A Urine Urobilinogen 0.2 Ur Leukocyte Esterase Negative Urine RBC Occasional Urine WBC Occasional Ur Squamous Epith Cells None Urine Bacteria Trace SARS-CoV-2 (PCR) Influenza A Untype (PCR) Influenza Type B (PCR) 03/15/21 03/15/21 03/15/21 01:14 02:12 04:16 WBC RBC Hgb Hct MCV MCH MCHC RDW Plt Count MPV Neut % (Auto) Lymph % (Auto) [place] % (Auto) Eos % (Auto) Baso % (Auto) Neut # (Auto) Lymph # (Auto) [place] # (Auto) Eos # (Auto) Baso # (Auto) ESR Sodium Potassium Chloride Carbon Dioxide Anion Gap BUN Creatinine Estimated Creat Clear Estimated GFR Est GFR ( Amer) Glucose Calcium Magnesium Total Bilirubin AST ALT Alkaline Phosphatase Troponin I < 0.01 < 0.01 C-Reactive Protein Total Protein Albumin Globulin Albumin/Globulin Ratio Procalcitonin Urine Color Urine Appearance Urine pH Ur Specific [place] Urine Protein Urine Glucose (UA) Urine Ketones Urine Blood Urine Nitrate Urine Bilirubin Urine Urobilinogen Ur Leukocyte Esterase Urine RBC Urine WBC Ur Squamous Epith Cells Urine Bacteria SARS-CoV-2 (PCR) Not detected Influenza A Untype (PCR) Not detected Influenza Type B (PCR) Not detected 03/15/21 03/15/21 03/16/21 08:03 08:03 07:33 WBC 6.5 6.7 RBC 3.73 L 3.55 L Hgb 10.9 L 10.4 L Hct 34.0 L 32.8 L MCV 91.1 92.4 MCH 29.3 29.3 MCHC 32.1 31.7 L RDW 16.7 16.6 Plt Count 159 155 MPV 8.8 8.5 Neut % (
--- NOTE | 2021-03-16 16:45 | PC.NURSE ---
Addendum entered by Birgit Coffey RN 03/16/21 17:36: Home meds placed in belongings bag. Original Note: IV removed. 2x2 with [address] in place. Pt. tolerated well, nurse assisted Pt. in getting dressed. belongings placed in bag for discharge to assisted care facility by private vehicle.
--- NOTE | 2021-03-16 17:10 | PC.NURSE ---
Pt. to private vehicle by wheelchair, Mindy Ortega (poa) here to take pt. to [facility]. Discharge paperwork signed by Mindy and Paperwork for [facility] given to Mindy.
--- NOTE | 2021-03-16 17:15 | PC.NURSE ---
Report called to Louise at [facility], V/U.
== END 2021-03-16 17:10 ==
LOC: ER 03-15 00:01 → 2ND 03-15 01:22 → OB 03-15 14:43
PROVIDERS: Admitting Provider Emergency Medicine; Emergency Provider Emergency Medicine; PCP Emergency Medicine; Visit Provider Emergency Medicine
DX: S70.02XA Contusion of left hip, initial encounter (principal); Z20.822 Contact with and (suspected) exposure to COVID-19; I10 Essential (primary) hypertension; I25.10 Atherosclerotic heart disease of native coronary artery without angina pectoris; K21.9 Gastro-esophageal reflux disease without esophagitis; E78.5 Hyperlipidemia, unspecified; M50.30 Other cervical disc degeneration, unspecified cervical region; E44.0 Moderate protein-calorie malnutrition; Z68.1 Body mass index [BMI] 19.9 or less, adult; I35.0 Nonrheumatic aortic (valve) stenosis; I34.0 Nonrheumatic mitral (valve) insufficiency; I27.20 Pulmonary hypertension, unspecified; M54.9 Dorsalgia, unspecified; Z79.899 Other long term (current) drug therapy; W01.0XXA Fall on same level from slipping, tripping and stumbling without subsequent striking against object, initial encounter; Y92.012 Bathroom of single-family (private) house as the place of occurrence of the external cause
CPT/HCPCS: G0378; 36415; 70450; 71045; 72125; 72192; 73502; 80048; 80053; 81001; 83735; 84145; 84484; 85025; 85651; 86140; 92610; 93005; 97116; 97162; 97165; 97530; 99284; U0003

== ENCOUNTER 2021-03-23 16:30 | Emergency (ER) | payer MEDICARE, MEDICAID, SELFPAY ==
[2021-03-23 16:13] VITALS: BP 129/87; PULSE 75; RESP 18; TEMP 36.7; O2SAT 95; BMI 16.9
--- NOTE | 2021-03-23 16:15 | HMH.EDGENADL ---
ED Disposition Clinical Impression: Fall Qualifiers: Encounter type: initial encounter Qualified Code(s): W19.XXXA - Unspecified fall, initial encounter Disposition: Xfer Inpatient Rehab Fac Condition on Discharge: Good Additional Instructions: You were seen in the emergency room for evaluation of fall. At this time no further emergent work-up is indicated. If you have worsening symptoms please return to the emergency department. Is important follow-up with your primary care physician let them know that you were seen in the emergency department. Referrals: Provider,Referral, [Primary Care Provider] - - Critical Care Critical Care Time: No Attestation: On , the high probability of a clinically significant, sudden or life threatening deterioration of the following system(s) required my full and direct attention, intervention and personal management. The time I documented below is in addition to time spent performing reported procedures but includes the following listed in this critical care notation. Medical Decision Making - Mj Inquiry Pt receiving controlled substance: No Vital Signs: 03/23/21 16:13 Temperature 98.1 F Temperature Source Oral Pulse Rate [Right Radial] 75 Respiratory Rate 18 Blood Pressure [Right Arm] 129/87 Blood Pressure Mean [Right Arm] 101 Blood Pressure Source [Right Arm] Automatic Cuff Blood Pressure Position [Right Arm] Sitting 02 Sat by Pulse Oximetry 95 Oxygen Delivery Method Room Air Medical Decision Narrative: Is hemodynamically stable afebrile overall nontoxic-appearing. She is overall well-appearing she does have some bruising to her head will obtain CT head and C-spine along with CT pelvis to the femur for evaluation of fracture. No laboratory work-up indicated at this time fall that was described appears to be a mechanical fall during a transfer. CT scans were overall unremarkable no signs consistent with acute fracture she does have some edema over her bony prominences which is consistent with ecchymosis and bruising. No further emergent work-up indicated this time she is discharged back to nursing facility in stable condition. General Adult HPI - General Chief complaint: PAIN Stated complaint: Left hip pain Time Seen by Provider: 03/23/21 16:15 Mode of Arrival: Ambulatory Source of Information: Patient Limitations: No Limitations - History of Present Illness HPI narrative: Jennifer Muro is an 81-year-old female who presents emergency room from senior living who presents for left-sided hip pain after a fall. Patient fell 2 days ago x-rays were performed at the nursing facility which were negative however patient has had persistent pain. She also states she has some left shoulder pain. Denies any other symptoms at this time. States the pain is worse with movement. Unable to expand further on history. - Related Data Home Medications Medication Instructions Recorded Confirmed Amlodipine Besylate 5 mg PO DAILY 01/17/21 03/15/21 Potassium Chloride 15 ml PO DAILY 01/17/21 03/15/21 lisinopriL [Lisinopril 2.5mg Tab] 2.5 mg PO DAILY 01/17/21 03/15/21 Multivitamin [Multi-Vitamin Plain] 1 each PO DAILY 03/15/21 03/15/21 Allergies Allergy/AdvReac Type Severity Reaction Status Date / Time No Known Allergies Allergy Verified 02/16/21 15:07 [facility] History - Hepatitis A Screen Attestation statement:: This patient has been screened for Hepatitis A risk factors. Medical History: Reports:: Coronary Artery Disease, Cerebrovascular Accident, Gastroesophageal Reflux Disease(GERD), Heart Murmur, Hyperlipidemia, Hypertension, Valvular Heart Disease Denies:: Cancer, Diabetes Mellitus Type 1, Diabetes Mellitus Type 2, Internal Pacemaker, MRSA, Seizures Other Medical History: Reports: Anemia, Arthritis, Cataracts Comment: scoliosis Laterality Cases: Left: Arthroscopy Hip, Bilateral: Breast Biopsy, Mastectomy Other Surgeries: Yes: Colonoscopy, Tubal Ligation,
--- NOTE | 2021-03-23 16:16 | CT_ITS ---
PROCEDURE INFORMATION: Exam: CT Pelvis Without Contrast; Skeletal Exam date and time: 03/23/2021 4:16 PM Age: 81 years old Clinical indication: Injury or trauma; Fall; Blunt trauma (contusions or hematomas); Left; Pelvic region; Additional info: Concern for hip injury TECHNIQUE: Imaging protocol: Computed tomography images of the pelvis without contrast. Exam focused on the skeletal structures. Radiation optimization: All CT scans at this facility use at least one of these dose optimization techniques: automated exposure control; mA and/or kV adjustment per patient size (includes targeted exams where dose is matched to clinical indication); or iterative reconstruction. COMPARISON: CT PELVIS WO CON 03/15/2021 12:01 AM FINDINGS: Reproductive: Small areas of probable contusion soft tissues lateral to the left hip. Bones/joints: Old right pelvic fractures. Severe osteopenia. Advanced degenerative changes. Chronic compression deformities lower lumbar spine. Three cannulated screws transfix previous fracture left femoral neck. No new fracture is seen. Scoliosis. Soft tissues: See Reproductive finding. IMPRESSION: 1. Three cannulated screws transfix previous fracture left femoral neck. No new fracture is seen. 2. Small areas of probable contusion soft tissues lateral to the left hip.
--- NOTE | 2021-03-23 16:18 | CT_ITS ---
PROCEDURE INFORMATION: Exam: CT Head Without Contrast Exam date and time: 03/23/2021 4:18 PM Age: 81 years old Clinical indication: Injury or trauma; Fall; Blunt trauma (contusions or hematomas) TECHNIQUE: Imaging protocol: Computed tomography of the head without contrast. 3D rendering (Not supervised by radiologist): MIP and/or 3D reconstructed images were created by the technologist. Radiation optimization: All CT scans at this facility use at least one of these dose optimization techniques: automated exposure control; mA and/or kV adjustment per patient size (includes targeted exams where dose is matched to clinical indication); or iterative reconstruction. COMPARISON: CT HEAD/BRAIN WO CON 03/14/2021 10:24 PM FINDINGS: Brain: Bilateral frontal convexity cortical and white matter encephalomalacia, left greater than right, consistent with old infarcts or trauma. No significant change compared with 03/14/2021.There is moderate generalized cerebral and cerebellar atrophy. Chronic patchy white matter microvascular ischemic changes in both cerebral hemispheres. No edema, swelling or mass effect. No acute intracranial hemorrhage. Chronic falcine calcification. Cerebral ventricles: The ventricles are normal for age. No hydrocephalus. Paranasal sinuses: No acute findings in the visualized sinuses. No significant sinus opacification or air-fluid levels. Mastoid air cells: Mastoids are unremarkable as visualized, no effusions. Orbital cavity: No acute findings in the orbits. Correlate for bilateral lens replacement surgeries. Slightly sunken globes/enophthalmos, correlate for dehydration/hypovolemia. Vasculature: There are atherosclerotic calcified plaques in the intracranial carotid and vertebral arteries. Vertebrobasilar dolichoectasia, unchanged. Bones/joints: No acute skull fracture. No lytic lesions. Mildly thickened calvarium/widened diploic space. Soft tissues: There are no soft tissue masses or fluid collections. IMPRESSION: 1. No acute intracranial injury or skull fracture. 2. Prominent senescent changes and chronic ischemic changes as detailed above, with bilateral frontal encephalomalacia, cerebral atrophy, microvascular ischemic changes, atherosclerotic disease. 3. Enophthalmos, correlate for dehydration/hypovolemia. 4. There is no CT evidence of intracranial mass, intracranial hemorrhage, or acute infarct. 5. Additional nonemergency and chronic findings as above.
--- NOTE | 2021-03-23 16:18 | CT_ITS ---
PROCEDURE INFORMATION: Exam: CT Cervical Spine Without Contrast Exam date and time: 03/23/2021 4:18 PM Age: 81 years old Clinical indication: Injury or trauma; Fall; Blunt trauma TECHNIQUE: Imaging protocol: Computed tomography images of the cervical spine without contrast. Radiation optimization: All CT scans at this facility use at least one of these dose optimization techniques: automated exposure control; mA and/or kV adjustment per patient size (includes targeted exams where dose is matched to clinical indication); or iterative reconstruction. COMPARISON: CT CERVICAL SPINE WO CON 03/14/2021 10:30 PM FINDINGS: Bones/joints: Osteopenia. Levoscoliosis. No acute appearing fracture or high-grade listhesis, compared with 03/14/2021. Chronic moderate T3 vertebral compression fracture deformity, and multiple milder compression deformities involving C5, C6, C7 and T1 vertebrae are unchanged.There are no lytic skeletal lesions seen. Degenerative osteoarthrosis anteriorly C1-C2 with periarticular spurs, synovial thickening and soft tissue calcification. Discs/Spinal canal/Neural foramina: Chronic degenerative disc disease greatest C2-C3 through C5-C6. Discs indent the thecal sac and minimally narrow the central spinal canal at these levels, there is no high-grade spinal stenosis. Cervical facet arthropathy at C2-C3 through C5-C6. Ubyc-cm-vfvavhew stenosis of both C4, right C5, right C6 foramina. No high-grade stenosis. Lungs: Reticulonodular disease in the lateral right upper lobe coronal series 602, images 29-37, no significant change compared with the prior cervical spine CT 03/14/2021, this could be chronic scarring rather than active infection or neoplasm. Pleural spaces: No pneumothorax, as visualized. Vasculature: Atherosclerotic calcified plaques in the cervical carotid arteries. Soft tissues: No acute findings in the soft tissues. No prevertebral swelling.There are no soft tissue masses or fluid collections. IMPRESSION: 1. No acute fracture or significant listhesis. 2. Chronic cervical degenerative changes as detailed above, with multilevel disc disease, spondylosis, facet arthropathy, scoliosis. No high-grade spinal or foraminal stenosis. 3. Osteopenia. 4. Pulmonary reticulonodular disease in the lateral right upper lobe, unchanged compared with 03/14/2021. This is indeterminate for chronic scarring, active infection or underlying neoplasm; images from an earlier chest CT of 01/29/2021 are not available to compare, but an apical nodule was reported on the right on that exam. 5. Additional nonemergency and chronic findings as above.
--- NOTE | 2021-03-23 16:18 | XR_ITS ---
PROCEDURE INFORMATION: Exam: XR Left Shoulder Exam date and time: 03/23/2021 4:18 PM Age: 81 years old Clinical indication: Injury or trauma; Fall; Blunt trauma (contusions or hematomas); Shoulder; Left TECHNIQUE: Imaging protocol: XR Left shoulder. Views: 2 or more views. COMPARISON: CR XR SHOULDER LT MIN 2V 02/28/2021 1:25 PM FINDINGS: Bones/joints: Severe osteopenia. Old left rib fractures. Mild degenerative changes with no fracture or focal bony lesion seen. Nondisplaced fractures in osteopenic patients can be initially occult on xray. Follow up as clinically indicated. Soft tissues: Normal. IMPRESSION: Mild degenerative changes with no fracture or focal bony lesion seen. Nondisplaced fractures in osteopenic patients can be initially occult on xray. Follow up as clinically indicated.
--- NOTE | 2021-03-23 16:29 | CT_ITS ---
PROCEDURE INFORMATION: Exam: CT Left Lower Extremity Without Contrast; Thigh Exam date and time: 03/23/2021 4:29 PM Age: 81 years old Clinical indication: Injury or trauma; Fall; Blunt trauma; Thigh or upper leg; Left; Additional info: Fall, pain TECHNIQUE: Imaging protocol: CT of the Left lower extremity without contrast was performed. Exam focused on the thigh. Radiation optimization: All CT scans at this facility use at least one of these dose optimization techniques: automated exposure control; mA and/or kV adjustment per patient size (includes targeted exams where dose is matched to clinical indication); or iterative reconstruction. COMPARISON: CR XR FEMUR LT 2V 03/17/2019 10:04 AM FINDINGS: Tubes, catheters and devices: Three cannulated screws transfix old healed fracture of the left femoral neck. No acute fracture. Bones/joints: Osteopenia. Soft tissues: Normal. IMPRESSION: Three cannulated screws transfix old healed fracture of the left femoral neck. No acute fracture.
--- NOTE | 2021-03-23 16:37 | PC.NURSE ---
Pt to CT
[2021-03-23 19:35] VITALS: BP 133/78; PULSE 72; RESP 16; TEMP 36.7; O2SAT 96
== END 2021-03-23 20:24 ==
PROVIDERS: Emergency Provider Emergency Medicine
DX: M25.552 Pain in left hip (principal); W01.0XXA Fall on same level from slipping, tripping and stumbling without subsequent striking against object, initial encounter; Y92.129 Unspecified place in nursing home as the place of occurrence of the external cause; I25.10 Atherosclerotic heart disease of native coronary artery without angina pectoris; I10 Essential (primary) hypertension; E78.5 Hyperlipidemia, unspecified; K21.9 Gastro-esophageal reflux disease without esophagitis; R01.1 Cardiac murmur, unspecified
CPT/HCPCS: 70450; 72125; 72192; 73030; 73700; 99283

== ENCOUNTER 2021-06-21 20:24 | Observation (INO) | payer MEDICARE, MEDICAID, SELFPAY ==
[2021-06-21 20:25] VITALS: BP 155/93; PULSE 104; RESP 21; TEMP 36.6; O2SAT 94; BMI 14.6
--- NOTE | 2021-06-21 20:56 | XR_ITS ---
PROCEDURE INFORMATION: Exam: XR Chest Exam date and time: 06/21/2021 8:56 PM Age: 81 years old Clinical indication: Cough and shortness of breath; Additional info: SOA, cough TECHNIQUE: Imaging protocol: XR of the chest. Views: 2 views. COMPARISON: 1. CR XR CHEST PORTABLE 03/14/2021 10:[address] CHEST WO CON 01/29/2021 3:14:14 PM FINDINGS: Lungs: Unremarkable. Pleural spaces: Unremarkable. Heart/Mediastinum: There is a hiatal hernia. Vasculature: Tortuous thoracic aorta. Bones/joints: Severe kyphosis and dextroscoliosis of the thoracolumbar spine limits evaluation. Old left rib fractures. IMPRESSION: Severe kyphosis and dextroscoliosis of the thoracolumbar spine limits evaluation. Within the limitations of the study, no acute findings.
[2021-06-21 21:03] LABS: Coronavirus 19, PCR Not Detected (NotDetected); Influenza A, PCR Not Detected (NotDetected); Influenza B, PCR Not Detected (NotDetected)
--- NOTE | 2021-06-21 21:06 | PC.NURSE ---
patient to xray.
--- NOTE | 2021-06-21 21:08 | ECG_ITS ---
APPROVED REPORT Exam: Resting ECG HR:100 bpm ECG Measurements Heart Rate [address] 180 P 83 QRSd 78 QRS 22 QT 340 T 58 QTc 438 Conclusion Normal sinus rhythm Left atrial abnormality Late R wave progression with anteroseptal changes-age undetermined Abnormal ECG Electronically signed by : Elmer Elizalde MD 06/22/2021 09:54:01
[2021-06-21 21:09] LABS: Basophils # 0.1 K/mm3 (0-0.2); Basophils % 0.9 % (0.1-2.0); Eosinophils % 0.1 % (0.1-12.0); Hematocrit 41.3 % (37.0-47.0); Lymphocytes % 8.9 % (10-50); Mean Corpuscular HGB Conc 31.4 g/dL (31.8-35.4); Mean Corpuscular Hemoglobin 28.9 pg (27.0-31.2); Mean Platelet Volume 9.2 fl (7.4-10.4); Monocytes # 0.4 K/mm3 (0.1-1.0); Monocytes % 3.3 % (1.7-9.3); Neutrophils # 9.8 K/mm3 (1.8-7.8); Neutrophils % 86.8 % (37.0-80.0); Platelet Count 264 K/mm3 (142-424); Red Blood Count 4.49 M/mm3 (4.20-5.40); Red Cell Distribution Width 14.9 % (11.5-17.5); White Blood Count 11.3 K/mm3 (4.8-10.8)
--- NOTE | 2021-06-21 21:10 | PC.NURSE ---
pt to xr
--- NOTE | 2021-06-21 21:11 | HMH.EDSOB ---
ED Disposition Clinical Impression: Severe sepsis with acute organ dysfunction, Hypokalemia, Low body mass index (BMI), Severe aortic stenosis UTI (urinary tract infection) Qualifiers: Urinary tract infection type: site unspecified Hematuria presence: without hematuria Qualified Code(s): N39.0 - Urinary tract infection, site not specified Kyphosis of thoracic region Qualifiers: Kyphosis type: unspecified Qualified Code(s): M40.204 - Unspecified kyphosis, thoracic region Disposition: Admitted As Inpatient Condition on Discharge: Fair - Critical Care Critical Care Time: No Attestation: On 06/21/21, the high probability of a clinically significant, sudden or life threatening deterioration of the following system(s) required my full and direct attention, intervention and personal management. The time I documented below is in addition to time spent performing reported procedures but includes the following listed in this critical care notation. Medical Decision Making - Medical Records Medical records reviewed: Yes: I reviewed the patient's medical records. - Mj Inquiry Pt receiving controlled substance: No Vital Signs: 06/21/21 20:25 06/21/21 21:36 Temperature 97.9 F 99.6 F Temperature Source Oral Rectal Pulse Rate 95 H Pulse Rate [Right] 104 H Respiratory Rate 21 Blood Pressure 170/100 H Blood Pressure [Right Arm] 155/93 H Blood Pressure Mean [Right Arm] 113 02 Sat by Pulse Oximetry 94 L 94 L Oxygen Delivery Method Room Air Room Air - Lab Data Lab results reviewed: Yes: I reviewed the patient's lab results. Lab Results 06/21/21 20:40: WBC 11.3 H, RBC 4.49, Hgb 13.0, Hct 41.3, MCV 92.0, MCH 28.9, MCHC 31.4 L, RDW 14.9, Plt Count 264, MPV 9.2, Neut % (Auto) 86.8 H, Lymph % (Auto) 8.9 L, [place] % (Auto) 3.3, Eos % (Auto) 0.1, Baso % (Auto) 0.9, Neut # (Auto) 9.8 H, Lymph # (Auto) 1.0, [place] # (Auto) 0.4, Eos # (Auto) 0.0, Baso # (Auto) 0.1, Total Counted 100, Neutrophils % (Manual) 85 H, Lymphocytes % (Manual) 10, Monocytes % (Manual) 5, Platelet Estimate Normal, RBC Morphology Normal, ESR 38 H 06/21/21 20:40: Sodium 144, Potassium 2.6 L*, Chloride 96 L, Carbon Dioxide 39 H, Anion Gap 11.6, BUN 14, Creatinine 0.70, Estimated Creat Clear 20, Estimated GFR 80, Est GFR ( Amer) 97, Glucose 160 H, Calcium 9.6, Magnesium 1.9, Total Bilirubin 0.6, AST 41 H, ALT 20, Alkaline Phosphatase 111, Troponin I 0.04 H, C-Reactive Protein 115.0 H, Total Protein 8.2, Albumin 4.3, Globulin 3.9 H, Albumin/Globulin Ratio 1.1, Procalcitonin 1.12 06/21/21 20:40: SARS-CoV-2 (PCR) Not detected, Influenza A Untype (PCR) Not detected, Influenza Type B (PCR) Not detected 06/21/21 20:40: Lactate 2.2 H 06/21/21 21:35: Urine Color Yellow, Urine Appearance Clear, Urine pH 6.0, Ur Specific [place] 1.015, Urine Protein Trace, Urine Glucose (UA) Negative, Urine Ketones Negative, Urine Blood Trace-i, Urine Nitrate Negative, Urine Bilirubin Negative, Urine Urobilinogen 0.2, Ur Leukocyte Esterase Trace, Urine RBC 5-10, Urine WBC 20-50, Ur Squamous Epith Cells Occasional, Urine Bacteria 1+ Result diagrams: 06/21/21 20:40 06/21/21 20:40 Orders (Tests/Meds): ED MEDICATIONS Generic Name Dose Route Start Last Admin Trade Name Sadiqq PRN Reason Stop Dose Admin Sodium Chloride 1,000 mls @ 999 mls/hr 06/21/21 21:00 06/21/21 21:28 Sod Chlor 0.9% 1000ml Bag IV 06/21/21 22:00 999 mls/hr .Q1H1M PRISCILLA Administration Ceftriaxone Sodium 1 gm/ 50 mls @ 100 mls/hr 06/21/21 23:00 06/21/21 23:05 Sodium Chloride IV 07/05/21 22:59 100 mls/hr Q24H PRISCILLA Administration ORDERS Category Date Time Status Troponin I Q3H Lab 06/21/21 23:58 Ordered Troponin I Q3H Lab 06/22/21 02:58 Ordered Blood Culture Stat Micro 06/21/21 20:40 Received Urine Culture Stat Micro 06/21/21 21:35 Received - Radiology Data #1 Image(s): Chest Image Reviewed: Yes I have reviewed radiologist's interpretation Preliminary Findings: Abnormal (n
[2021-06-21 21:13] LABS: Alanine Aminotransferase 20 U/L (12-78); Albumin Level 4.3 g/dl (3.5-5.0); Albumin/Globulin Ratio 1.1 (1.1-1.8); Alkaline Phosphatase 111 U/L (38-126); Aspartate Amino Transferase 41 U/L (14-36); Bilirubin,Total 0.6 mg/dl (0.2-1.3); Blood Urea Nitrogen 14 mg/dl (7-17); Calcium 9.6 mg/dl (8.4-10.2); Chloride 96 mmol/L (98-107); Creatinine Clearance Estimated 20 mL/min (50-200); Estimated Glomerular Filt Rate 80 ml/min (>60); GFR (African American) 97 ML/MIN (>60); Globulin 3.9 g/dL (1.3-3.2); Glucose 160 mg/dl (74-100); Magnesium 1.9 mg/dl (1.6-2.3); Sodium 144 mmol/L (136-145); Total Protein,Serum 8.2 g/dl (6.3-8.2)
[2021-06-21 21:17] LABS: MANUAL DIFFERENTIAL MANUAL DIFFERENTIAL (MANUAL DIFF)
[2021-06-21 21:19] LABS: Anion Gap 11.6 mEq/L (5-15); Carbon Dioxide 39 mmol/L (22.0-30.0)
[2021-06-21 21:27] LABS: Troponin I 0.04 ng/ml (0.00-0.034)
[2021-06-21 21:30] LABS: Potassium 2.6 mmoL/L (3.5-5.1)
--- NOTE | 2021-06-21 21:30 | PC.NURSE ---
K+ 2.[address] Isaac.
[2021-06-21 21:32] LABS: Procalcitonin 1.12 ng/mL (0.0-2.0)
[2021-06-21 21:36] VITALS: BP 170/100; PULSE 95; TEMP 37.6; O2SAT 94
[2021-06-21 21:39] LABS: Microscopic, Urine URINE MICROSCOPIC (MICROSCOPIC)
[2021-06-21 21:40] LABS: Erythrocyte Sedimentation Rate 38 mm/hr (0-30)
[2021-06-21 21:47] LABS: Appearance,Urine CLEAR (Clear); Bilirubin,Urine Negative (Negative); Blood, Urine TRACE-I (Negative); Color,Urine YELLOW (Yellow); Glucose,Urine (UA) Negative (Negative); Ketones,Urine Negative (Negative); Leukocyte Esterase,Urine TRACE (Negative); Nitrate,Urine Negative (Negative); Protein,Urine TRACE (Negative); Specific Gravity, Urine 1.015 (1.005-1.030); Urobilinogen,Urine 0.2 EU/dl (0.2)
[2021-06-21 21:57] LABS: Lymphocytes % 10 % (10-50); Monocytes % 5 % (2-9); Neutrophils % 85 % (42-76); Platelet Estimate Normal; RBC Morphology Normal; Total Cells Counted 100
[2021-06-21 22:22] LABS: Bacteria,Urine 1+ /lpf; Squamous Epithelial Cell,Urine Occasional #/hpf (0-5); WBC,Urine 20-50 #/hpf (0-3)
--- NOTE | 2021-06-21 22:41 | PC.NURSE ---
Patient admitted to 212 with dx of UTI
[2021-06-21 22:47] VITALS: O2SAT 93
[2021-06-21 23:04] LABS: Lactic Acid 2.2 mmol/L (0.7-2.1)
[2021-06-22] VITALS (8 sets, daily range): BP systolic 150–186; BP diastolic 90–112; PULSE 86–110; RESP 16–28; TEMP 36.7–37.6; O2SAT 90–97; BMI 14.6; BMI 14.3
[2021-06-22 00:20] LABS: Troponin I 0.04 ng/ml (0.00-0.034)
--- NOTE | 2021-06-22 00:21 | PC.NURSE ---
patient up to floor via wheelchair @ this time
[2021-06-22 00:25] LABS: Reflex Lactic Add Lactic Reflex
[2021-06-22 03:18] LABS: Troponin I 0.04 ng/ml (0.00-0.034)
--- NOTE | 2021-06-22 04:33 | PC.NURSE ---
Dr Villa paged at [id number] due to patients elevated B/P 178/112 manual. Orders to resume home med amlodipine 5mg and give todays dose now per Dr. Villa.
--- NOTE | 2021-06-22 05:58 | PC.ADMIT ---
[id number] Admission Note: The patient,Jennifer Muro,81 y/o, was given written information regarding hospital policies, unit procedures and contact persons. Patient's smoking status: Never smoker. Vital Signs - 8 hr 06/21/21 22:47 06/22/21 00:20 06/22/21 00:36 Temperature 99.6 F 98.6 F Pulse Rate 98 H Pulse Rate [Right] 110 H Respiratory Rate 18 20 Blood Pressure 174/100 H Blood Pressure [Right Arm] 179/103 H 02 Sat by Pulse Oximetry 93 L 97 06/22/21 04:00 Temperature 99.0 F Pulse Rate Pulse Rate [Right] 101 H Respiratory Rate 16 Blood Pressure Blood Pressure [Right Arm] 178/112 H 02 Sat by Pulse Oximetry 90 L
[2021-06-22 06:57] LABS: Mean Corpuscular HGB Conc 32.2 g/dL (31.8-35.4); Monocytes # 0.4 K/mm3 (0.1-1.0); Monocytes % 3.8 % (1.7-9.3)
[2021-06-22 07:03] LABS: Basophils % 0.3 % (0.1-2.0); Hematocrit 33.2 % (37.0-47.0); Lymphocytes # 1.6 K/mm3 (0.7-4.5); Mean Corpuscular Hemoglobin 28.8 pg (27.0-31.2); Mean Corpuscular Volume 89.4 fl (81-99); Mean Platelet Volume 9.1 fl (7.4-10.4); Neutrophils # 9.2 K/mm3 (1.8-7.8); Neutrophils % 81.9 % (37.0-80.0); Platelet Count 222 K/mm3 (142-424); Red Blood Count 3.71 M/mm3 (4.20-5.40); Red Cell Distribution Width 14.8 % (11.5-17.5); White Blood Count 11.3 K/mm3 (4.8-10.8)
[2021-06-22 07:15] LABS: Hemoglobin 10.7 g/dL (12.2-16.2)
--- NOTE | 2021-06-22 07:20 | HMH.PHAVTE ---
[facility] Pharmacy VTE Monitoring - Patient Demographics Admission date: 06/21/21 Report Date: 06/22/21 Time: 07:20 Allergies/Adverse Reactions: Patient Allergies No Known Allergies Allergy (Verified 02/16/21 15:07) Height: 1.42 m Weight: 29.484 kg Patient Problems: Current Active Problems UTI (urinary tract infection) (Acute) Severe sepsis with acute organ dysfunction (Acute) Hypokalemia (Acute) Low body mass index (BMI) (Acute) Severe aortic stenosis (Chronic) Kyphosis of thoracic region (Acute) - VTE Risk Labs: VTE Related Lab Results Hgb 10.7 g/dL (12.2-16.2) L D 06/22/21 06:37 Hct 33.2 % (37.0-47.0) L 06/22/21 06:37 Plt Count 222 K/mm3 (142-424) 06/22/21 06:37 BUN 14 mg/dl (7-17) 06/21/21 20:40 Creatinine 0.70 mg/dl (0.52-1.04) 06/21/21 20:40 Estimated Creat Clear 20 mL/min (50-200) 06/21/21 20:40 Was VTE Risk Assessment Performed: Yes VTE Risk Level: Low Risk Clinical Trial Participant: No - Prophylaxis VTE Prophylaxis Ordered?: Yes Types of VTE Prophylaxis: TEDS Knee High
[2021-06-22 07:22] LABS: Carbon Dioxide 38 mmol/L (22.0-30.0)
[2021-06-22 07:34] LABS: Anion Gap 11.2 mEq/L (5-15); Blood Urea Nitrogen 8 mg/dl (7-17); Chloride 100 mmol/L (98-107); Sodium 147 mmol/L (136-145)
[2021-06-22 07:35] LABS: Calcium 8.3 mg/dl (8.4-10.2); Creatinine Clearance Estimated 20 mL/min (50-200); Estimated Glomerular Filt Rate 80 ml/min (>60); GFR (African American) 97 ML/MIN (>60); Glucose 123 mg/dl (74-100); Magnesium 1.6 mg/dl (1.6-2.3)
[2021-06-22 07:36] LABS: Potassium 2.2 mmoL/L (3.5-5.1)
--- NOTE | 2021-06-22 07:45 | PC.NURSE ---
reported critical lab to of potassium of 2.2
--- NOTE | 2021-06-22 08:35 | HMH.PHAINT ---
Home medications verified with [facility] [place] [facility] and [facility] pharmacy.
--- NOTE | 2021-06-22 08:51 | HMH.HP ---
*Admission Date: 06/21/21 *Chief complaint: soa *History of present illness: 81 yr old female presented to ed with c/o mid back pain, chills,soa,productive cough, and generalized malaise. Family states they think she has pneumonia. Denies any n/v/d. Pt was found to have uti and low kcl. Pt admitted for further work up and evaluation. wait c&S on urine. Pt states she gets choked and coughs when she eats or drinks. will have speech eval. [facility] History I have reviewed the patient's past medical history: Yes Medical History: Reports:: Coronary Artery Disease, Cerebrovascular Accident, Gastroesophageal Reflux Disease(GERD), Heart Murmur, Hyperlipidemia, Hypertension, Valvular Heart Disease Denies:: Cancer, Diabetes Mellitus Type 1, Diabetes Mellitus Type 2, Internal Pacemaker, MRSA, Seizures *Have you ever received a pneumonia vaccine?: No *Have you received a flu vaccine this season?: No Other Medical History: Reports: Anemia, Arthritis, Cataracts Laterality Cases: Left: Arthroscopy Hip, Bilateral: Breast Biopsy, Mastectomy Other Surgeries: Yes: Colonoscopy, Tubal Ligation, Other. No: Pacemaker Amputation: No Fractures: Yes (left hip and ribs) - *Social History Smoking Status: Never smoker Alcohol Intake: never Substance Use Type: denies use *Occupational Status:: retired Housing: house Household Members: family *Travel in the last 8 weeks: None Family Hx:: Cancer, Diabetes Review of Systems - Review of Systems Review of systems:: pertinent systems reviewed and negative unless documented below - Constitutional Reports fatigue, Reports malaise, Denies body ache(s) - Eyes Denies blurry vision - ENT Denies bleeding gums - *Cardiovascular Reports chest pain - *Respiratory Reports chest congestion, Reports cough, Reports shortness of breath - *Gastrointestinal Denies abdominal pain - *Genitourinary Denies urinary urgency - *Musculoskeletal Denies abnormal walking - Integumentary/Breasts Denies hair loss - *Neurologic Reports weakness, Denies localized weakness, Denies loss of vision, Denies seizure-like activity - Psychiatric Denies anxiety - Endocrine Denies excessive sweating - Hematologic/Lymphatic Denies easy bruising - Allergic/Immunologic Denies GI upset with certain foods Meds Home Medications Medication Instructions Recorded Confirmed Type Amlodipine Besylate 5 mg PO DAILY 01/17/21 06/21/21 History lisinopriL [Lisinopril 2.5mg Tab] 2.5 mg PO DAILY 01/17/21 06/21/21 History Multivitamin [Multi-Vitamin Plain] 1 each PO DAILY 03/15/21 06/22/21 History Potassium Chloride 15 ml PO DAILY 06/22/21 06/21/21 History Allergies Allergy/AdvReac Type Severity Reaction Status Date / Time No Known Allergies Allergy Verified 02/16/21 15:07 Exam Vital signs and Labs for Last 24 Hours: Temp Pulse Resp BP Pulse Ox 98.7 F 88 28 H 163/96 H 93 L 06/22/21 07:59 06/22/21 07:59 06/22/21 07:59 06/22/21 07:59 06/22/21 07:59 Laboratory Results - last 24 hr 06/21/21 20:40: WBC 11.3 H, RBC 4.49, Hgb 13.0, Hct 41.3, MCV 92.0, MCH 28.9, MCHC 31.4 L, RDW 14.9, Plt Count 264, MPV 9.2, Neut % (Auto) 86.8 H, Lymph % (Auto) 8.9 L, [place] % (Auto) 3.3, Eos % (Auto) 0.1, Baso % (Auto) 0.9, Neut # (Auto) 9.8 H, Lymph # (Auto) 1.0, [place] # (Auto) 0.4, Eos # (Auto) 0.0, Baso # (Auto) 0.1, Total Counted 100, Neutrophils % (Manual) 85 H, Lymphocytes % (Manual) 10, Monocytes % (Manual) 5, Platelet Estimate Normal, RBC Morphology Normal, ESR 38 H 06/21/21 20:40: Sodium 144, Potassium 2.6 L*, Chloride 96 L, Carbon Dioxide 39 H, Anion Gap 11.6, BUN 14, Creatinine 0.70, Estimated Creat Clear 20, Estimated GFR 80, Est GFR ( Amer) 97, Glucose 160 H, Calcium 9.6, Magnesium 1.9, Total Bilirubin 0.6, AST 41 H, ALT 20, Alkaline Phosphatase 111, Troponin I 0.04 H, C-Reactive Protein 115.0 H, Total Protein 8.2, Albumin 4.3, Globulin 3.9 H, Albumin/Globulin Ratio 1.1, Procalcitonin 1.12 06/21/21 20:40: SARS-CoV-2 (PC
--- NOTE | 2021-06-22 09:47 | HMH.CNCARD ---
History of Present Illness Consult date: 06/22/21 Requesting physician: Ishaan Isaac Chief complaint: Abnormal EKG, Aortic stenosis Additional Medical History:: 1. Aortic stenosis, severe A. Echo, 11/2018, Mild LAE, LV size normal, Mild conc LVH, EF 55% without regional WMA. GI DD, severe with ROB of 1.0 sq cm and mean gradient across valve of 33 mm Hg, moderate AI. Mild MR, TR with RVSP of 44 mm Hg. B. Echo, 01/2021, 1. Biatrial enlargement, normal left ventricular size, hyperdynamic left ventricular systolic function, visually estimated ejection fraction over 65% with no regional wall motion abnormality, diastolic parameters are inconclusive. 2. Thickened and calcified aortic valve with severe aortic stenosis, valve area is 0.7 cm???, there is mild aortic insufficiency. 3. Moderate mitral and tricuspid regurgitation, calculated right ventricular systolic pressure is 51 mmHg. 4. No significant pericardial effusion noted. Electronically signed by : Jam Linares, 01/18/2021 10:56:50 2. Left femoral neck fracture, 11/2018 3. HTN 4. 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 Renal angiogram 10/2014 5. Mild CAD, [place], 11/2018 A. ANGIOGRAPHIC RESULTS: 1. The left main artery is normal 2. The left anterior descending artery has proximal and mid vessel luminal irregularities 10% 3. The circumflex artery is a nondominant vessel and has proximal to mid vessel 20% nonflow limiting stenoses 4. The right coronary artery ostium appears to originate in the anterior portion the aortic valve very close to the aortic valve and is calcified. There is antegrade flow down the vessel however the vessel could not be completely visualized 5. The ALLEN ventriculogram reveals not performed 6. The left ventricular end-diastolic pressure not measured IMPRESSION: 1. 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 Recommend CTA of the coronary artery to determine if the anomalous takeoff and has an origin close to the aortic valve. If the origin is too close to aortic valve patient would not be a tavr candidate CTA of the coronary arteries can be obtained as an outpatient B. CTA of coronary arteries never obtained. 6. History of CVA History of present illness: 81 yr old female presented to ed with c/o mid back pain, chills,soa,productive cough, and generalized malaise. Family states they think she has pneumonia. Denies any n/v/d. Pt was found to have uti and low kcl. Pt admitted for further work up and evaluation. wait c&S on urine. Pt states she gets choked and coughs when she eats or drinks. will have speech eval. The above per Dr. Isaac Patient is a poor historian. Most of the information is obtained from the chart. Her only complaint at this time is of back pain. She states her abdominal discomfort and shortness of breath has improved. Chest x-ray shows no acute process. EKG is sinus tachycardia 100 bpm with poor R wave progression anteriorly. Troponins are only mildly elevated at 0.04x3. Patient is known to have mild coronary artery disease by cardiac catheterization in 2019 with severe aortic stenosis by echocardiogram earlier this year but is not an operative candidate nor would she be a candidate for TAVR due to her fragility. [facility] History Medical History: Reports:: Coronary Artery Disease, Cerebrovascular Accident, Gastroesophageal Reflux Disease(GERD), Heart Murmur, Hyperlipidemia, Hypertension, Valvular Heart Disease Denies:: Cancer, Diabetes Mellitus Type 1, Diabetes Mellitus Type 2, Internal Pacemaker, MRSA, Seizures *Have you ever received a pneumonia vaccine?: No *H
--- NOTE | 2021-06-22 09:56 | SW/DCPLANNER ---
Addendum entered by Mindy Phipps 06/25/21 13:02: Anisa with [facility] has stated that services will begin tomorrow. [facility] has delivered portable O2 tank. Addendum entered by Mindy Phipps 06/25/21 10:46: Patient information/order has been faxed to [facility] for home O2/portable and [facility] for PT/OT/senior care. Addendum entered by Mindy Phipps 06/25/21 09:27: The plan is for this patient to discharge home with family today. PT/OT evaluation is pending. I spoke with patients granddaughter (Mindy) and she has stated that the plan is for patient to return home, family is present 24/02 and they are agreeable to home health services. I have asked patients nurse (Carrie) for room air sat due to patient current requirement of O2 and possibly needing home O2 ordered. I will continue to follow up with PT/OT evaluation, room air sat and family. Original Note: This patient currently resides at home with family. I will continue to follow up with this patient until medically stable for discharge.
--- NOTE | 2021-06-22 16:00 | HMH.SLDYSPHA ---
Speech & Language Evaluation Speech/Language Dysphagia Evaluation Start: 06/22/21 15:43 Freq: ONCE Status: Active Protocol: Document 06/22/21 15:43 CMAY (Rec: 06/22/21 16:00 CMAY [id number]) Dysphagia Assess/Goals/Plan Assessment Date of Evaluation: 06/22/21 Evaluation Type Initial Certification Assessment/Problems cough and choking with eating or drinking Does Patient Qualify for Service No Qualify/Failure Comment Patient does not qualify for ST services at this time based on the results of today's evaluation. Dietary changes were implemented for patient's safety during intake. Recommendations PHYSICIAN CERTIFICATION: The specified therapy services are required, authorized, and reviewed every 30 days. Diet Recommendations Mechanical Soft with Ground Meats Liquid Type Recommendations Normal/Thin SL Swallow Guidelines Alt bite w/sip thru meal, Standard Aspiration Prec. Dysphagia Swallow Precautions/Strategies Sitting Upright (90 deg),Small Bites and Sips,Alternate Liquids/Solids Plan Pt/Guardian verbally ack understanding Yes of dx/prognosis/goals G -code Required No Education Instructions provided Education provided to patient regarding swallowing safety strategies to implement such as sitting upright during intake, taking small bites/ sips, and alternating between bites/sips. Pt/Caregiver able to recall information Reinforcement needed Reinforcement needed Yes Speech & Language HPI Language Primary Language Palestinian General Information General Current Food Consistancy Regular,Thin Liquids Dentition Upper & Lower Dentures Patient Orientation Person Ability to Follow Directions Good Communication Ability Mild Impairment Dysphagia:Food Presentation Evaluation Food Type Pureed,Mechanical Soft,Liquid, Pudding Normal/Thin Liquid Response Delayed swallow Pudding Consistency Liquid Response Residual on tongue,Delayed swallow Dysphagia Evaluation Pureed Food Delayed swallow,Coughing after Behavior Response swallow Dysphagia Evaluation Mechanical Soft Residual on tongue,Coughing Food Behavior Response after swallow Dysphagia Evaluation Summary Patient exhibited coughing
[2021-06-23] VITALS (8 sets, daily range): BP systolic 124–169; BP diastolic 69–105; PULSE 83–112; RESP 20–36; TEMP 36.6–37.7; O2SAT 84–98; BMI 15.3
[2021-06-23 07:36] LABS: Basophils % 0.2 % (0.1-2.0); Eosinophils % 0.2 % (0.1-12.0); Hematocrit 34.9 % (37.0-47.0); Hemoglobin 11.2 g/dL (12.2-16.2); Lymphocytes # 1.6 K/mm3 (0.7-4.5); Lymphocytes % 20.5 % (10-50); Mean Corpuscular HGB Conc 32.2 g/dL (31.8-35.4); Mean Corpuscular Hemoglobin 29.1 pg (27.0-31.2); Mean Corpuscular Volume 90.5 fl (81-99); Mean Platelet Volume 9.2 fl (7.4-10.4); Monocytes # 0.3 K/mm3 (0.1-1.0); Monocytes % 3.8 % (1.7-9.3); Neutrophils % 75.3 % (37.0-80.0); Platelet Count 210 K/mm3 (142-424); Red Blood Count 3.85 M/mm3 (4.20-5.40); Red Cell Distribution Width 14.9 % (11.5-17.5)
[2021-06-23 07:58] LABS: Anion Gap 6.5 mEq/L (5-15); Blood Urea Nitrogen 9 mg/dl (7-17); Calcium 8.6 mg/dl (8.4-10.2); Carbon Dioxide 39 mmol/L (22.0-30.0); Chloride 98 mmol/L (98-107); Creatinine Clearance Estimated 21 mL/min (50-200); Estimated Glomerular Filt Rate 95 ml/min (>60); GFR (African American) 116 ML/MIN (>60); Glucose 96 mg/dl (74-100); Potassium 3.5 mmoL/L (3.5-5.1); Sodium 140 mmol/L (136-145)
--- NOTE | 2021-06-23 08:36 | HMH.ACPN2 ---
Internal Medicine - PN: Subj *Date: 06/23/21 *Time: 08:36 Interval history: doing better but still not at baseline - labs improved and card and speech eval noted Exam Vital signs and Labs for Last 24 Hours: Temp Pulse Resp BP Pulse Ox 98.0 F 90 20 124/69 92 L 06/23/21 04:00 06/23/21 04:00 06/23/21 04:00 06/23/21 04:00 06/23/21 04:00 Laboratory Results - last 24 hr 06/23/21 06:59: WBC 8.0 D, RBC 3.85 L, Hgb 11.2 L, Hct 34.9 L, MCV 90.5, MCH 29.1, MCHC 32.2, RDW 14.9, Plt Count 210, MPV 9.2, Neut % (Auto) 75.3, Lymph % (Auto) 20.5, [place] % (Auto) 3.8, Eos % (Auto) 0.2, Baso % (Auto) 0.2, Neut # (Auto) 6.0, Lymph # (Auto) 1.6, [place] # (Auto) 0.3, Eos # (Auto) 0.0, Baso # (Auto) 0.0 06/23/21 06:59: Sodium 140, Potassium 3.5 D, Chloride 98, Carbon Dioxide 39 H, Anion Gap 6.5, BUN 9, Creatinine 0.60, Estimated Creat Clear 21, Estimated GFR 95, Est GFR ( Amer) 116, Glucose 96, Calcium 8.6 I & O for Last 24 hours: Intake & Output 06/20/21 06/21/21 06/22/21 06/23/21 11:59 11:59 11:59 11:59 Intake Total 1290 / 1290 240 / 240 Balance 1290 / 1290 240 / 240 Weight 65 lb 0.017 oz 68 lb Microbiology Reports for the Last 24 Hours: Microbiology 06/21/21 21:35 Urine,Clean Catch Urine Culture - Preliminary NO GROWTH AFTER 24 HOURS - Constitutional no acute distress, cachectic - *Routine HEENT Exam Head: Present: normocephalic Eye: Present: EOMI, PERRL ENT: Present: mucous membranes dry - *Routine Neck Exam Present: supple - *Routine Respiratory Exam Present: decreased breath sounds - *Routine Cardiovascular Exam Present: RRR, murmur - *Routine Abdominal Exam Present: soft - *Routine Extremities Exam Absent: calf tenderness - *Routine Skin Exam Present: intact - *Routine Neurological Exam Present: alert, CN II-XII intact. Absent: motor deficit - Routine Psychiatric Exam Present: cooperative Assessment and Plan (1) Severe protein-calorie malnutrition Status: Acute Category: Medical Code(s): E43 - Unspecified severe protein-calorie malnutrition (2) Hypokalemia Status: Acute Category: Medical Code(s): E87.6 - Hypokalemia (3) Kyphosis of thoracic region Status: Acute Qualifiers: Kyphosis type: unspecified Qualified Code(s): M40.204 - Unspecified kyphosis, thoracic region Category: Medical Code(s): M40.204 - Unspecified kyphosis, thoracic region (4) Low body mass index (BMI) Status: Acute Category: Medical (5) UTI (urinary tract infection) Status: Acute Qualifiers: Urinary tract infection type: site unspecified Hematuria presence: without hematuria Qualified Code(s): N39.0 - Urinary tract infection, site not specified Category: Medical Code(s): N39.0 - Urinary tract infection, site not specified (6) Severe aortic stenosis Status: Chronic Category: Medical Code(s): I35.0 - Nonrheumatic aortic (valve) stenosis (7) Back pain Status: Acute Qualifiers: Back pain location: thoracic back pain Chronicity: acute Back pain laterality: right Qualified Code(s): M54.6 - Pain in thoracic spine Category: Medical Code(s): M54.9 - Dorsalgia, unspecified (8) DDD (degenerative disc disease), cervical Status: Acute Category: Medical Code(s): M50.30 - Other cervical disc degeneration, unspecified cervical region (9) Dysphagia Status: Acute Qualifiers: Dysphagia type: unspecified Qualified Code(s): R13.10 - Dysphagia, unspecified Category: Medical Code(s): R13.10 - Dysphagia, unspecified
--- NOTE | 2021-06-23 18:24 | PC.NURSE ---
Pt getting bathed and up to chiar at this time. CB in reach. 2 L NC applied for sats in low 90's. No major acute changes.
[2021-06-24] VITALS (12 sets, daily range): BP systolic 142–174; BP diastolic 81–106; PULSE 70–90; RESP 16–30; TEMP 36.4–37.6; O2SAT 90–97; BMI 15.7
[2021-06-24 07:59] LABS: Basophils # 0.1 K/mm3 (0-0.2); Basophils % 0.7 % (0.1-2.0); Eosinophils % 0.4 % (0.1-12.0); Hemoglobin 12.6 g/dL (12.2-16.2); Lymphocytes # 1.5 K/mm3 (0.7-4.5); Lymphocytes % 21.7 % (10-50); Mean Corpuscular HGB Conc 31.4 g/dL (31.8-35.4); Mean Corpuscular Hemoglobin 28.7 pg (27.0-31.2); Mean Corpuscular Volume 91.4 fl (81-99); Mean Platelet Volume 9.6 fl (7.4-10.4); Monocytes # 0.3 K/mm3 (0.1-1.0); Neutrophils # 5.2 K/mm3 (1.8-7.8); Neutrophils % 73.2 % (37.0-80.0); Platelet Count 220 K/mm3 (142-424); Red Blood Count 4.38 M/mm3 (4.20-5.40)
[2021-06-24 08:31] LABS: Anion Gap 7.7 mEq/L (5-15); Blood Urea Nitrogen 12 mg/dl (7-17); Calcium 8.9 mg/dl (8.4-10.2); Carbon Dioxide 37 mmol/L (22.0-30.0); Chloride 99 mmol/L (98-107); Creatinine Clearance Estimated 21 mL/min (50-200); Estimated Glomerular Filt Rate 118 ml/min (>60); GFR (African American) 143 ML/MIN (>60); Glucose 105 mg/dl (74-100); Potassium 3.7 mmoL/L (3.5-5.1); Sodium 140 mmol/L (136-145)
--- NOTE | 2021-06-24 08:53 | HMH.ACPN2 ---
Internal Medicine - PN: Subj *Date: 06/24/21 *Time: 08:53 Interval history: looks better but still with cough and inc resp rate - labs better but bp elevated Exam Vital signs and Labs for Last 24 Hours: Temp Pulse Resp BP Pulse Ox 99.6 F 80 26 H 174/103 H 90 L 06/24/21 00:00 06/24/21 04:00 06/24/21 04:00 06/24/21 04:00 06/24/21 04:00 Laboratory Results - last 24 hr 06/24/21 07:18: WBC 7.0, RBC 4.38, Hgb 12.6, Hct 40.0, MCV 91.4, MCH 28.7, MCHC 31.4 L, RDW 15.0, Plt Count 220, MPV 9.6, Neut % (Auto) 73.2, Lymph % (Auto) 21.7, [place] % (Auto) 4.0, Eos % (Auto) 0.4, Baso % (Auto) 0.7, Neut # (Auto) 5.2, Lymph # (Auto) 1.5, [place] # (Auto) 0.3, Eos # (Auto) 0.0, Baso # (Auto) 0.1 06/24/21 07:18: Sodium 140, Potassium 3.7, Chloride 99, Carbon Dioxide 37 H, Anion Gap 7.7, BUN 12 D, Creatinine 0.50 L, Estimated Creat Clear 21, Estimated GFR 118, Est GFR ( Amer) 143 D, Glucose 105 H, Calcium 8.9 I & O for Last 24 hours: Intake & Output 06/21/21 06/22/21 06/23/21 06/24/21 11:59 11:59 11:59 11:59 Intake Total 1290 / 1290 480 / 480 Balance 1290 / 1290 480 / 480 Weight 65 lb 0.017 oz 68 lb 70 lb Microbiology Reports for the Last 24 Hours: Microbiology 06/21/21 20:40 Blood Blood Culture - Preliminary NO GROWTH AFTER 48 HOURS 06/21/21 20:40 Blood Blood Culture - Preliminary NO GROWTH AFTER 48 HOURS 06/21/21 21:35 Urine,Clean Catch Urine Culture - Final NO GROWTH AFTER 48 HOURS - Constitutional no acute distress - *Routine HEENT Exam Head: Present: normocephalic Eye: Present: EOMI, PERRL ENT: Present: mucous membranes dry - *Routine Neck Exam Absent: JVD - *Routine Respiratory Exam Present: decreased breath sounds - *Routine Cardiovascular Exam Present: RRR, murmur, S4 - *Routine Abdominal Exam Present: soft - *Routine Extremities Exam Present: pulses intact. Absent: calf tenderness - *Routine Skin Exam Present: intact - *Routine Neurological Exam Present: alert, CN II-XII intact - Routine Psychiatric Exam Present: cooperative Assessment and Plan (1) Severe protein-calorie malnutrition Status: Acute Category: Medical Code(s): E43 - Unspecified severe protein-calorie malnutrition (2) Hypokalemia Status: Acute Category: Medical Code(s): E87.6 - Hypokalemia (3) Kyphosis of thoracic region Status: Acute Qualifiers: Kyphosis type: unspecified Qualified Code(s): M40.204 - Unspecified kyphosis, thoracic region Category: Medical Code(s): M40.204 - Unspecified kyphosis, thoracic region (4) Low body mass index (BMI) Status: Acute Category: Medical (5) UTI (urinary tract infection) Status: Acute Qualifiers: Urinary tract infection type: site unspecified Hematuria presence: without hematuria Qualified Code(s): N39.0 - Urinary tract infection, site not specified Category: Medical Code(s): N39.0 - Urinary tract infection, site not specified (6) Severe aortic stenosis Status: Chronic Category: Medical Code(s): I35.0 - Nonrheumatic aortic (valve) stenosis (7) Back pain Status: Acute Qualifiers: Back pain location: thoracic back pain Chronicity: acute Back pain laterality: right Qualified Code(s): M54.6 - Pain in thoracic spine Category: Medical Code(s): M54.9 - Dorsalgia, unspecified (8) DDD (degenerative disc disease), cervical Status: Acute Category: Medical Code(s): M50.30 - Other cervical disc degeneration, unspecified cervical region (9) Dysphagia Status: Acute Qualifiers: Dysphagia type: unspecified Qualified Code(s): R13.10 - Dysphagia, unspecified Category: Medical Code(s): R13.10 - Dysphagia, unspecified (10) HTN (hypertension) Status: Chronic Qualifiers: Hypertension type: primary hypertension Qualified Code(s): I10 - Essential (primary) hypertensi
--- NOTE | 2021-06-24 09:03 | XR_ITS ---
PROCEDURE INFORMATION: Exam: XR Chest Exam date and time: 06/24/2021 9:03 AM Age: 81 years old Clinical indication: Shortness of breath; Additional info: SOB TECHNIQUE: Imaging protocol: XR of the chest. Views: 4 or more views. COMPARISON: CR XR CHEST 2V 06/21/2021 9:04 PM FINDINGS: Tubes, catheters and devices: Overlying EKG wires Lungs: Emphysematous changes in the right apex. Patchy bilateral opacities may represent multifocal pneumonia.. Pleural spaces: Mild bilateral pleural effusions. Heart/Mediastinum: Cardiomegaly Bones/joints: Unremarkable. IMPRESSION: 1. Patchy bilateral opacities may represent multifocal pneumonia.. 2. Mild bilateral pleural effusions.
--- NOTE | 2021-06-24 09:04 | CT_ITS ---
PROCEDURE INFORMATION: Exam: CT Chest Without Contrast; Diagnostic Exam date and time: 06/24/2021 9:04 AM Age: 81 years old Clinical indication: Shortness of breath; Additional info: SOB TECHNIQUE: Imaging protocol: Diagnostic computed tomography of the chest without contrast. Radiation optimization: All CT scans at this facility use at least one of these dose optimization techniques: automated exposure control; mA and/or kV adjustment per patient size (includes targeted exams where dose is matched to clinical indication); or iterative reconstruction. COMPARISON: CT CHEST WO CON 01/29/2021 3:14 PM FINDINGS: Lungs: Minimal partial consolidation in both lungs more prominent in the left lower lung adjacent to the left diaphragm, appearing since the prior study. Stable right upper lobe nodular opacity or scar, unchanged from 01/29/2021 Pleural spaces: Trace bilateral pleural effusions. Stable nodular scar pleural thickening in the right apex. Heart: No cardiomegaly. No pericardial effusion. Aorta: No aortic aneurysm. Lymph nodes: No significant adenopathy. Diaphragm: Bilateral hemidiaphragm elevation/hernia, right more than left. Bones/joints: Kyphoscoliosis. Multiple old rib fractures. Soft tissues: Unremarkable. IMPRESSION: Findings consistent with bilateral pneumonia.
--- NOTE | 2021-06-24 10:08 | HMH.ITSTN ---
I did a portable chest x-ray on patient. There is a CT w/o contrast also ordered. It is ordered as routine. Patient has to be assisted lifted in and out of bed. I spoke to nurse Newberry and advised I will be back to do CT in the afternoon when I have lifting help.
[2021-06-25] VITALS (9 sets, daily range): BP systolic 143–146; BP diastolic 88–94; PULSE 74–88; RESP 22–25; TEMP 36.6–36.9; O2SAT 88–97; BMI 15.7
[2021-06-25 07:33] LABS: Basophils % 0.5 % (0.1-2.0); Eosinophils % 0.2 % (0.1-12.0); Lymphocytes # 1.6 K/mm3 (0.7-4.5); Lymphocytes % 23.1 % (10-50); Mean Corpuscular HGB Conc 32.1 g/dL (31.8-35.4); Mean Corpuscular Hemoglobin 28.9 pg (27.0-31.2); Mean Corpuscular Volume 90.2 fl (81-99); Mean Platelet Volume 8.9 fl (7.4-10.4); Monocytes # 0.3 K/mm3 (0.1-1.0); Monocytes % 3.7 % (1.7-9.3); Neutrophils # 5.1 K/mm3 (1.8-7.8); Neutrophils % 72.6 % (37.0-80.0); Platelet Count 211 K/mm3 (142-424); Red Blood Count 3.88 M/mm3 (4.20-5.40); Red Cell Distribution Width 15.2 % (11.5-17.5)
[2021-06-25 08:00] LABS: Anion Gap 8.7 mEq/L (5-15); Blood Urea Nitrogen 13 mg/dl (7-17); Calcium 8.4 mg/dl (8.4-10.2); Carbon Dioxide 37 mmol/L (22.0-30.0); Chloride 98 mmol/L (98-107); Creatinine Clearance Estimated 21 mL/min (50-200); Estimated Glomerular Filt Rate 69 ml/min (>60); GFR (African American) 83 ML/MIN (>60); Glucose 100 mg/dl (74-100); Potassium 3.7 mmoL/L (3.5-5.1); Sodium 140 mmol/L (136-145)
[2021-06-25 08:06] LABS: Hemoglobin 11.3 g/dL (12.2-16.2)
--- NOTE | 2021-06-25 09:09 | HMH.DCSUM ---
General - General Admission date:: 06/21/21 Discharge date: 06/25/21 HPI HPI: 81 yr old female presented to ed with c/o mid back pain, chills,soa,productive cough, and generalized malaise. Family states they think she has pneumonia. Denies any n/v/d. Pt was found to have uti and low kcl. Pt admitted for further work up and evaluation. wait c&S on urine. Pt states she gets choked and coughs when she eats or drinks. will have speech eval. Hospital Course Hospital Course: Laboratory Tests 06/21/21 06/21/21 06/21/21 20:40 20:40 20:40 WBC 11.3 H RBC 4.49 Hgb 13.0 Hct 41.3 MCV 92.0 MCH 28.9 MCHC 31.4 L RDW 14.9 Plt Count 264 MPV 9.2 Neut % (Auto) 86.8 H Lymph % (Auto) 8.9 L [place] % (Auto) 3.3 Eos % (Auto) 0.1 Baso % (Auto) 0.9 Neut # (Auto) 9.8 H Lymph # (Auto) 1.0 [place] # (Auto) 0.4 Eos # (Auto) 0.0 Baso # (Auto) 0.1 Total Counted 100 Neutrophils % (Manual) 85 H Lymphocytes % (Manual) 10 Monocytes % (Manual) 5 Platelet Estimate Normal RBC Morphology Normal ESR 38 H Sodium 144 Potassium 2.6 L* Chloride 96 L Carbon Dioxide 39 H Anion Gap 11.6 BUN 14 Creatinine 0.70 Estimated Creat Clear 20 Estimated GFR 80 Est GFR ( Amer) 97 Glucose 160 H Lactate Calcium 9.6 Magnesium 1.9 Total Bilirubin 0.6 AST 41 H ALT 20 Alkaline Phosphatase 111 Troponin I 0.04 H C-Reactive Protein 115.0 H Total Protein 8.2 Albumin 4.3 Globulin 3.9 H Albumin/Globulin Ratio 1.1 Procalcitonin 1.12 Urine Color Urine Appearance Urine pH Ur Specific [place] Urine Protein Urine Glucose (UA) Urine Ketones Urine Blood Urine Nitrate Urine Bilirubin Urine Urobilinogen Ur Leukocyte Esterase Urine RBC Urine WBC Ur Squamous Epith Cells Urine Bacteria SARS-CoV-2 (PCR) Not detected Influenza A Untype (PCR) Not detected Influenza Type B (PCR) Not detected 06/21/21 06/21/21 06/21/21 20:40 21:35 23:52 WBC RBC Hgb Hct MCV MCH MCHC RDW Plt Count MPV Neut % (Auto) Lymph % (Auto) [place] % (Auto) Eos % (Auto) Baso % (Auto) Neut # (Auto) Lymph # (Auto) [place] # (Auto) Eos # (Auto) Baso # (Auto) Total Counted Neutrophils % (Manual) Lymphocytes % (Manual) Monocytes % (Manual) Platelet Estimate RBC Morphology ESR Sodium Potassium Chloride Carbon Dioxide Anion Gap BUN Creatinine Estimated Creat Clear Estimated GFR Est GFR ( Amer) Glucose Lactate 2.2 H Calcium Magnesium Total Bilirubin AST ALT Alkaline Phosphatase Troponin I 0.04 H C-Reactive Protein Total Protein Albumin Globulin Albumin/Globulin Ratio Procalcitonin Urine Color Yellow Urine Appearance Clear Urine pH 6.0 Ur Specific [place] 1.015 Urine Protein Trace Urine Glucose (UA) Negative Urine Ketones Negative Urine Blood Trace-i Urine Nitrate Negative Urine Bilirubin Negative Urine Urobilinogen 0.2 Ur Leukocyte Esterase Trace Urine RBC 5-10 Urine WBC 20-50 Ur Squamous Epith Cells Occasional Urine Bacteria 1+ SARS-CoV-2 (PCR) Influenza A Untype (PCR) Influenza Type B (PCR) 06/22/21 06/22/21 06/22/21 01:35 02:53 06:37 WBC 11.3 H RBC 3.71 L Hgb 10.7 L D Hct 33.2 L MCV 89.4 MCH 28.8 MCHC 32.2 RDW 14.8 Plt Count 222 MPV 9.1 Neut % (Auto) 81.9 H Lymph % (Auto) 14.0 [place] % (Auto) 3.8 Eos % (Auto) 0.0 L Baso % (Auto) 0.3 Neut # (Auto) 9.2 H Lymph # (Auto) 1.6 [place] # (Auto) 0.4 Eos # (Auto) 0.0 Baso # (Auto) 0.0 Total Counted Neutrophils % (Manual) Lymphocytes % (Manual) Monocytes % (Manual) Platelet Estimate RBC Morpholo
--- NOTE | 2021-06-25 09:44 | P.PN_ITS ---
Internal Medicine - PN: Subj *Date: 06/25/21 *Time: 09:44 Exam Vital signs and Labs for Last 24 Hours: Temp Pulse Resp BP Pulse Ox 98.4 F 88 22 143/94 H 94 L 06/25/21 08:00 06/25/21 08:00 06/25/21 08:00 06/25/21 08:00 06/25/21 08:00 Laboratory Results - last 24 hr 06/25/21 07:13: WBC 7.0, RBC 3.88 L, Hgb 11.3 L D, Hct 35.0 L, MCV 90.2, MCH 28.9, MCHC 32.1, RDW 15.2, Plt Count 211, MPV 8.9, Neut % (Auto) 72.6, Lymph % (Auto) 23.1, [place] % (Auto) 3.7, Eos % (Auto) 0.2, Baso % (Auto) 0.5, Neut # (Auto) 5.1, Lymph # (Auto) 1.6, [place] # (Auto) 0.3, Eos # (Auto) 0.0, Baso # (Auto) 0.0 06/25/21 07:13: Sodium 140, Potassium 3.7, Chloride 98, Carbon Dioxide 37 H, Anion Gap 8.7, BUN 13, Creatinine 0.80 D, Estimated Creat Clear 21, Estimated GFR 69, Est GFR ( Amer) 83 D, Glucose 100, Calcium 8.4 I & O for Last 24 hours: Intake & Output 06/22/21 06/23/21 06/24/21 06/25/21 23:59 23:59 23:59 23:59 Intake Total 1530 / 1530 240 / 240 720 / 1265 1025 / 1025 Output Total 950 / 950 Balance 1530 / 1530 240 / 240 720 / 915 75 / 75 Weight 29 kg 30.844 kg 31.751 kg 31.751 kg Assessment and Plan (1) Severe protein-calorie malnutrition Status: Acute Category: Medical Code(s): E43 - Unspecified severe protein- calorie malnutrition (2) Hypokalemia Status: Acute Category: Medical Code(s): E87.6 - Hypokalemia (3) Kyphosis of thoracic region Status: Acute Qualifiers: Kyphosis type: unspecified Qualified Code(s): M40.204 - Unspecified kyphosis, thoracic region Category: Medical Code(s): M40.204 - Unspecified kyphosis, thoracic region (4) Low body mass index (BMI) Status: Acute Category: Medical (5) UTI (urinary tract infection) Status: Acute Qualifiers: Urinary tract infection type: site unspecified Hematuria presence: without hematuria Qualified Code(s): N39.0 - Urinary tract infection, site not specified Category: Medical Code(s): N39.0 - Urinary tract infection, site not specified (6) Severe aortic stenosis Status: Chronic Category: Medical Code(s): I35.0 - Nonrheumatic aortic (valve) stenosis (7) Back pain Status: Acute Qualifiers: Back pain location: thoracic back pain Chronicity: acute Back pain laterality: right Qualified Code(s): M54.6 - Pain in thoracic spine Category: Medical Code(s): M54.9 - Dorsalgia, unspecified (8) DDD (degenerative disc disease), cervical Status: Acute Category: Medical Code(s): M50.30 - Other cervical disc degeneration, unspecified cervical region (9) Dysphagia Status: Acute Qualifiers: Dysphagia type: unspecified Qualified Code(s): R13.10 - Dysphagia, unspecified Category: Medical Code(s): R13.10 - Dysphagia, unspecified (10) HTN (hypertension) Status: Chronic Qualifiers: Hypertension type: primary hypertension Qualified Code(s): I10 - Essential (primary) hypertension Category: Medical Code(s): I10 - Essential (primary) hypertension (11) Pneumonia Status: Acute Category: Medical Code(s): J18.9 - Pneumonia, unspecified organism The patient's infection will respond to the chosen ABx?: Yes (EMPIRIC THERAPY) Could a more targeted ABx be ordered?: No (SPUTUM CULTURES UNOTAINABLE) 10
--- NOTE | 2021-06-25 10:29 | HMH.OTEV ---
OT Inpatient Evaluation Rehab OT IP Evaluation Start: 06/25/21 08:50 Freq: ONCE Status: Complete Protocol: Document 06/25/21 10:17 [facility] (Rec: 06/25/21 10:29 [facility] [id number]) Rehab OT IP Assessment Subjective History Pt oriented x 2 on arrival. Pt agreeable to engage in therapy evaluation. Pt was admitted via ED on 06/21/21 due to SOB, back pain, cough, and weakness. Pt has a past medical history of Coronary Artery Disease, Cerebrovascular Accident, Gastroesophageal Reflux Disease(GERD), Heart Murmur, Hyperlipidemia, Hypertension, Valvular Heart Disease. Pt reports prior to being in the hospital she lived at home with her granddaughter. Pt claims she is able to complete dressing, feeding, and sponge bathing independently. She depends on her granddaughter to complete all cooking, cleaning, laundry, grocery shopping, etc. Normally she stays in a wheelchair and is able to do transfers using a rolling walker. She explains she does not walk long distances. She claims she has a family member with her at all times. Subjective They help me a lot. Pt completed bed mobility with sba and went from supine to sitting at eob. Pt stood from eob with cga. Pt was able to complete LB dressing with sba by donning and doffing her socks. Pt went from sitting at eob to supine with min assist with legs. Objective Patient Orientation Person,Birthday Upper Extremity Gross ROM Min Limitation <25% Shoulder ROM Limitations Muscle Weakness Elbow ROM Limitations Muscle Weakness Wrist Limitations of Range of Motion Muscle Weakness Bed Mobility bed mobility-scooting,bed mobility - supine/sit,bed
--- NOTE | 2021-06-25 10:35 | HMH.PTEV ---
Physical Therapy Evaluation Rehab PT IP Evaluation Start: 06/25/21 08:50 Freq: ONCE Status: Active Protocol: Document 06/25/21 10:31 [facility]IN[facility] (Rec: 06/25/21 10:35 [facility] [id number]) Subjective/History History History 81 yowf adm to [facility] with UTI. She reports she lives with family, no steps to enter the home and she uses a RW for ambulation at baseline. Subjective Subjective Pt c/o feeling tired, but agrees to treatment. Rehab PT IP Eval Objective Appearance Patient Behavior Appropriate Patient Orientation Person,Birthday Difficulty following instructions none Speech Pattern Clear Ambulation Patient Able to Ambulate Yes Ambulation Observation IP General Gait Pattern Observation Shuffling Step Ambulation Distance (feet) 3 Ambulation Assistive Device Rolling Walker Ambulation Ability Contact Guard/Hand Hold Balance Ability to Arise Able, uses arms to help Sitting Balance Steady, safe Standing Balance Steady, wide stance Dynamic Sitting Balance Ability Good Dynamic Standing Balance Ability Fair Transfers Bed Transfer Ability Contact Guard/Hand Hold Chair Transfer Ability Contact Guard/Hand Hold Sit to Stand Bed Transfer Ability Contact Guard/Hand Hold Sit to Stand Chair Transfer Ability Contact Guard/Hand Hold Rehab PT IP prob,goals,plan Problems Date of Evaluation: 06/25/21 Discharge Plan PT Discharge Plan Pt appears to be at baseline for all mobility as is appropriate to return to prior living situation if family can provide 24 hr assist. G -code Required No Eval Complexity Eval Charge Codes 18097 - Moderate Complexity PHYSICIAN CERTIFICATION: I certify the specified therapy services for Jennifer Muro are required, authorized, and reviewed every 30 days.
--- NOTE | 2021-06-25 12:39 | PC.NURSE ---
Patient readu for discharge to home today with oxygen.
== END 2021-06-25 12:50 | disposition home or self-care (01) ==
LOC: ER 21:27 → 2ND 22:46
PROVIDERS: Nurse Practitioner Family; Admitting Provider Emergency Medicine; Emergency Provider Emergency Medicine; PCP Emergency Medicine; Visit Provider Emergency Medicine
DX: J18.9 Pneumonia, unspecified organism (principal); I35.0 Nonrheumatic aortic (valve) stenosis; N39.0 Urinary tract infection, site not specified; A41.9 Sepsis, unspecified organism; E87.6 Hypokalemia; E43 Unspecified severe protein-calorie malnutrition; Z20.822 Contact with and (suspected) exposure to COVID-19; Z68.1 Body mass index [BMI] 19.9 or less, adult; M50.30 Other cervical disc degeneration, unspecified cervical region; M40.204 Unspecified kyphosis, thoracic region; Z79.899 Other long term (current) drug therapy
CPT/HCPCS: G0378; 36415; 71045; 71046; 71250; 80048; 80053; 81001; 83605; 83735; 84145; 84484; 85007; 85025; 85651; 86140; 87040; 87086; 92610; 93005; 94640; 96365; 96366; 97162; 97166; 99285; C9803; U0003; U0005

== ENCOUNTER 2021-07-28 23:42 | Emergency (ER) | payer MEDICARE, MEDICAID, SELFPAY ==
[2021-07-28 23:45] VITALS: BP 165/110; PULSE 80; RESP 18; TEMP 37.1; O2SAT 94; BMI 18.1
--- NOTE | 2021-07-29 00:05 | XR_ITS ---
PROCEDURE INFORMATION: Exam: XR Chest Exam date and time: 07/29/2021 12:05 AM Age: 81 years old Clinical indication: Injury or trauma; Fall; Blunt trauma (contusions or hematomas); Injury date: 07/28/2021 TECHNIQUE: Imaging protocol: XR of the chest. Views: 4 or more views. Total images: 1 COMPARISON: CT CHEST WO CON 06/24/2021 2:26 PM FINDINGS: Lungs: Relative pulmonary hyperlucency suspicious for COPD/emphysematous changes. Question mild alveolar density in the right base which could represent atelectasis, pneumonia, or edema. Additional patchy mild involvement in the peripheral left mid lung. Pleural spaces: No gross pleural effusions. No pneumothorax. Heart/Mediastinum: Heart size normal. Bones/joints: Osteopenia. Severe rightward convexity thoracolumbar scoliosis again noted. Diffuse osteopenia. No acute fractures are identified radiographically. IMPRESSION: 1. No acute thoracic injuries are evident radiographically. 2. Severe rightward convexity thoracolumbar scoliosis and diffuse osteopenia. No definite acute fractures are identified. 3. Evidence of COPD. 4. Patchy alveolar opacities in the right perihilar/basilar region and peripheral left mid lung which could represent pneumonia or atelectasis.
--- NOTE | 2021-07-29 00:05 | CT_ITS ---
PROCEDURE INFORMATION: Exam: CT Head Without Contrast Exam date and time: 07/29/2021 12:05 AM Age: 81 years old Clinical indication: Injury or trauma; Fall; Blunt trauma (contusions or hematomas); Without loss of consciousness; Injury date: 07/28/2021 TECHNIQUE: Imaging protocol: Computed tomography of the head without contrast. Total images: 265 Radiation optimization: All CT scans at this facility use at least one of these dose optimization techniques: automated exposure control; mA and/or kV adjustment per patient size (includes targeted exams where dose is matched to clinical indication); or iterative reconstruction. COMPARISON: CT HEAD/BRAIN WO CON 03/23/2021 4:36 PM FINDINGS: Brain: Moderate generalized atrophy. Moderate bilateral white matter hypodensities which are nonspecific but most commonly associated with chronic microvascular ischemia in this age group. No extra-axial fluid collections. No evidence of acute intracranial hemorrhage. De La Vega-white differentiation is well maintained. No CT evidence of large territory acute or subacute intracranial ischemia/infarct. Chronic encephalomalacia in the bilateral high frontal SUNNY distributions consistent with chronic infarcts, unchanged. Small chronic lacunar infarct in the right posterior periventricular white matter. 4 mm chronic lacunar infarct in the left putamen. No intracranial mass lesions. No midline shift or herniation. Cerebral ventricles: Mild-moderate compensatory ventriculomegaly secondary to central atrophy. Paranasal sinuses: Visualized paranasal sinuses are clear. Mastoid air cells: Visualized mastoid air cells are clear. Mild sclerosis in the inferior mastoid distributions bilaterally suggesting chronic changes of prior mastoiditis. Orbital cavity: Visualized orbital contents demonstrate no acute abnormality. Chronic enophthalmos again noted. Vasculature: Moderate calcific atherosclerosis. Moderate vertebrobasilar dolichoectasia unchanged. No asymmetric vascular hyperdensities suggestive of thrombosis are identified. Bones/joints: The calvarium and visualized facial bones are intact. Hyperostosis frontalis interna incidentally noted. Soft tissues: The scalp and visualized soft tissues demonstrate no acute abnormality. Other findings: The IACs are grossly normal. The sella is grossly normal. IMPRESSION: 1. No acute intracranial process. No intracranial hemorrhage or mass effect. No significant change from 03/23/2021. 2. Atrophy and chronic microvascular changes consistent with age. 3. Chronic infarcts in the high bilateral frontal cortex near the midline involving the SUNNY distributions. 4. Moderate calcific atherosclerosis.
--- NOTE | 2021-07-29 00:05 | XR_ITS ---
PROCEDURE INFORMATION: Exam: XR Pelvis Exam date and time: 07/29/2021 12:05 AM Age: 81 years old Clinical indication: Injury or trauma; Fall; Blunt trauma (contusions or hematomas); Bilateral; Hip; Injury date: 07/28/2021 TECHNIQUE: Imaging protocol: XR pelvis. Views: 1 or 2 view. Total images: 2 COMPARISON: CT PELVIS WO CON 03/23/2021 4:45 PM FINDINGS: Tubes, catheters and devices: There are 3 cannulated screws fixating the left femoral neck without gross hardware complication or change, with evidence of remote prior subcapital left femoral neck fracture. Bones/joints: Osteopenia. No acute fractures are identified. Rightward convexity upper lumbar scoliotic curvature partially visualized. Chronic healed fractures of the right inferior pubic ramus and right parasymphyseal pubis again noted. Chronic compression fractures of L3-L5 unchanged. Soft tissues: Unremarkable. Vasculature: Moderate calcific atherosclerosis. IMPRESSION: 1. No acute fractures are identified. 2. Osteopenia with chronic fractures of L3-L5, the right inferior pubic ramus, the right parasymphyseal pubis, and the left femoral neck, with unchanged left femoral neck fixation screws.
--- NOTE | 2021-07-29 00:05 | CT_ITS ---
PROCEDURE INFORMATION: Exam: CT Cervical Spine Without Contrast Exam date and time: 07/29/2021 12:05 AM Age: 81 years old Clinical indication: Injury or trauma; Fall; Blunt trauma; Injury date: 07/28/2021 TECHNIQUE: Imaging protocol: Computed tomography images of the cervical spine without contrast. Total images: 517 Radiation optimization: All CT scans at this facility use at least one of these dose optimization techniques: automated exposure control; mA and/or kV adjustment per patient size (includes targeted exams where dose is matched to clinical indication); or iterative reconstruction. COMPARISON: CT CERVICAL SPINE WO CON 03/23/2021 4:41 PM FINDINGS: Bones/joints: Osteopenia. Craniocervical alignment is normal. The odontoid is intact. No acute fractures are identified. Chronic mild superior endplate compression deformity at C6, C7, T1, and T2 unchanged. Chronic moderate superior endplate compression deformity of T3 unchanged. Mild leftward convexity lower cervical scoliotic curvature with rightward convexity thoracic scoliosis again noted. Cervical alignment is otherwise normal. No blastic or lytic lesions. Discs/Spinal canal/Neural foramina: The occipital condyles are intact. Mild degenerative sclerosis and spurring at the atlantodens interval. No jumped or perched facets. Mild multilevel degenerative facet hypertrophic changes. Mild disc space narrowing and disc calcification C2-C3 and C3-C4. Additional mild disc calcification at the other cervical levels without significant narrowing. No compressive soft disc protrusion or extrusion is evident by CT. Posterior annular calcification and 2 mm disc bulge C3-C4 and C2-C3, and to a lesser degree at C4-C5 through C6-C7. No significant central canal stenosis. There is left foraminal stenosis which is moderate at C3-C4 and mild at C7-T1. Thyroid: The visualized thyroid gland is unremarkable. Lungs: Partially calcified pleural/parenchymal scarring in the pulmonary apices bilaterally which is unchanged. Bandlike fibrosis or atelectasis in the posterolateral right upper lobe unchanged. Vasculature: Moderate calcific atherosclerosis. Soft tissues: Paraspinous soft tissues are unremarkable without significant soft tissue swelling or soft tissue hematoma. IMPRESSION: 1. No evidence of acute fracture or acute traumatic subluxation. 2. Osteopenia and multiple chronic compression deformities detailed above, unchanged. 3. Mild degenerative disc and facet changes with moderate left foraminal stenosis C3-C4 and mild left foraminal stenosis C7-T1. 4. Additional nonemergent findings detailed above.
--- NOTE | 2021-07-29 00:12 | PC.NURSE ---
PATIENT BEING TRANSPORTED TO RADIOLOGY.
--- NOTE | 2021-07-29 00:14 | HMH.EDFALL ---
ED Disposition Clinical Impression: Low body mass index (BMI) Concussion without loss of consciousness Qualifiers: Encounter type: initial encounter Qualified Code(s): S06.0X0A - Concussion without loss of consciousness, initial encounter Contusion of hip Qualifiers: Encounter type: initial encounter Laterality: left Qualified Code(s): S70.02XA - Contusion of left hip, initial encounter Fall Qualifiers: Encounter type: initial encounter Qualified Code(s): W19.XXXA - Unspecified fall, initial encounter Disposition: Home, Self-Care Condition on Discharge: Good Instructions: How to Prevent Falls Additional Instructions: see pcp for follow up Referrals: Ishaan Isaac MD [Primary Care Provider] - - Critical Care Critical Care Time: No Attestation: On 07/28/21, the high probability of a clinically significant, sudden or life threatening deterioration of the following system(s) required my full and direct attention, intervention and personal management. The time I documented below is in addition to time spent performing reported procedures but includes the following listed in this critical care notation. Medical Decision Making - Medical Records Medical records reviewed: Yes: I reviewed the patient's medical records. - Mj Inquiry Pt receiving controlled substance: No Vital Signs: 07/28/21 23:45 07/29/21 01:01 Temperature 98.7 F Temperature Source Oral Pulse Rate 78 Pulse Rate [Right Radial] 80 Respiratory Rate 18 Blood Pressure 123/72 Blood Pressure [Right Arm] 165/110 H Blood Pressure Mean [Right Arm] 128 Blood Pressure Source Automatic Cuff Blood Pressure Source [Right Arm] Automatic Cuff Blood Pressure Position Supine Blood Pressure Position [Right Arm] Sitting 02 Sat by Pulse Oximetry 94 L 95 Oxygen Delivery Method Room Air Room Air - Lab Data Lab results reviewed: Yes: I reviewed the patient's lab results. - Radiology Data #1 Image(s): Chest, Pelvis Image Reviewed: Yes I have reviewed radiologist's interpretation Preliminary Findings: Abnormal, No Fracture Seen - CT Data CT Scan: Head, C-Spine Time Received: 01:[address] Reviewed: Yes: I have viewed the radiologist's interpretation Preliminary Findings: Abnormal, No Fracture Seen Medical Decision Narrative: stable exam and no fx - pt at baseline Fall HPI - General Chief Complaint: Fall Stated Complaint: AO 07/28/21 23:00 Injury back,butt,head Time Seen by Provider: 07/29/21 00:14 Mode of Arrival: Ambulatory Source of Information: Patient, Relative, Medical Record Limitations: No Limitations Description of Symptoms (Recalled from ER Triage Doc. by RN): Pt reports mechanical fall and now has c/o bilateral hip pain and hitting her head. Pt denies LOC and has no pbvious LAC or injuries. - History of Present Illness HPI Narrative: fell going to bathroom with head and pelvis injury w/o loc MD complaint: fall Onset (ago): hour(s) Fall from: walking Fall witnessed: yes, by family Place fall occurred: home Loss of consciousness: none Prolonged down time: no Context: tripped/slipped Location of injury: head, neck, pelvis Location of injury - extremities: Bilateral: thigh Severity: moderate Associated symptoms (after fall): denies - Related Data Home Medications Medication Instructions Recorded Confirmed Multivitamin [Multi-Vitamin Plain] 1 each PO DAILY 03/15/21 07/16/21 Potassium Chloride 15 ml PO DAILY 06/22/21 07/16/21 amlodipine 5 mg tablet 5 mg PO DAILY 07/16/21 07/16/21 lisinopril 2.5 mg tablet 2.5 mg PO DAILY 07/16/21 07/16/21 Previous Rx's Medication Instructions Recorded Metoprolol Succinate [Toprol XL 25 mg PO DAILY 30 Days #30 tab 06/25/21 25mg tablet] Allergies Allergy/AdvReac Type Severity Reaction Status Date / Time No Known Allergies Allergy Verified 07/16/21 10:06 [facility] History - Hepatitis A Screen Drug use history?: No High risk sexual behaviors?
--- NOTE | 2021-07-29 00:18 | PC.NURSE ---
PT TO CT AT THIS TIME
[2021-07-29 01:00] VITALS: BP 123/72; PULSE 72; O2SAT 95
[2021-07-29 01:01] VITALS: BP 123/72; PULSE 78; O2SAT 95
[2021-07-29 01:28] VITALS: BP 123/72; PULSE 80; RESP 17; TEMP 36.9; O2SAT 96
== END 2021-07-29 01:38 | disposition home or self-care (01) ==
PROVIDERS: Emergency Provider Emergency Medicine; PCP Emergency Medicine
DX: S06.0X0A Concussion without loss of consciousness, initial encounter (principal); S70.02XA Contusion of left hip, initial encounter; W01.0XXA Fall on same level from slipping, tripping and stumbling without subsequent striking against object, initial encounter; Y92.019 Unspecified place in single-family (private) house as the place of occurrence of the external cause; K21.9 Gastro-esophageal reflux disease without esophagitis; I10 Essential (primary) hypertension; E78.5 Hyperlipidemia, unspecified; I25.10 Atherosclerotic heart disease of native coronary artery without angina pectoris; Z86.73 Personal history of transient ischemic attack (TIA), and cerebral infarction without residual deficits
CPT/HCPCS: 70450; 71045; 72125; 72170; 99282

== ENCOUNTER 2021-08-04 22:36 | Observation (INO) | payer MEDICARE, MEDICAID, SELFPAY ==
[2021-08-04 22:38] VITALS: BP 153/93; PULSE 92; RESP 25; TEMP 36.4; O2SAT 98; BMI 16.1
--- NOTE | 2021-08-04 23:03 | XR_ITS ---
PROCEDURE INFORMATION: Exam: XR Pelvis Exam date and time: 08/04/2021 11:03 PM Age: 81 years old Clinical indication: Injury or trauma; Fall; Blunt trauma (contusions or hematomas); Left; Pelvic region; Injury date: 08/04/2021; Prior surgery; Surgery date: 6+ months; Surgery type: Pinning; Additional info: Fall, hip pain TECHNIQUE: Imaging protocol: XR pelvis. Views: 1 or 2 view. COMPARISON: CR XR PELVIS 1-2V 07/29/2021 12:21 AM FINDINGS: Bones/joints: Osteoporosis limits evaluation. Left hip pinning. Concern for bilateral nondisplaced pubic rami fractures. Consider pelvic CT. Soft tissues: Unremarkable. IMPRESSION: 1. Osteoporosis limits evaluation. 2. Left hip pinning. 3. Concern for bilateral nondisplaced pubic rami fractures. Consider pelvic CT.
--- NOTE | 2021-08-04 23:03 | XR_ITS ---
PROCEDURE INFORMATION: Exam: XR Chest Exam date and time: 08/04/2021 11:03 PM Age: 81 years old Clinical indication: Injury or trauma; Fall; Blunt trauma (contusions or hematomas); Injury date: 08/04/2021 TECHNIQUE: Imaging protocol: XR of the chest. Views: 1 view. COMPARISON: CR XR CHEST AP 07/29/2021 12:21 AM FINDINGS: Lungs: Unremarkable. No consolidation. Pleural spaces: Unremarkable. No pleural effusion. No pneumothorax. Heart/Mediastinum: Unremarkable. No cardiomegaly. Bones/joints: Severe dextroscoliosis in the T-spine. Osteoporosis. IMPRESSION: Severe dextroscoliosis with osteoporosis. No significant change since comparison.
--- NOTE | 2021-08-04 23:03 | CT_ITS ---
PROCEDURE INFORMATION: Exam: CT Cervical Spine Without Contrast Exam date and time: 08/04/2021 11:03 PM Age: 81 years old Clinical indication: Injury or trauma; Fall; Blunt trauma; Injury date: 08/04/2021; Additional info: Trauma >83 TECHNIQUE: Imaging protocol: Computed tomography images of the cervical spine without contrast. Radiation optimization: All CT scans at this facility use at least one of these dose optimization techniques: automated exposure control; mA and/or kV adjustment per patient size (includes targeted exams where dose is matched to clinical indication); or iterative reconstruction. COMPARISON: CT CERVICAL SPINE WO CON 07/29/2021 12:17 AM FINDINGS: Bones/joints: No acute fracture. Normal alignment. Discs/Spinal canal/Neural foramina: Moderate loss of intervertebral disc space with degenerative changes at C2 through C4 resulting in moderate bilateral neural foraminal stenosis at these levels. Lungs: Lung apices are normal. Soft tissues: Unremarkable. IMPRESSION: No acute findings.
--- NOTE | 2021-08-04 23:03 | CT_ITS ---
PROCEDURE INFORMATION: Exam: CT Head Without Contrast Exam date and time: 08/04/2021 11:03 PM Age: 81 years old Clinical indication: Injury or trauma; Fall; Blunt trauma (contusions or hematomas); Without loss of consciousness; Injury date: 08/04/2021; Additional info: Trauma >83 TECHNIQUE: Imaging protocol: Computed tomography of the head without contrast. Radiation optimization: All CT scans at this facility use at least one of these dose optimization techniques: automated exposure control; mA and/or kV adjustment per patient size (includes targeted exams where dose is matched to clinical indication); or iterative reconstruction. COMPARISON: CT HEAD/BRAIN WO CON 07/29/2021 12:15 AM FINDINGS: Brain: Left frontal lobe encephalomalacia unchanged. There is moderate diffuse cerebral volume loss present. Multiple subcortical and deep hypoattenuating white matter foci are present, likely related to small vessel senescent changes and can also be seen with prior infectious / inflammatory insult, or prior traumatic events. No hyperattenuating foci are identified to suggest acute intracranial hemorrhage. Cerebral ventricles: No ventriculomegaly. Paranasal sinuses: Visualized sinuses are unremarkable. No fluid levels. Mastoid air cells: Visualized mastoid air cells are well aerated. Bones/joints: Unremarkable. No acute fracture. Soft tissues: Unremarkable. IMPRESSION: 1. Multiple subcortical and deep hypoattenuating white matter foci are present, likely related to small vessel senescent changes and can also be seen with prior infectious / inflammatory insult, or prior traumatic events. 2. No hyperattenuating foci are identified to suggest acute intracranial hemorrhage.
--- NOTE | 2021-08-04 23:12 | HMH.EDGENADL ---
ED Disposition Clinical Impression: Pubic ramus fracture Qualifiers: Encounter type: initial encounter Fracture type: closed Laterality: left Qualified Code(s): S32.592A - Other specified fracture of left pubis, initial encounter for closed fracture UTI (urinary tract infection) Qualifiers: Urinary tract infection type: acute cystitis Hematuria presence: without hematuria Qualified Code(s): N30.00 - Acute cystitis without hematuria Disposition: Admitted As Inpatient Condition on Discharge: Fair - Critical Care Critical Care Time: No Attestation: On 08/04/21, the high probability of a clinically significant, sudden or life threatening deterioration of the following system(s) required my full and direct attention, intervention and personal management. The time I documented below is in addition to time spent performing reported procedures but includes the following listed in this critical care notation. Medical Decision Making - Medical Records Medical records reviewed: Yes: I reviewed the patient's medical records. - Mj Inquiry Pt receiving controlled substance: No Vital Signs: 08/04/21 22:38 08/05/21 00:30 Temperature 97.6 F Temperature Source Oral Pulse Rate 84 Pulse Rate [Apical] 92 H Respiratory Rate 25 H 21 Blood Pressure 146/89 H Blood Pressure [Right Arm] 153/93 H Blood Pressure Mean [Right Arm] 113 Blood Pressure Source [Right Arm] Automatic Cuff Blood Pressure Position [Right Arm] Sitting 02 Sat by Pulse Oximetry 98 93 L Oxygen Delivery Method Room Air Room Air - Lab Data Lab Results 08/04/21 23:16: WBC 8.6, RBC 4.14 L, Hgb 11.8 L, Hct 39.6, MCV 95.8, MCH 28.6, MCHC 29.9 L, RDW 17.9 H, Plt Count 165, MPV 9.8, Neut % (Auto) 85.8 H, Lymph % (Auto) 9.0 L, [place] % (Auto) 3.3, Eos % (Auto) 1.2, Baso % (Auto) 0.7, Neut # (Auto) 7.4, Lymph # (Auto) 0.8, [place] # (Auto) 0.3, Eos # (Auto) 0.1, Baso # (Auto) 0.1, Total Counted 100, Neutrophils % (Manual) 86 H, Lymphocytes % (Manual) 10, Monocytes % (Manual) 3, Eosinophils % (Manual) 1, Platelet Estimate Normal, Devendra Cells 1+, Acanthocytes (Spur) 1+, Schistocytes 1+ 08/04/21 23:16: Sodium 146 H, Potassium 3.4 L, Chloride 110 H, Carbon Dioxide 27, Anion Gap 12.4, BUN 20 H, Creatinine 0.80, Estimated Creat Clear 24, Estimated GFR 69, Est GFR ( Amer) 83, Glucose 114 H, Calcium 9.6, Total Bilirubin 1.0, AST 33, ALT 25, Alkaline Phosphatase 95, Total Protein 7.3, Albumin 3.8, Globulin 3.5 H, Albumin/Globulin Ratio 1.1 08/05/21 00:50: Urine Color Yellow, Urine Appearance Sl cloudy, Urine pH 5.5, Ur Specific [place] 1.025, Urine Protein 1+, Urine Glucose (UA) Negative, Urine Ketones Negative, Urine Blood Trace-l, Urine Nitrate Negative, Urine Bilirubin Negative, Urine Urobilinogen 0.2, Ur Leukocyte Esterase Negative, Urine RBC Occasional, Urine WBC 10-20, Ur Squamous Epith Cells 3-5, Urine Bacteria 1+ Result diagrams: 08/04/21 23:16 08/04/21 23:16 Orders (Tests/Meds): ED MEDICATIONS Generic Name Dose Route Start Last Admin Trade Name Freq PRN Reason Stop Dose Admin Ceftriaxone Sodium 1 gm/ 50 mls @ 100 mls/hr 08/05/21 02:15 Sodium Chloride IV 08/19/21 02:14 Q24H PRISCILLA Discontinued Medications Generic Name Dose Route Start Last Admin Trade Name Freq PRN Reason Stop Dose Admin Morphine Sulfate 3 mg 08/04/21 23:08 08/04/21 23:58 Morphine 2mg/Ml Syringe IV 08/04/21 23:09 3 mg ONCE ONE Administration Morphine Sulfate 2 mg 08/05/21 02:19 Morphine 2mg/Ml Syringe IM 08/05/21 02:20 ONCE ONE ORDERS Category Date Time Status Urine Culture Stat Micro 08/05/21 00:50 Received Medical Decision Narrative: Patient is an 81-year-old female presenting to the emergency department with chief complaint of fall. Diagnosis in this patient includes intracranial bleeding, pelvic fracture, rib fracture, urinary tract infection among others. Given this plan to order CBC, CMP, chest x-ray, CT head CT C-spine, pelvic x-
[2021-08-04 23:24] LABS: Basophils # 0.1 K/mm3 (0-0.2); Basophils % 0.7 % (0.1-2.0); Eosinophils # 0.1 K/mm3 (0.0-0.4); Eosinophils % 1.2 % (0.1-12.0); Hematocrit 39.6 % (37.0-47.0); Hemoglobin 11.8 g/dL (12.2-16.2); Lymphocytes # 0.8 K/mm3 (0.7-4.5); Mean Corpuscular HGB Conc 29.9 g/dL (31.8-35.4); Mean Corpuscular Hemoglobin 28.6 pg (27.0-31.2); Mean Corpuscular Volume 95.8 fl (81-99); Mean Platelet Volume 9.8 fl (7.4-10.4); Monocytes # 0.3 K/mm3 (0.1-1.0); Monocytes % 3.3 % (1.7-9.3); Neutrophils # 7.4 K/mm3 (1.8-7.8); Neutrophils % 85.8 % (37.0-80.0); Platelet Count 165 K/mm3 (142-424); Red Blood Count 4.14 M/mm3 (4.20-5.40); Red Cell Distribution Width 17.9 % (11.5-17.5); White Blood Count 8.6 K/mm3 (4.8-10.8)
[2021-08-04 23:25] LABS: Chloride 110 mmol/L (98-107)
[2021-08-04 23:26] LABS: Potassium 3.4 mmoL/L (3.5-5.1); Sodium 146 mmol/L (136-145)
[2021-08-04 23:28] LABS: Blood Urea Nitrogen 20 mg/dl (7-17); Creatinine Clearance Estimated 24 mL/min (50-200); Estimated Glomerular Filt Rate 69 ml/min (>60); GFR (African American) 83 ML/MIN (>60)
[2021-08-04 23:29] LABS: Alanine Aminotransferase 25 U/L (12-78); Albumin Level 3.8 g/dl (3.5-5.0); Albumin/Globulin Ratio 1.1 (1.1-1.8); Alkaline Phosphatase 95 U/L (38-126); Anion Gap 12.4 mEq/L (5-15); Aspartate Amino Transferase 33 U/L (14-36); Calcium 9.6 mg/dl (8.4-10.2); Carbon Dioxide 27 mmol/L (22.0-30.0); Globulin 3.5 g/dL (1.3-3.2); Glucose 114 mg/dl (74-100); Total Protein,Serum 7.3 g/dl (6.3-8.2)
[2021-08-04 23:32] LABS: MANUAL DIFFERENTIAL MANUAL DIFFERENTIAL (MANUAL DIFF)
[2021-08-04 23:50] LABS: Eosinophils % 1 % (0-3); Lymphocytes % 10 % (10-50); Monocytes % 3 % (2-9); Neutrophils % 86 % (42-76); Total Cells Counted 100
[2021-08-04 23:51] LABS: Burr Cells 1+; Platelet Estimate Normal; Schistocytes 1+
[2021-08-04 23:52] LABS: Acanthocytes 1+
[2021-08-05] VITALS (7 sets, daily range): BP systolic 146–169; BP diastolic 80–112; PULSE 80–96; RESP 16–21; TEMP 36.4–36.7; O2SAT 93–99; BMI 13.0
--- NOTE | 2021-08-05 00:05 | CT_ITS ---
PROCEDURE INFORMATION: Exam: CT Pelvis Without Contrast; Skeletal Exam date and time: 08/05/2021 12:05 AM Age: 81 years old Clinical indication: Injury or trauma; Fall; Blunt trauma (contusions or hematomas); Left; Injury date: 08/04/2021; Prior surgery; Surgery date: 6+ months; Surgery type: Lt hip pinning; Additional info: Fracture TECHNIQUE: Imaging protocol: Computed tomography images of the pelvis without contrast. Exam focused on the skeletal structures. Radiation optimization: All CT scans at this facility use at least one of these dose optimization techniques: automated exposure control; mA and/or kV adjustment per patient size (includes targeted exams where dose is matched to clinical indication); or iterative reconstruction. COMPARISON: CT PELVIS WO CON 03/23/2021 4:45 PM FINDINGS: Bladder: Irizarry catheter terminates within the bladder. Bones/joints: Postsurgical changes to the left femoral neck with [address]. Minimally displaced fractures involving the left superior and inferior pubic rami. Nondisplaced fracture of the left ala of S1. Healed fracture of the right inferior pubic ramus. Soft tissues: Unremarkable. IMPRESSION: 1. Minimally displaced fractures involving the left superior and inferior pubic rami. 2. Nondisplaced fracture of the left ala of S1.
[2021-08-05 00:59] LABS: Microscopic, Urine URINE MICROSCOPIC (MICROSCOPIC)
[2021-08-05 01:01] LABS: Appearance,Urine SL CLOUDY (Clear); Bilirubin,Urine Negative (Negative); Blood, Urine TRACE-L (Negative); Color,Urine YELLOW (Yellow); Glucose,Urine (UA) Negative (Negative); Ketones,Urine Negative (Negative); Leukocyte Esterase,Urine Negative (Negative); Nitrate,Urine Negative (Negative); PH,Urine 5.5 (5.0-8.5); Protein,Urine 1+ (Negative); Specific Gravity, Urine 1.025 (1.005-1.030); Urobilinogen,Urine 0.2 EU/dl (0.2)
[2021-08-05 01:13] LABS: Bacteria,Urine 1+ /lpf; RBC,Urine Occasional #/hpf (0-3)
[2021-08-05 02:51] LABS: Coronavirus 19, PCR Not Detected (NotDetected); Influenza A, PCR Not Detected (NotDetected); Influenza B, PCR Not Detected (NotDetected)
--- NOTE | 2021-08-05 04:03 | PC.NURSE ---
patient up to floor @ this time Via stretcher.
[2021-08-05 06:39] LABS: Blood Urea Nitrogen 19 mg/dl (7-17); Calcium 9.1 mg/dl (8.4-10.2); Carbon Dioxide 30 mmol/L (22.0-30.0); Chloride 109 mmol/L (98-107); Creatinine Clearance Estimated 20 mL/min (50-200); Estimated Glomerular Filt Rate 69 ml/min (>60); GFR (African American) 83 ML/MIN (>60); Glucose 90 mg/dl (74-100); Magnesium 1.9 mg/dl (1.6-2.3); Sodium 144 mmol/L (136-145)
[2021-08-05 06:42] LABS: INR 0.96 (0.9-1.1); Prothrombin Time 10.9 seconds (10.1-12.5)
--- NOTE | 2021-08-05 07:27 | PC.NURSE ---
notified MD Ann esposito of pt's critical potassium of 3.0, ordered 2 runs of 20mEq potassium IV, will send to night watch and alert day rn of new order
--- NOTE | 2021-08-05 07:39 | PC.NURSE ---
Dr. Guerin notified of consult on pt.
--- NOTE | 2021-08-05 08:10 | HMH.PHAVTE ---
[facility] Pharmacy VTE Monitoring - Patient Demographics Admission date: 08/04/21 Report Date: 08/05/21 Time: 08:10 Allergies/Adverse Reactions: Patient Allergies No Known Allergies Allergy (Verified 07/16/21 10:06) Height: 1.5 m Weight: 29.302 kg Patient Problems: Current Active Problems Pubic ramus fracture (Acute) UTI (urinary tract infection) (Acute) - VTE Risk Labs: VTE Related Lab Results Hgb 11.8 g/dL (12.2-16.2) L 08/04/21 23:16 Hct 39.6 % (37.0-47.0) 08/04/21 23:16 Plt Count 165 K/mm3 (142-424) 08/04/21 23:16 PT 10.9 seconds (10.1-12.5) 08/05/21 05:44 INR 0.96 (0.9-1.1) 08/05/21 05:44 BUN 19 mg/dl (7-17) H 08/05/21 05:44 Creatinine 0.80 mg/dl (0.52-1.04) 08/05/21 05:44 Estimated Creat Clear 20 mL/min (50-200) 08/05/21 05:44 Was VTE Risk Assessment Performed: Yes VTE Score: 9 VTE Risk Level: Moderate Risk - Prophylaxis VTE Prophylaxis Ordered?: Yes Types of VTE Prophylaxis: TEDS Knee High Location of Applied Device: Bilateral Lower Extremeties
--- NOTE | 2021-08-05 08:10 | HMH.PHAINT ---
MEDICATION RECONCILIATION COMPLETED ON PATIENT USING EXTERNAL FILL HISTORY FROM PHARMACY AND LIST FROM PCP OFFICE. -IRMA MCCURDYD
--- NOTE | 2021-08-05 08:15 | PC.NURSE ---
Pt new admit during my shift for UTI and pelvic fracture. Pt is non-weight bearing, ortho consult ordered. Pt is voiding per andres cath. IV infusing per order. No c/o at this time. call light in reach.
--- NOTE | 2021-08-05 12:51 | HMH.ORTHOCON ---
*Admission Date: 08/04/21 *Reason for consult:: Pelvic ring injury *History of present illness: 81-year-old female, poor historian, was admitted after a fall yesterday. X-ray and CT scan demonstrated left-sided superior and inferior pubic ramus fracture, nondisplaced sacral ala fracture. Ice consulted regarding these findings. [facility] History Medical History: Reports:: Coronary Artery Disease, Cerebrovascular Accident, Gastroesophageal Reflux Disease(GERD), Heart Murmur (aortic stenosis), Hyperlipidemia, Hypertension, Myocardial Infarction, Valvular Heart Disease (mitral valve regurgitation) Denies:: Cancer (per patient), Diabetes Mellitus Type 1, Diabetes Mellitus Type 2, Internal Pacemaker, MRSA, Seizures *Have you ever received a pneumonia vaccine?: No (per patient) *Have you received a flu vaccine this season?: Yes Other Medical History: Reports: Anemia, Arthritis, Cataracts Laterality Cases: Left: Arthroscopy Hip, Bilateral: Breast Biopsy, Mastectomy Other Surgeries: Yes: Colonoscopy, Tubal Ligation, Other. No: Pacemaker Amputation: No Fractures: Yes (left hip and ribs) - *Social History Smoking Status: Never smoker Alcohol Intake: never Substance Use Type: denies use *Occupational Status:: retired Housing: house Household Members: family *Travel in the last 8 weeks: None Family Hx:: Unable to obtain Review of Systems - *Neurologic Reports confusion, Reports unsteadiness, Reports frequent falls, Reports weakness, Denies fainting Meds Home Medications Medication Instructions Recorded Confirmed Type Multivitamin [Multi-Vitamin Plain] 1 each PO DAILY 03/15/21 08/05/21 History Potassium Chloride 15 ml PO DAILY 06/22/21 08/05/21 History amlodipine 5 mg tablet 5 mg PO DAILY 07/16/21 08/05/21 History lisinopril 2.5 mg tablet 2.5 mg PO DAILY 07/16/21 08/05/21 History Metoprolol Succinate [Toprol XL 25 mg PO DAILY 08/05/21 08/05/21 History 25mg tablet] Allergies Allergy/AdvReac Type Severity Reaction Status Date / Time No Known Allergies Allergy Verified 07/16/21 10:06 Exam Vital signs and Labs for Last 24 Hours: Temp Pulse Resp BP Pulse Ox 97.6 F 83 16 151/80 H 95 08/05/21 08:00 08/05/21 08:00 08/05/21 08:00 08/05/21 08:00 08/05/21 08:00 Laboratory Results - last 24 hr 08/04/21 23:16: WBC 8.6, RBC 4.14 L, Hgb 11.8 L, Hct 39.6, MCV 95.8, MCH 28.6, MCHC 29.9 L, RDW 17.9 H, Plt Count 165, MPV 9.8, Neut % (Auto) 85.8 H, Lymph % (Auto) 9.0 L, [place] % (Auto) 3.3, Eos % (Auto) 1.2, Baso % (Auto) 0.7, Neut # (Auto) 7.4, Lymph # (Auto) 0.8, [place] # (Auto) 0.3, Eos # (Auto) 0.1, Baso # (Auto) 0.1, Total Counted 100, Neutrophils % (Manual) 86 H, Lymphocytes % (Manual) 10, Monocytes % (Manual) 3, Eosinophils % (Manual) 1, Platelet Estimate Normal, [place] Cells 1+, Acanthocytes (Spur) 1+, Schistocytes 1+ 08/04/21 23:16: Sodium 146 H, Potassium 3.4 L, Chloride 110 H, Carbon Dioxide 27, Anion Gap 12.4, BUN 20 H, Creatinine 0.80, Estimated Creat Clear 24, Estimated GFR 69, Est GFR ( Amer) 83, Glucose 114 H, Calcium 9.6, Total Bilirubin 1.0, AST 33, ALT 25, Alkaline Phosphatase 95, Total Protein 7.3, Albumin 3.8, Globulin 3.5 H, Albumin/Globulin Ratio 1.1 08/05/21 00:50: Urine Color Yellow, Urine Appearance Sl cloudy, Urine pH 5.5, Ur Specific [place] 1.025, Urine Protein 1+, Urine Glucose (UA) Negative, Urine Ketones Negative, Urine Blood Trace-l, Urine Nitrate Negative, Urine Bilirubin Negative, Urine Urobilinogen 0.2, Ur Leukocyte Esterase Negative, Urine RBC Occasional, Urine WBC 10-20, Ur Squamous Epith Cells 3-5, Urine Bacteria 1+ 08/05/21 02:42: SARS-CoV-2 (PCR) Not detected, Influenza A Untype (PCR) Not detected, Influenza Type B (PCR) Not detected 08/05/21 05:44: PT 10.9, INR 0.96 08/05/21 05:44: Sodium 144, Potassium 3.0 L, Chloride 109 H, Carbon Dioxide 30, Anion Gap 8.0, BUN 19 H, Creatinine 0.80, Estimated Creat Clear 20, Estimated GFR 69, Est GFR ( Amer) 83, Glucose 90 D, Calcium 9.1, Magnesium 1.
--- NOTE | 2021-08-05 14:12 | HMH.HP ---
*Admission Date: 08/04/21 *Chief complaint: uti and pelvic fracture *History of present illness: Patient is an 81-year-old female presenting to the emergency department with chief complaint of left hip pain. Patient is accompanied by her grandson who states that she was going to sit down on the toilet when she fell very hard and had the back of her head possibly against a cabinet. Denies any loss of consciousness and when grandson came in the room she was sitting on the toilet. Since then she has been complaining of hip pain. Patient also states that she has been a little bit confused off and on over the past week, he does believe that she has and has some bouts of confusion off and on she seemed a little worse most recently. He states that when she has been worse prior symptoms she had a UTI. Patient's only complaint is left hip pain. Grandson states that he is caring for her at home with his , that she sees PT OT however she does not want to participate and will generally only participate for a few minutes at a time. He is comfortable continuing to care for her at home and is awaiting a support for the bathroom to help her with sitting down on the toilet. Workup included imaging studies CT CERVICAL SPINE WO CON 07/29/2021 12:17 AM FINDINGS: Bones/joints: No acute fracture. Normal alignment. Discs/Spinal canal/Neural foramina: Moderate loss of intervertebral disc space with degenerative changes at C2 through C4 resulting in moderate bilateral neural foraminal stenosis at these levels. Lungs: Lung apices are normal. Soft tissues: Unremarkable. IMPRESSION: No acute findings. CR XR CHEST AP 07/29/2021 12:21 AM FINDINGS: Lungs: Unremarkable. No consolidation. Pleural spaces: Unremarkable. No pleural effusion. No pneumothorax. Heart/Mediastinum: Unremarkable. No cardiomegaly. Bones/joints: Severe dextroscoliosis in the T-spine. Osteoporosis. IMPRESSION: Severe dextroscoliosis with osteoporosis. No significant change since comparison. CT HEAD/BRAIN WO CON 07/29/2021 12:15 AM FINDINGS: Brain: Left frontal lobe encephalomalacia unchanged. There is moderate diffuse cerebral volume loss present. Multiple subcortical and deep hypoattenuating white matter foci are present, likely related to small vessel senescent changes and can also be seen with prior infectious / inflammatory insult, or prior traumatic events. No hyperattenuating foci are identified to suggest acute intracranial hemorrhage. Cerebral ventricles: No ventriculomegaly. Paranasal sinuses: Visualized sinuses are unremarkable. No fluid levels. Mastoid air cells: Visualized mastoid air cells are well aerated. Bones/joints: Unremarkable. No acute fracture. Soft tissues: Unremarkable. IMPRESSION: 1. Multiple subcortical and deep hypoattenuating white matter foci are present, likely related to small vessel senescent changes and can also be seen with prior infectious / inflammatory insult, or prior traumatic events. 2. No hyperattenuating foci are identified to suggest acute intracranial hemorrhage. COMPARISON: CT PELVIS WO CON 03/23/2021 4:45 PM FINDINGS: Bladder: Irizarry catheter terminates within the bladder. Bones/joints: Postsurgical changes to the left femoral neck with [address]. Minimally displaced fractures involving the left superior and inferior pubic rami. Nondisplaced fracture of the left ala of S1. Healed fracture of the right inferior pubic ramus. Soft tissues: Unremarkable. IMPRESSION: 1. Minimally displaced fractures involving the left superior and inferior pubic rami. 2. Nondisplaced fracture of the left ala of S1. UA showed 10-20 wbc's UC pending Very prominent murmur evident, along w/history of valvular stenosis. I spoke with Dr Guerin about the pelvic fracture. No operative interventions planned but he thinks prudent to use lovenox
[2021-08-06 01:45] LABS: Adenovirus F 40/41, stool Not Detected (NotDetected); Astrovirus Not Detected (NotDetected); Campylobacter Not Detected (NotDetected); Cryptosporidium Not Detected (NotDetected); Cyclospora Cayetanesis Not Detected (NotDetected); Entamoeba histolytica Not Detected (NotDetected); Enteroaggregative E coli Not Detected (NotDetected); Enteropathogenic E coli Not Detected (NotDetected); Enterotoxigenic E coli Not Detected (NotDetected); Giardia lamblia Not Detected (NotDetected); Norovirus Not Detected (NotDetected); Plesimonas Shigalloides, PCR Not Detected (NotDetected); Rotavirus A Not Detected (NotDetected); Salmonella, PCR Not Detected (NotDetected); Sapovirus Not Detected (NotDetected); Shiga-like toxin E coli Not Detected (NotDetected); Shigella Enterovasive E coli Not Detected (NotDetected); Vibrio Cholerae Not Detected (NotDetected); Vibrio, PCR Not Detected (NotDetected); Yersinia Entercolitica, PCR Not Detected (NotDetected)
[2021-08-06 03:52] LABS: Clostridium Difficile A/B, PCR Detected (NotDetected)
--- NOTE | 2021-08-06 03:54 | PC.NURSE ---
At [id number] Emmanuel from lab called with a diarrhea panel result of C. Diff Name, , and result verified x2 preparation room manager paged at [phone]
[2021-08-06 05:00] VITALS: BMI 13.0
[2021-08-06 08:00] VITALS: BP 162/104; PULSE 100; RESP 18; TEMP 38.5; O2SAT 95
[2021-08-06 08:07] LABS: Basophils % 0.3 % (0.1-2.0); Eosinophils # 0.1 K/mm3 (0.0-0.4); Eosinophils % 0.5 % (0.1-12.0); Hemoglobin 11.7 g/dL (12.2-16.2); Lymphocytes # 1.1 K/mm3 (0.7-4.5); Lymphocytes % 9.2 % (10-50); Mean Corpuscular HGB Conc 30.8 g/dL (31.8-35.4); Mean Corpuscular Hemoglobin 29.1 pg (27.0-31.2); Mean Corpuscular Volume 94.3 fl (81-99); Mean Platelet Volume 9.4 fl (7.4-10.4); Monocytes # 0.3 K/mm3 (0.1-1.0); Monocytes % 2.4 % (1.7-9.3); Neutrophils # 10.8 K/mm3 (1.8-7.8); Neutrophils % 87.6 % (37.0-80.0); Platelet Count 162 K/mm3 (142-424); Red Blood Count 4.03 M/mm3 (4.20-5.40); Red Cell Distribution Width 18.1 % (11.5-17.5); White Blood Count 12.3 K/mm3 (4.8-10.8)
[2021-08-06 08:11] LABS: MANUAL DIFFERENTIAL MANUAL DIFFERENTIAL (MANUAL DIFF)
[2021-08-06 08:17] LABS: Alanine Aminotransferase 14 U/L (12-78); Albumin Level 3.2 g/dl (3.5-5.0); Albumin/Globulin Ratio 0.9 (1.1-1.8); Alkaline Phosphatase 100 U/L (38-126); Anion Gap 6.5 mEq/L (5-15); Aspartate Amino Transferase 24 U/L (14-36); Bilirubin,Total 0.7 mg/dl (0.2-1.3); Blood Urea Nitrogen 12 mg/dl (7-17); Calcium 8.9 mg/dl (8.4-10.2); Carbon Dioxide 30 mmol/L (22.0-30.0); Chloride 107 mmol/L (98-107); Creatinine Clearance Estimated 20 mL/min (50-200); Estimated Glomerular Filt Rate 95 ml/min (>60); GFR (African American) 116 ML/MIN (>60); Globulin 3.4 g/dL (1.3-3.2); Glucose 98 mg/dl (74-100); Potassium 3.5 mmoL/L (3.5-5.1); Sodium 140 mmol/L (136-145); Total Protein,Serum 6.6 g/dl (6.3-8.2)
--- NOTE | 2021-08-06 09:38 | HMH.ACPN2 ---
Internal Medicine - PN: Subj *Date: 08/06/21 *Time: 08:30 Interval history: pt laying in bed denies pain states she is cold Exam Vital signs and Labs for Last 24 Hours: Temp Pulse Resp BP Pulse Ox 98.1 F 88 16 161/95 H 94 L 08/05/21 20:00 08/05/21 20:00 08/05/21 20:00 08/05/21 20:00 08/05/21 20:00 Laboratory Results - last 24 hr 08/06/21 01:26: Stl Aeromonas (PCR) Not detected, Stl C. cayetanensis PCR Not detected, Stool Rotavirus (PCR) Not detected, Stl Adenov F 40/41 PCR Not detected, Stool Astrovirus (PCR) Not detected, Stool Campylobacter PCR Not detected, Stl C.difficile Tox PCR Detected A, Stool Cryptosporidium PCR Not detected, Stl E.coli Shiga Tox PCR Not detected, Stool E coli O157 PCR Not detected, Stl Enterotoxigenic E PCR Not detected, Stool EPEC (PCR) Not detected, Stool EAEC (PCR) Not detected, Stl E. histolytica PCR Not detected, Stool Giardia Lamblia PCR Not detected, Stool Salmonella PCR Not detected, Stool Sapovirus (PCR) Not detected, Stl P. shigelloides PCR Not detected, Stl Shigella/EIEC PCR Not detected, St Y.enterocolitica PCR Not detected, Stool Vibrio (PCR) Not detected, Stl Vibrio cholerae PCR Not detected, Stl Norovirus GI/GII PCR Not detected 08/06/21 07:55: WBC 12.3 H D, RBC 4.03 L, Hgb 11.7 L, Hct 38.0, MCV 94.3, MCH 29.1, MCHC 30.8 L, RDW 18.1 H, Plt Count 162, MPV 9.4, Neut % (Auto) 87.6 H, Lymph % (Auto) 9.2 L, [place] % (Auto) 2.4, Eos % (Auto) 0.5, Baso % (Auto) 0.3, Neut # (Auto) 10.8 H, Lymph # (Auto) 1.1, [place] # (Auto) 0.3, Eos # (Auto) 0.1, Baso # (Auto) 0.0 08/06/21 07:55: Sodium 140, Potassium 3.5, Chloride 107, Carbon Dioxide 30, Anion Gap 6.5, BUN 12 D, Creatinine 0.60 D, Estimated Creat Clear 20, Estimated GFR 95, Est GFR ( Amer) 116 D, Glucose 98, Calcium 8.9, Total Bilirubin 0.7, AST 24 D, ALT 14 D, Alkaline Phosphatase 100, Total Protein 6.6, Albumin 3.2 L D, Globulin 3.4 H, Albumin/Globulin Ratio 0.9 L I & O for Last 24 hours: Intake & Output 08/03/21 08/04/21 08/05/21 08/06/21 11:59 11:59 11:59 11:59 Intake Total 150 / 150 1022 / 1022 Output Total 200 / 200 Balance -50 / -50 1022 / 1022 Weight 64 lb 9.6 oz 64 lb 12.8 oz Microbiology Reports for the Last 24 Hours: Microbiology 08/05/21 00:50 Urine,Catheterized Urine Culture - Preliminary NO GROWTH AFTER 24 HOURS - Constitutional no acute distress, chronically ill appearing - *Routine HEENT Exam Head: Present: normocephalic Eye: Present: PERRL ENT: Present: mucous membranes moist - *Routine Neck Exam Present: supple. Absent: lymphadenopathy - *Routine Respiratory Exam Present: CTA bilaterally - *Routine Cardiovascular Exam Present: RRR, murmur - *Routine Abdominal Exam Present: soft, normoactive bowel sounds. Absent: tenderness - *Routine Extremities Exam Absent: cyanosis, clubbing, edema - *Routine Skin Exam Present: warm. Absent: rash - *Routine Neurological Exam Present: alert Assessment and Plan (1) Pubic ramus fracture Status: Acute Qualifiers: Encounter type: initial encounter Fracture type: closed Laterality: left Qualified Code(s): S32.592A - Other specified fracture of left pubis, initial encounter for closed fracture Category: Medical Code(s): S32.599A - Other specified fracture of unspecified pubis, initial encounter for closed fracture (2) UTI (urinary tract infection) Status: Acute Qualifiers: Urinary tract infection type: acute cystitis Hematuria presence: without hematuria Qualified Code(s): N30.00 - Acute cystitis without hematuria Category: Medical Code(s): N39.0 - Urinary tract infection, site not specified (3) Aortic stenosis Status: Acute Qualifiers: Cardiac valve disease etiology: nonrheumatic Qualified Code(s): I35.0 - Nonrheumatic aortic (valve) stenosis Category: Medical Code(s): I35.0 - Nonrheumatic aortic (valve) stenosis (4) Back pain Status:
--- NOTE | 2021-08-06 10:24 | HMH.OTEV ---
OT Inpatient Evaluation Rehab OT IP Evaluation Start: 08/06/21 08:18 Freq: ONCE Status: Complete Protocol: Document 08/06/21 10:16 MAITE (Rec: 08/06/21 10:23 [facility] [id number]) Rehab OT IP Assessment Subjective History Pt oriented x1 on arrival. Pt agreeable to engage in therapy evaluation. Pt was admitted via ED on 08/04/21 due to fall, weakness, UTI, and pelvic fx. The following information was copied from PCP's history and physical report: Patient is an 81-year-old female presenting to the emergency department with chief complaint of left hip pain. Patient is accompanied by her grandson who states that she was going to sit down on the toilet when she fell very hard and had the back of her head possibly against a cabinet. Denies any loss of consciousness and when grandson came in the room she was sitting on the toilet. Since then she has been complaining of hip pain. Patient also states that she has been a little bit confused off and on over the past week , he does believe that she has and has some bouts of confusion off and on she seemed a little worse most recently. He states that when she has been worse prior symptoms she had a UTI. Patient's only complaint is left hip pain. Grandson states that he is caring for her at home with his , that she sees PT OT however she does not want to participate and will generally only participate for a few minutes at a time. He is comfortable continuing to care for her at home and is awaiti
--- NOTE | 2021-08-06 11:50 | HMH.PTEV ---
Physical Therapy Evaluation Rehab PT IP Evaluation Start: 08/05/21 14:27 Freq: ONCE Status: Active Protocol: Document 08/06/21 11:45 LENNY (Rec: 08/06/21 11:50 [facility]EN[facility] [id number]) Subjective/History History History atthomas is an 81-year-old female presenting to the emergency department with chief complaint of left hip pain. Patient is accompanied by her grandson who states that she was going to sit down on the toilet when she fell very hard and had the back of her head possibly against a cabinet. Denies any loss of consciousness and when grandson came in the room she was sitting on the toilet. Since then she has been complaining of hip pain. Patient also states that she has been a little bit confused off and on over the past week , he does believe that she has and has some bouts of confusion off and on she seemed a little worse most recently. He states that when she has been worse prior symptoms she had a UTI. Patient's only complaint is left hip pain. Grandson states that he is caring for her at home with his , that she sees PT OT however she does not want to participate and will generally only participate for a few minutes at a time. He is comfortable continuing to care for her at home and is awaiting a support for the bathroom to help her with sitting down on the toilet. Subjective Subjective Pt c/o pain w/ LLE wbing - pt confused to place, date, time, and birthday. Rehab PT IP Eval Objective Appearance Patient Behavior Cooperative,Confused Patient Orientation Name Difficulty following instructions mild Speech Pattern
--- NOTE | 2021-08-06 11:56 | SW/DCPLANNER ---
Addendum entered by Hayde Abebe 08/08/21 11:49: PRECERT WAS APPROVED AND PATIENT IS DISCHARGING TO [facility] AND HER COVID SWAB WAS NEGATIVE.. Addendum entered by Hayde Abebe 08/08/21 06:50: [facility] IS GOING TO START PRECERT FOR PATIENT TO DISCHARGE THERE... Addendum entered by Hayde Abebe 08/07/21 07:33: SPOKE WITH NUPUR LAST EVENING TO SAY IF SHE DOESN'T PARTICIPATE WITH THERAPY SHE WILL NEED A MEDICAID BED AND AT THIS TIME THEY DON'T HAVE ONE.. I AM NOT SURE IF GRANDDAUGHTER WILL ALLOW PATIENT TO STAY FOR THE 30 DAYS THAT IS NECESSARY IF SHE GOES UNDER HER MEDICAID..WILL SEE WHAT THERAPY SAYS TODAY AND THEN REACH OUT TO THE GRANDDAUGHTER AND LET HER KNOW THE PLAN.. Original Note: CALLED DELORES CANDELARIO OF THIS PATIENT TO DISCUSS DISCHARGE PLANNING WITH HER. SHE STATED HER GRANDMOTHER WAS AT [facility] ONE TIME AND LIKED IT THERE.. SHE WAS ALSO AT [facility] BUT THEY WON'T TAKE HER BACK R/T HER OWING THEM MONEY. I TOLD HER PATIENT IS NOT READY TODAY BUT COULD BE TMRW OR WED AND I WOULD SEND A PACKET TO [facility] TO SEE IF THEY CAN TAKE HER.. KODAK STATED SHE IS A STAY AT HOME MOTHER AND HER GRANDMOTHER LIVES WITH HER. THE PLAN IS FOR HER TO RETURN BACK HOME AFTER SHE COMPLETES HER REHAB STAY...
[2021-08-06 13:17] LABS: Lymphocytes % 7 % (10-50); Monocytes % 1 % (2-9); Neutrophils % 92 % (42-76); Platelet Estimate Normal; Total Cells Counted 100
[2021-08-06 13:18] LABS: RBC Morphology Normal
[2021-08-06 14:57] VITALS: BMI 13.0
[2021-08-06 16:00] VITALS: BP 120/62; PULSE 88; RESP 16; TEMP 36.8; O2SAT 94
--- NOTE | 2021-08-06 17:59 | PC.NURSE ---
PT IS RESTING IN BED AT THIS TIME. ALERT TO SELF ONLY. PT TOLERATED SITTING UP IN THE CHAIR FOR A FEW HOURS THIS SHIFT. PT IS VERY WEAK BUT HAS PARTICIPATED WELL WITH PT/OT AND NURSING STAFF WITH [facility]. APPETITE HAS BEEN POOR. PT ONLY COMPLAINS OF PAIN WITH MOVEMENT. LUNG SOUNDS CLEAR. ABDOMEN SOFT/NON TENDER WITH ACTIVE BOWEL SOUNDS. INCONTINENT (STOOL). TEDS NOTED TO BLE. WILL CONTINUE TO MONITOR.
[2021-08-06 20:00] VITALS: BP 137/75; PULSE 83; RESP 15; TEMP 36.4; O2SAT 100
[2021-08-07] VITALS: BP 143/74; PULSE 84; RESP 14; TEMP 36.7; O2SAT 95
[2021-08-07 02:44] VITALS: BP 169/96; PULSE 104; RESP 24; O2SAT 97
--- NOTE | 2021-08-07 02:45 | CT_ITS ---
PROCEDURE INFORMATION: Exam: CT Head Without Contrast Exam date and time: 08/07/2021 2:45 AM Age: 81 years old Clinical indication: Injury or trauma; Fall TECHNIQUE: Imaging protocol: Computed tomography of the head without contrast. Radiation optimization: All CT scans at this facility use at least one of these dose optimization techniques: automated exposure control; mA and/or kV adjustment per patient size (includes targeted exams where dose is matched to clinical indication); or iterative reconstruction. COMPARISON: CT HEAD/BRAIN WO CON 08/04/2021 11:20 PM FINDINGS: Limitations: Patient motion. Brain: Age-related volume loss. Decreased attenuation of the supratentorial white matter is likely secondary to chronic microvascular ischemia. There is bilateral frontal lobe encephalomalacia. Small chronic right cerebellar infarct. No definite acute intracranial hemorrhage. No midline shift. Cerebral ventricles: No hydrocephalus. Paranasal sinuses: Visualized sinuses are unremarkable. No fluid levels. Mastoid air cells: Visualized mastoid air cells are well aerated. Bones/joints: No definite acute calvarial fracture. Soft tissues: Right periorbital soft tissue swelling. IMPRESSION: 1. Motion limited examination. 2. No definite acute intracranial abnormality.
--- NOTE | 2021-08-07 02:45 | XR_ITS ---
PROCEDURE INFORMATION: Exam: XR Lumbosacral Spine Exam date and time: 08/07/2021 2:45 AM Age: 81 years old Clinical indication: Injury or trauma; Fall; Blunt trauma (contusions or hematomas) TECHNIQUE: Imaging protocol: XR of the lumbosacral spine. Views: 2 or 3 views. COMPARISON: CR XR LUMBAR SPINE 2-3V 08/12/2020 2:42 PM FINDINGS: Bones/joints: Severe thoracolumbar scoliosis, similar from prior study. There is diffuse osteopenia. There is limited evaluation of vertebral body height and alignment on the sagittal film secondary to degree of scoliosis. There are facet joint degenerative changes. Prevertebral osteophytosis. Soft tissues: Unremarkable. Vasculature: Vascular calcification. IMPRESSION: 1. Severe thoracolumbar scoliosis, stable. 2. Limited evaluation particularly on the lateral view secondary to high-grade scoliosis and osteopenia. CT may be considered if clinical concern persists.
[2021-08-07 04:00] VITALS: BP 152/93; PULSE 77; RESP 15; TEMP 36.6; O2SAT 95
[2021-08-07 05:00] VITALS: BMI 13.2
[2021-08-07 07:10] LABS: Alanine Aminotransferase 14 U/L (12-78); Albumin Level 3.1 g/dl (3.5-5.0); Alkaline Phosphatase 100 U/L (38-126); Anion Gap 6.5 mEq/L (5-15); Aspartate Amino Transferase 23 U/L (14-36); Bilirubin,Total 0.6 mg/dl (0.2-1.3); Blood Urea Nitrogen 9 mg/dl (7-17); Calcium 8.7 mg/dl (8.4-10.2); Carbon Dioxide 32 mmol/L (22.0-30.0); Chloride 103 mmol/L (98-107); Creatinine Clearance Estimated 20 mL/min (50-200); Estimated Glomerular Filt Rate 95 ml/min (>60); GFR (African American) 116 ML/MIN (>60); Globulin 3.1 g/dL (1.3-3.2); Glucose 107 mg/dl (74-100); Potassium 3.5 mmoL/L (3.5-5.1); Sodium 138 mmol/L (136-145); Total Protein,Serum 6.2 g/dl (6.3-8.2)
--- NOTE | 2021-08-07 07:24 | PC.NURSE ---
0239 Pt found laying in floor at this time. Pt Vitals- BP 169/96, HR 104, RR 24, O2 97% RA 0240 House notified of fall. 0241 MD recreation therapy aides teacher notified. New orders for head CT w/o contrast, Xray of lumbar spine read back and verified. 0243 Radiology notified of STAT orders. 0244 Pt cleaned up and helped back into bed. Pt c/o pain on right cheek bone. Swelling and redness noted to right cheek bone and mid forehead. 0251 Radiology in room to get pt
--- NOTE | 2021-08-07 07:30 | PC.NURSE ---
Pt has rested well in bed since arriving back from radiology. Pt admits to having pain in cheek bone but otherwise states she is okay. Pt has been encouraged to use call juárez. Bed alarm on for safety. No other complaints voiced to staff.
[2021-08-07 08:00] VITALS: BP 140/94; PULSE 86; RESP 21; TEMP 36.4; O2SAT 96
[2021-08-07 08:04] LABS: Basophils % 0.3 % (0.1-2.0); Eosinophils % 0.3 % (0.1-12.0); Hematocrit 36.2 % (37.0-47.0); Hemoglobin 11.1 g/dL (12.2-16.2); Lymphocytes % 10.2 % (10-50); Mean Corpuscular HGB Conc 30.8 g/dL (31.8-35.4); Mean Corpuscular Hemoglobin 29.2 pg (27.0-31.2); Mean Corpuscular Volume 94.9 fl (81-99); Mean Platelet Volume 10.3 fl (7.4-10.4); Monocytes # 0.3 K/mm3 (0.1-1.0); Monocytes % 3.1 % (1.7-9.3); Neutrophils # 8.7 K/mm3 (1.8-7.8); Neutrophils % 86.1 % (37.0-80.0); Platelet Count 157 K/mm3 (142-424); Red Blood Count 3.81 M/mm3 (4.20-5.40); Red Cell Distribution Width 18.3 % (11.5-17.5); White Blood Count 10.1 K/mm3 (4.8-10.8)
[2021-08-07 08:08] LABS: MANUAL DIFFERENTIAL MANUAL DIFFERENTIAL (MANUAL DIFF)
[2021-08-07 09:21] LABS: Hypochromasia 1+; Lymphocytes % 10 % (10-50); Macrocytosis 1+; Monocytes % 5 % (2-9); Neutrophils % 85 % (42-76); Platelet Estimate Normal; Total Cells Counted 100
--- NOTE | 2021-08-07 09:52 | HMH.ACPN2 ---
Internal Medicine - PN: Subj *Date: 08/07/21 *Time: 08:50 Interval history: pt states doing well Exam Vital signs and Labs for Last 24 Hours: Temp Pulse Resp BP Pulse Ox 97.5 F L 86 21 140/94 H 96 08/07/21 08:00 08/07/21 08:00 08/07/21 08:00 08/07/21 08:00 08/07/21 08:00 Laboratory Results - last 24 hr 08/05/21 00:50: Urine Color Yellow, Urine Appearance Sl cloudy, Urine pH 5.5, Ur Specific [place] 1.025, Urine Protein 1+, Urine Glucose (UA) Negative, Urine Ketones Negative, Urine Blood Trace-l, Urine Nitrate Negative, Urine Bilirubin Negative, Urine Urobilinogen 0.2, Ur Leukocyte Esterase Negative, Urine RBC Occasional, Urine WBC 10-20, Ur Squamous Epith Cells 3-5, Urine Bacteria 1+ 08/06/21 07:55: Total Counted 100, Neutrophils % (Manual) 92 H, Lymphocytes % (Manual) 7 L, Monocytes % (Manual) 1 L, Platelet Estimate Normal, RBC Morphology Normal 08/07/21 06:00: Sodium 138, Potassium 3.5, Chloride 103, Carbon Dioxide 32 H, Anion Gap 6.5, BUN 9, Creatinine 0.60, Estimated Creat Clear 20, Estimated GFR 95, Est GFR ( Amer) 116, Glucose 107 H, Calcium 8.7, Total Bilirubin 0.6, AST 23, ALT 14, Alkaline Phosphatase 100, Total Protein 6.2 L, Albumin 3.1 L, Globulin 3.1, Albumin/Globulin Ratio 1.0 L 08/07/21 06:00: WBC 10.1, RBC 3.81 L, Hgb 11.1 L, Hct 36.2 L, MCV 94.9, MCH 29.2, MCHC 30.8 L, RDW 18.3 H, Plt Count 157, MPV 10.3, Neut % (Auto) 86.1 H, Lymph % (Auto) 10.2, [place] % (Auto) 3.1, Eos % (Auto) 0.3, Baso % (Auto) 0.3, Neut # (Auto) 8.7 H, Lymph # (Auto) 1.0, [place] # (Auto) 0.3, Eos # (Auto) 0.0, Baso # (Auto) 0.0, Total Counted 100, Neutrophils % (Manual) 85 H, Lymphocytes % (Manual) 10, Monocytes % (Manual) 5, Platelet Estimate Normal, Hypochromasia 1+, Macrocytosis 1+ I & O for Last 24 hours: Intake & Output 08/04/21 08/05/21 08/06/21 08/07/21 11:59 11:59 11:59 11:59 Intake Total 150 / 150 1022 / 1022 1471 / 1471 Output Total 200 / 200 950 / 950 Balance -50 / -50 1022 / 1022 521 / 521 Weight 64 lb 9.6 oz 64 lb 12.8 oz 65 lb 11.2 oz Microbiology Reports for the Last 24 Hours: Microbiology 08/05/21 00:50 Urine,Catheterized Urine Culture - Final Escherichia coli - Constitutional no acute distress, thin, chronically ill appearing - *Routine HEENT Exam Head: Present: normocephalic Eye: Present: PERRL ENT: Present: mucous membranes moist - *Routine Neck Exam Present: supple. Absent: lymphadenopathy - *Routine Respiratory Exam Present: CTA bilaterally - *Routine Cardiovascular Exam Present: RRR, murmur - *Routine Abdominal Exam Present: soft, normoactive bowel sounds. Absent: tenderness - *Routine Extremities Exam Absent: cyanosis, clubbing, edema - Routine Back/Spine/Pelvis Exam Back/Spine: Present: kyphosis - *Routine Skin Exam Present: warm. Absent: rash - *Routine Neurological Exam Present: alert, oriented X3 Assessment and Plan (1) Pubic ramus fracture Status: Acute Qualifiers: Encounter type: initial encounter Fracture type: closed Laterality: left Qualified Code(s): S32.592A - Other specified fracture of left pubis, initial encounter for closed fracture Category: Medical Code(s): S32.599A - Other specified fracture of unspecified pubis, initial encounter for closed fracture (2) UTI (urinary tract infection) Status: Acute Qualifiers: Urinary tract infection type: acute cystitis Hematuria presence: without hematuria Qualified Code(s): N30.00 - Acute cystitis without hematuria Category: Medical Code(s): N39.0 - Urinary tract infection, site not specified (3) Aortic stenosis Status: Acute Qualifiers: Cardiac valve disease etiology: nonrheumatic Qualified Code(s): I35.0 - Nonrheumatic aortic (valve) stenosis Category: Medical Code(s): I35.0 - Nonrheumatic aortic (valve) stenosis (4) Back pain Status: Acute Qualifiers: Back pain location: thoracic back pain Chroni
--- NOTE | 2021-08-07 09:58 | DIET.NUTRFU ---
Patient continues on soft diet, consumed a good breakfast 100% but did not drink much of the ensure. Upon interview patient also said she likes chocolate pudding- will include on trays daily and also ice cream for extra calories and protein. looking for placement for discharge where meals will be provided.
[2021-08-07 15:59] VITALS: BP 128/79; PULSE 88; RESP 16; TEMP 36.3; O2SAT 96
[2021-08-07 20:00] VITALS: BP 140/97; PULSE 91; RESP 16; TEMP 36.9; O2SAT 95
[2021-08-08 04:00] VITALS: BP 142/40; PULSE 86; RESP 16; TEMP 36.4; O2SAT 97
--- NOTE | 2021-08-08 04:12 | PC.NURSE ---
Pt is a+o to self only and has became increasingly confused and agitated through the night. Pt has stated I am going to hit/slap you and raised her hands to multiple nurses. Pt has tried to get out of bed multiple times t/o shift. Pt has been reoriented and helped back into bed. Multiple nurses have attempted to get IV access and have been unsuccessful. Bed alarm in place for safety.
[2021-08-08 05:00] VITALS: BMI 13.3
--- NOTE | 2021-08-08 07:57 | HMH.ACPN2 ---
Internal Medicine - PN: Subj *Date: 08/08/21 *Time: 07:57 Exam Vital signs and Labs for Last 24 Hours: Temp Pulse Resp BP Pulse Ox 97.6 F 86 16 142/40 H 97 08/08/21 04:00 08/08/21 04:00 08/08/21 04:00 08/08/21 04:00 08/08/21 04:00 Laboratory Results - last 24 hr 08/07/21 06:00: WBC 10.1, RBC 3.81 L, Hgb 11.1 L, Hct 36.2 L, MCV 94.9, MCH 29.2, MCHC 30.8 L, RDW 18.3 H, Plt Count 157, MPV 10.3, Neut % (Auto) 86.1 H, Lymph % (Auto) 10.2, [place] % (Auto) 3.1, Eos % (Auto) 0.3, Baso % (Auto) 0.3, Neut # (Auto) 8.7 H, Lymph # (Auto) 1.0, [place] # (Auto) 0.3, Eos # (Auto) 0.0, Baso # (Auto) 0.0, Total Counted 100, Neutrophils % (Manual) 85 H, Lymphocytes % (Manual) 10, Monocytes % (Manual) 5, Platelet Estimate Normal, Hypochromasia 1+, Macrocytosis 1+ I & O for Last 24 hours: Intake & Output 08/05/21 08/06/21 08/07/21 08/08/21 23:59 23:59 23:59 23:59 Intake Total 1172 / 1172 1111 / 1111 720 / 720 Output Total 200 / 200 850 / 950 300 / 300 Balance 972 / 972 261 / 161 420 / 420 Weight 29.302 kg 29.39 kg 29.801 kg 30.05 kg Microbiology Reports for the Last 24 Hours: Microbiology 08/05/21 00:50 Urine,Catheterized Urine Culture - Final Escherichia coli Assessment and Plan (1) Pubic ramus fracture Status: Acute Qualifiers: Encounter type: initial encounter Fracture type: closed Laterality: left Qualified Code(s): S32.592A - Other specified fracture of left pubis, initial encounter for closed fracture Category: Medical Code(s): S32.599A - Other specified fracture of unspecified pubis, initial encounter for closed fracture (2) UTI (urinary tract infection) Status: Acute Qualifiers: Urinary tract infection type: acute cystitis Hematuria presence: without hematuria Qualified Code(s): N30.00 - Acute cystitis without hematuria Category: Medical Code(s): N39.0 - Urinary tract infection, site not specified (3) Aortic stenosis Status: Acute Qualifiers: Cardiac valve disease etiology: nonrheumatic Qualified Code(s): I35.0 - Nonrheumatic aortic (valve) stenosis Category: Medical Code(s): I35.0 - Nonrheumatic aortic (valve) stenosis (4) Back pain Status: Acute Qualifiers: Back pain location: thoracic back pain Chronicity: acute Back pain laterality: right Qualified Code(s): M54.6 - Pain in thoracic spine Category: Medical Code(s): M54.9 - Dorsalgia, unspecified (5) Concussion without loss of consciousness Status: Acute Qualifiers: Encounter type: initial encounter Qualified Code(s): S06.0X0A - Concussion without loss of consciousness, initial encounter Category: Medical Code(s): S06.0X0A - Concussion without loss of consciousness, initial encounter (6) DDD (degenerative disc disease), cervical Status: Acute Category: Medical Code(s): M50.30 - Other cervical disc degeneration, unspecified cervical region (7) Encephalomalacia Status: Acute Category: Medical Code(s): G93.89 - Other specified disorders of brain (8) Fall Status: Acute Qualifiers: Encounter type: initial encounter Qualified Code(s): W19.XXXA - Unspecified fall, initial encounter Category: Medical Code(s): W19.XXXA - Unspecified fall, initial encounter (9) Falls frequently Status: Acute Category: Medical Code(s): R29.6 - Repeated falls (10) Gait abnormality Status: Acute Category: Medical Code(s): R26.9 - Unspecified abnormalities of gait and mobility (11) History of rib fracture Status: Acute Category: Medical Code(s): Z87.81 - Personal history of (healed) traumatic fracture (12) Hypokalemia Status: Acute Category: Medical Code(s): E87.6 - Hypokalemia (13) Kyphosis of thoracic region Status: Acute Qualifiers: Kyphosis type: unspecified Qualified Code(s): M40.204 - Unspecified kyphosis, thoracic region Category: Medical Code(s): M40.204 - Unspecif
[2021-08-08 08:00] VITALS: BP 141/84; PULSE 79; RESP 16; TEMP 36.9; O2SAT 96
--- NOTE | 2021-08-08 09:33 | P.DS_ITS ---
General - General Admission date:: 08/05/21 Discharge date: 08/08/21 HPI HPI: Patient is an 81-year-old female presenting to the emergency department with chief complaint of left hip pain. Patient is accompanied by her grandson who states that she was going to sit down on the toilet when she fell very hard and had the back of her head possibly against a cabinet. Denies any loss of consciousness and when grandson came in the room she was sitting on the toilet. Since then she has been complaining of hip pain. Patient also states that she has been a little bit confused off and on over the past week, he does believe that she has and has some bouts of confusion off and on she seemed a little worse most recently. He states that when she has been worse prior symptoms she had a UTI. Patient's only complaint is left hip pain. Grandson states that he is caring for her at home with his , that she sees PT OT however she does not want to participate and will generally only participate for a few minutes at a time. He is comfortable continuing to care for her at home and is awaiting a support for the bathroom to help her with sitting down on the toilet. Workup included imaging studies CT CERVICAL SPINE WO CON 07/29/2021 12:17 AM FINDINGS: Bones/joints: No acute fracture. Normal alignment. Discs/Spinal canal/Neural foramina: Moderate loss of intervertebral disc space with degenerative changes at C2 through C4 resulting in moderate bilateral neural foraminal stenosis at these levels. Lungs: Lung apices are normal. Soft tissues: Unremarkable. IMPRESSION: No acute findings. CR XR CHEST AP 07/29/2021 12:21 AM FINDINGS: Lungs: Unremarkable. No consolidation. Pleural spaces: Unremarkable. No pleural effusion. No pneumothorax. Heart/Mediastinum: Unremarkable. No cardiomegaly. Bones/joints: Severe dextroscoliosis in the T-spine. Osteoporosis. IMPRESSION: Severe dextroscoliosis with osteoporosis. No significant change since comparison. CT HEAD/BRAIN WO CON 07/29/2021 12:15 AM FINDINGS: Brain: Left frontal lobe encephalomalacia unchanged. There is moderate diffuse cerebral volume loss present. Multiple subcortical and deep hypoattenuating white matter foci are present, likely related to small vessel senescent changes and can also be seen with prior infectious / inflammatory insult, or prior traumatic events. No hyperattenuating foci are identified to suggest acute intracranial hemorrhage. Cerebral ventricles: No ventriculomegaly. Paranasal sinuses: Visualized sinuses are unremarkable. No fluid levels. Mastoid air cells: Visualized mastoid air cells are well aerated. Bones/joints: Unremarkable. No acute fracture. Soft tissues: Unremarkable. IMPRESSION: 1. Multiple subcortical and deep hypoattenuating white matter foci are present, likely related to small vessel senescent changes and can also be seen with prior infectious / inflammatory insult, or prior traumatic events. 2. No hyperattenuating foci are identified to suggest acute intracranial hemorrhage. COMPARISON: CT PELVIS WO CON 03/23/2021 4:45 PM FINDINGS: Bladder: Irizarry catheter terminates within the bladder. Bones/joints: Postsurgical changes to the left femoral neck with [address]. Minimally displaced fractures involving the left superior and inferior pubic rami. Nondisplaced fracture of the left ala of S1. Healed fracture of the right inferior pubic ramus.
[2021-08-08 10:06] LABS: Coronavirus 19, PCR Not Detected (NotDetected); Influenza A, PCR Not Detected (NotDetected); Influenza B, PCR Not Detected (NotDetected)
== END 2021-08-08 13:04 ==
LOC: ER 22:44 → 2ND 08-05 02:32
PROVIDERS: Nurse Practitioner Family; Admitting Provider Family Medicine; Emergency Provider Emergency Medicine; PCP Emergency Medicine; Visit Provider Emergency Medicine
DX: S32.592A Other specified fracture of left pubis, initial encounter for closed fracture (principal); N39.0 Urinary tract infection, site not specified; Z20.822 Contact with and (suspected) exposure to COVID-19; Z79.899 Other long term (current) drug therapy; I25.10 Atherosclerotic heart disease of native coronary artery without angina pectoris; I10 Essential (primary) hypertension; I35.0 Nonrheumatic aortic (valve) stenosis; M54.6 Pain in thoracic spine; S06.0X0A Concussion without loss of consciousness, initial encounter; E87.6 Hypokalemia; G93.89 Other specified disorders of brain; M50.30 Other cervical disc degeneration, unspecified cervical region; M40.204 Unspecified kyphosis, thoracic region; A04.72 Enterocolitis due to Clostridium difficile, not specified as recurrent; E43 Unspecified severe protein-calorie malnutrition; Z68.1 Body mass index [BMI] 19.9 or less, adult
CPT/HCPCS: G0378; 36415; 70450; 71045; 72100; 72125; 72170; 72192; 80048; 80053; 81001; 83735; 85007; 85025; 85610; 87086; 87088; 87186; 87506; 96365; 96375; 96376; 97110; 97162; 97166; 97530; 99284; C9803; J0696; U0003; U0005

== ENCOUNTER → 2021-08-31 15:09 | Outpatient (CLI) | payer MEDICARE, MEDICAID, SELFPAY ==
--- NOTE | 2021-08-31 15:39 | XR_ITS ---
FINAL REPORT CLINICAL HISTORY: standing view -unable to stand- supine COMPARISON: August 04, 2021 FINDINGS: SINGLE VIEW PELVIS: A single view of the pelvis was obtained. Again seen is orthopedic screws securing the left femoral neck. The bones are osteopenic. There is healed fracture deformity of the medial right superior pubic ramus and the middle right inferior pubic ramus. There is no acute fracture or dislocation. There is mild hip joint space narrowing. Soft tissues are unremarkable. IMPRESSION: Postoperative and chronic changes as described. No acute bony abnormality. Reviewed, Interpreted and Dictated by Juan Leo MD Transcribed by Fady Zendejas Authenticated by Juan Leo MD on 08/31/2021 04:26:37 PM [facility]
== END ==
PROVIDERS: PCP Emergency Medicine; Visit Provider Orthopaedic Surgery
DX: S70.02XA Contusion of left hip, initial encounter
CPT/HCPCS: 72170

== ENCOUNTER 2021-09-03 16:01 | Observation (INO) | payer MEDICARE, MEDICAID, SELFPAY ==
[2021-09-03 16:03] VITALS: BP 110/81; PULSE 108; RESP 16; TEMP 36.5; O2SAT 95; BMI 15.1
--- NOTE | 2021-09-03 19:54 | HMH.EDGENADL ---
ED Disposition Condition on Discharge: Good - Critical Care Critical Care Time: No <Harsh Day - Last Filed: 09/03/21 19:54> <Ishaan Isaac - Last Filed: 09/03/21 21:17> Clinical Impression: Dysuria Diarrhea Qualifiers: Diarrhea type: unspecified type Qualified Code(s): R19.7 - Diarrhea, unspecified Disposition: Admitted as Observation Referrals: Ishaan Isaac MD [Primary Care Provider] - Attestation: On 09/03/21, the high probability of a clinically significant, sudden or life threatening deterioration of the following system(s) required my full and direct attention, intervention and personal management. The time I documented below is in addition to time spent performing reported procedures but includes the following listed in this critical care notation. Medical Decision Making - Medical Records Medical records reviewed: Yes: I reviewed the patient's medical records. - Mj Inquiry Pt receiving controlled substance: No <Harsh Day - Last Filed: 09/03/21 19:54> - Lab Data Lab results reviewed: Yes: I reviewed the patient's lab results. Result diagrams: 09/03/21 20:03 09/03/21 20:03 <Ishaan Isaac - Last Filed: 09/03/21 21:17> Vital Signs: 09/03/21 16:03 Temperature 97.7 F Temperature Source Oral Pulse Rate [Right] 108 H Respiratory Rate 16 Blood Pressure [Right Arm] 110/81 Blood Pressure Mean [Right Arm] 90 02 Sat by Pulse Oximetry 95 Oxygen Delivery Method Room Air - Lab Data Lab Results 09/03/21 20:03: Urine Color Yellow, Urine Appearance Clear, Urine pH 5.5, Ur Specific [place] 1.025, Urine Protein Negative, Urine Glucose (UA) Negative, Urine Ketones Negative, Urine Blood Negative, Urine Nitrate Negative, Urine Bilirubin Negative, Urine Urobilinogen 0.2, Ur Leukocyte Esterase Negative 09/03/21 20:03: WBC 7.1, RBC 4.12 L, Hgb 12.2, Hct 39.3, MCV 95.4, MCH 29.6, MCHC 31.0 L, RDW 18.4 H, Plt Count 191, MPV 9.9, Neut % (Auto) 83.2 H, Lymph % (Auto) 12.0, [place] % (Auto) 4.2, Eos % (Auto) 0.2, Baso % (Auto) 0.4, Neut # (Auto) 5.9, Lymph # (Auto) 0.9, [place] # (Auto) 0.3, Eos # (Auto) 0.0, Baso # (Auto) 0.0 09/03/21 20:03: Sodium 142, Potassium 4.6, Chloride 107, Carbon Dioxide 27, Anion Gap 12.6, BUN 12, Creatinine 0.60, Estimated Creat Clear 21, Estimated GFR 95, Est GFR ( Amer) 116, Glucose 92, Calcium 8.8, Total Bilirubin 0.9, AST 30, ALT 11 L, Alkaline Phosphatase 162 H, C-Reactive Protein 99.8 H, Total Protein 7.6, Albumin 3.9, Globulin 3.7 H, Albumin/Globulin Ratio 1.1 09/03/21 20:03: Amylase 49, Procalcitonin 9.10 H 09/03/21 20:03: Lipase 42 Orders (Tests/Meds): ED MEDICATIONS Generic Name Dose Route Start Last Admin Trade Name Freq PRN Reason Stop Dose Admin Sodium Chloride 1,000 mls @ 999 mls/hr 09/03/21 20:15 09/03/21 20:34 Sod Chlor 0.9% 1000ml Bag IV 09/03/21 21:15 999 mls/hr .Q1H1M PRISCILLA Administration Metronidazole 500 mg in 100 mls @ 100 mls/hr 09/03/21 21:15 Flagyl 500mg/100ml Ivpb IV 09/17/21 21:14 Q8H PRISCILLA Sodium Chloride 8 ml 09/03/21 20:13 Sodium Chloride 0.9% 10ml Vial IV 10/03/21 20:12 NEEDED PRN dilute pepcid Discontinued Medications Generic Name Dose Route Start Last Admin Trade Name Freq PRN Reason Stop Dose Admin Famotidine 20 mg 09/03/21 20:13 09/03/21 20:35 Famotidine 20mg/2ml Vial IV 09/03/21 20:14 20 mg ONCE ONE Administration Sodium Chloride 500 mls @ 500 mls/hr 09/03/21 20:00 09/03/21 20:39 Sod Chloride 0.9% 500ml Bag IV 10/03/21 19:59 Not Given .Q1H PRISCILLA Metoclopramide HCl 10 mg 09/03/21 20:13 09/03/21 20:35 Metoclopramide Hcl 10mg/2ml Vial IVP 09/03/21 20:14 10 mg ONCE ONE Administration Ondansetron HCl 4 mg 09/03/21 20:13 09/03/21 20:34 Ondansetron 4mg/2ml Vial IV 09/03/21 20:14 4 mg ONCE ONE Administration ORDERS Category Date Time Status CT abdomen pelvis w con Stat Cat Scan 09/03/21 20:11 Ordered Erythrocyt
[2021-09-03 20:23] LABS: Microscopic, Urine URINE MICROSCOPIC (MICROSCOPIC)
[2021-09-03 20:26] LABS: Basophils % 0.4 % (0.1-2.0); Eosinophils % 0.2 % (0.1-12.0); Hematocrit 39.3 % (37.0-47.0); Hemoglobin 12.2 g/dL (12.2-16.2); Lymphocytes # 0.9 K/mm3 (0.7-4.5); Mean Corpuscular Hemoglobin 29.6 pg (27.0-31.2); Mean Corpuscular Volume 95.4 fl (81-99); Mean Platelet Volume 9.9 fl (7.4-10.4); Monocytes # 0.3 K/mm3 (0.1-1.0); Monocytes % 4.2 % (1.7-9.3); Neutrophils # 5.9 K/mm3 (1.8-7.8); Neutrophils % 83.2 % (37.0-80.0); Platelet Count 191 K/mm3 (142-424); Red Blood Count 4.12 M/mm3 (4.20-5.40); Red Cell Distribution Width 18.4 % (11.5-17.5); White Blood Count 7.1 K/mm3 (4.8-10.8)
[2021-09-03 20:36] LABS: Chloride 107 mmol/L (98-107); Potassium 4.6 mmoL/L (3.5-5.1); Sodium 142 mmol/L (136-145)
[2021-09-03 20:38] LABS: Alanine Aminotransferase 11 U/L (12-78); Alkaline Phosphatase 162 U/L (38-126); Aspartate Amino Transferase 30 U/L (14-36); Bilirubin,Total 0.9 mg/dl (0.2-1.3); Blood Urea Nitrogen 12 mg/dl (7-17); Creatinine Clearance Estimated 21 mL/min (50-200); Estimated Glomerular Filt Rate 95 ml/min (>60); GFR (African American) 116 ML/MIN (>60)
[2021-09-03 20:39] LABS: Albumin Level 3.9 g/dl (3.5-5.0); Albumin/Globulin Ratio 1.1 (1.1-1.8); Anion Gap 12.6 mEq/L (5-15); Calcium 8.8 mg/dl (8.4-10.2); Carbon Dioxide 27 mmol/L (22.0-30.0); Globulin 3.7 g/dL (1.3-3.2); Glucose 92 mg/dl (74-100); Total Protein,Serum 7.6 g/dl (6.3-8.2)
[2021-09-03 20:44] LABS: C-Reactive Protein 99.8 mg/L (0-4)
[2021-09-03 20:46] LABS: Appearance,Urine CLEAR (Clear); Bilirubin,Urine Negative (Negative); Blood, Urine Negative (Negative); Color,Urine YELLOW (Yellow); Glucose,Urine (UA) Negative (Negative); Ketones,Urine Negative (Negative); Leukocyte Esterase,Urine Negative (Negative); Nitrate,Urine Negative (Negative); PH,Urine 5.5 (5.0-8.5); Protein,Urine Negative (Negative); Specific Gravity, Urine 1.025 (1.005-1.030); Urobilinogen,Urine 0.2 EU/dl (0.2)
[2021-09-03 20:48] LABS: Amylase 49 U/L (30-110); Lipase 42 U/L (23-300)
[2021-09-03 21:22] LABS: Bacteria,Urine 1+ /lpf; RBC,Urine Occasional #/hpf (0-3)
[2021-09-03 21:22] LABS: Coronavirus 19, PCR Not Detected (NotDetected); Influenza A, PCR Not Detected (NotDetected); Influenza B, PCR Not Detected (NotDetected)
[2021-09-03 23:24] VITALS: BP 112/74; PULSE 90; RESP 16; TEMP 36.5; O2SAT 95
[2021-09-03 23:51] VITALS: O2SAT 98
[2021-09-04 00:06] VITALS: BMI 13.4
[2021-09-04 04:22] VITALS: BP 112/69; PULSE 87; RESP 18; TEMP 36.5; O2SAT 94
--- NOTE | 2021-09-04 04:57 | PC.NURSE ---
PATIENT HAS RESTED WELL SINCE ADMIT. IV SITE PATENT AND IVF INFUSING WITHOUT DIFFICULTY. PATIENT HAS HAD 1 INCONTINENT STOOL. PT GIVEN TOTAL BATH PER MYSELF. F/C PATENT AND DRAINING AT BEDSIDE. VSS. NO ACUTE DISTRESS NOTED. WILL CONTINUE TO MONITOR.
[2021-09-04 04:58] VITALS: BMI 13.4
--- NOTE | 2021-09-04 05:47 | PC.NURSE ---
PATIENT GIVEN TOTAL BATH AND LINEN CHANGE. APPLIED OPTIFORM TO BOTTOM FOR PROTECTION. PATIENT ENCOURAGED AND ASSISTED TO TURN.
[2021-09-04 05:49] LABS: Basophils % 0.2 % (0.1-2.0); Eosinophils # 0.1 K/mm3 (0.0-0.4); Eosinophils % 0.9 % (0.1-12.0); Hematocrit 31.7 % (37.0-47.0); Lymphocytes # 1.2 K/mm3 (0.7-4.5); Lymphocytes % 17.7 % (10-50); Mean Corpuscular HGB Conc 30.1 g/dL (31.8-35.4); Mean Corpuscular Hemoglobin 29.4 pg (27.0-31.2); Mean Corpuscular Volume 97.5 fl (81-99); Mean Platelet Volume 9.3 fl (7.4-10.4); Monocytes # 0.3 K/mm3 (0.1-1.0); Monocytes % 4.2 % (1.7-9.3); Neutrophils # 5.1 K/mm3 (1.8-7.8); Platelet Count 175 K/mm3 (142-424); Red Blood Count 3.25 M/mm3 (4.20-5.40); Red Cell Distribution Width 18.7 % (11.5-17.5); White Blood Count 6.6 K/mm3 (4.8-10.8)
[2021-09-04 05:51] LABS: Chloride 110 mmol/L (98-107); Potassium 3.2 mmoL/L (3.5-5.1); Sodium 140 mmol/L (136-145)
[2021-09-04 05:54] LABS: Anion Gap 8.2 mEq/L (5-15); Blood Urea Nitrogen 10 mg/dl (7-17); Calcium 7.4 mg/dl (8.4-10.2); Carbon Dioxide 25 mmol/L (22.0-30.0); Creatinine Clearance Estimated 19 mL/min (50-200); Estimated Glomerular Filt Rate 95 ml/min (>60); GFR (African American) 116 ML/MIN (>60); Glucose 68 mg/dl (74-100)
[2021-09-04 05:55] LABS: Magnesium 1.7 mg/dl (1.6-2.3)
[2021-09-04 05:59] LABS: Hemoglobin 9.5 g/dL (12.2-16.2)
[2021-09-04 06:19] LABS: Procalcitonin 7.42 ng/mL (0.0-2.0)
--- NOTE | 2021-09-04 07:36 | P.CONPHA_ITS ---
[facility] Pharmacy VTE Monitoring - Patient Demographics Admission date: 09/03/21 Report Date: 09/04/21 Time: 07:36 Allergies/Adverse Reactions: Patient Allergies No Known Allergies Allergy (Verified 08/31/21 16:01) Height: 1.45 m Weight: 28.264 kg Patient Problems: Current Active Problems Dysuria (Acute) Diarrhea (Acute) - VTE Risk Labs: VTE Related Lab Results Hgb 9.5 g/dL (12.2-16.2) L D 09/04/21 05:11 Hct 31.7 % (37.0-47.0) L 09/04/21 05:11 Plt Count 175 K/mm3 (142-424) 09/04/21 05:11 BUN 10 mg/dl (7-17) 09/04/21 05:11 Creatinine 0.60 mg/dl (0.52-1.04) 09/04/21 05:11 Estimated Creat Clear 19 mL/min (50-200) 09/04/21 05:11 VTE Risk Level: Low Risk - Prophylaxis VTE Prophylaxis Ordered?: Yes Types of VTE Prophylaxis: TEDS Knee High Location of Applied Device: Bilateral Lower Extremeties
[2021-09-04 08:00] VITALS: BP 135/96; PULSE 97; RESP 17; TEMP 36.7; O2SAT 94
--- NOTE | 2021-09-04 09:30 | HMH.PHAINT ---
verified home medication list using list from [facility]
--- NOTE | 2021-09-04 10:25 | SW/DCPLANNER ---
Addendum entered by Mindy Phipps 09/04/21 11:34: Granddaughter has called back stating that the family wishes for patient to return at time of discharge. I will continue to follow up with: patient, Dr Isaac and family. Original Note: I spoke with patients granddaughter (Minyd) whom patient currently resides with at this time. Patient is a hospital readmission and was previously admitted for a pelvis fracture. Patient discharged to [facility] for SNF level of care during previous admission. Per Lara cardoso/ [facility] has stated that patient was skilled from 08/08/21-08/26/21: discharged due to [employer] discharging. Patient was set up with [facility] at time of discharge from [facility]: I will inform Hayde cardoso/ [facility] that [facility] is currently admitted. Granddaughter stated that her plan is for this patient to return home and resume home health services. I did engage in a lengthy discussion with grandwandaughter regarding long-term care: grandwandaughter is unsure of this plan and stated that she would need to speak with other family members. I did explain the process of LTC and how payment works: gurjitughter is going to speak with family and call me back today. Discharge date is unknown at this time.
--- NOTE | 2021-09-04 13:57 | HMH.HPDC ---
General - General Admission date:: 09/03/21 Discharge date: 09/04/21 *Admission Date: 09/03/21 *Chief complaint: diarrhea *History of present illness: 81 yr old female presented to ed with decrease intake and diarrhea. hx of c diff. Patient was admitted for iv fluids and monitoring of labs. [facility] History I have reviewed the patient's past medical history: Yes Medical History: Reports:: Coronary Artery Disease, Cerebrovascular Accident, Gastroesophageal Reflux Disease(GERD), Heart Murmur, Hyperlipidemia, Hypertension, Myocardial Infarction, Valvular Heart Disease Denies:: Cancer, Diabetes Mellitus Type 1, Diabetes Mellitus Type 2, Internal Pacemaker, MRSA, Seizures *Have you ever received a pneumonia vaccine?: No *Have you received a flu vaccine this season?: Yes Other Medical History: Reports: Anemia, Arthritis, Cataracts Laterality Cases: Left: Arthroscopy Hip, Bilateral: Breast Biopsy, Mastectomy Other Surgeries: Yes: Colonoscopy, Tubal Ligation, Other. No: Pacemaker Amputation: No Fractures: Yes (left hip and ribs) - *Social History Smoking Status: Never smoker Alcohol Intake: never Substance Use Type: denies use *Occupational Status:: retired Housing: house Household Members: family *Travel in the last 8 weeks: None Family Hx:: Unable to obtain Review of Systems - Review of Systems Review of systems:: pertinent systems reviewed and negative unless documented below - Constitutional Denies body ache(s) - Eyes Denies blurry vision - ENT Reports abnormal hearing, Denies ear discharge - *Cardiovascular Denies chest pain, Denies shortness of breath - *Respiratory Denies change in phlegm color - *Gastrointestinal Reports loose stools, Reports loose stools, Denies abdominal pain - *Genitourinary Denies urinary incontinence - *Musculoskeletal Denies joint pain - Integumentary/Breasts Denies rash - *Neurologic Reports weakness, Denies seizure-like activity - Psychiatric Denies abnormal sleep pattern - Endocrine Denies excessive sweating - Hematologic/Lymphatic Denies easy bruising - Allergic/Immunologic Denies wheezing Exam Vital signs and Labs for Last 24 Hours: Temp Pulse Resp BP Pulse Ox 98.1 F 97 H 17 135/96 H 94 L 09/04/21 08:00 09/04/21 08:00 09/04/21 08:00 09/04/21 08:00 09/04/21 08:00 Laboratory Results - last 24 hr 09/03/21 20:03: Urine Color Yellow, Urine Appearance Clear, Urine pH 5.5, Ur Specific [place] 1.025, Urine Protein Negative, Urine Glucose (UA) Negative, Urine Ketones Negative, Urine Blood Negative, Urine Nitrate Negative, Urine Bilirubin Negative, Urine Urobilinogen 0.2, Ur Leukocyte Esterase Negative, Urine RBC Occasional, Urine Bacteria 1+ 09/03/21 20:03: WBC 7.1, RBC 4.12 L, Hgb 12.2, Hct 39.3, MCV 95.4, MCH 29.6, MCHC 31.0 L, RDW 18.4 H, Plt Count 191, MPV 9.9, Neut % (Auto) 83.2 H, Lymph % (Auto) 12.0, [place] % (Auto) 4.2, Eos % (Auto) 0.2, Baso % (Auto) 0.4, Neut # (Auto) 5.9, Lymph # (Auto) 0.9, [place] # (Auto) 0.3, Eos # (Auto) 0.0, Baso # (Auto) 0.0 09/03/21 20:03: Sodium 142, Potassium 4.6, Chloride 107, Carbon Dioxide 27, Anion Gap 12.6, BUN 12, Creatinine 0.60, Estimated Creat Clear 21, Estimated GFR 95, Est GFR ( Amer) 116, Glucose 92, Calcium 8.8, Total Bilirubin 0.9, AST 30, ALT 11 L, Alkaline Phosphatase 162 H, C-Reactive Protein 99.8 H, Total Protein 7.6, Albumin 3.9, Globulin 3.7 H, Albumin/Globulin Ratio 1.1 09/03/21 20:03: Amylase 49, Procalcitonin 9.10 H 09/03/21 20:03: Lipase 42 09/03/21 21:15: SARS-CoV-2 (PCR) Not detected, Influenza A Untype (PCR) Not detected, Influenza Type B (PCR) Not detected 09/04/21 05:11: WBC 6.6, RBC 3.25 L, Hgb 9.5 L D, Hct 31.7 L, MCV 97.5, MCH 29.4, MCHC 30.1 L, RDW 18.7 H, Plt Count 175, MPV 9.3, Neut % (Auto) 77.0, Lymph % (Auto) 17.7, [place] % (Auto) 4.2, Eos % (Auto) 0.9, Baso % (Auto) 0.2, Neut # (Auto) 5.1, Lymph # (Auto) 1.2, [place] # (Auto) 0.3, Eos # (Auto) 0.1, Baso # (Auto) 0.0 09/04/21 05:11: Pascual
--- NOTE | 2021-09-04 14:50 | HMH.PHAINT ---
Addendum entered and electronically signed by Sanya Mcmahan PharmD 09/04/21 14:51: CORRECTION: DISCUSSED HOW TO TAKE VANCOMYCIN. DISCUSSED SIDE EFFECTS (UPSET STOMACH, TAKE WITH FOOD) AND THE TAPER REGIMEN. PATIENT ENDORSED NO QUESTIONS AT THIS TIME. Original Note: DISCHARGE MEDICATION COUNSELING PROVIDED. DISCUSSED HOW TO TAKE NORCO, POSSIBLE SIDE EFFECTS (DIZZINESS, SEDATION, UPSET STOMACH), TAKE WITH FOOD. PATIENT ENDORSED NO QUESTIONS AT THIS TIME.
[2021-09-04 16:00] VITALS: BP 162/99; PULSE 94; RESP 18; TEMP 36.7; O2SAT 93
== END 2021-09-04 19:11 | disposition home or self-care (01) ==
LOC: ER 21:17 → ICU 23:53
PROVIDERS: Emergency Medicine; Admitting Provider Emergency Medicine; Emergency Provider Emergency Medicine; PCP Emergency Medicine; Visit Provider Emergency Medicine
DX: A04.72 Enterocolitis due to Clostridium difficile, not specified as recurrent (principal); I25.10 Atherosclerotic heart disease of native coronary artery without angina pectoris; K21.9 Gastro-esophageal reflux disease without esophagitis; I10 Essential (primary) hypertension; E78.5 Hyperlipidemia, unspecified; Z79.899 Other long term (current) drug therapy; Z20.822 Contact with and (suspected) exposure to COVID-19
CPT/HCPCS: G0378; 36415; 80048; 80053; 81001; 82150; 83690; 83735; 84145; 85025; 86140; 96365; 96367; 99284; C9803; J2405; Q9967; U0003; U0005

== ENCOUNTER 2021-09-17 11:52 | Observation (INO) | payer MEDICARE, MEDICAID, SELFPAY ==
[2021-09-17] VITALS (22 sets, daily range): BP systolic 132–202; BP diastolic 63–124; PULSE 82–111; RESP 16–17; TEMP 36.6–36.9; O2SAT 92–100; BMI 17.4; BMI 18.7
--- NOTE | 2021-09-17 12:05 | XR_ITS ---
FINAL REPORT CLINICAL HISTORY: ams COMPARISON: August 04, 2021 FINDINGS: The heart size is normal. The mediastinum is normal. There is mild right lung base opacity favoring atelectasis. There are no pleural effusions. There is no pneumothorax. There are bowel loops below the elevated right hemidiaphragm. There is severe thoracolumbar scoliosis. There is degenerative change of the shoulders. IMPRESSION: Mild right base opacity favoring atelectasis. Reviewed, Interpreted and Dictated by Mark Rea III, MD Transcribed by Fady Zendejas Authenticated by Mark Rea III, MD on 09/17/2021 01:03:39 PM [facility]
--- NOTE | 2021-09-17 12:05 | CT_ITS ---
FINAL REPORT TECHNIQUE: After the administration of intravenous contrast, axial images were obtained through the abdomen and pelvis by computed tomography. This study was performed with technique to keep radiation doses as low as reasonably achievable, (ALARA). Individualized dose reduction techniques using automated exposure control or adjustment of the MA and/or KV according to the patient's size were employed. CLINICAL HISTORY: abd pain COMPARISON: 08/05/2021 FINDINGS: Abdomen: The lung bases demonstrate atelectasis or scarring. Several, small nonspecific pulmonary nodules are seen. There is a large hiatal hernia with most of the stomach above the diaphragm. Paucity of intra-abdominal and intrapelvic fat as well as severe dextroscoliosis limits evaluation of the abdomen and pelvis. 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 There is moderate distention of the gallbladder which is presumably within the mid pelvis. Solid abdominal organs are without definite acute abnormality. There are postoperative changes of the left femur. Chronic superior and inferior pubic rami fractures are seen. IMPRESSION: Limited exam due to severely distorted patient anatomy. Large hiatal hernia. Left splenic artery aneurysm. No definite acute inflammatory process of the abdomen or pelvis. Reviewed, Interpreted and Dictated by Mark Rea III, MD Transcribed by Stacia Walters Authenticated by Mark Rea III, MD on 09/17/2021 03:20:33 PM [facility]
[2021-09-17 12:14] LABS: POC Glucose,Bedside 143 (70-110)
--- NOTE | 2021-09-17 12:27 | CT_ITS ---
FINAL REPORT CLINICAL HISTORY: right lower extremity wekaness COMPARISON: 08/07/2021 FINDINGS: Axial images of the head were obtained without contrast. Coronal reformatted images were also obtained. This study was performed with techniques to keep radiation doses as low as reasonably achievable (ALARA). Individualized dose reduction techniques using automated exposure control or adjustment of mA and/or kV according to the patient''s size were employed. There is generalized age-appropriate atrophy. Periventricular low-attenuation areas are seen consistent with severe chronic ischemic changes. There is bilateral frontal lobe encephalomalacia. There is no evidence of intracranial hemorrhage or mass. There is no evidence of acute infarct. There is no evidence of shift of the midline structures. No skull abnormality is seen on the bone window images. IMPRESSION: Atrophy and severe periventricular chronic ischemic changes with bilateral frontal lobe encephalomalacia. No acute intracranial abnormality identified. Reviewed, Interpreted and Dictated by Mark Rea III, MD Transcribed by Stacia Walters Authenticated by Mark Rea III, MD on 09/17/2021 03:21:35 PM [facility]
[2021-09-17 13:15] LABS: Basophils % 0.1 % (0.1-2.0); Eosinophils % 0.1 % (0.1-12.0); Hematocrit 36.5 % (37.0-47.0); Hemoglobin 11.2 g/dL (12.2-16.2); Lymphocytes # 0.5 K/mm3 (0.7-4.5); Lymphocytes % 6.9 % (10-50); Mean Corpuscular HGB Conc 30.7 g/dL (31.8-35.4); Mean Corpuscular Hemoglobin 29.7 pg (27.0-31.2); Mean Corpuscular Volume 96.5 fl (81-99); Mean Platelet Volume 9.9 fl (7.4-10.4); Monocytes # 0.3 K/mm3 (0.1-1.0); Monocytes % 3.8 % (1.7-9.3); Neutrophils # 6.6 K/mm3 (1.8-7.8); Neutrophils % 89.2 % (37.0-80.0); Platelet Count 162 K/mm3 (142-424); Red Blood Count 3.79 M/mm3 (4.20-5.40); Red Cell Distribution Width 18.9 % (11.5-17.5); White Blood Count 7.4 K/mm3 (4.8-10.8)
[2021-09-17 13:18] LABS: MANUAL DIFFERENTIAL MANUAL DIFFERENTIAL (MANUAL DIFF)
[2021-09-17 13:21] LABS: Chloride 108 mmol/L (98-107); Sodium 145 mmol/L (136-145)
[2021-09-17 13:22] LABS: Potassium 3.7 mmoL/L (3.5-5.1)
--- NOTE | 2021-09-17 13:23 | HMH.EDGENADL ---
ED Disposition Clinical Impression: Altered mental status Disposition: Admitted As Inpatient Condition on Discharge: Good - Critical Care Critical Care Time: No Attestation: On 09/17/21, the high probability of a clinically significant, sudden or life threatening deterioration of the following system(s) required my full and direct attention, intervention and personal management. The time I documented below is in addition to time spent performing reported procedures but includes the following listed in this critical care notation. Medical Decision Making - Medical Records Medical records reviewed: Yes: I reviewed the patient's medical records. - Jm Inquiry Pt receiving controlled substance: No Vital Signs: 09/17/21 11:53 09/17/21 12:30 09/17/21 12:59 Temperature 97.8 F Temperature Source Oral Pulse Rate 105 H 109 H Pulse Rate [Left Radial] 111 H Respiratory Rate 16 Blood Pressure 157/103 H 155/100 H Blood Pressure [Right Arm] 135/93 H Blood Pressure Mean 118 124 Blood Pressure Mean [Right Arm] 107 Blood Pressure Source Blood Pressure Source [Right Arm] Automatic Cuff Blood Pressure Position Blood Pressure Position [Right Arm] Sitting 02 Sat by Pulse Oximetry 92 L 99 98 Oxygen Delivery Method Nasal Cannula Oxygen Flow Rate (LPM) 2 09/17/21 13:09 09/17/21 13:30 09/17/21 14:00 Temperature Temperature Source Pulse Rate 108 H 104 H 104 H Pulse Rate [Left Radial] Respiratory Rate Blood Pressure 155/100 H 152/96 H 158/94 H Blood Pressure [Right Arm] Blood Pressure Mean 114 115 Blood Pressure Mean [Right Arm] Blood Pressure Source Blood Pressure Source [Right Arm] Blood Pressure Position Blood Pressure Position [Right Arm] 02 Sat by Pulse Oximetry 97 99 99 Oxygen Delivery Method Nasal Cannula Oxygen Flow Rate (LPM) 2 09/17/21 14:30 09/17/21 15:00 09/17/21 15:31 Temperature Temperature Source Pulse Rate 98 H 99 H 98 H Pulse Rate [Left Radial] Respiratory Rate Blood Pressure 158/96 H 161/97 H 202/124 H Blood Pressure [Right Arm] Blood Pressure Mean 109 115 150 Blood Pressure Mean [Right Arm] Blood Pressure Source Blood Pressure Source [Right Arm] Blood Pressure Position Blood Pressure Position [Right Arm] 02 Sat by Pulse Oximetry 100 100 100 Oxygen Delivery Method Oxygen Flow Rate (LPM) 09/17/21 16:00 09/17/21 16:05 09/17/21 16:30 Temperature Temperature Source Pulse Rate 95 H 98 H 98 H Pulse Rate [Left Radial] Respiratory Rate Blood Pressure 191/113 H 173/106 H 197/117 H Blood Pressure [Right Arm] Blood Pressure Mean 139 128 129 Blood Pressure Mean [Right Arm] Blood Pressure Source Blood Pressure Source [Right Arm] Blood Pressure Position Blood Pressure Position [Right Arm] 02 Sat by Pulse Oximetry 100 100 100 Oxygen Delivery Method Oxygen Flow Rate (LPM) 09/17/21 17:00 09/17/21 17:30 09/17/21 17:58 Temperature Temperature Source Pulse Rate 95 H 96 H 95 H Pulse Rate [Left Radial] Respiratory Rate Blood Pressure 177/108 H 195/121 H 183/111 H Blood Pressure [Right Arm] Blood Pressure Mean 122 145 150 Blood Pressure Mean [Right Arm] Blood Pressure Source Blood Pressure Source [Right Arm] Blood Pressure Position Blood Pressure Position [Right Arm] 02 Sat by Pulse Oximetry 100 100 100 Oxygen Delivery Method Oxygen Flow Rate (LPM) 09/17/21 17:59 09/17/21 18:00 Temperature 98.4 F Temperature Source Pulse Rate 86 87 Pulse Rate [Left Radial] Respiratory Rate 16 Blood Pressure 140/92 H 136/89 Blood Pressure [Right Arm] Blood Pressure Mean 109 Blood Pressure Mean [Right Arm] Blood Pressure Source Automatic Cuff Blood Pressure Source [Right Arm] Blood Pressure Position Sitting Blood Pressure Position [Right Arm] 02 Sat by Pulse Oximetry 100 Oxygen Delivery Method Nasal Cannula Oxy
[2021-09-17 13:24] LABS: Alanine Aminotransferase 9 U/L (12-78); Albumin Level 3.3 g/dl (3.5-5.0); Albumin/Globulin Ratio 0.9 (1.1-1.8); Alkaline Phosphatase 111 U/L (38-126); Anion Gap 4.7 mEq/L (5-15); Aspartate Amino Transferase 26 U/L (14-36); Bilirubin,Total 0.4 mg/dl (0.2-1.3); Blood Urea Nitrogen 27 mg/dl (7-17); Carbon Dioxide 36 mmol/L (22.0-30.0); Creatinine Clearance Estimated 17 mL/min (50-200); Estimated Glomerular Filt Rate 60 ml/min (>60); GFR (African American) 72 ML/MIN (>60); Globulin 3.6 g/dL (1.3-3.2); Total Protein,Serum 6.9 g/dl (6.3-8.2)
[2021-09-17 13:25] LABS: Calcium 8.6 mg/dl (8.4-10.2); Glucose 155 mg/dl (74-100); Lactic Acid 0.9 mmol/L (0.7-2.1)
--- NOTE | 2021-09-17 13:33 | PC.NURSE ---
Patient to CT with auto tech
[2021-09-17 13:40] LABS: Lymphocytes % 4 % (10-50); Monocytes % 6 % (2-9); Neutrophils % 90 % (42-76); Total Cells Counted 100; Troponin I 0.15 ng/ml (0.00-0.034)
[2021-09-17 13:41] LABS: Platelet Estimate Normal
--- NOTE | 2021-09-17 13:53 | PC.NURSE ---
Patient back from CT?
[2021-09-17 14:44] LABS: Microscopic, Urine URINE MICROSCOPIC (MICROSCOPIC)
[2021-09-17 14:46] LABS: Coronavirus 19, PCR Not Detected (NotDetected); Influenza A, PCR Not Detected (NotDetected); Influenza B, PCR Not Detected (NotDetected)
[2021-09-17 14:49] LABS: Appearance,Urine CLEAR (Clear); Bilirubin,Urine Negative (Negative); Blood, Urine 3+ (Negative); Color,Urine YELLOW (Yellow); Glucose,Urine (UA) Negative (Negative); Ketones,Urine Negative (Negative); Leukocyte Esterase,Urine 2+ (Negative); Nitrate,Urine POSITIVE (Negative); PH,Urine 5.5 (5.0-8.5); Protein,Urine TRACE (Negative); Urobilinogen,Urine 0.2 EU/dl (0.2)
[2021-09-17 15:06] LABS: Bacteria,Urine 1+ /lpf
--- NOTE | 2021-09-17 15:46 | PC.NURSE ---
Called Dr. Poncho alonzo MD
[2021-09-17 15:55] LABS: Troponin I 0.14 ng/ml (0.00-0.034)
--- NOTE | 2021-09-17 16:20 | PC.NURSE ---
HOUSE CALLED FOR ADMISSION
--- NOTE | 2021-09-17 17:34 | PC.NURSE ---
Report given to Alyssia LIAO MD aware of bp, ordering meds
[2021-09-18] VITALS: BP 153/87; PULSE 65; RESP 20; TEMP 36.8; O2SAT 95
--- NOTE | 2021-09-18 01:35 | PC.NURSE ---
pt picked at scab on forehead and opened scab, moderate sanguineous drainage, placed 4x4 on area and wrapped with kerlex
--- NOTE | 2021-09-18 02:10 | PC.NURSE ---
mild sanguineous drainage on pt's head dressing, removed and applied new dressing
[2021-09-18 04:22] VITALS: BP 146/83; PULSE 87; RESP 19; TEMP 36.8; O2SAT 92
[2021-09-18 05:24] VITALS: BMI 17.4
--- NOTE | 2021-09-18 07:22 | P.CONPHA_ITS ---
[facility] Pharmacy VTE Monitoring - Patient Demographics Admission date: 09/17/21 Report Date: 09/18/21 Time: 07:22 Allergies/Adverse Reactions: Patient Allergies No Known Allergies Allergy (Verified 09/11/21 10:05) Height: 1.22 m Weight: 25.855 kg Patient Problems: Current Active Problems Altered mental status (Acute) - VTE Risk Labs: VTE Related Lab Results Hgb 11.2 g/dL (12.2-16.2) L 09/17/21 13:00 Hct 36.5 % (37.0-47.0) L 09/17/21 13:00 Plt Count 162 K/mm3 (142-424) 09/17/21 13:00 BUN 27 mg/dl (7-17) H 09/17/21 13:00 Creatinine 0.90 mg/dl (0.52-1.04) 09/17/21 13:00 Estimated Creat Clear 17 mL/min (50-200) 09/17/21 13:00 - Prophylaxis VTE Prophylaxis Ordered?: Yes Types of VTE Prophylaxis: TEDS Knee High Location of Applied Device: Bilateral Lower Extremeties
[2021-09-18 07:52] VITALS: BP 162/94; PULSE 85; RESP 24; TEMP 36.4; O2SAT 93
[2021-09-18 08:00] VITALS: PULSE 85; O2SAT 93
--- NOTE | 2021-09-18 08:23 | HMH.HP ---
*Admission Date: 09/17/21 [facility] History Medical History: Reports:: Coronary Artery Disease, Cerebrovascular Accident, Gastroesophageal Reflux Disease(GERD), Heart Murmur, Hyperlipidemia, Hypertension, Myocardial Infarction, Valvular Heart Disease Denies:: Cancer, Diabetes Mellitus Type 1, Diabetes Mellitus Type 2, Internal Pacemaker, MRSA, Seizures *Have you ever received a pneumonia vaccine?: Yes *Have you received a flu vaccine this season?: Yes Other Medical History: Reports: Anemia, Arthritis, Cataracts Laterality Cases: Left: Arthroscopy Hip, Bilateral: Breast Biopsy, Mastectomy Other Surgeries: Yes: Colonoscopy, Tubal Ligation, Other. No: Pacemaker Amputation: No Fractures: Yes (left hip and ribs) - *Social History Smoking Status: Never smoker Alcohol Intake: never Substance Use Type: denies use *Occupational Status:: disabled Housing: house Household Members: family *Travel in the last 8 weeks: None Family Hx:: Cancer, Diabetes, Heart Attack, Hypertension Meds Home Medications Medication Instructions Recorded Confirmed Type Multivitamin [Multi-Vitamin Plain] 1 each PO DAILY 03/15/21 09/17/21 History Potassium Chloride 15 ml PO DAILY 06/22/21 09/17/21 History Metoprolol Succinate [Metoprolol See Rx Instructions .ROUTE .COMPLEX 09/17/21 09/17/21 History Succinate 25mg Tablet*] Vancomycin HCl 125 mg PO Q6H 09/17/21 09/17/21 History Allergies Allergy/AdvReac Type Severity Reaction Status Date / Time No Known Allergies Allergy Verified 09/11/21 10:05 Exam Vital signs and Labs for Last 24 Hours: Temp Pulse Resp BP Pulse Ox 97.6 F 85 24 162/94 H 93 L 09/18/21 07:52 09/18/21 07:52 09/18/21 07:52 09/18/21 07:52 09/18/21 07:52 Laboratory Results - last 24 hr 09/17/21 12:07: POC Glucose 143 H 09/17/21 13:00: WBC 7.4, RBC 3.79 L, Hgb 11.2 L, Hct 36.5 L, MCV 96.5, MCH 29.7, MCHC 30.7 L, RDW 18.9 H, Plt Count 162, MPV 9.9, Neut % (Auto) 89.2 H, Lymph % (Auto) 6.9 L, [place] % (Auto) 3.8, Eos % (Auto) 0.1, Baso % (Auto) 0.1, Neut # (Auto) 6.6, Lymph # (Auto) 0.5 L, [place] # (Auto) 0.3, Eos # (Auto) 0.0, Baso # (Auto) 0.0, Total Counted 100, Neutrophils % (Manual) 90 H, Lymphocytes % (Manual) 4 L, Monocytes % (Manual) 6, Platelet Estimate Normal 09/17/21 13:00: Sodium 145, Potassium 3.7, Chloride 108 H, Carbon Dioxide 36 H, Anion Gap 4.7 L, BUN 27 H, Creatinine 0.90, Estimated Creat Clear 17, Estimated GFR 60, Est GFR ( Amer) 72, Glucose 155 H, Calcium 8.6, Total Bilirubin 0.4, AST 26, ALT 9 L, Alkaline Phosphatase 111, Troponin I 0.15 H, Total Protein 6.9, Albumin 3.3 L, Globulin 3.6 H, Albumin/Globulin Ratio 0.9 L 09/17/21 13:00: Lactate 0.9 09/17/21 14:40: Urine Color Yellow, Urine Appearance Clear, Urine pH 5.5, Ur Specific [place] 1.010, Urine Protein Trace, Urine Glucose (UA) Negative, Urine Ketones Negative, Urine Blood 3+, Urine Nitrate Positive, Urine Bilirubin Negative, Urine Urobilinogen 0.2, Ur Leukocyte Esterase 2+ A, Urine RBC 10-20, Urine WBC 10-20, Ur Squamous Epith Cells None, Urine Bacteria 1+ 09/17/21 14:40: SARS-CoV-2 (PCR) Not detected, Influenza A Untype (PCR) Not detected, Influenza Type B (PCR) Not detected 09/17/21 15:24: Troponin I 0.14 H I & O for Last 24 hours: Intake & Output 09/15/21 09/16/21 09/17/21 09/18/21 23:59 23:59 23:59 23:59 Intake Total 120 / 120 Balance 120 / 120 Weight 61 lb 7 oz 57 lb
[2021-09-18 09:19] VITALS: BMI 17.3
--- NOTE | 2021-09-18 09:34 | SW/DCPLANNER ---
Addendum entered by Mindy Phipps 09/18/21 11:22: Per Dinesh patients family is now interested in Hospice Care. Patient information has been faxed to Victorina cardoso/ [facility]: I have informed Victorina that the plan is to discharge home today and they can follow up at home. Original Note: This patient currently resides at home with her granddaughter (Mindy) and is currently established with [facility]. I spoke with Mindy this AM regarding discharge plans: Mindy is adamant that patient return home and resume home health services. I did speak with Mindy regarding placement for this patient: denies the need for placement. I informed Dr Isaac/Dinesh of discharge plans: discharge date is unknown at this time.
--- NOTE | 2021-09-18 10:46 | HMH.PHAINT ---
home medication list verified using list from [facility] pharmacy
--- NOTE | 2021-09-18 10:47 | HMH.PTEV ---
Physical Therapy Evaluation Rehab PT IP Evaluation Start: 09/18/21 08:37 Freq: ONCE Status: Active Protocol: Document 09/18/21 10:37 LENNY (Rec: 09/18/21 10:47 LENNY [id number]) Subjective/History History History Miss Muro is a 81 yo female w/ PMH for multiple comorbidities including recent diagnosis of C diff on vancomyosin who presents to the ED for altered mental status today and diffuse abdominal pain. Patient is afebrile and hemodynamically stable on arrival, non toxic appearing. Physical exam patient has moderate diffuse abdominal tenderness, non peritonitic no rebound or guarding. Patient otherwise is cachectic appearing and frail . Patient is confused and unable to respond to basic commands copied from ER H&P Subjective Subjective Pt reports she does not wish to get OOB - pt known to therapy from last several IP stays Rehab PT IP Eval Objective Appearance Patient Behavior Passive,Fatigued Patient Orientation Place,Name,Birthday,Year Difficulty following instructions mild Speech Pattern Delayed,Soft-Spoken,Poor Articulation Ambulation Patient Able to Ambulate No Balance Ability to Arise Unable Sitting Balance Leans or slides in chair Standing Balance Unsteady Dynamic Sitting Balance Ability Poor Dynamic Standing Balance Ability Zero Transfers Bed Transfer Ability Maximum x 1 (75% assist) Rehab PT IP prob,goals,plan Problems Date of Evaluation: 09/18/21 Rehab Potential Rehab Potential Innapropriate for Skilled Therapy Discharge Plan PT Discharge Plan Pt innapropriate for skilled therapy at this time - unable to tolerate therapy at this time - If pt improves please re-order therapy G -code Required Yes Eval Complexity Eval Charge Codes 94102 - High Complexity G Codes PT Current Status Mobility PT Current Status Modifi
--- NOTE | 2021-09-18 10:57 | HMH.OTEV ---
OT Inpatient Evaluation Rehab OT IP Evaluation Start: 09/18/21 08:38 Freq: ONCE Status: Complete Protocol: Document 09/18/21 10:36 [facility] (Rec: 09/18/21 10:57 [facility] [id number]) Rehab OT IP Assessment Subjective History Pt oriented x 3 on arrival. Pt was admitted via ED on 09/17. The following information was copied from ER documentation: Miss Muro is a 81 yo female w/ PMH for multiple comorbidities including recent diagnosis of C diff on vancomyosin who presents to the ED for altered mental status today and diffuse abdominal pain. Patient is afebrile and hemodynamically stable on arrival, non toxic appearing. Physical exam patient has moderate diffuse abdominal tenderness, non peritonitic no rebound or guarding. Patient otherwise is cachectic appearing and frail . Patient is confused and unable to respond to basic commands. Differentials to consider include infectious etiology, most likely being UTI, viral mediated illness, however cannot exclude pneumonia, bacteremia/sepsis however unlikely given current clinical picture, acute intracranial process, metabolic/electrolte derangement. Basic labs, UA, CXR, CT head, trop, and covid swab are obtained for further evaluation results remarkable for UTI. Trop mildly elevated .15 and .14 respectively likely in setting of pre-renal process will not investigate furhter. ECG shows no acute ischemic changes. Patient is started on rocephin. Patient is admitted to medicine team for further management.
--- NOTE | 2021-09-18 11:00 | HMH.HPDC ---
General - General Admission date:: 09/17/21 Discharge date: 09/18/21 *Admission Date: 09/17/21 *Chief complaint: Weakness, Abdominal pain *History of present illness: 81-year-old female patient presented to the [facility] emergency department with granddaughter for reports of generalized abdominal pain and confusion. She is currently being treated for ongoing C. difficile with oral vancomycin per instruction. Granddaughter denies fever/chills/body aches or nausea/vomiting/diarrhea or any change in bowel movements or urinary symptoms. Patient was reporting pain during abdominal exam but would not elaborate. White blood cell count normal, H/H stable Chemistries unactionable, troponin slightly elevated at 0.14 Urine with 2+ leukocytes, 3+ blood, and positive nitrates, she did receive Ceftriaxone in ED [facility] History I have reviewed the patient's past medical history: Yes Medical History: Reports:: Coronary Artery Disease, Cerebrovascular Accident, Gastroesophageal Reflux Disease(GERD), Heart Murmur, Hyperlipidemia, Hypertension, Myocardial Infarction, Valvular Heart Disease Denies:: Cancer, Diabetes Mellitus Type 1, Diabetes Mellitus Type 2, Internal Pacemaker, MRSA, Seizures *Have you ever received a pneumonia vaccine?: Yes *Have you received a flu vaccine this season?: Yes Other Medical History: Reports: Anemia, Arthritis, Cataracts Laterality Cases: Left: Arthroscopy Hip, Bilateral: Breast Biopsy, Mastectomy Other Surgeries: Yes: Colonoscopy, Tubal Ligation, Other. No: Pacemaker Amputation: No Fractures: Yes (left hip and ribs) - *Social History Smoking Status: Never smoker Alcohol Intake: never Substance Use Type: denies use *Occupational Status:: disabled Housing: house Household Members: family *Travel in the last 8 weeks: None Family Hx:: Cancer, Diabetes, Heart Attack, Hypertension Review of Systems - Review of Systems Review of systems:: unable to obtain Exam Vital signs and Labs for Last 24 Hours: Temp Pulse Resp BP Pulse Ox 97.6 F 85 24 162/94 H 93 L 09/18/21 07:52 09/18/21 08:00 09/18/21 07:52 09/18/21 07:52 09/18/21 08:00 Laboratory Results - last 24 hr 09/17/21 12:07: POC Glucose 143 H 09/17/21 13:00: WBC 7.4, RBC 3.79 L, Hgb 11.2 L, Hct 36.5 L, MCV 96.5, MCH 29.7, MCHC 30.7 L, RDW 18.9 H, Plt Count 162, MPV 9.9, Neut % (Auto) 89.2 H, Lymph % (Auto) 6.9 L, [place] % (Auto) 3.8, Eos % (Auto) 0.1, Baso % (Auto) 0.1, Neut # (Auto) 6.6, Lymph # (Auto) 0.5 L, [place] # (Auto) 0.3, Eos # (Auto) 0.0, Baso # (Auto) 0.0, Total Counted 100, Neutrophils % (Manual) 90 H, Lymphocytes % (Manual) 4 L, Monocytes % (Manual) 6, Platelet Estimate Normal 09/17/21 13:00: Sodium 145, Potassium 3.7, Chloride 108 H, Carbon Dioxide 36 H, Anion Gap 4.7 L, BUN 27 H, Creatinine 0.90, Estimated Creat Clear 17, Estimated GFR 60, Est GFR ( Amer) 72, Glucose 155 H, Calcium 8.6, Total Bilirubin 0.4, AST 26, ALT 9 L, Alkaline Phosphatase 111, Troponin I 0.15 H, Total Protein 6.9, Albumin 3.3 L, Globulin 3.6 H, Albumin/Globulin Ratio 0.9 L 09/17/21 13:00: Lactate 0.9 09/17/21 14:40: Urine Color Yellow, Urine Appearance Clear, Urine pH 5.5, Ur Specific [place] 1.010, Urine Protein Trace, Urine Glucose (UA) Negative, Urine Ketones Negative, Urine Blood 3+, Urine Nitrate Positive, Urine Bilirubin Negative, Urine Urobilinogen 0.2, Ur Leukocyte Esterase 2+ A, Urine RBC 10-20, Urine WBC 10-20, Ur Squamous Epith Cells None, Urine Bacteria 1+ 09/17/21 14:40: SARS-CoV-2 (PCR) Not detected, Influenza A Untype (PCR) Not detected, Influenza Type B (PCR) Not detected 09/17/21 15:24: Troponin I 0.14 H I & O for Last 24 hours: Intake & Output 09/15/21 09/16/21 09/17/21 09/18/21 23:59 23:59 23:59 23:59 Intake Total 120 / 120 Balance 120 / 120 Weight 61 lb 7 oz 56 lb 14.068 oz Microbiology Reports for the Last 24 Hours: Microbiology 09/17/21 14:40 Urine,Catheterized Urine Culture - Preliminary
--- NOTE | 2021-09-18 11:43 | HMH.SLDYSPHA ---
Speech & Language Evaluation Speech/Language Dysphagia Evaluation Start: 09/18/21 11:39 Freq: ONCE Status: Active Protocol: Document 09/18/21 11:39 ASHLEY (Rec: 09/18/21 11:43 ASHLEY [id number]) Dysphagia Assess/Goals/Plan Assessment Date of Evaluation: 09/18/21 Evaluation Type Initial Certification Assessment/Problems Dysphagia Does Patient Qualify for Service No Qualify/Failure Comment Diet recommendations made. No overt signs/symptoms of dysphagia Recommendations PHYSICIAN CERTIFICATION: The specified therapy services are required, authorized, and reviewed every 30 days. Diet Recommendations Mechanical Soft Liquid Type Recommendations Normal/Thin SL Swallow Guidelines Standard Aspiration Prec. Dysphagia Swallow Precautions/Strategies Sitting Upright (90 deg),Small Bites and Sips,Alternate Liquids/Solids Plan Pt/Guardian verbally ack understanding Yes: RN and CM notified of dx/prognosis/goals G -code Required No Speech & Language HPI Language Primary Language Sammarinese General Information General Current Food Consistancy Regular,Thin Liquids Dentition Edentulous Oxygen Status Room Air Facial Symmetry Symmetrical Ability to Follow Directions Fair Communication Ability Mild Impairment Dysphagia:Food Presentation Evaluation Food Type Pureed,Mechanical Soft,Liquid, Pudding Dysphagia Evaluation Summary Ms. Muro was given the following consistencies: thins via straw and open cup, pudding, pureed, mechanical soft, and liquid medicine. No overt signs or symptoms of dysphagia were noted during evaluation. At this time, it is recommended that Ms. uMro be placed on mechanical soft diet with thin liquids due to lack of dentition. Speech Therapy is not warranted at this time. Stroke Dysphagia Assessment PHYSICIAN CERTIFICATION: I certify the specified therapy services for Jennifer Muro are required, authorized, and reviewed every 30 days.
--- NOTE | 2021-09-18 13:19 | PC.NURSE ---
Received notification from Caitlyn Hall earlier in the shift that pt will be able to be dc/picked up around 1800 this evening by family.
[2021-09-18 16:00] VITALS: BP 132/73; PULSE 75; RESP 22; TEMP 36.6; O2SAT 92
[2021-09-18 16:40] LABS: Chloride 108 mmol/L (98-107); Potassium 3.3 mmoL/L (3.5-5.1); Sodium 144 mmol/L (136-145)
[2021-09-18 16:42] LABS: Alanine Aminotransferase 8 U/L (12-78); Aspartate Amino Transferase 23 U/L (14-36); Blood Urea Nitrogen 19 mg/dl (7-17); Creatinine Clearance Estimated 17 mL/min (50-200); Estimated Glomerular Filt Rate 95 ml/min (>60); GFR (African American) 116 ML/MIN (>60)
[2021-09-18 16:43] LABS: Albumin Level 3.1 g/dl (3.5-5.0); Albumin/Globulin Ratio 0.9 (1.1-1.8); Alkaline Phosphatase 105 U/L (38-126); Anion Gap 3.3 mEq/L (5-15); Bilirubin,Total 0.4 mg/dl (0.2-1.3); Calcium 8.3 mg/dl (8.4-10.2); Carbon Dioxide 36 mmol/L (22.0-30.0); Globulin 3.4 g/dL (1.3-3.2); Glucose 127 mg/dl (74-100); Total Protein,Serum 6.5 g/dl (6.3-8.2)
--- NOTE | 2021-09-18 18:16 | PC.NURSE ---
pt has tolerated ivf well, unable to infuse at 100ml/hr r/t pt small veins not tolerating large bore needle. pt is bedbound and has been turned q2. pt had speech eval today, needs mech soft diet. lungs are diminished, bowel sounds active. spoke with pt grand daughter who is currently on her way to pick pt up. dc papers to be addressed with pt. family is also bringing clothes for her. nad noted.
== END 2021-09-18 18:51 | disposition hospice, home (50) ==
LOC: ER 11:57 → 2ND 17:04
PROVIDERS: Admitting Provider Emergency Medicine; Emergency Provider Student in an Organized Health Care Education/Training Program; PCP Emergency Medicine; Visit Provider Emergency Medicine
DX: N39.0 Urinary tract infection, site not specified (principal); Z79.899 Other long term (current) drug therapy; E43 Unspecified severe protein-calorie malnutrition; I25.10 Atherosclerotic heart disease of native coronary artery without angina pectoris; K21.9 Gastro-esophageal reflux disease without esophagitis; D64.9 Anemia, unspecified; I10 Essential (primary) hypertension; I25.2 Old myocardial infarction; R64 Cachexia; Z68.1 Body mass index [BMI] 19.9 or less, adult; A04.72 Enterocolitis due to Clostridium difficile, not specified as recurrent; Z20.822 Contact with and (suspected) exposure to COVID-19
CPT/HCPCS: G0378; 36415; 70450; 71045; 74177; 80053; 81001; 82962; 83605; 84484; 85007; 85025; 87086; 87088; 87186; 92610; 96374; 96375; 97163; 97166; 99284; C9803; J0696; J3370; Q9967; U0003; U0005